=== PATIENT | female | born 2000 | race Caucasian/White ===

== ENCOUNTER 2023-12-06 15:46 | Outpatient (OUT) | payer BC, OTHER, SELFPAY ==
[2023-12-06 16:17] LABS: Basophils Percent Auto 0.4 % (0.2-2.0); Eosinophils Absolute Auto 0.2 10^3/uL (0.0-0.7); Eosinophils Percent Auto 1.4 % (0.9-7.0); Hematocrit 45.3 % (36.0-48.0); Hemoglobin 15.3 g/dL (12.0-16.0); Immature Granulocytes Abs Auto 0.04 10^3/uL (0.00-0.03); Immature Granulocytes Pct Auto 0.4 % (0.0-0.5); Lymphocytes Absolute Auto 3.1 10^3/uL (1.2-3.8); Lymphocytes Percent Auto 28.2 % (20.5-60.0); Mean Corpuscular HGB Conc 33.8 g/dL (29.9-35.2); Mean Corpuscular Hemoglobin 28.8 pg (26.7-34.0); Mean Corpuscular Volume 85.2 fL (81.0-99.0); Mean Platelet Volume 8.4 fL (9.5-13.5); Monocytes Absolute Auto 0.5 10^3/uL (0.3-0.8); Monocytes Percent Auto 4.6 % (1.7-12.0); Neutrophils Absolute Auto 7.1 10^3/uL (1.4-6.5); Platelet Count 360 10^3/uL (150-450); Red Blood Count 5.32 10^6/uL (4.20-5.40); Red Cell Distribution Width 13.2 % (11.0-15.0)
[2023-12-06 16:41] LABS: Alanine Aminotransferase 27 U/L (14-59); Albumin Level 4.3 g/dL (3.4-5.0); Alkaline Phosphatase 95 U/L (46-116); Aspartate Amino Transferase 16 U/L (15-37); Bilirubin Direct 0.1 mg/dL (0.0-0.2); Bilirubin Total 0.5 mg/dL (0.2-1.0); Globulin 4.1 g/dL; Total Protein 8.4 g/dL (6.4-8.2)
== END 2023-12-06 15:47 | disposition home or self-care (01) ==
LOC: LAB 15:52
PROVIDERS: PCP Family Medicine
DX: Z79.899 Other long term (current) drug therapy (principal)
CPT/HCPCS: 36415; 80076; 85025

== ENCOUNTER 2023-12-30 11:47 | Outpatient (OUT) | payer BC, OTHER, SELFPAY ==
[2023-12-30 12:28] LABS: Valproic Acid 23.4 ug/mL (50.0-100.0)
== END 2023-12-30 11:48 | disposition home or self-care (01) ==
LOC: LAB 11:50
PROVIDERS: PCP Family Medicine
DX: Z79.899 Other long term (current) drug therapy (principal)
CPT/HCPCS: 36415; 80164

== ENCOUNTER 2024-01-13 11:11 | Outpatient (OUT) | payer BC, OTHER, SELFPAY ==
--- OUTSIDE RECORDS SUMMARY | 2024-01-13 11:22 | XMS_ITS | CCD ---
Author Name Unknown Address [address] [facility] [id number] [place] [address] Organization [facility] Care Team Providers Care Spinner Open End Name Role Phone Glenna Carlin Primary Care Provider [phone] ANDREA PINTO Consulting Unavailable GLENNA CARLIN Primary Care Unavailable RADHA, JUNGSIK Admitting Unavailable DANIELLE VILLARREAL Attending Unavailable HODA GOODSON Consulting Unavailable RADHA, JUNGSIK Consulting Unavailable Franco Rajput Unavailable BERENICE RAMIREZ Admitting Unavailable HOY ., DR MANZANARES Primary Care Unavailable BERENICE RAMIREZ Attending Unavailable SHYLA, DR JENNIFER Guajardo Consulting Unavailabl e DAVIDY ., DR MANZANARES Primary Care Unavailable SHYLA, DR JENNIFER Guajardo Admitting Unavailabl e REINECK, DR JENNIFER Guajardo Attending Unavailabl e HOY ., DR MANZANARES Primary Care Unavailable HOY ., DR MANZANARES Admitting Unavailable HOY ., DR MANZANARES Attending Unavailable HOY ., DR MANZANARES Consulting Unavailable HOY ., DR MANZANARES Primary Care Unavailable HOY ., DR MANZANARES Admitting Unavailable HOY ., DR MANZANARES Attending Unavailable HOY ., DR MANZANARES Consulting Unavailable HOY ., DR MANZANARES Consulting Unavailable HOY ., DR MANZANARES Primary Care Unavailable BERENICE RAMIREZ Attending Unavailable BERENICE RAMIREZ Admitting Unavailable CHARLINE, DR PURVI Ordaz Consulting Unavailable HOY ., DR MANZANARES Admitting Unavailable HOY ., DR MANZANARES Attending Unavailable HOY ., DR MANZANARES Consulting Unavailable HOY ., DR MANZANARES Primary Care Unavailable HOY ., DR MANZANARES Primary Care Unavailable HOY ., DR MANZANARES Admitting Unavailable HOY ., DR MANZANARES Attending Unavailable HOY ., DR MANZANARES Consulting Unavailable ZIEBER, DR PURVI Ordaz Consulting Unavailable Ruthie, Salvatore Attending Unavailab Salvatore Nagel Admitting Unavailab Glenna Michael Primary Care Unavailable Allergies Allergy Classification Reported Allergen(s) Allergy Type Date of Onset Reaction(s) Facility (1 source) Corticosteroids Drug allergy (disorder) [facility] Repository (1 source) Corticosteroids Drug allergy (disorder) 1 [facility] Repository Medications Current Medications Medication Drug Class(es) Dates Sig (Normalized) Sig (Original) acetaminophen 325 mg / HYDROcodone bitartrate 5 mg oral tablet (4 sources) Opioid Agonist Start: 03-25-2020 End: 03-28-2020 take 1 tablet by mouth every six hours as needed for pain HYDROcodone-aceta minophen (NORCO) 5-325 MG per tablet Indications: Dental abscess Take 1 tablet by mouth every 6 hours as needed for Pain for up to 10 doses. 10 tablet 0 03/25/2020 03/28/2020 Active Start: 03-25-2020 HYDROcodone-ac etaminophen (NORCO) 5-325 MG per tablet 1 tablet Start: 03-23-2020 End: 03-25-2020 HYDROcodone-acetaminophen 7. 5-325 MG per 15ML solution 5 mL ALPRAZolam 0.25 mg oral tablet (1 source) Benzodiazepine Start: 03-25-2020 ALPRAZolam (XANAX) tablet 0.25 mg atomoxetine 25 mg oral capsule (1 source) Norepinephrine Reuptake Inhibitor take 1 capsule by mouth every twenty-four hours Strattera 25 MG 1 capsule Orally Once a day Active chlorhexidine gluconate 1.2 mg/ml mouthwash (2 sources) Start: 03-24-2020 End: 04-01-2020 take 15 mL by mouth twice daily chlorhexidine (PERIDEX) 0.12 % solution Take 15 mLs by mouth 2 times daily for 7 days 210 mL 0 03/25/2020 04/01/2020 Active clindamycin 300 mg oral capsule (3 sources) Lincosamide Antibacterial Start: 03-25-2020 End: 04-01-2020 take 2 capsules by mouth every eight hours clindamycin (CLEOCIN) 300 MG capsule Take 2 capsules by mouth every 8 hours for 7 days 42 capsule 0 03/25/2020 04/01/2020 Active Start: 03-25-2020 clindamycin (C LEOCIN) capsule 600 mg Start: 03-24-2020 End: 03-24-2020 900 mg, Intravenous, EVERY 8 HOURS, First dose on Tue03/24/20 at 0130, Until Discontinued DULoxetine 60 mg delayed release oral capsule (2 sources) Serotonin and Norepinephrine Reuptake Inhibitor Start: 03-23-2019 take 2 capsules by mouth once daily DULoxetine (CYMBALTA) 60 MG extended release capsule Take 120 mg by mouth daily Every night 0 03/23/2019 Active take 1 capsule by [facility] every twenty-four hours Cymbalta 60 MG 1 capsule Orally Once a day Active morphine (PF) injection 2 mg (1 source) Start: 03-24-2020 morphine (PF) injection 2 mg omeprazole 40 mg delayed release oral capsule (1 source) Proton Pump Inhibitor take 1 capsule by mouth once daily Omeprazole 40 MG 1 capsule 30 minutes before morning meal Orally Once a day for 30 day(s) Active 2 ml ondansetron 2 mg/ml injection (1 source) Serotonin-3 Receptor Antagonist Start: 03-25-2020 ondansetron (ZOFRAN) injection 4 mg Completed/Discontinued Medications Medication Drug Class(es) Dates Sig (Normalized) Sig (Original) 2 ml fentaNYL 0.05 mg/ml injection (2 sources) Opioid Agonist Start: 03-24-2020 End: 03-24-2020 fentaNYL (SUBLIMAZE) injection 50 mcg 1 ml HYDROmorphone hydrochloride 1 mg/ml cartridge (2 sources) Opioid Agonist Start: 03-24-2020 End: 03-24-2020 HYDROmorphone (DILAUDID) injection 1 mg Start: 03-24-2020 End: 03-24-2020 HYDROmorphone (DILAUDID) 1 M G/ML injection 1 ml ketorolac tromethamine 30 mg/ml cartridge (1 source) Nonsteroidal Anti-inflammatory Drug, Cyclooxygenase Inhibitor Start: 03-23-2020 End: 03-23-2020 ketorolac (TORADOL) injection 30 mg 1 ml LORazepam 2 mg/ml injection (1 source) Benzodiazepine Start: 03-25-2020 End: 03-25-2020 LORazepam (ATIVAN) injection 1 mg Start: 03-25-2020 End: 03-25-2020 LORazepam (ATIVAN) injection 1 mg 1 ml morphine sulfate 4 mg/ml cartridge (1 source) Opioid Agonist Start: 03-23-2020 End: 03-23-2020 morphine injection 2 mg 1000 ml sodium chloride 9 mg/ml injection (1 source) Start: 03-24-2020 End: 03-24-2020 Intravenous, at 75 mL/hr, CONTINUOUS, Starting 03/24/20 at 0115 Problems Active Problems Problem Classification Problem Date Documented Date Episodic/Chronic Diseases of mouth; excluding dental (4 sources) Abscess of oral tissue; Translations: [Abscess of submandibular region] Onset: 03-23-2020 03-23-2020 Episodic Disorders of teeth and jaw (1 source) Dental abscess; Translations: [Dental abscess] Episodic Esophageal disorders (1 source) Gastroesophageal reflux disease; Translations: [Gastro-esophageal reflux disease without esophagitis] Chronic Essential hypertension (1 source) Essential (primary) hypertension; Translations: [ESSENTIAL PRIMARY HYPERTENSION] Onset: 11-22-2022 Chronic Malaise and fatigue (1 source) Weakness; Translations: [WEAKNESS] Onset: 12-20-2022 Episodic Other circulatory disease (2 sources) Elevated blood-pressure reading without diagnosis of hypertension; Translations: [Elevated blood pressure reading without diagnosis of hypertension] Onset: 03-24-2020 03-24-2020 Episodic Other nervous system disorders (4 sources) Compression of brain; Translations: [COMPRESSION OF BRAIN] Onset: 12-16-2022 Chronic Residual codes; unclassified (4 sources) Obstructive sleep apnea (adult) (pediatric); Translations: [OBSTRUCTIVE SLEEP APNEA] Onset: 02-23-2023 Chronic Past or Other Problems Problem Classification Problem Date Documented Da te Episodic/Chronic Deficiency and other anemia (1 source) Anemia, unspecified; Translations: [ANEMIA UNSPECIFIED] Onset: 11-22-2022 Episodic Diabetes mellitus without complication (1 source) Other abnormal glucose; Translations: [OTHER ABNORMAL GLUCOSE] Onset: 11-22-2022 Episodic E Codes: Cut/pierceb (1 source) Contact with sharp glass, initial encounter; Translations: [CONTACT W/SHARP GLASS INITIAL ENC] Onset: 08-31-2022 Episodic Gastritis and duodenitis (2 sources) Gastritis; Translations: [Gastritis, unspecified, without bleeding] Onset: 07-29-2021 Resolved: 07-29-2021 Episodic Nausea and vomiting (1 source) Nausea; Translations: [Nausea] Episodic Open wounds of extremities (4 sources) Puncture wound without foreign body of left hand, initial encounter; Translations: [PUNCTURE WOUND W/O FB LT HAND INIT] Onset: 08-30-2022 Episodic Other disorders of stomach and duodenum (1 source) Indigestion; Translations: [Functional dyspepsia] Episodic Other gastrointestinal disorders (1 source) Loose stool; Translations: [Other fecal abnormalities] Episodic Other gastrointestinal disorders (1 source) Alteration in bowel elimination; Translations: [Change in bowel habit] Episodic Other nervous system disorders (1 source) Unspecified disturbances of skin sensation; Translations: [UNS DISTURBANCES OF SKIN SENSATION] Onset: 11-22-2022 Episodic Other non-traumatic joint disorders (4 sources) Pain in left knee; Translations: [PAIN IN LEFT KNEE] Onset: 11-16-2022 Episodic Other screening for suspected conditions (not mental disorders or infectious disease) (1 source) Encounter for screening for malignant neoplasm of rectum; Translations: [ENC SCREEN MALIG NEOPLASM RECTUM] Onset: 11-22-2022 Episodic Residual codes; unclassified (1 source) Family history of inflammatory bowel disease; Translations: [Family history of other diseases of the digestive system] Episodic Results Test Name Value Interpretation Reference Range Facility MRI BRAIN WO CONon 3 MRI BRAIN WO CON EXAMINATION: MRI BRAIN WO CON, 12/16/2022 9:20 AM EST HISTORY: Compression of brain , Chiari malformation, chronic weakness, right occipital region swelling/lump COMPARISON: MRI brain 07/27/2017 TECHNIQUE: MRI of the brain was performed without IV contrast. FINDINGS: CEREBRUM: No edema, hemorrhage, mass, acute infarction, or inappropriate atrophy. CEREBELLUM: The cerebellar tonsils extend to, but not below the foramen magnum. No edema, hemorrhage, mass, acute infarction, or inappropriate atrophy. BRAINSTEM: No edema, hemorrhage, mass, acute infarction, or inappropriate atrophy. CSF SPACES: Ventricles, cisterns, and sulci are appropriate for age. No hydrocephalus, subarachnoid hemorrhage, or mass. SKULL: No mass or other significant visible lesion. SINUSES: Limited views demonstrate no significant mucosal thickening or fluid. ORBITS: Limited views are unremarkable. OTHER: Negative. IMPRESSION: 1. The cerebellar tonsils no longer extend below the foramen magnum. 2. Normal MRI appearance of the brain. Electronically authenticated by: PURVI OLIVIER Date: 2022-12-16 10:55 Normal [facility] MATEO by IFAon 11-18-2022 Antinuclear Antibodies, IFA Negative Normal [facility] Comment on above: Result Comment: Nega tive <1:80 Borderline 1:80 Positive >1:80 ICAP nomenclature: AC-[id number] For more information about Hep-2 cell patterns use ANApatterns.org, the official website for the International Consensus on Antinuclear Antibody (MATEO) Patterns (ICAP). Performed By: #### A NAIFA #### [facility] [address] [place] [address] Dr. Alfred Issa MATEO DIRECTon 11-17-2022 MATEO Direct Negative Normal Negative [facility] Comment on above: Performed By: #### A NAD #### [facility] [address] [place] [address] Dr. Alfred Issa ANTISTREPTOLYSIN O AB (ASO)o n 11-17-2022 Antistreptolysin O Ab 29.0 IU/mL Normal 0.0-200.0 [facility] Comment on above: Performed By: #### A SOAB #### [facility] [address] [place] [address] Dr. Alfred Issa C3 and C4 COMPLEMENTon 11-17 Complement C3, Serum 181 mg/dL Critically high 82-167 [facility] Comment on above: Performed By: #### C SUITE #### [facility] [address] [place] [address] Dr. Alfred Issa Complement C4, Serum 28 mg/dL Normal 12-38 [facility] Comment on above: Performed By: #### C SUITE #### [facility] [address] [place] [address] Dr. Alfred Issa INSULINon 11-17-2022 Insulin 29.2 uIU/mL Critically high 2.6-24.9 [facility] Comment on above: Performed By: #### I NSULIN #### [facility] [address] [place] [address] Dr. Alfred Issa SLE PROFILE Aon 11-17-2022 Anti-DNA (DS) Ab Qn 1 IU/mL Normal 0-9 [facility] Comment on above: Result Comment: Nega tive <5 Equivocal 5 - 9 Positive >9 Performed By: #### S RENAN #### [facility] [address] [address] [address] Alfred Issa Antichromatin Antibodies <0.2 Normal 0.0-0.9 [facility] Comment on above: Performed By: #### S RENAN #### [facility] [address] [address] [address] Alfred Issa RA Latex Turbid. <10.0 Normal <14.0 [facility] Comment on above: Performed By: #### S RENAN #### [facility] [address] [address] [address] Alfred Issa INVESTIGATIONS CONSULTANT Antibodies <0.2 Normal 0.0-0.9 [facility] Comment on above: Performed By: #### S RENAN #### [facility] [address] [address] [address] Alfred Issa Sjogren's Anti-SS-A <0.2 Normal 0.0-0.9 [facility] Comment on above: Performed By: #### S RENAN #### [facility] [address] [address] [address] Alfred Issa Sjogrelio's Anti-SS-B <0.2 Normal 0.0-0.9 [facility] Comment on above: Performed By: #### S RENAN #### [facility] [address] [address] [address] Alfred Issa Mckinney Antibodies <0.2 Normal 0.0-0.9 [facility] Comment on above: Performed By: #### S RENAN #### [facility] [address] [address] [address] Alfred Issa CBC AUTO DIFFon 11-16-2022 BASO # 0.0 103/ul Normal 0.0-0.1 [facility] Comment on above: Performed By: #### C BC #### [facility] [address] [address] [address] Alfred Issa Basophils/100 WBC (Bld) 0.4 % Normal 0.2-2.0 [facility] Comment on above: Performed By: #### C BC #### [facility] [address] [place] [address] Dr. Alfred Issa EO # 0.1 103/ul Normal 0.0-0.7 [facility] Comment on above: Performed By: #### C BC #### [facility] [address] [place] [address] Dr. Alfred Issa Eosinophils/100 WBC (Bld) 1.0 % Normal 0.9-7.0 [facility] Comment on above: Performed By: #### C BC #### [facility] [address] [place] [address] Dr. lAfred Issa Erythrocyte distribution width (RBC) [Ratio] 13.1 % Normal 11.0-15.0 [facility] Comment on above: Performed By: #### C BC #### [facility] [address] [place] [address] Dr. Alfred Issa Hematocrit (Bld) [Volume fraction] 43.9 % Normal 36.0-48.0 [facility] Comment on above: Performed By: #### C BC #### [facility] [address] [place] [address] Dr. Alfred Issa Hemoglobin (Bld) [Mass/Vol] 14.8 g/dL Normal 12.0-16.0 [facility] Comment on above: Performed By: #### C BC #### [facility] [address] [place] [address] Dr. Alfred Issa IG # 0.05 10e3/ul Critically high 0.00-0.03 [facility] Comment on above: Performed By: #### C BC #### [facility] [address] [place] [address] Dr. Alfred Issa IG % 0.5 % Normal 0.0-0.5 [facility] Comment on above: Performed By: #### C BC #### [facility] [address] [place] [address] Dr. Alfred Isas LYMPH # 2.7 103/ul Normal 1.2-3.8 [facility] Comment on above: Performed By: #### C BC #### [facility] [address] [place] [address] Dr. Alfred Issa Lymphocytes/100 WBC (Bld) 26.5 % Normal 20.5-60.0 [facility] Comment on above: Performed By: #### C BC #### [facility] [address] [place] [address] Dr. Alfred Issa MANUAL DIFF REQ NO Normal [facility] Comment on above: Performed By: #### C BC #### [facility] [address] [place] [address] Dr. Alfred Issa MCH (RBC) [Entitic mass] 27.5 pg Normal 26.7-34.0 [facility] Comment on above: Performed By: #### C BC #### [facility] [address] [place] [address] Dr. Alfred Issa MCHC (RBC) [Mass/Vol] 33.7 g/dL Normal 29.9-35.2 [facility] Comment on above: Performed By: #### C BC #### [facility] [address] [place] [address] Dr. Alfred Issa MCV (RBC) [Entitic vol] 81.4 fL Normal 81.0-99.0 [facility] Comment on above: Performed By: #### C BC #### [facility] [address] [place] [address] Dr. Alfred Issa MONO # 0.5 103/ul Normal 0.3-0.8 [facility] Comment on above: Performed By: #### C BC #### [facility] [address] [place] [address] Dr. Alfred Issa Monocytes/100 WBC (Bld) 4.9 % Normal 1.7-12.0 [facility] Comment on above: Performed By: #### C BC #### [facility] [address] [place] [address] Dr. Alfred Issa NEUT # 6.7 103/ul Critically high 1.4-6.5 [facility] Comment on above: Performed By: #### C BC #### [facility] [address] [address] [address] Alfrde Issa Neutrophils/100 WBC (Bld) 66.7 % Normal 43.0-75.0 [facility] Comment on above: Performed By: #### C BC #### [facility] [address] [address] [address] Alfred Issa Platelet mean volume (Bld) [Entitic vol] 8.4 fL Critically low 9.5-13.5 [facility] Comment on above: Performed By: #### C BC #### [facility] [address] [address] [address] Alfred Issa PLT 312 103/ul Normal 150-450 [facility] Comment on above: Performed By: #### C BC #### [facility] [address] [address] [address] Alfred Issa RBC 5.39 106/ul Normal 4.20-5.40 [facility] Comment on above: Performed By: #### C BC #### [facility] [address] [address] [address] Alfred Issa WBC 10.1 103/ul Normal 4.0-11.0 [facility] Comment on above: Performed By: #### C BC #### [facility] [address] [address] [address] Alfred Issa CRPon 11-16-2022 CRP 0.7 mg/dL Normal <=1.0 [facility] Comment on above: Performed By: #### L IPID, TSH, T7, URIC, CRP, CMP ####[facility] [address] [id number]. Alfred Issa FREE THYROXINE INDEX T7on FTI 3.50 Normal 1.30-4.50 [facility] Comment on above: Performed By: #### L IPID, TSH, T7, URIC, CRP, CMP ####[facility] [address] [id number]. Alfred Issa T3U 34.0 % Normal 30.0-39.0 [facility] Comment on above: Performed By: #### L IPID, TSH, T7, URIC, CRP, CMP ####[facility] [address] [address]Dr. Alfred Issa T4 [Mass/Vol] 10.30 ug/dL Normal 4.80-13.90 [facility] Comment on above: Performed By: #### L IPID, TSH, T7, URIC, CRP, CMP ####[facility] [address] [address]DrJoe Issa GLYCOHEMOGLOBIN A1Con 2022 ADA RECOMMENDATION SEE BELOW Normal [facility] Comment on above: Result Comment: ADA RECOMMENDED LIMIT 4.0 - 6.0 ADA THERAPEUTIC TARGET < 7.0 ACTION SUGGESTED > 7.0 Performed By: #### A 1C #### [facility] [address] [address] [address] Alfred Issa Glucose [Mass/Vol] 108 mg/dL Normal [facility] Comment on above: Performed By: #### A 1C #### [facility] [address] [address] [address] Alfred Issa HbA1c (Bld) [Mass fraction] 5.4 % Normal 4.5-6.2 [facility] Comment on above: Performed By: #### A 1C #### [facility] [address] [address] [address] Alfred Issa IRONon 11-16-2022 Iron [Mass/Vol] 127.0 ug/dL Normal 50.0-170.0 [facility] Comment on above: Performed By: #### I LEIGH ANN #### [facility] [address] [address] [address] Alfred Issa LIPID PROFILEon 11-16-2022 CHOL-HDL RATIO NORM SEE BELOW Normal [facility] Comment on above: Result Comment: 3.3 - 4.4 LOW RISK 4.4 - 7.1 AVERAGE RISK 7.1 - 11.0 MODERATE RISK >11.0 HIGH RISK Performed By: #### L IPID, TSH, T7, URIC, CRP, CMP ####[facility] [address] [id number]. Alfred Issa Cholesterol [Mass/Vol] 197 mg/dL Normal <=200 [facility] Comment on above: Performed By: #### L IPID, TSH, T7, URIC, CRP, CMP ####[facility] [address] [id number]. Alfred Issa Cholesterol in HDL [Mass/Vol] 39 mg/dL Critically low 40-60 [facility] Comment on above: Performed By: #### L IPID, TSH, T7, URIC, CRP, CMP ####[facility] [address] [id number]. Alfred Issa Cholesterol in LDL [Mass/Vol] 116.8 mg/dL Normal [facility] Comment on above: Performed By: #### L IPID, TSH, T7, URIC, CRP, CMP ####[facility] [address] [address]Dr. Alfred Issa Cholesterol.total/Chol esterol in HDL [Mass ratio] 5.1 {ratio} Normal [facility] Comment on above: Performed By: #### L IPID, TSH, T7, URIC, CRP, CMP ####[facility] [address] [id number]. Alfred Issa HDL NORMAL > or = 60 mg/dl - LOW CARDIOVASCULAR RISK <40 mg/dl - HIGH CARDIOVASCULAR RISK Normal [facility] Comment on above: Performed By: #### L IPID, TSH, T7, URIC, CRP, CMP ####[facility] [address] [id number]. Alfred Issa LDL CALC NORMAL SEE BELOW Normal [facility] Comment on above: Result Comment: <100 mg/dl OPTIMAL 100 - 129 mg/dl NEAR OR ABOVE OPTIMAL 130 - 159 mg/dl BORDERLINE HIGH 160 - 189 mg/dl HIGH >190 mg/dl VERY HIGH Performed By: #### L IPID, TSH, T7, URIC, CRP, CMP ####[facility] [address] [id number]. Alfred Issa Triglyceride [Mass/Vol] 206 mg/dL Critically high <=150 [facility] Comment on above: Performed By: #### L IPID, TSH, T7, URIC, CRP, CMP ####[facility] [address] [address]Dr. Alfred Issa VLDL CALC 41.2 mg/dL Normal [facility] Comment on above: Performed By: #### L IPID, TSH, T7, URIC, CRP, CMP ####[facility] [address] [address]Dr. Alfred Issa OCC BLD IMMUNO SCREENon 10-31 OCCULT BLOOD Negative Normal NEGATIVE [facility] Comment on above: Performed By: #### O BSCRN ####[facility] [address] [address]Dr. Alfred Issa PROF 14(COMP METB)on 023 Albumin [Mass/Vol] 4.0 g/dL Normal 3.4-5.0 [facility] Comment on above: Performed By: #### L IPID, TSH, T7, URIC, CRP, CMP ####[facility] [address] [address]Dr. Alfred Issa Albumin/Globulin [Mass ratio] 1.1 {ratio} Normal [facility] Comment on above: Performed By: #### L IPID, TSH, T7, URIC, CRP, CMP ####[facility] [address] [address]Dr. Alfred Issa ALP [Catalytic activity/Vol] 104 U/L Normal 46-116 [facility] Comment on above: Performed By: #### L IPID, TSH, T7, URIC, CRP, CMP ####[facility] [address] [address]Dr. Alfred Issa ALT [Catalytic activity/Vol] 26 U/L Normal 14-59 [facility] Comment on above: Performed By: #### L IPID, TSH, T7, URIC, CRP, CMP ####[facility] [address] [address]Dr. Alfred Issa Anion gap [Moles/Vol] 13.2 mmol/L Normal Th [facility] Comment on above: Performed By: #### L IPID, TSH, T7, URIC, CRP, CMP ####[facility] [address] [place] [address]Dr. Alfred Issa AST [Catalytic activity/Vol] 20 U/L Normal 15-37 [facility] Comment on above: Performed By: #### L IPID, TSH, T7, URIC, CRP, CMP ####[facility] [address] [place], [place] [address]Dr. Alfred Issa Bilirubin [Mass/Vol] 0.6 mg/dL Normal 0.2-1.0 [facility] Comment on above: Performed By: #### L IPID, TSH, T7, URIC, CRP, CMP ####[facility] [address] [place], [place] [address]Dr. Alfred Issa Calcium [Mass/Vol] 9.3 mg/dL Normal 8.5-10.1 [facility] Comment on above: Performed By: #### L IPID, TSH, T7, URIC, CRP, CMP ####[facility] W[address] [place], [place] [address]Dr. Alfred Issa Chloride [Moles/Vol] 100 mmol/L Normal 98-107 [facility] Comment on above: Performed By: #### L IPID, TSH, T7, URIC, CRP, CMP ####[facility] [address] [place], [place] [address]Dr. Alfred Issa CO2 [Moles/Vol] 26.6 mmol/L Normal 21.0-32.0 [facility] Comment on above: Performed By: #### L IPID, TSH, T7, URIC, CRP, CMP ####[facility] [address] [place], [place] [address]Dr. Alfred Issa Creatinine [Mass/Vol] 0.56 mg/dL Normal 0.55-1.02 [facility] Comment on above: Performed By: #### L IPID, TSH, T7, URIC, CRP, CMP ####[facility] [address] [place], [place] [address]Dr. Alfred Issa EGFR-AF QATARI >60 Normal >=60 [facility] Comment on above: Performed By: #### L IPID, TSH, T7, URIC, CRP, CMP ####[facility] [address] [place] [address]Dr. Alfred Issa EGFR-NON AF QATARI >60 Normal >=60 [facility] Comment on above: Performed By: #### L IPID, TSH, T7, URIC, CRP, CMP ####[facility] [address] [place] [address]Dr. Alfred Issa Globulin (S) [Mass/Vol] 3.5 g/dL Normal [facility] Comment on above: Performed By: #### L IPID, TSH, T7, URIC, CRP, CMP ####[facility] [address] [place] [address]Dr. Alfred Issa Glucose [Mass/Vol] 112 mg/dL Critically high 74-106 [facility] Comment on above: Performed By: #### L IPID, TSH, T7, URIC, CRP, CMP ####[facility] [address] [place], [place] [address]Dr. Alfred Issa Potassium [Moles/Vol] 3.8 mmol/L Normal 3.5-5.1 [facility] Comment on above: Performed By: #### L IPID, TSH, T7, URIC, CRP, CMP ####[facility] [address] [place] [address]Dr. Alfred Issa Protein [Mass/Vol] 7.5 g/dL Normal 6.4-8.2 [facility] Comment on above: Performed By: #### L IPID, TSH, T7, URIC, CRP, CMP ####[facility] [address] [place] [address]Dr. Alfred Issa Sodium [Moles/Vol] 136 mmol/L Normal 136-145 [facility] Comment on above: Performed By: #### L IPID, TSH, T7, URIC, CRP, CMP ####[facility] [address] [place] [address]Dr. Alfred Issa Urea nitrogen [Mass/Vol] 8.0 mg/dL Normal 7.0-18.0 [facility] Comment on above: Performed By: #### L IPID, TSH, T7, URIC, CRP, CMP ####[facility] [address] [place] [id number]. Alfred Issa Urea nitrogen/Creatinine [Mass ratio] 14.3 mg/mg Normal [facility] Comment on above: Performed By: #### L IPID, TSH, T7, URIC, CRP, CMP ####[facility] [address] [place] [id number]. Alfred Issa TSHon 11-16-2022 TSH 1.787 uIU/mL Normal 0.358-3.740 [facility] Comment on above: Performed By: #### L IPID, TSH, T7, URIC, CRP, CMP ####[facility] [address] [place] [id number]. Alfred Issa URIC ACID SERUMon 11-16-2022 Urate [Mass/Vol] 5.3 mg/dL Normal 2.6-6.0 [facility] Comment on above: Performed By: #### L IPID, TSH, T7, URIC, CRP, CMP ####[facility] [address] [place] [id number]. Alfred Issa Cult,Aerobe/Anaerobeon 03-29 Cult,Aerobe/Anaerobe Specimen Descriptio n .FACE RIGHT .ABSCESS SWAB Special Requests NOT REPORTED Direct Exam FEW NEUTROPHILS RARE GRAM POSITIVE COCCI IN PAIRS Culture HAEMOPHILUS PARAINFLUENZAE SCANT GROWTH BETA LACTAMASE NEGATIVE NORMAL MAGALYS MIXED ANAEROBIC MAGALYS Report Status FINAL 03/29/2020 [facility] Comment on above: Performed By: #### A ANC #### [facility] [place], [place] [id number] Autobody Technician: Wilfredo Keyes MD Basic Metab w/rfx MGon 03-24 (cont.) [facility] Comment on above: Result Comment: Aver age GFR for 20-29 years old: 116 mL/min/1.73sq m Chronic Kidney Disease: <60 mL/min/1.73sq m Kidney failure: <15 mL/min/1.73sq m eGFR calculated using average adult body mass. Additional eGFR calculator available at: http://www.[employer]/multiple_crcl_2012.htm Performed By: #### C HOSEA BMPX, PT #### [facility] [address] [place] [address] Autobody Technician: Wilfredo Keyes MD Anion gap [Moles/Vol] 15 mmol/L Normal 9-17 [facility] Comment on above: Performed By: #### C HOSEA BMPX, PT #### [facility] [address] [place] [address] Autobody Technician: Wilfredo Keyes MD Calcium [Mass/Vol] 9.0 mg/dL Normal 8.6-10.4 [facility] Comment on above: Performed By: #### Koffi JC BMPX, PT #### [facility] [address] [place] [address] Autobody Technician: Wilfredo Keyes MD Chloride [Moles/Vol] 99 mmol/L Normal 98-107 [facility] Comment on above: Performed By: #### C HOSEA BMPX, PT #### [facility] [address] [place] [address] Autobody Technician: Wilfredo Keyes MD CO2 [Moles/Vol] 25 mmol/L Normal 20-31 [facility] Comment on above: Performed By: #### C HOSEA BMPX, PT #### [facility] [address] [place] [address] Autobody Technician: Wilfredo Keyes MD Creatinine [Mass/Vol] 0.45 mg/dL Low 0.50-0.90 [facility] Comment on above: Performed By: #### C HOSEA BMPX, PT #### [facility] [address] [place] [address] Autobody Technician: Wilfredo Keyes MD GFR, Amer >60 Normal >60 [facility] Comment on above: Performed By: #### C BC, BMPX, PT #### [facility] [address] [place] [address] Autobody Technician: Wilfredo Keyes MD GFR,non Amer >60 Normal >60 [facility] Comment on above: Performed By: #### C BC BMPX, PT #### [facility] [address] [place] [address] Autobody Technician: Wilfrdeo Keyes MD Glucose [Mass/Vol] 90 mg/dL Normal 70-99 [facility] Comment on above: Performed By: #### C HOSEA BMPX, PT #### [facility] [address] [place] [address] Autobody Technician: Wilfredo Keyes MD Potassium [Moles/Vol] 3.7 mmol/L Normal 3.7-5.3 [facility] Comment on above: Performed By: #### C HOSEA BMPX, PT #### [facility] [address] [place] [address] Autobody Technician: Wilfredo Keyes MD Sodium [Moles/Vol] 139 mmol/L Normal 135-144 [facility] Comment on above: Performed By: #### C HOSEA BMPX, PT #### [facility] [address] [place] [address] Autobody Technician: Wilfredo Keyes MD Urea nitrogen [Mass/Vol] 8 mg/dL Normal 6-20 [facility] Comment on above: Performed By: #### C BC, BMPX, PT #### [facility] [address] [place] [address] Autobody Technician: Wilfredo Keyes MD BUN/CRE Ratio NOT REPORTED Normal 9-20 [facility] Comment on above: Performed By: #### C BC, BMPX, PT #### [facility] [address] [place] [address] Autobody Technician: Wilfredo Keyes MD Staging: NOT REPORTED Normal [facility] Comment on above: Performed By: #### C BC, BMPX, PT #### [facility] [address] [place], [place] [phone] Autobody Technician: Wilfredo Keyes MD Basic Metabolic Panel w/ Ref rodríguez to MGon 03-24-2020 Anion gap [Moles/Vol] 15 mmol/L 9 - 17 mmol/L [place], [place] Bun/Cre Ratio NOT REPORTED [place], [place] Calcium [Mass/Vol] 9.0 mg/dL 8.6 - 10. 4 mg/dL [place] Chloride [Moles/Vol] 99 mmol/L 98 - 10 7 mmol/L [place] CO2 [Moles/Vol] 25 mmol/L 20 - 31 mmol/L [place] Creatinine [Mass/Vol] 0.45 mg/dL Low 0.5 - 0.9 mg/dL [place] GFR >60 >60 mL/min [place] GFR Non- >60 >60 mL/min [place] GFR/1.73 sq M predicted among non-blacks MDRD (S/P/Bld) [Vol rate/Area] NOT REPORTED [place] GFR/1.73 sq M predicted among non-blacks MDRD (S/P/Bld) [Vol rate/Area] [place] Comment on above: Average GFR for 20-2 9 years old: 116 mL/min/1.73sq m Chronic Kidney Disease: <60 mL/min/1.73sq m Kidney failure: <15 mL/min/1.73sq m eGFR calculated using average adult body mass. Additional eGFR calculator available at: http://www.[employer]/multiple_crcl_2012.htm Glucose [Mass/Vol] 90 mg/dL 70 - 99 mg/dL [place] Interpretation and review of laboratory results Abnormal [place] Potassium [Moles/Vol] 3.7 mmol/L 3.7 - 5.3 mmol/L [place] Sodium [Moles/Vol] 139 mmol/L 135 - 144 mmol/L [place] Urea nitrogen [Mass/Vol] 8 mg/dL 6 - 20 mg/dL [place] CBCon 03-24-2020 Erythrocyte distribution width (RBC) [Ratio] 12.6 % Normal 11.8-14.4 [facility] Comment on above: Performed By: #### C BC, BMPX, PT #### [facility] [address] [place] [address] Autobody Technician: Wilfredo Keyes MD Hematocrit (Bld) [Volume fraction] 41.9 % Normal 36.3-47.1 [facility] Comment on above: Performed By: #### C HOSEA BMPX, PT #### [facility] [address] [place] [address] Autobody Technician: Wilfredo Keyes MD Hemoglobin (Bld) [Mass/Vol] 14.2 g/dL Normal 11.9-15.1 [facility] Comment on above: Performed By: #### C BC, BMPX, PT #### [facility] [address] [place] [address] Autobody Technician: Wilfredo Keyes MD MCH (RBC) [Entitic mass] 28.9 pg Normal 25.2-33.5 [facility] Comment on above: Performed By: #### C BC, BMPX, PT #### [facility] [address] [place] [address] Autobody Technician: Wilfredo Keyes MD MCHC (RBC) [Mass/Vol] 33.9 g/dL Normal 28.4-34.8 [facility] Comment on above: Performed By: #### C BC, BMPX, PT #### [facility] [address] [place] [address] Autobody Technician: Wilfredo Keyes MD MCV (RBC) [Entitic vol] 85.3 fL Normal 82.6-102.9 [facility] Comment on above: Performed By: #### C BC, BMPX, PT #### [facility] [address] [place] [address] Autobody Technician: Wilfredo Keyes MD NRBC Automated 0.0 per 100 WBC Normal 0.0 [facility] Comment on above: Performed By: #### C BC, BMPX, PT #### [facility] [address] [place] [address] Autobody Technician: Wilfredo Keyes MD Platelet mean volume (Bld) [Entitic vol] 8.5 fL Normal 8.1-13.5 [facility] Comment on above: Performed By: #### C HOSEA, BMPX, PT #### [facility] [address] [place] [address] 413[address] Autobody Technician: Wilfredo Keyes MD Platelets (Bld) [#/Vol] 256 10*3/uL Normal 138-453 [facility] Comment on above: Performed By: #### C HOSEA, BMPX, PT #### [facility] [address] [place] [address] Autobody Technician: Wilfredo Keyes MD RBC (Bld) [#/Vol] 4.91 10*6/uL Normal 3.95-5.11 [facility] Comment on above: Performed By: #### C BC, BMPX, PT #### [facility] [address] [place] [address] Autobody Technician: Wilfredo Keyes MD WBC (Bld) [#/Vol] 10.0 10*3/uL Normal 4.5-13.5 [facility] Comment on above: Performed By: #### C HOSEA, BMPX, PT #### [facility] [address] [place] [address] Autobody Technician: Wilfredo Keyes MD Erythrocyte distribution width (RBC) [Ratio] 12.6 % 11.8 - 14.4 % [place] Hematocrit (Bld) [Volume fraction] 41.9 % 36.3 - 47.1 % [place] Hemoglobin (Bld) [Mass/Vol] 14.2 g/dL 11.9 - 15.1 g/dL [place] MCH (RBC) [Entitic mass] 28.9 pg 25.2 - 33.5 pg [place] MCHC (RBC) [Mass/Vol] 33.9 g/dL 28.4 - 34.8 g/dL [place] MCV (RBC) [Entitic vol] 85.3 fL 82.6 - 102.9 fL [place] Platelet mean volume (Bld) [Entitic vol] 8.5 fL 8.1 - 13.5 fL [place] Platelets (Bld) [#/Vol] 256 10*3/uL [place] RBC (Bld) [#/Vol] 4.91 10*6/uL 3.95 - 5.1 1 m/uL [place] WBC (Bld) [#/Vol] 0.0 10*3/uL 0.0 per 10 0 WBC [place] WBC (Bld) [#/Vol] 10.0 10*3/uL [place] COVID-19on 03-24-2020 SARS-CoV-2 Not Detected Not Detected [place] Comment on above: The specimen is NEGATIVE for SARS-CoV-2, the novel coronavirus associated with COVID-19. A negative result does not rule out COVID-19. This test has been authorized by the FDA under an Emergency Use Authorization (EUA) for use by authorized laboratories. Fact sheet for Healthcare Providers: https://www.fda.gov/media/298882/download Fact sheet for Patients: https://www.fda.gov/media/229359/download METHODOLOGY: RT-PCR SARS-CoV-2, PCR [place] SARS-CoV-2, Rapid [facility] [place], [place] Source .NASOPHARYNGEAL SWAB [place], [place] Gram Stainon 03-24-2020 Microscopic observation Gram stain Nom (Unsp spec) Specimen Description .FACE RIGHT .ABSCESS SWAB Special Requests NOT REPORTED Direct Exam DUPLICATE ORDER GRAM STN INCLUDED WITH CULTURE Report Status FINAL 03/24/2020 Normal [facility] Comment on above: Performed By: #### G S #### [address] [phone] Autobody Technician: Wilfredo Keyes MD Direct Exam DUPLICATE ORDER GRAM STN INCLUDED WITH CULTURE [place] Special Requests NOT REPORTED [place] Specimen Description .FACE RIGHT [place] HCG, ,Urineon 03-24 Beta HCG ( test) Ql (U) Negative Normal NEG [facility] Comment on above: Result Comment: Spec imens with hCG levels near the threshold of the test (25 mIU/mL) may give a negative or indeterminate result. In such cases, another test should be performed with a new specimen in 48-72 hours. If early is suspected clinically in this setting, correlation with quantitative serum b-hCG level is suggested. Performed By: #### U HCG #### [facility] [address] [place] [address] [phone] Autobody Technician: Wilfredo Keyes MD PTon 03-24-2020 INR Coag (PPP) [Relative time] 1.0 {INR} Normal [facility] Comment on above: Result Comment: Therapeutic Range: Moderate Anticoagulant Intensity: INR = 2.0-3.0 High Anticoagulant Intensity: INR = 2.5-3.5 Performed By: #### C BC, BMPX, PT #### [facility] [address] [place] [address] [phone] Autobody Technician: Wilfredo Keyes MD PT Coag (PPP) [Time] 10.7 s Normal 9.0-12.0 [facility] Comment on above: Performed By: #### C BC, BMPX, PT #### [facility] [address] [place] [address] [phone] Autobody Technician: Wilfredo Keyes MD , urine pre-opon Beta HCG ( test) Ql (U) Negative NEGATIVE [place] Comment on above: Specimens with hCG l evels near the threshold of the test (25 mIU/mL) may give a negative or indeterminate result. In such cases, another test should be performed with a new specimen in 48-72 hours. If early is suspected clinically in this setting, correlation with quantitative serum b-hCG level is suggested. Protime-INRon 03-24-2020 INR Coag (PPP) [Relative time] 1.0 {INR} [place] Comment on above: Therapeutic Range: Moderate Anticoagulant Intensity: INR = 2.0-3.0 High Anticoagulant Intensity: INR = 2.5-3.5 PT Coag (PPP) [Time] 10.7 s [place] [id number] 03-24-2020 SARS-CoV-2,Rapid Normal [facility] Comment on above: Performed By: #### C OVID #### [facility] [address] [place] [address] [phone] Autobody Technician: Wilfredo Keyes MD SARS-CoV-2 [facility] Comment on above: Performed By: #### C OVID #### [facility] [address] [place] [address] [phone] Autobody Technician: Wilfredo Keyes MD SARS-CoV-2 Not Detected Normal NOTDET [facility] Comment on above: Result Comment: The specimen is NEGATIVE for SARS-CoV-2, the novel coronavirus associated with COVID-19. A negative result does not rule out COVID-19. This test has been authorized by the FDA under an Emergency Use Authorization (EUA) for use by authorized laboratories. Fact sheet for Healthcare Providers: https://www.fda.gov/media/525747/download Fact sheet for Patients: https://www.fda.gov/media/664318/download METHODOLOGY: RT-PCR Performed By: #### C OVID #### [facility] [address] [place] [address]44 Autobody Technician: Wilfredo Keyes MD [id number] 03-23-2020 SARS-CoV-2 Source .NASOPHARYNGEAL SWAB Normal [facility] Comment on above: Performed By: #### C OVID #### [facility] [address] [place] [address] Autobody Technician: Wilfredo Keyes MD Vital Signs Date Time Vital Sign Value Performing Clinician Facility 07-29-2021 14:00-0400 Body height 162.56 cm Franco Rajput Other [facility] Other 07-29-2021 14:00-0400 Body mass index (BMI) [Ratio] 27.29 kg/m2 Franco Rajput Other [facility] Other 07-29-2021 14:00-0400 Body weight 72.12 kg Franco Rajput Other [facility] Other 07-29-2021 14:00-0400 Diastolic blood pressure 87 mm[Hg] Franco Rajput Other [facility] Other 07-29-2021 14:00-0400 Systolic blood pressure 121 mm[Hg] Franco Rajput Other [facility] Other 03-25-2020 08:00-0400 Body Temperature 97.7 [degF] [facility], [place] 03-25-2020 08:00-0400 BP Diastolic 83 mm[Hg] [facility] , [place] 03-25-2020 08:00-0400 BP Systolic 139 mm[Hg] [facility] , [place] 03-25-2020 08:00-0400 Pulse (Heart Rate) 89 /min [facility], [place] 03-25-2020 08:00-0400 Respiratory Rate 18 /min [place], [place] 03-24-2020 20:45-0400 Pulse Oximetry 99 % [place], [place] 03-23-2020 20:13-0400 BMI (Body Mass Index) 22.31 kg/m2 [place], [place] 03-23-2020 20:130400 Body weight 58.97 kg [place] 03-23-2020 20:130400 Height 162.6 cm [place] Encounters Encounter Date Encounter Type Care Provider Facility Start: 10-28-2023 ambulatory Salvatore Duque acility:[facility] Start: 02-23-2023 End: 02-24-[address] GLENNA CARLIN . Facility:[facility] Start: 01-24-2023 End: 01-25-[address] GLENNA CARLIN . Facility:[facility] Start: 12-16-2022 End: 12-17-[address] GLENNA CARLIN . Facility:[facility] Start: 11-16-2022 End: 11-17-[address] GLENNA CARLIN . Facility:[facility] Start: 08-30-2022 End: 08-30-[address] JENNIFER MANSFIELD Facility:[facility] Start: 07-19-2022 End: 08-26-2022 ambulatory BERENICE RAMIREZ Facility:[facility] Start: 07-15-2022 End: 07-16-[address] GLENNA CARLIN . Facility:[facility] Start: 07-29-2021 Patient encounter procedure Franco [facility] Start: 03-23-2020 End: 03-25-2020 Evaluation and management of inpatient ANDREA BOYKINJUNIE [facility] Start: 03-23-2020 End: 03-25-2020 Evaluation and management of inpatient Fang Dhillon Work Phone: [facility] Renal//Med Surg Comment on above: Dental abscess (Prim quan Dx) Procedures Date Procedure Procedure Detail Performing Clinician Start: 03-25-2020 DISCHARGE PATIENT ANDREA BLAIR Start: 03-24-2020 DIET GENERAL ANDREA MENDOZALIVAN SPAULDING Start: 03-24-2020 TRANSFER PATIENT ANDREA PINTO Start: 03-24-2020 Cul prsmptv pthgnc o rganism scrn w/colony estimj ANDREA PINTO Start: 03-24-2020 Smr prim src gram/gi emsa stain bct fungi/cell ANDREA PINTO Start: 03-24-2020 Urine test visual color cmprsn meths ANDREA PINTO Start: 03-24-2020 Smr prim src gram/gi emsa stain bct fungi/cell Andrea Cherry Blair Work Phone: Start: 03-24-2020 End: 03-24-2020 MOUTH LESION BIOPSY EXCISION Andrea Cherry Blair Work Phone: Start: 03-24-2020 Urine test visual color cmprsn meths Andrea Cherry Blair Work Phone: Start: 03-24-2020 Blood count complete automated ANDREA PINTO Start: 03-24-2020 Comprehensive metabo lic panel ANDREA PINTO Start: 03-24-2020 Prothrombin time ANDREA PINTO Start: 03-24-2020 BASIC METABOLIC PANE L W/ REFLEX TO MG FOR LOW K Berta Barroso [employer] Work Phone: Start: 03-24-2020 Blood count complete automated Berta Barroso [employer] Work Phone: Start: 03-24-2020 Prothrombin time Maritza Barroso [employer] Work Phone: Start: 03-24-2020 PATIENT STATUS (FROM ED OR OR/PROCEDURAL) ANDREA PINTO Start: 03-23-2020 COVID-19 ANDREA SPAULDING Start: 03-23-2020 PATIENT STATUS (FROM ED OR OR/PROCEDURAL) ANDREA PINTO Start: 03-23-2020 IP CONSULT TO HOSPITALIST ANDREA PINTO Start: 03-23-2020 IP CONSULT TO ORAL SURGERY ANDREA PINTO Start: 03-23-2020 COVID-19 Carlos camargo Work Phone: Plan of Treatment Date Care Activity Detail Author Start: 07-01-2020 Influenza vaccination Flu vacc ine (Season Ended) [facility] [place], [place] Culture, Anaerobic a nd Aerobic Culture, Anaerobic and Aerobic Microbiology Routine 03/24/2020 1:13 PM EDT [place], [place] Payers Date Payer Category Payer Self-pay 2014 Unknown BCBS BCBS OUT OF STATE xxxxxxxxxxxx 2014-Present [address] [place] [address] xxxxxxxxxxxx [id number] 1998 Unknown [id number] 1998 Unknown [id number] 1998 Unknown [id number] 1998 Unknown [id number] 1998 Unknown [id number] 1998 Unknown [id number] 1998 Unknown [id number] 1998 Unknown [id number] 1959 Private Health Insurance [id number] 1959 Unknown [id number] 1959 Unknown [id number] 1959 Unknown [id number] Unknown [id number] Social History Date Type Detail Facility Start: 03-25-2020 Tobacco smoking stat [facility] Current every day smoker [place] Start: 03-25-2020 Alcohol intake Current drinke r of alcohol (finding) [place] Start: 03-23-2020 History SDOH Alcohol Frequency 3 SWETHA Silver Start: 03-23-2020 History SDOH Alcohol Std Drinks 1 SWETHA Silver Start: 03-23-2020 History SDOH Alcohol Binge 4 SWETHA Silver Start: 03-23-2020 Alcohol Comment none this week SWETHA Silver Sex Assigned At Not on file SWETHA Silver Exposure to SARS-CoV -2 (event) Unable to assess SWETHA Silver Sex Assigned At Sex Assigned At Bir th [facility] [employer] Other Clinical Note 07-15-2022 Note Date & Type Note Facility 07-15-2022 Note PROCEDURE: XR KNEE L T 4V or > HISTORY: Pain of left knee joint ; acute left knee instability COMPARISON: None. FINDINGS: BONES:No fracture, acute abnormality, or significant arthropathy. SOFT TISSUES:No visible soft tissue swelling. EFFUSION:None visible. OTHER: Negative. IMPRESSION: 1. Normal examination. Electronically authenticated by: PURVI OLIVIER Date: 2022-07-15 11:44 [facility] Evaluation note 07-29-2021 Note Date & Type Note Facility 07-29-2021 Evaluation note Encounter Date Diagnosis Assessment Notes Jul, Gastritis (ICD-10 - K29.70) Gastritis material was printed Continue Omeprazole 40mg once daily Follow up in 6 months [facility] [employer] Other History general Narrative - Reported Note Date & Type Note Facility History general Narrative - Reported Type Surgical History oral abscess [facility] [employer] Other History of Present Illness * Jojo Jaramillo RN - 03/25/2020 8:17 PM EDT Pt discharge to mother. Discharge instructions provided. No new questions or concerns at this time night medications were given before discharge. 2019 * Andrea Pinto DDS - 03/25/2020 7:01 PM EDT Department of General Surgery - Adult Surgical Service OMFS Attending Progress Note SUBJECTIVE: Pt with improved pain, swelling and rom. Tolerating PO. OBJECTIVE No new labs, micro results pending current cocci in pairs. + drainage from site. AVSS Physical VITALS: BP 139/83 Pulse 89 Temp 97.7 F (36.5 C) (Oral) Resp 18 Ht 5' 4 (1.626 m) Wt 130 lb (59 kg) SpO2 99% BMI 22.31 kg/m DRAIN/TUBE OUTPUT: TEMPERATURE: Current - Temp: 97.7 F (36.5 C); Max - Temp Av.7 F (36.5 C) Min: 97.6 F (36.4 C) Max: 97.7 F (36.5 C) RESPIRATIONS RANGE: Resp Av Min: 14 Max: 18 PULSE RANGE: Pulse Av.5 Min: 70 Max: 89 BLOOD PRESSURE RANGE: Systolic (24hrs), Av , Min:139 , Max:145 ; Diastolic (24hrs), Av, Min:83, Max:86 PULSE OXIMETRY RANGE: SpO2 Av % Min: 99 % Max: 99 % HEENT: Reduced facial edema, her post op condition is consistent with surgery, drain with scant hemopurulent d/c, trachea midline, SAIGE thaddeus 25mm, sockets well approximated, fom mildly edematous, tongue rom full Data CBC with Differential: Lab Results Component Value Date WBC 10.0 03/24/2020 RBC 4.91 03/24/2020 HGB 14.2 03/24/2020 HCT 41.9 03/24/2020 PLT 256 03/24/2020 MCV 85.3 03/24/2020 MCH 28.9 03/24/2020 MCHC 33.9 03/24/2020 RDW 12.6 03/24/2020 Wound Culture: Specimen Description 03/24/2020 1:13 PM [facility] .FACE RIGHT Special Requests 03/24/2020 1:13 PM [facility] [facility] NOT REPORTED Direct Exam Abnormal 03/24/2020 1:13 PM [facility] [employer] [facility] FEW NEUTROPHILS Direct Exam Abnormal 03/24/2020 1:13 PM [facility] RARE GRAM POSITIVE COCCI IN PAIRS Culture 03/24/2020 1:13 PM [employer] [facility] PENDING Current Inpatient Medications Current Facility-Administered Medications: ALPRAZolam (XANAX) tablet 0.25 mg, 0.25 mg, Oral, TID PRN clindamycin (CLEOCIN) capsule 600 mg, 600 mg, Oral, 3 times per day HYDROcodone-acetaminophen (NORCO) 5-325 MG per tablet 1 tablet, 1 tablet, Oral, Q6H PRN ondansetron (ZOFRAN) injection 4 mg, 4 mg, Intravenous, Q6H PRN chlorhexidine (PERIDEX) 0.12 % solution 15 mL, 15 mL, Mouth/Throat, BID morphine (PF) injection 2 mg, 2 mg, Intravenous, Q2H PRN OR morphine injection 4 mg, 4 mg, Intravenous, Q2H PRN ASSESSMENT AND PLAN 19 y/o s/p I and D with improved PE 1. Pt. Is improving, I would prefer additional night stay, but po is equivalent to iv clnidamycin and pt with extreme anxiety. I feel she is responsible and will return if her course worsens 2. Reviewed home care with pt. Gauze dressings, warm compresses, continue abx, encourage OH with peridex. 3. Drain removed at bedside. Pt tolerated well 4. Instructed to call or return if swelling does not improve 5. F/u OMFS thaddeus 1 week [phone] * Danielle Villarreal MD - 03/25/2020 7:17 AM EDT [facility] IN-PATIENT SERVICE [facility] Progress Note 03/25/2020 7:18 AM Name: Jordan Tello Acct: [id number] Room: 0331/0331-01 IP Day: 2 Admit Date: 03/23/2020 8:07 PM PCP: Glenna Carlin MD Code Status: Prior Subjective: C/C: Chief Complaint Patient presents with Abscess 1 month ago Oral Swelling Dental Pain 4 days Interval History Status: . Patient had incision and drainage of facial abscess and dental extraction x2 on right side yesterday by oral surgeon. Pain level is 3 4/10 at present Had dose of clindamycin preoperatively but did not get antibiotic after the procedure Brief History: Patient originally presented to [facility] via EMS for the complaint of right sided facial pain with dental pain which has been ongoing approximately 4 days. At the beginning of December she was noted to have a dental abscess and was treated and then recommended for a root canal however given the COVID pandemic the procedure was canceled and rescheduled and then she was not able to pay the reschedule Fee and she has not gotten the root canal done. Was seen by her primary care approximately 3 to 4 days ago and was started on amoxicillin and then today the pain was so severe that she decided to call EMS to take her to the emergency room. Her work-up at [facility] show to have a dental abscess 2 x 1 x 1 on the right mandibular side with extension into the masseter muscle at that time it was recommended that patient be transferred to [facility] for OMF evaluation. Of significant laboratory findings was her CBC with a leukocytosis of 16 WBCs. Review of Systems: Constitutional: negative for chills, fevers, sweats HEENT;+ dressing on right side of neck Respiratory: negative for cough, dyspnea on exertion, shortness of breath, wheezing Cardiovascular: negative for chest pain, chest pressure/discomfort, lower extremity edema, palpitations Gastrointestinal: negative for abdominal pain, constipation, diarrhea, nausea, vomiting Neurological: negative for dizziness, headache Medications: Allergies: No Known Allergies Current Meds: Scheduled Meds: chlorhexidine 15 mL Mouth/Throat BID Continuous Infusions: PRN Meds: morphine OR morphine, HYDROcodone-acetaminophen Data: Past Medical History: has a past medical history of Brain vascular malformation, Fibromyalgia, and Migraines. Social History: reports that she has been smoking. She has never used smokeless tobacco. She reports current alcohol use. She reports current drug use. Drug: Marijuana. Family History: Family History Problem Relation Age of Onset Hypertension Mother Stroke Maternal Grandfather Vitals: BP (!) 145/86 Pulse 70 Temp 97.6 F (36.4 C) (Oral) Resp 14 Ht 5' 4 (1.626 m) Wt 130 lb (59 kg) SpO2 99% BMI 22.31 kg/m Temp (24hrs), Av.7 F (36.5 C), Min:97 F (36.1 C), Max:98.2 F (36.8 C) No results for input(s): POCGLU in the last 72 hours. I/O (24Hr): Intake/Output Summary (Last 24 hours) at 03/25/2020 0718 Last data filed at 03/24/2020 1500 Gross per 24 hour Intake 600 ml Output 0 ml Net 600 ml Labs: Hematology: Recent Labs 03/24/20 0641 WBC 10.0 RBC 4.91 HGB 14.2 HCT 41.9 MCV 85.3 MCH 28.9 MCHC 33.9 RDW 12.6 PLT 256 MPV 8.5 INR 1.0 Chemistry: Recent Labs 03/24/20 0641 NA 139 K 3.7 CL 99 CO2 25 GLUCOSE 90 BUN 8 CREATININE 0.45* ANIONGAP 15 LABGLOM >60 GFRAA >60 CALCIUM 9.0 No results for input(s): PROT, LABALBU, LABA1C, U3TJGOW, S1QHGJY, FT4, TSH, AST, ALT, LDH, GGT, ALKPHOS, LABGGT, BILITOT, BILIDIR, AMMONIA, AMYLASE, LIPASE, LACTATE, CHOL, HDL, LDLCHOLESTEROL, CHOLHDLRATIO, TRIG, VLDL, [id number], PHENYTOIN, PHENYF, URICACID, POCGLU in the last 72 hours. ABG:No results found for: POCPH, PHART, PH, POCPCO2, SMY5IGK, PCO2, POCPO2, PO2ART, PO2, POCHCO3, IUD4NFD, HCO3, NBEA, PBEA, BEART, BE, THGBART, THB, COR8FAE, PEXB7OEC, U3GAXDHG, O2SAT, FIO2 Lab Results Component Value Date/Time SPECIAL NOT REPORTED 03/24/2020 01:13 PM SPECIAL NOT REPORTED 03/24/2020 01:13 PM Lab Results Component Value Date/Time CULTURE PENDING 03/24/2020 01:13 PM Radiology: No results found. Physical Examination: General appearance: alert, cooperative and no distress Mental Status: oriented to person, place and time and normal affect HEENT: + Dressing right side of the neck Lungs: clear to auscultation bilaterally, normal effort Heart: regular rate and rhythm, no murmur Abdomen: soft, nontender, nondistended, normal bowel sounds, no masses, hepatomegaly, splenomegaly Extremities: no edema, redness, tenderness in the calves Skin: no gross lesions, rashes, induration Assessment: Hospital Problems Last Modified POA Oral abscess 03/23/2020 Yes Submandibular abscess 03/24/2020 Yes Elevated blood pressure reading without diagnosis of hypertension 03/24/2020 Yes Plan: 1. Start oral clindamycin, got okay from oral surgeon 2. Oral surgeon will evaluate the patient today evening and will remove the drain 3. Possible discharge home in evening on oral clindamycin and small prescription of narcotic pain medicine 4. She needs to follow-up with PCP within 1 week 5. Follow-up with dental surgeon as scheduled Danielle Villarreal MD 03/25/2020 7:18 AM * Francisco Sparrow DO - 03/24/2020 11:29 AM EDT [facility] IN-PATIENT SERVICE [facility] Progress Note 03/24/2020 11:29 AM Name: Jordan Tello Acct: [id number] Room: 0331/0331-01 Day: 1 Admit Date: 03/23/2020 8:07 PM PCP: Glenna Carlin MD Code Status: Full Code Subjective: C/C: Chief Complaint Patient presents with Abscess 1 month ago Oral Swelling Dental Pain 4 days Patient Active Problem List Diagnosis Oral abscess Submandibular abscess Elevated blood pressure reading without diagnosis of hypertension Interval History Status: not changed. She was seen and examined at bedside. No acute overnight event. Patient continues to have pain onset mandibular region. No fever overnight. Hemodynamically stable. Denies chest pain or palpitations. No shortness of breath. Pending OMFS evaluation. Brief History: Per Record: Patient originally presented to [facility] via EMS for the complaint of right sided facial pain with dental pain which has been ongoing approximately 4 days. At the beginning of December she was noted to have a dental abscess and was treated and then recommended for a root canal however given the COVID pandemic the procedure was canceled and rescheduled and then she was not able to pay the reschedule Fee and she has not gotten the root canal done. Was seen by her primary care approximately 3 to 4 days ago and was started on amoxicillin and then today the pain was so severe that she decided to call EMS to take her to the emergency room. Her work-up at [facility] show to have a dental abscess 2 x 1 x 1 on the right mandibular side with extension into the masseter muscle at that time it was recommended that patient be transferred to [facility] for OMF evaluation. Of significant laboratory findings was her CBC with a leukocytosis of 16 WBCs. Review of Systems: Constitutional: negative for chills, fevers, sweats Respiratory: negative for cough, dyspnea on exertion, shortness of breath, wheezing Cardiovascular: negative for chest pain, chest pressure/discomfort, lower extremity edema, palpitations Gastrointestinal: negative for abdominal pain, constipation, diarrhea, nausea, vomiting Neurological: negative for dizziness, headache Medications: Allergies: No Known Allergies Current Meds: Scheduled Meds: DULoxetine 120 mg Oral Daily sodium chloride flush 10 mL Intravenous 2 times per day [Held by provider] enoxaparin 40 mg Subcutaneous Daily clindamycin (CLEOCIN) IV 900 mg Intravenous Q8H pantoprazole 40 mg Intravenous Daily And sodium chloride (PF) 10 mL Intravenous Daily Continuous Infusions: sodium chloride 75 mL/hr at 03/24/20 0138 PRN Meds: sodium chloride flush, potassium chloride OR potassium alternative oral replacement OR potassium chloride, magnesium sulfate, acetaminophen OR acetaminophen, polyethylene glycol, promethazine OR ondansetron, nicotine, HYDROcodone-acetaminophen Data: Past Medical History: has a past medical history of Brain vascular malformation, Fibromyalgia, and Migraines. Social History: reports that she has been smoking. She has never used smokeless tobacco. She reports current alcohol use. She reports current drug use. Drug: Marijuana. Family History: Family History Problem Relation Age of Onset Hypertension Mother Stroke Maternal Grandfather Vitals: BP 107/67 Pulse 100 Temp 97.8 F (36.6 C) Resp 16 Ht 5' 4 (1.626 m) Wt 130 lb (59 kg) SpO2 98% BMI 22.31 kg/m Temp (24hrs), Av.7 F (37.1 C), Min:97.8 F (36.6 C), Max:99.7 F (37.6 C) No results for input(s): POCGLU in the last 72 hours. I/O (24Hr): No intake or output data in the 24 hours ending 03/24/20 1129 Labs: Hematology: Recent Labs 03/24/20 0641 WBC 10.0 RBC 4.91 HGB 14.2 HCT 41.9 MCV 85.3 MCH 28.9 MCHC 33.9 RDW 12.6 PLT 256 MPV 8.5 INR 1.0 Chemistry: Recent Labs 03/24/20 0641 NA 139 K 3.7 CL 99 CO2 25 GLUCOSE 90 BUN 8 CREATININE 0.45* ANIONGAP 15 LABGLOM >60 GFRAA >60 CALCIUM 9.0 No results for input(s): PROT, LABALBU, LABA1C, [id number], H8DRXFX, FT4, TSH, AST, ALT, LDH, GGT, ALKPHOS, LABGGT, BILITOT, BILIDIR, AMMONIA, AMYLASE, LIPASE, LACTATE, CHOL, HDL, LDLCHOLESTEROL, CHOLHDLRATIO, TRIG, VLDL, [id number], PHENYTOIN, PHENYF, URICACID, POCGLU in the last 72 hours. ABG:No results found for: POCPH, PHART, PH, POCPCO2, WXF8DLR, PCO2, POCPO2, PO2ART, PO2, POCHCO3, RWB1GIT, HCO3, NBEA, PBEA, BEART, BE, THGBART, THB, DXL5DIJ, QERU0BVX, U8MURSNG, O2SAT, FIO2 No results found for: SPECIAL No results found for: CULTURE Radiology: No results found. Physical Examination: General appearance: alert, cooperative and no distress Mental Status: oriented to person, place and time and normal affect Lungs: clear to auscultation bilaterally, normal effort Heart: regular rate and rhythm, no murmur Abdomen: soft, nontender, nondistended, normal bowel sounds, no masses, hepatomegaly, splenomegaly Extremities: no edema, redness, tenderness in the calves Skin: no gross lesions, rashes, induration Assessment: Hospital Problems Last Modified POA Oral abscess 03/23/2020 Yes Submandibular abscess 03/24/2020 Yes Elevated blood pressure reading without diagnosis of hypertension 03/24/2020 Yes Plan: 1. Oral abscess/submandibular abscess -and clindamycin. Awaiting surgery evaluation and recommendation. Per report, surgical intervention is being planned. 2. Uncontrolled hypertension-blood pressure much better controlled now. Continue to monitor closely. 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 Advance Directives and Living Will Power of Vessel Builder Latest Code Status on File Code Status Date Activated Date Inactivated Comments Full Code 03/24/2020 12:57 AM 03/24/2020 3:17 PM Summary Purpose Family History No Family History Records FoundNo Family History Records FoundNo Family History Records Found Additional Source Comments Reason for Visit (unrecogniz ed section and content) Reason Comments Abscess 1 month ago Oral Swelling Dental Pain 4 days Status Reason Specialty Diagnoses / Procedures Referre d By Contact Referred To Contact Diagnoses Oral abscess Oral abscess Francisco Sparrow DO [address] [place] [address] [facility] INFORMATION SOURCE (unrecogn ized section and content) DATE CREATED AUTHOR 04/06/2020 [facility] DATE CREATED AUTHOR AUTHOR'S ORGANIZ ATION 03/16/2023 [facility] DATE CREATED AUTHOR AUTHOR'S ORGANIZ ATION 01/06/2024 [facility] FOR RECORDS PERTAINING TO PATIENTS WHO ARE OR HAVE BEEN ENROLLED IN A CHEMICAL DEPENDENCY/SUBSTANCEABUSE PROGRAM, SOME INFORMATION MAY BE OMITTED. This clinical summary was aggregated from multiple sources. Caution should be exercised in using it in the provision of clinical care. This summary normalizes information from multiple sources, and as a consequence, information in this document may materially change the coding, format and clinical context of patient data. In addition, data may be omitted in some cases. CLINICAL DECISIONS SHOULD BE BASED ON THE PRIMARY CLINICAL RECORDS. [employer] [facility]. provides no warranty or guarantee of the accuracy or completeness of information in this document.
[2024-01-13 12:00] LABS: Valproic Acid 33.7 ug/mL (50.0-100.0)
== END 2024-01-13 11:12 | disposition home or self-care (01) ==
LOC: LAB 11:13
PROVIDERS: PCP Family Medicine
DX: Z79.899 Other long term (current) drug therapy (principal); F31.32 Bipolar disorder, current episode depressed, moderate
CPT/HCPCS: 36415; 80164

== ENCOUNTER 2024-02-16 07:08 | Outpatient (OUT) | payer BC, OTHER, SELFPAY ==
--- OUTSIDE RECORDS SUMMARY | 2024-02-16 07:11 | XMS_ITS | CCD ---
Author Organization [facility] Care Team Providers Care Television Operator Name Role Phone Glenna Carlin Primary Care Provider ANDREA PINTO Consulting Unavailable GLENNA CARLIN Primary Care Unavailable FRANCISCO GARCIA Admitting Unavailable DANIELLE VILLARREAL Attending Unavailable HODA GOODSON Consulting Unavailable RADHA JUNGSIK Consulting Unavailable Franco Rajput Unavailable BERENICE RAMIREZ Admitting Unavailable JANE ., DR MANZANARES Primary Care Unavailable BERENICE RAMIREZ Attending Unavailable SHYLA, DR JENNIFER Guajardo Consulting Unavailabl e HOY ., DR MANZANARES Primary Care Unavailable REINECK, DR JENNIFER Guajardo Admitting Unavailabl e REINECK, [...] Unavailable ZIEBER, DR PURVI Ordaz Consulting Unavailable Salvatore Hendricks Attending Unavailab Salvatore Nagel Admitting Unavailab Glenna Michael Primary Care Unavailable Allergies Allergy Classification Reported Allergen(s) Allergy Type Date of Onset Reaction(s) Facility (1 source) Corticosteroids Drug allergy (disorder) [facility] Repository (1 source) Corticosteroids Drug allergy (disorder) 1 [facility] Medications Current Medications Medication Drug [...] Intravenous, EVERY 8 HOURS, First dose on 03/24/20 at 0130, Until Discontinued DULoxetine 60 mg delayed release oral capsule (2 sources) Serotonin and Norepinephrine Reuptake Inhibitor Start: 03-23-2019 take 2 capsules by mouth once daily DULoxetine (CYMBALTA) 60 MG extended release capsule Take 120 mg by mouth daily Every night 0 03/23/2019 Active take 1 capsule by [facility] every twenty-four hours Cymbalta 60 MG 1 [...] by: PURVI OLIVIER Date: 2022-12-16 10:55 Normal [facility] MAETO by IFAon 11-18-2022 Antinuclear Antibodies, IFA Negative Normal [facility] Comment on above: Result Comment: Nega tive <1:80 Borderline 1:80 Positive >1:80 ICAP nomenclature: AC-0 For more information about Hep-2 cell patterns use ANApatterns.org, the official website for the International Consensus on Antinuclear Antibody (MATEO) Patterns (ICAP). Performed By: #### A NAIFA #### [facility] Laboratory [address] [place] [address] Dr. Alfred Issa MATEO DIRECTon 11-17-2022 MATEO Direct Negative Normal Negative [facility] Comment on above: Performed By: #### A NAD #### [facility] Laboratory [address] [place] [address] Dr. Alfred Issa ANTISTREPTOLYSIN O AB (ASO) on 11-17-2022 Antistreptolysin O Ab 29.0 IU/mL Normal 0.0-200.0 [facility] Comment on above: Performed By: #### A SOAB #### [facility] Laboratory [address] [place] [address] Dr. Alfred Issa C3 and C4 COMPLEMENTon 11-17 Complement C3, Serum 181 mg/dL Critically high 82-167 [facility] Comment on above: Performed By: #### C SUITE #### [facility] [address] [place] [address] Dr. Alfred Issa Complement C4, Serum 28 mg/dL Normal 12-38 [facility] Comment on above: Performed By: #### C SUITE #### [facility] [address] [place] [address] Dr. Alfred Issa INSULINon 11-17-2022 Insulin 29.2 uIU/mL Critically high 2.6-24.9 [facility] Comment on above: Performed By: #### I NSULIN #### [facility] [address] [place] [address] Dr. Alfred Issa SLE PROFILE Aon 11-17-2022 Anti-DNA (DS) Ab Qn 1 IU/mL Normal 0-9 [facility] Comment on above: Result Comment: Nega tive <5 Equivocal 5 - 9 Positive >9 Performed By: #### S RENAN #### [facility] Laboratory [address] [address] [address] Alfred Issa Antichromatin Antibodies <0.2 Normal 0.0-0.9 [facility] Comment on above: Performed By: #### S RENAN #### [facility] [address] [address] [address] Alfred Issa RA Latex Turbid. <10.0 Normal <14.0 [facility] Comment on above: Performed By: #### S RENAN #### [facility] [address] [address] [address] Alfred Issa MANAGER CLINICAL Antibodies <0.2 Normal 0.0-0.9 [facility] Comment on above: Performed By: #### S RENAN #### [facility] [address] [place] [address] Dr. Alfred Issa Sjogren'jd Anti-SS-A <0.2 Normal 0.0-0.9 [facility] Comment on above: Performed By: #### S RENAN #### [facility] [address] [address] [address] Alfred Issa Sjogren'jd Anti-SS-B <0.2 Normal 0.0-0.9 [facility] Comment on above: Performed By: #### S RENAN #### [facility] [address] [place] [address] Dr. Alfred Issa Mckinney Antibodies <0.2 Normal 0.0-0.9 [facility] Comment on above: Performed By: #### S RENAN #### [facility] Laboratory [address] [address] [address] Alfred Issa CBC AUTO DIFFon 11-16-2022 BASO # 0.0 103/ul Normal 0.0-0.1 [facility] Comment on above: Performed By: #### C BC #### [facility] [address] [address] [address] Alfred Issa Basophils/100 WBC (Bld) 0.4 % Normal 0.2-2.0 [facility] Comment on above: Performed By: #### C BC #### [facility] [address] [place] [address] Dr. Alfred Issa EO # 0.1 103/ul Normal 0.0-0.7 [facility] Comment on above: Performed By: #### C BC #### [facility] [address] [place] [address] Dr. Alfred Issa Eosinophils/100 WBC (Bld) 1.0 % Normal 0.9-7.0 [facility] Comment on above: Performed By: #### C BC #### [facility] [address] [place] [address] Dr. Alfred Issa Erythrocyte distribution width (RBC) [Ratio] 13.1 % Normal 11.0-15.0 [facility] Comment on above: Performed By: #### C BC #### [facility] [address] [place] [address] Dr. Alfred Issa Hematocrit (Bld) [Volume fraction] 43.9 % Normal 36.0-48.0 [facility] Comment on above: Performed By: #### C BC #### [facility] [address] [place] [address] Dr. Alfred Issa Hemoglobin (Bld) [Mass/Vol] 14.8 g/dL Normal 12.0-16.0 [facility] Comment on above: Performed By: #### C BC #### [facility] [address] [place] [address] Dr. Alfred Issa IG # 0.05 10e3/ul Critically high 0.00-0.03 [facility] Comment on above: Performed By: #### C BC #### [facility] [address] [place] [address] Dr. Alfred Issa IG % 0.5 % Normal 0.0-0.5 [facility] Comment on above: Performed By: #### C BC #### [facility] [address] [place] [address] Dr. Alfred Issa LYMPH # 2.7 103/ul Normal 1.2-3.8 [facility] Comment on above: Performed By: #### C BC #### [facility] [address] [place] [address] Dr. Alfred Issa Lymphocytes/100 WBC (Bld) 26.5 % Normal 20.5-60.0 [facility] Comment on above: Performed By: #### C BC #### [facility] [address] [place] [address] Dr. Alfred Issa MANUAL DIFF REQ NO Normal [facility] Comment on above: Performed By: #### C BC #### [facility] [address] [address] [address] Alfred Issa MCH (RBC) [Entitic mass] 27.5 pg Normal 26.7-34.0 [facility] Comment on above: Performed By: #### C BC #### [facility] [address] [place] [address] Dr. Alfred Issa MCHC (RBC) [Mass/Vol] 33.7 g/dL Normal 29.9-35.2 [facility] Comment on above: Performed By: #### C BC #### [facility] [address] [place] [address] Dr. Alfred Issa MCV (RBC) [Entitic vol] 81.4 fL Normal 81.0-99.0 [facility] Comment on above: Performed By: #### C BC #### [facility] [address] [place] [address] Dr. Alfred Issa MONO # 0.5 103/ul Normal 0.3-0.8 [facility] Comment on above: Performed By: #### C BC #### [facility] [address] [place] [address] Dr. Alfred Issa Monocytes/100 WBC (Bld) 4.9 % Normal 1.7-12.0 [facility] Comment on above: Performed By: #### C BC #### [facility] [address] [place] [address] Dr. Alfred Issa NEUT # 6.7 103/ul Critically high 1.4-6.5 [facility] Comment on above: Performed By: #### C BC #### [facility] [address] [place] [address] Dr. Alfred Issa Neutrophils/100 WBC (Bld) 66.7 % Normal 43.0-75.0 [facility] Comment on above: Performed By: #### C BC #### [facility] [address] [address] [address] Alfred Issa Platelet mean volume (Bld) [Entitic vol] 8.4 fL Critically low 9.5-13.5 [facility] Comment on above: Performed By: #### C BC #### [facility] [address] [address] [address] Alfred Issa PLT 312 103/ul Normal 150-450 [facility] Comment on above: Performed By: #### C BC #### [facility] [address] [address] [address] Alfred Issa RBC 5.39 106/ul Normal 4.20-5.40 [facility] Comment on above: Performed By: #### C BC #### [facility] [address] [address] [address] Alfred Issa WBC 10.1 103/ul Normal 4.0-11.0 [facility] Comment on above: Performed By: #### C BC #### [facility] [address] [address] [address] Alfred Issa CRPon 11-16-2022 CRP 0.7 mg/dL Normal <=1.0 [facility] Comment on above: Performed By: #### L IPID, TSH, T7, URIC, CRP, CMP ####[facility] [address] [address]Dr. Alfred Issa FREE THYROXINE INDEX T7on FTI 3.50 Normal 1.30-4.50 [facility] Comment on above: Performed By: #### L IPID, TSH, T7, URIC, CRP, CMP ####[facility] [address] [address]Dr. Alfred Issa T3U 34.0 % Normal 30.0-39.0 [facility] Comment on above: Performed By: #### L IPID, TSH, T7, URIC, CRP, CMP ####[facility] [address] [id number][address] Alfred Issa T4 [Mass/Vol] 10.30 ug/dL Normal 4.80-13.90 [facility] Comment on above: Performed By: #### L IPID, TSH, T7, URIC, CRP, CMP ####[facility] [address] [id number][address] Alfred Issa GLYCOHEMOGLOBIN A1Con 2022 ADA RECOMMENDATION SEE BELOW Normal [facility] Comment on above: Result Comment: ADA RECOMMENDED LIMIT 4.0 - 6.0 ADA THERAPEUTIC TARGET < 7.0 ACTION SUGGESTED > 7.0 Performed By: #### A 1C #### [facility] [address] [place] [address] Dr. Alfred Issa Glucose [Mass/Vol] 108 mg/dL Normal [facility] Comment on above: Performed By: #### A 1C #### [facility] [address] [address] [address] Alfred Issa HbA1c (Bld) [Mass fraction] 5.4 % Normal 4.5-6.2 [facility] Comment on above: Performed By: #### A 1C #### [facility] [address] [place] [address] Dr. Alfred Issa IRONon 11-16-2022 Iron [Mass/Vol] 127.0 ug/dL Normal 50.0-170.0 [facility] Comment on above: Performed By: #### I LEIGH ANN #### [facility] [address] [place] [address] Dr. Alfred Issa LIPID PROFILEon 11-16-2022 CHOL-HDL RATIO NORM SEE BELOW Normal [facility] Comment on above: Result Comment: 3.3 - 4.4 LOW RISK 4.4 - 7.1 AVERAGE RISK 7.1 - 11.0 MODERATE RISK >11.0 HIGH RISK Performed By: #### L IPID, TSH, T7, URIC, CRP, CMP ####[facility] [address] [address]Dr. Alfred Issa Cholesterol [Mass/Vol] 197 mg/dL Normal <=200 Th e [facility] Comment on above: Performed By: #### L IPID, TSH, T7, URIC, CRP, CMP ####[facility] [address] [address]Dr[address] Alfred Issa Cholesterol in HDL [Mass/Vol] 39 mg/dL Critically low 40-60 [facility] Comment on above: Performed By: #### L IPID, TSH, T7, URIC, CRP, CMP ####[facility] [address] [address]Dr. Alfred Issa Cholesterol in LDL [Mass/Vol] 116.8 mg/dL Normal [facility] Comment on above: Performed By: #### L IPID, TSH, T7, URIC, CRP, CMP ####[facility] [address] [address]Dr. Nicolettegolden Issa Cholesterol.total/Chol esterol in HDL [Mass ratio] 5.1 {ratio} Normal [facility] Comment on above: Performed By: #### L IPID, TSH, T7, URIC, CRP, CMP ####[facility] [address] [address]Dr. Alfred Issa HDL NORMAL > or = 60 mg/dl - LOW CARDIOVASCULAR RISK <40 mg/dl - HIGH CARDIOVASCULAR RISK Normal [facility] Comment on above: Performed By: #### L IPID, TSH, T7, URIC, CRP, CMP ####[facility] [address] [address]Dr. Nicolettegolden Issa LDL CALC NORMAL SEE BELOW Normal [facility] Comment on above: Result Comment: <100 mg/dl OPTIMAL 100 - 129 mg/dl NEAR OR ABOVE OPTIMAL 130 - 159 mg/dl BORDERLINE HIGH 160 - 189 mg/dl HIGH >190 mg/dl VERY HIGH Performed By: #### L IPID, TSH, T7, URIC, CRP, CMP ####[facility] [address] [address]Dr. Nicolettegolden Issa Triglyceride [Mass/Vol] 206 mg/dL Critically high <=150 [facility] Comment on above: Performed By: #### L IPID, TSH, T7, URIC, CRP, CMP ####[facility] [address] [address]Dr. Alfred Issa VLDL CALC 41.2 mg/dL Normal [facility] Comment on above: Performed By: #### L IPID, TSH, T7, URIC, CRP, CMP ####[facility] [address] [address]Dr. Alfred Issa OCC BLD IMMUNO SCREENon 10-31 OCCULT BLOOD Negative Normal NEGATIVE [facility] Comment on above: Performed By: #### O BSCRN ####[facility] [address] [address]Dr. Alfred Issa PROF 14(COMP METB)on 023 Albumin [Mass/Vol] 4.0 g/dL Normal 3.4-5.0 [facility] Comment on above: Performed By: #### L IPID, TSH, T7, URIC, CRP, CMP ####[facility] [address] [address]Dr. Alfred Issa Albumin/Globulin [Mass ratio] 1.1 {ratio} Normal [facility] Comment on above: Performed By: #### L IPID, TSH, T7, URIC, CRP, CMP ####[facility] [address] [address]Dr. Alfred Issa ALP [Catalytic activity/Vol] 104 U/L Normal 46-116 [facility] Comment on above: Performed By: #### L IPID, TSH, T7, URIC, CRP, CMP ####[facility] [address] [address]Dr. Alfred Issa ALT [Catalytic activity/Vol] 26 U/L Normal 14-59 [facility] Comment on above: Performed By: #### L IPID, TSH, T7, URIC, CRP, CMP ####[facility] [address] [address]Dr. Alfred Issa Anion gap [Moles/Vol] 13.2 mmol/L Normal [facility] Comment on above: Performed By: #### L IPID, TSH, T7, URIC, CRP, CMP ####[facility] [address] [address]Dr. Alfred Issa AST [Catalytic activity/Vol] 20 U/L Normal 15-37 [facility] Comment on above: Performed By: #### L IPID, TSH, T7, URIC, CRP, CMP ####[facility] [address] [place], [place] [address]Dr. Alfred Issa Bilirubin [Mass/Vol] 0.6 mg/dL Normal 0.2-1.0 [facility] Comment on above: Performed By: #### L IPID, TSH, T7, URIC, CRP, CMP ####[facility] [address] [place], [place] [address]Dr. Alfred Issa Calcium [Mass/Vol] 9.3 mg/dL Normal 8.5-10.1 [facility] Comment on above: Performed By: #### L IPID, TSH, T7, URIC, CRP, CMP ####[facility] [address] [place], [place] [address]Dr. Alfred Issa Chloride [Moles/Vol] 100 mmol/L Normal 98-107 [facility] Comment on above: Performed By: #### L IPID, TSH, T7, URIC, CRP, CMP ####[facility] [address] [place], [place] [address]Dr. Alfred Issa CO2 [Moles/Vol] 26.6 mmol/L Normal 21.0-32.0 [facility] Comment on above: Performed By: #### L IPID, TSH, T7, URIC, CRP, CMP ####[facility] [address] [place], [place] [address]Dr. Alfred Issa Creatinine [Mass/Vol] 0.56 mg/dL Normal 0.55-1.02 [facility] Comment on above: Performed By: #### L IPID, TSH, T7, URIC, CRP, CMP ####[facility] [address] [place], [place] [address]Dr. Alfred Issa EGFR-AF MARSHALLESE >60 Normal >=60 [facility] Comment on above: Performed By: #### L IPID, TSH, T7, URIC, CRP, CMP ####[facility] [address] [address]Dr. Alfred Issa EGFR-NON AF MARSHALLESE >60 Normal >=60 [facility] Comment on above: Performed By: #### L IPID, TSH, T7, URIC, CRP, CMP ####[facility] [address] [address]Dr. Alfred Issa Globulin (S) [Mass/Vol] 3.5 g/dL Normal [facility] Comment on above: Performed By: #### L IPID, TSH, T7, URIC, CRP, CMP ####[facility] [address] [place], [place] [address]Dr. Alfred Issa Glucose [Mass/Vol] 112 mg/dL Critically high 74-106 T [facility] Comment on above: Performed By: #### L IPID, TSH, T7, URIC, CRP, CMP ####[facility] [address] [place], [place] [address]Dr. Alfred Issa Potassium [Moles/Vol] 3.8 mmol/L Normal 3.5-5.1 [facility] Comment on above: Performed By: #### L IPID, TSH, T7, URIC, CRP, CMP ####[facility] [address] [place], [place] [address]Dr. Alfred Issa Protein [Mass/Vol] 7.5 g/dL Normal 6.4-8.2 [facility] Comment on above: Performed By: #### L IPID, TSH, T7, URIC, CRP, CMP ####[facility] [address] [place], [place] [address]Dr. Alfred Issa Sodium [Moles/Vol] 136 mmol/L Normal 136-145 [facility] Comment on above: Performed By: #### L IPID, TSH, T7, URIC, CRP, CMP ####[facility] [address] [place], [place] [address]Dr. Alfred Issa Urea nitrogen [Mass/Vol] 8.0 mg/dL Normal 7.0-18.0 [facility] Comment on above: Performed By: #### L IPID, TSH, T7, URIC, CRP, CMP ####[facility] [address] [id number]. Alfred Issa Urea nitrogen/Creatinine [Mass ratio] 14.3 mg/mg Normal [facility] Comment on above: Performed By: #### L IPID, TSH, T7, URIC, CRP, CMP ####[facility] [address] [id number]. Alfred Issa TSHon 11-16-2022 TSH 1.787 uIU/mL Normal 0.358-3.740 [facility] Comment on above: Performed By: #### L IPID, TSH, T7, URIC, CRP, CMP ####[facility] [address] [address]Dr. Alfred Issa URIC ACID SERUMon 11-16-2022 Urate [Mass/Vol] 5.3 mg/dL Normal 2.6-6.0 [facility] Comment on above: Performed By: #### L IPID, TSH, T7, URIC, CRP, CMP ####[facility] [address] [id number]. Alfred Issa Cult,Aerobe/Anaerobeon 03-29 Cult,Aerobe/Anaerobe Specimen Descriptio n .FACE RIGHT .ABSCESS SWAB Special Requests NOT REPORTED Direct Exam FEW NEUTROPHILS RARE GRAM POSITIVE COCCI IN PAIRS Culture HAEMOPHILUS PARAINFLUENZAE SCANT GROWTH BETA LACTAMASE NEGATIVE NORMAL MAGALYS MIXED ANAEROBIC MAGALYS Report Status FINAL 03/29/2020 [facility] Comment on above: Performed By: #### A ANC #### [facility] Access Mobile [facility] [place] [address] Magneto Repairer: Wilfredo Keyes MD Basic Metab w/rfx MGon 03-24 (cont.) [facility] Comment on above: Result Comment: Aver age GFR for 20-29 years old: 116 mL/min/1.73sq m Chronic Kidney Disease: <60 mL/min/1.73sq m Kidney failure: <15 mL/min/1.73sq m eGFR calculated using average adult body mass. Additional eGFR calculator available at: http://www.Quotefish.com/multiple_crcl_2012.htm Performed By: #### C JANIE JCX, PT #### [facility] [address] [place] [phone] Magneto Repairer: Wilfredo Keyes MD Anion gap [Moles/Vol] 15 mmol/L Normal 9-17 [facility] Comment on above: Performed By: #### C HOSEA BMPX, PT #### [facility] [address] [place] [phone] Magneto Repairer: Wilfredo Keyes MD Calcium [Mass/Vol] 9.0 mg/dL Normal 8.6-10.4 [facility] Comment on above: Performed By: #### JANIE CLEVELANDX, PT #### [facility] [address] [place] [phone] Magneto Repairer: Wilfredo Keyes MD Chloride [Moles/Vol] 99 mmol/L Normal 98-107 [facility] Comment on above: Performed By: #### C JANIE JCX, PT #### [facility] [address] [place] [phone] Magneto Repairer: Wilfredo Keyes MD CO2 [Moles/Vol] 25 mmol/L Normal 20-31 [facility] Comment on above: Performed By: #### Koffi JC BMPX, PT #### [facility] [address] [place] [phone] Magneto Repairer: Wilfredo Keyes MD Creatinine [Mass/Vol] 0.45 mg/dL Low 0.50-0.90 [facility] Comment on above: Performed By: #### Koffi JC BMPX, PT #### [facility] [address] [place] [phone] Magneto Repairer: Wilfredo Keyes MD GFR, Amer >60 Normal >60 [facility] Comment on above: Performed By: #### C BC, BMPX, PT #### [facility] [address] [place] [address] [phone] Magneto Repairer: Wilfredo Keyes MD GFR,non Amer >60 Normal >60 [facility] Comment on above: Performed By: #### C BC, BMPX, PT #### [facility] [address] [place] [address] [phone] Magneto Repairer: Wilfredo Keyes MD Glucose [Mass/Vol] 90 mg/dL Normal 70-99 [facility] Comment on above: Performed By: #### C BC, BMPX, PT #### [facility] [address] [place] [address] [phone] Magneto Repairer: Wilfredo Keyes MD Potassium [Moles/Vol] 3.7 mmol/L Normal 3.7-5.3 [facility] Comment on above: Performed By: #### C BC, BMPX, PT #### [facility] [address] [place] [address] [phone] Magneto Repairer: Wilfredo Keyes MD Sodium [Moles/Vol] 139 mmol/L Normal 135-144 [facility] Comment on above: Performed By: #### C BC, BMPX, PT #### [facility] [address] [place] [address] [phone] Magneto Repairer: Wilfredo Keyes MD Urea nitrogen [Mass/Vol] 8 mg/dL Normal 6-20 [facility] Comment on above: Performed By: #### C BC, BMPX, PT #### [facility] [address] [place] [address] [phone] Magneto Repairer: Wilfredo Keyes MD BUN/CRE Ratio NOT REPORTED Normal 9-20 [facility] Comment on above: Performed By: #### C BC, BMPX, PT #### [facility] [address] [place] [address] [phone] Magneto Repairer: Wilfredo Keyes MD Staging: NOT REPORTED Normal [facility] Comment on above: Performed By: #### C BC, BMPX, PT #### [facility] [address] [place] [address] Magneto Repairer: Wilfredo Keyes MD Basic Metabolic Panel w/ Ref rodríguez to MGon 03-24-2020 Anion gap [Moles/Vol] 15 mmol/L 9 - 17 mmol/L [place], [place] Bun/Cre Ratio NOT REPORTED [place] Calcium [Mass/Vol] 9.0 mg/dL 8.6 - 10. 4 mg/dL [place] Chloride [Moles/Vol] 99 mmol/L 98 - 10 7 mmol/L [place] CO2 [Moles/Vol] 25 mmol/L 20 - 31 mmol/L [place] Creatinine [Mass/Vol] 0.45 mg/dL Low 0.5 - 0.9 mg/dL [place] GFR >60 >60 mL/min [place] GFR Non- >60 >60 mL/min [place] GFR/1.73 sq M predicted among non-blacks MDRD (S/P/Bld) [Vol rate/Area] NOT REPORTED [place] GFR/1.73 sq M predicted among non-blacks MDRD (S/P/Bld) [Vol rate/Area] [place] Comment on above: Average GFR for 20-2 9 years old: 116 mL/min/1.73sq m Chronic Kidney Disease: <60 mL/min/1.73sq m Kidney failure: <15 mL/min/1.73sq m eGFR calculated using average adult body mass. Additional eGFR calculator available at: http://www.Quotefish.[employer]/multiple_crcl_2011.htm Glucose [Mass/Vol] 90 mg/dL 70 - 99 mg/dL [place], [place] Interpretation and review of laboratory results Abnormal [place] Potassium [Moles/Vol] 3.7 mmol/L 3.7 - 5.3 mmol/L [place] Sodium [Moles/Vol] 139 mmol/L 135 - 144 mmol/L [place] Urea nitrogen [Mass/Vol] 8 mg/dL 6 - 20 mg/dL [place] CBCon 03-24-2020 Erythrocyte distribution width (RBC) [Ratio] 12.6 % Normal 11.8-14.4 [facility] Comment on above: Performed By: #### JANIE CLEVELANDX, PT #### [facility] [address] [place] [address] [phone] Magneto Repairer: Wilfredo Keyes MD Hematocrit (Bld) [Volume fraction] 41.9 % Normal 36.3-47.1 [facility] Comment on above: Performed By: #### JANIE CLEVELANDX, PT #### [facility] [address] [place] [address] [phone] Magneto Repairer: Wilfredo Keyes MD Hemoglobin (Bld) [Mass/Vol] 14.2 g/dL Normal 11.9-15.1 [facility] Comment on above: Performed By: #### JANIE CLEVELANDX, PT #### [facility] [address] [place] [address] [phone] Magneto Repairer: Wilfredo Keyes MD MCH (RBC) [Entitic mass] 28.9 pg Normal 25.2-33.5 [facility] Comment on above: Performed By: #### Koffi JC BMPX, PT #### [facility] [address] [place] [address] [phone] Magneto Repairer: Wilfredo Keyes MD MCHC (RBC) [Mass/Vol] 33.9 g/dL Normal 28.4-34.8 [facility] Comment on above: Performed By: #### Koffi JC BMPX, PT #### [facility] [address] [place] [address] [phone] Magneto Repairer: Wilfredo Keyes MD MCV (RBC) [Entitic vol] 85.3 fL Normal 82.6-102.9 [facility] Comment on above: Performed By: #### C BC, BMPX, PT #### [facility] [address] [place] [address] [phone] Magneto Repairer: Wilfredo Keyes MD NRBC Automated 0.0 per 100 WBC Normal 0.0 [facility] Comment on above: Performed By: #### C BC, BMPX, PT #### [facility] [address] [place] [address] [phone] Magneto Repairer: Wilfredo Keyes MD Platelet mean volume (Bld) [Entitic vol] 8.5 fL Normal 8.1-13.5 [facility] Comment on above: Performed By: #### C HOSEA, BMPX, PT #### [facility] [address] [place] [address] [phone] Magneto Repairer: Wilfredo Keyes MD Platelets (Bld) [#/Vol] 256 10*3/uL Normal 138-453 [facility] Comment on above: Performed By: #### C HOSEA, BMPX, PT #### [facility] [address] [place] [address] [phone] Magneto Repairer: Wilfredo Keyes MD RBC (Bld) [#/Vol] 4.91 10*6/uL Normal 3.95-5.11 [facility] Comment on above: Performed By: #### C BC, BMPX, PT #### [facility] [address] [place] [address] [phone] Magneto Repairer: Wilfredo Keyes MD WBC (Bld) [#/Vol] 10.0 10*3/uL Normal 4.5-13.5 [facility] Comment on above: Performed By: #### C BC, BMPX, PT #### [facility] [address] [place] [address] [phone] Magneto Repairer: Wilfredo Keyes MD Erythrocyte distribution width (RBC) [Ratio] 12.6 % 11.8 - 14.4 % [place] Hematocrit (Bld) [Volume fraction] 41.9 % 36.3 - 47.1 % [place] Hemoglobin (Bld) [Mass/Vol] 14.2 g/dL 11.9 - 15.1 g/dL [place] MCH (RBC) [Entitic mass] 28.9 pg 25.2 - 33.5 pg [place] MCHC (RBC) [Mass/Vol] 33.9 g/dL 28.4 - 34.8 g/dL [place] MCV (RBC) [Entitic vol] 85.3 fL 82.6 - 102.9 fL [place] Platelet mean volume (Bld) [Entitic vol] 8.5 fL 8.1 - 13.5 fL [place] Platelets (Bld) [#/Vol] 256 10*3/uL [place] RBC (Bld) [#/Vol] 4.91 10*6/uL 3.95 - 5.1 1 m/uL [place] WBC (Bld) [#/Vol] 0.0 10*3/uL 0.0 per 10 0 WBC [place] WBC (Bld) [#/Vol] 10.0 10*3/uL [place] COVID-19on 03-24-2020 SARS-CoV-2 Not Detected Not Detected [place] Comment on above: The specimen is NEGATIVE for SARS-CoV-2, the novel coronavirus associated with COVID-19. A negative result does not rule out COVID-19. This test has been authorized by the FDA under an Emergency Use Authorization (EUA) for use by authorized laboratories. Fact sheet for Healthcare Providers: https://www.fda.gov/media/471767/download Fact sheet for Patients: https://www.fda.gov/media/619436/download METHODOLOGY: RT-PCR SARS-CoV-2, [facility] [place] SARS-CoV-2, Rapid [facility] [place] Source .NASOPHARYNGEAL SWAB [place] Gram Stainon 03-24-2020 Microscopic observation Gram stain Nom (Unsp spec) Specimen Description .FACE RIGHT .ABSCESS SWAB Special Requests NOT REPORTED Direct Exam DUPLICATE ORDER GRAM STN INCLUDED WITH CULTURE Report Status FINAL 03/24/2020 Normal [facility] Comment on above: Performed By: #### G S #### [facility] [address] [place] [address] [phone] Magneto Repairer: Wilfredo Keyes MD Direct Exam DUPLICATE ORDER GRAM STN INCLUDED WITH CULTURE [place] Special Requests NOT REPORTED [place] Specimen Description .FACE RIGHT [place], [place] HCG, ,Urineon 03-24 Beta HCG ( test) Ql (U) Negative Normal NEG [facility] Comment on above: Result Comment: Spec imens with hCG levels near the threshold of the test (25 mIU/mL) may give a negative or indeterminate result. In such cases, another test should be performed with a new specimen in 48-72 hours. If early is suspected clinically in this setting, correlation with quantitative serum b-hCG level is suggested. Performed By: #### U HCG #### [facility] [address] [place] [address] [phone] Magneto Repairer: Wilfredo Keyes MD PTon 03-24-2020 INR Coag (PPP) [Relative time] 1.0 {INR} Normal [facility] Comment on above: Result Comment: Therapeutic Range: Moderate Anticoagulant Intensity: INR = 2.0-3.0 High Anticoagulant Intensity: INR = 2.5-3.5 Performed By: #### C BC, BMPX, PT #### [facility] [address] [place] [address] [phone] Magneto Repairer: Wilfredo Keyes MD PT Coag (PPP) [Time] 10.7 s Normal 9.0-12.0 [facility] Comment on above: Performed By: #### C BC, BMPX, PT #### [facility] [address] [place] [address] [phone] Magneto Repairer: Wilfredo Keyes MD , urine pre-opon Beta HCG ( test) Ql (U) Negative NEGATIVE [place] Comment on above: Specimens with hCG [...] INR Coag (PPP) [Relative time] 1.0 {INR} [place] Comment on above: Therapeutic Range: Moderate Anticoagulant Intensity: INR = 2.0-3.0 High Anticoagulant Intensity: INR = 2.5-3.5 PT Coag (PPP) [Time] 10.7 s [place] [id number] 03-24-2020 SARS-CoV-2,Rapid Normal [facility] Comment on above: Performed By: #### C OVID #### [facility] [address] [place] [address] [phone] Magneto Repairer: Wilfredo Keyes MD SARS-CoV-2 [facility] Comment on above: Performed By: #### C OVID #### [address] [phone] Magneto Repairer: Wilfredo Keyes MD SARS-CoV-2 Not Detected Normal NOTDET [facility] Comment on above: Result Comment: The specimen is NEGATIVE for SARS-CoV-2, the novel coronavirus associated with COVID-19. A negative result does not rule out COVID-19. This test has been authorized by the FDA under an Emergency Use Authorization (EUA) for use by authorized laboratories. Fact sheet for Healthcare Providers: https://www.fda.gov/media/706987/download Fact sheet for Patients: https://www.fda.gov/media/411876/download METHODOLOGY: RT-PCR Performed By: #### C OVID #### [address] [address] Magneto Repairer: Wilfredo Keyes MD [id number] 03-23-2020 SARS-CoV-2 Source .NASOPHARYNGEAL SWAB Normal [facility] Comment on above: Performed By: #### C OVID #### [facility] [address] [place] [address] Magneto Repairer: Wilfredo Keyes MD Vital Signs Date Time Vital Sign Value Performing Clinician Facility 07-29-2021 14:00-0400 Body height 162.56 cm Franco Rajput Other [facility] Other 07-29-2021 14:00-0400 Body mass index (BMI) [Ratio] 27.29 kg/m2 Franco Rajput Other [facility] Other 07-29-2021 14:00-0400 Body weight 72.12 kg Franco Rajput Other [facility] Other 07-29-2021 14:00-0400 Diastolic blood pressure 87 mm[Hg] Franco Rajput Other [facility] Other 07-29-2021 14:00-0400 Systolic blood pressure 121 mm[Hg] Franco Rajput Other [facility] Other 03-25-2020 08:00-0400 Body Temperature 97.7 [degF] [facility] [place] 03-25-2020 08:00-0400 BP Diastolic 83 mm[Hg] [facility] [place] 03-25-2020 08:00-0400 BP Systolic 139 mm[Hg] [facility] , [place] 03-25-2020 08:00-0400 Pulse (Heart Rate) 89 /min [facility] 03-25-2020 08:00-0400 Respiratory Rate 18 /min [facility] [place] 03-24-2020 20:45-0400 Pulse Oximetry 99 % [place], [place] 03-23-2020 20:130400 BMI (Body Mass Index) 22.31 kg/m2 [facility] [place], [place] 03-23-2020 20:130400 Body weight 58.97 kg Fang [place], [place] 03-23-2020 20:040 Height 162.6 cm [facility] [place] Encounters Encounter Date Encounter Type Care Provider Facility Start: 12-20-2023 ambulatory Salvatore Duque acility:[facility] Start: 02-23-2023 End: 02-24-[address] [...] 03-25-2020 Evaluation and management of inpatient ANDREA PINTO [facility] Start: 03-23-2020 End: 03-25-2020 Evaluation and management of inpatient Fang Dhillon Work Phone: [facility] Comment on above: Dental abscess (Prim quan Dx) Procedures Date Procedure Procedure Detail Performing Clinician Start: 03-25-2020 DISCHARGE PATIENT ANDREA PINTO Start: 03-24-2020 DIET GENERAL ANDREA SPAULDING Start: 03-24-2020 TRANSFER PATIENT ANDREA PINTO [...] REFLEX TO MG FOR LOW K Berta [employer] Work Phone: Start: 03-24-2020 Blood count complete automated [employer] Work Phone: Start: 03-24-2020 Prothrombin time Alissavinny trino [employer] Work Phone: Start: 03-24-2020 PATIENT STATUS (FROM [...] Influenza vaccination Flu vacc ine (Season Ended) [facility] [place] Culture, Anaerobic a nd Aerobic Culture, Anaerobic and Aerobic Microbiology Routine 03/24/2020 1:13 PM EDT [facility] [place] Payers Date Payer Category Payer Self-pay 2014 Unknown BCBS BCBS OUT OF STATE xxxxxxxxxxxx 2014-Present [address] [place] [address] xxxxxxxxxxxx [id number] 1998 Unknown [id number] 1998 Unknown [id number] 1998 Unknown [id number] 1998 Unknown [id number] 1998 Unknown [id number] 1998 Unknown [id number] .593 1998 Unknown [id number] .593 1998 Unknown [id number] .593 1959 Private Health Insurance [id number] 1959 Unknown [id number] 1959 Unknown [id number] 1959 Unknown [id number] Unknown [id number] Social History Date Type Detail Facility Start: 03-25-2020 Tobacco smoking stat [facility] Current every day smoker [place] Start: 03-25-2020 Alcohol intake Current drinke r of alcohol (finding) [place] Start: 03-23-2020 History SDOH Alcohol Frequency 3 [place] Start: 03-23-2020 History SDOH Alcohol Std Drinks 1 [facility] Start: 03-23-2020 History SDOH [facility] SWETHA JOE Start: 03-23-2020 Alcohol Comment none this week SWETHA Silver Sex Assigned At Not on file [facility] Exposure to SARS-CoV -2 (event) Unable to assess SWETHA Silver Sex Assigned At Sex Assigned At Bir th [facility] Other Clinical Note 07-15-2022 Note Date & Type Note Facility 07-15-2022 Note PROCEDURE: XR KNEE L T 4V or > HISTORY: Pain of left knee joint ; acute left knee instability COMPARISON: None. FINDINGS: BONES:No fracture, acute abnormality, or significant arthropathy. SOFT TISSUES:No visible soft tissue swelling. EFFUSION:None visible. OTHER: Negative. IMPRESSION: 1. Normal examination. Electronically authenticated by: PURVI OLIVIER Date: 2022-07-15 11:44 [facility] Evaluation note 07-29-2021 Note Date & Type Note Facility 07-29-2021 Evaluation note Encounter Date Diagnosis Assessment Notes Jul, Gastritis (ICD-10 - K29.70) Gastritis material was printed Continue Omeprazole 40mg once daily Follow up in 6 months [facility] Other History general Narrative - Reported Note Date & Type Note Facility History general Narrative - Reported Type Surgical History oral abscess [facility] Other History of Present Illness * Jojo [...] Wound Culture: Specimen Description 03/24/2020 1:13 PM [facility] Arleth Marcus .FACE RIGHT Special Requests 03/24/2020 1:13 PM [facility] Marcus NOT REPORTED Direct Exam Abnormal 03/24/2020 1:13 PM [facility] Ar[facility]th Marcus FEW NEUTROPHILS Direct Exam Abnormal 03/24/2020 1:13 PM [facility] Marcus RARE GRAM POSITIVE COCCI IN PAIRS Culture 03/24/2020 1:13 PM [facility] Marcus PENDING Current Inpatient Medications Current [...] improve 5. F/u OMFS thaddeus 1 week [phone] * Danielle Villarreal MD - 03/25/2020 7:17 AM EDT [facility] IN-PATIENT SERVICE [facility] Progress Note 03/25/2020 7:18 AM Name: Jordan Tello Acct: [id number] Room: 0331/0331-01 Day: 2 Admit Date: 03/23/2020 8:07 PM [...] procedure Brief History: Patient originally presented to [facility] via EMS for the complaint of right [...] to the emergency room. Her work-up [facility] show to have a dental abscess 2 x 1 x 1 on the right mandibular side with extension into the masseter muscle at that time it was recommended that patient be transferred to [facility] for OMF evaluation. Of significant laboratory findings [...] No results for input(s): PROT, LABALBU, LABA1C, R7UKRDA, P2MRBJZ, FT4, TSH, AST, ALT, LDH, GGT, ALKPHOS, LABGGT, BILITOT, BILIDIR, AMMONIA, AMYLASE, LIPASE, LACTATE, CHOL, HDL, LDLCHOLESTEROL, CHOLHDLRATIO, TRIG, VLDL, NYO00BL, PHENYTOIN, PHENYF, URICACID, POCGLU in the last 72 hours. ABG:No results found for: POCPH, PHART, PH, POCPCO2, BIZ0JLI, PCO2, POCPO2, PO2ART, PO2, POCHCO3, OMS4GRO, HCO3, NBEA, PBEA, BEART, BE, THGBART, THB, AJB0KFL, [id number], E7DVPITC, O2SAT, FIO2 Lab Results Component Value Date/Time [...] Villarreal MD 03/25/2020 7:18 AM * Francisco Garcia, DO - 03/24/2020 11:29 AM EDT [facility] IN-PATIENT SERVICE [facility] Progress Note 03/24/2020 11:29 AM Name: Jordan Tello Acct: [id number] Room: [facility] Day: 1 Admit Date: 03/23/2020 8:07 PM [...] History: Per Record: Patient originally presented to [facility] via EMS for the complaint of right [...] to the emergency room. Her work-up at [facility] show to have a dental abscess 2 x 1 x 1 on the right mandibular side with extension into the masseter muscle at that time it was recommended that patient be transferred to [facility] for OMF evaluation. Of significant laboratory findings [...] No results for input(s): PROT, LABALBU, LABA1C, X7YLWNE, S8BDWZQ, FT4, TSH, AST, ALT, LDH, GGT, ALKPHOS, LABGGT, BILITOT, BILIDIR, AMMONIA, AMYLASE, LIPASE, LACTATE, CHOL, HDL, LDLCHOLESTEROL, CHOLHDLRATIO, TRIG, VLDL, [id number], PHENYTOIN, PHENYF, URICACID, POCGLU in the last 72 hours. ABG:No results found for: POCPH, PHART, PH, POCPCO2, ZYE1IZV, PCO2, POCPO2, PO2ART, PO2, POCHCO3, DTW8SUU, HCO3, NBEA, PBEA, BEART, BE, THGBART, THB, ZSG3KTR, XCPJ3GXZ, L2FSEVES, O2SAT, FIO2 No results found for: SPECIAL [...] controlled now. Continue to monitor closely. 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 [email or web address] [facility]. provides no warranty or guarantee of the accuracy or completeness of information in this document.
== END 2024-02-16 07:09 | disposition home or self-care (01) ==
LOC: LAB 07:09
PROVIDERS: PCP Family Medicine
DX: Z79.899 Other long term (current) drug therapy (principal)
CPT/HCPCS: 36415; 80164

== ENCOUNTER 2024-05-17 17:42 | Emergency (ER) | payer BC, OTHER, SELFPAY ==
[2024-05-17 17:48] VITALS: BP 137/95; PULSE 104; TEMP 36.7; O2SAT 95; BMI 33.5
--- NOTE | 2024-05-17 17:51 | XR_ITS ---
The [address] [address] Patient Name: EUSEBIA GRANDE MRN: [id number] date: 2000 Sex: F Assigned Patient Location: ER Current Patient Location: ED.MAIN Accession/Order Number: [id number] Exam Date: 05/17/2024 18:08 Report Date: 05/17/2024 19:20 At the request of: RIGOBERTO JIMENEZ Procedure: XR knee LT 4V IMAGES REVIEWED: XR knee LT 4V COMPARISON: 07/15/2022. CLINICAL INDICATION: fall, left knee pain FINDINGS/IMPRESSION: 1. Moderate-prominent suprapatellar effusion appears to be present on the lateral view. This raises concern for internal derangement which would be better evaluated with nonemergent MRI. 2. No radiographic evidence of acute osseous abnormality of the left knee. 3. Mild degenerative change, particularly involving the medial compartment. Electronically authenticated by: LOLITA VIGIL Date: 05/17/2024 19:20
--- NOTE | 2024-05-17 18:03 | ED.LOWEXI1 ---
HPI HPI - Extremity Injury (Lower) General Chief Complaint: Extremity Injury, Lower Stated Complaint: knee pain, fall Time Seen by Provider: 05/17/24 17:45 Source: patient and family Mode of arrival: Wheelchair Limitations: physical limitation History of Present Illness HPI Narrative: Patient is a 23-year-old female who presents to the emergency department for the evaluation of knee pain. She states she has a history of the left knee giving out on her. She has been to physical therapy for this previously. She states today the left knee gave out on her twice and she fell onto her left knee. She complains of pain in the anteromedial aspect of the left knee. She is not concerned for . She took ibuprofen prior to arrival. Related Data Home Medications ?Medication ?Instructions ?Recorded ?Confirmed cariprazine 6 mg capsule (Vraylar) 6 mg PO Q24H 05/17/24 05/17/24 divalproex 500 mg tablet,extended 500 mg PO DAILY 05/17/24 05/17/24 release 24 hr duloxetine 60 mg capsule,delayed 120 mg PO DAILY 05/17/24 05/17/24 release trazodone 100 mg tablet 100 mg PO .QHS 05/17/24 05/17/24 Previous Rx's ?Medication ?Instructions ?Recorded ketorolac 10 mg tablet 10 mg PO TID PRN pain #10 tabs 05/17/24 methocarbamol 750 mg tablet 750 mg PO TID PRN pain #20 tabs 05/17/24 prednisone 20 mg tablet 60 mg (3 x 20 mg) PO DAILY 3 days 05/17/24 #9 tabs Allergies Allergy/AdvReac Type Severity Reaction Status Date / Time No Known Drug Allergies Allergy Verified 05/17/24 17:50 Opioid HPI Opioid Management Most Recent Pain and Opioid Data: No Data to Display Review of Systems ROS Constitutional Denies: fever or chills Ears, nose, mouth, and throat Denies: throat pain or nasal congestion Respiratory Denies: shortness of breath Gastrointestinal Denies: nausea or vomiting Musculoskeletal Reports: extremity pain; Denies: back pain or neck pain Integumentary/Breast Denies: rash Neurological Denies: headache, numbness in extremities or weakness in extremities Hematologic/Lymphatic Denies: easy bruising or easy bleeding Exam Narrative Exam Narrative: Gen.: Awake, alert, in no distress Head: Normocephalic, atraumatic ENT: Moist mucous membranes Respiratory: No respiratory distress Extremities: Moves extremities equally, painful flexion and extension of the left knee. No laxity of the left knee at the patella. Diffuse tenderness of the anteromedial left knee. No obvious deformity, ecchymosis or joint effusion noted Psych: Normal mood and affect Neuro: No focal neuro deficit Skin: Warm, dry, intact Constitutional Vital Signs, click to edit/add: Last Vital Signs Temp 98.1 F 05/17/24 17:48 Pulse 104 H 05/17/24 17:48 Resp 16 05/17/24 17:48 BP 137/95 H 05/17/24 17:48 Pulse Ox 95 05/17/24 17:48 O2 Del Method Room Air 05/17/24 17:48 Course Vital Signs Vital signs: Vital Signs Temperature 98.1 F 05/17/24 17:48 Pulse Rate 104 H 05/17/24 17:48 Respiratory Rate 16 05/17/24 17:48 Blood Pressure 137/95 H 05/17/24 17:48 Pulse Oximetry 95 05/17/24 17:48 Oxygen Delivery Method Room Air 05/17/24 17:48 Temperature 98.1 F 05/17/24 17:48 Pulse Rate 104 H 05/17/24 17:48 Respiratory Rate 16 05/17/24 17:48 Blood Pressure 137/95 H 05/17/24 17:48 Pulse Oximetry 95 05/17/24 17:48 Oxygen Delivery Method Room Air 05/17/24 17:48 MDM - Extremity Injury (Lower) MDM Narrative Medical decision making narrative: With no evidence of fracture or dislocation. Patient was medicated with steroid and pain medication in the ER, she requested Tums while in the emergency department and was given a dose. She is placed in an Sanya wrap and knee immobilizer and remains neurovascularly intact. She has a walker that she brought from home to help her ambulate. She is sent home with medication for pain. Patient is given an appointment time for Dr. Beck at 10:30 AM on 05/28/2024. She can call the office to reschedule if this is a problem. Rest, ice, elevate. Return to the ER if symptoms change or worsen SUPERVISED APC VISIT, PHYSICIAN ATTESTATION: Based on the medical record the care appears appropriate. ? Medical Records Attestation: I reviewed the patient's medical records. Imaging Data XR knee: Attestation: I have reviewed the pertinent imaging results. Discharge Plan Discharge Stand Alone Forms: Portal Instructions Chief Complaint: Extremity Injury, Lower Clinical Impression: Left knee sprain Patient Disposition: Home, Self-Care Time of Disposition Decision: 19:29 Condition: Good Prescriptions / Home Meds: New ketorolac 10 mg tablet 10 mg PO TID PRN (Reason: pain) Qty: 10 0RF methocarbamol 750 mg tablet 750 mg PO TID PRN (Reason: pain) Qty: 20 0RF prednisone 20 mg tablet 60 mg PO DAILY 3 Days Qty: 9 0RF No Action duloxetine 60 mg capsule,delayed release(DR/EC) 120 mg PO DAILY Vraylar 6 mg capsule 6 mg PO Q24H divalproex 500 mg tablet extended release 24 hr 500 mg PO DAILY trazodone 100 mg tablet 100 mg PO .QHS Print Language: [place] Instructions: Knee Sprain (ED) Referrals: Kranthi Carlin MD [Primary Care Provider] - 1 week Shahid Beck MD [Physician] - 05/28/24 10:30 am
--- OUTSIDE RECORDS SUMMARY | 2024-05-17 18:08 | XMS_ITS | CCD ---
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 Name Role Phone Glenna Carlin Primary Care Provider [phone] ANDREA PINTO Consulting Unavailable GLENNA CARLIN Primary Care Unavailable FRANCISCO GARCIA Admitting Unavailable DANIELLE VILLARREAL Attending Unavailable HODA GOODSON Consulting Unavailable RADHA JUNGSIK Consulting Unavailable Franco Rajput Unavailable BERENICE RAMIREZ Admitting Unavailable JANE ., DR MANZANARES Primary Care Unavailable BERENICE RAMIREZ Attending Unavailable SHYLA, DR JENNIFER Guajardo Consulting Unavailabl e JANE ., DR MANZANARES Primary Care Unavailable SHYLA, [...] HOY ., DR MANZANARES Primary Care Unavailable BEREINCE RAMIREZ Attending Unavailable BERENICE RAMIREZ Admitting Unavailable [...] PURVI Ordaz Consulting Unavailable Salvatore Hendricks Attending Salvatore Muñoz Admitting UnavailGlenna Nicole Primary Care Unavailable Allergies Allergy Classification Reported Allergen(s) Allergy Type Date of Onset Reaction(s) Facility (1 source) Corticosteroids Drug allergy (disorder) [facility] Repository (1 source) Corticosteroids Drug allergy (disorder) 1 [facility] Repository Medications Current Medications Medication Drug [...] 0 03/23/2019 Active take 1 capsule by [facility] every twenty-four hours Cymbalta 60 MG 1 [...] MRI BRAIN WO CON EXAMINATION: MRI BRAIN CON, 12/16/2022 9:20 AM EST HISTORY: Compression [...] PURVI OLIVIER Date: 2022-12-16 10:55 Normal [facility] MATEO by IFAon 01-19-2023 Antinuclear Antibodies, IFA Negative Normal [facility] Comment on above: Result Comment: Nega tive <1:80 Borderline 1:80 Positive >1:80 ICAP nomenclature: AC-0 For more information about Hep-2 cell patterns use ANApatterns.org, the official website for the International Consensus on Antinuclear Antibody (MATEO) Patterns (ICAP). Performed By: #### A NAIFA #### [facility] [address] [place] [address] Dr. Alfred Issa MATEO DIRECTon 11-17-2022 MATEO Direct Negative Normal Negative [facility] Comment on above: Performed By: #### A NAD #### [facility] [address] [place] [address] Dr. Alfred Issa ANTISTREPTOLYSIN O AB (ASO)o n 11-17-2022 Antistreptolysin O Ab 29.0 IU/mL Normal 0.0-200.0 [facility] Comment on above: Performed By: #### A SOAB #### [facility] [address] [place] [address] Dr. Alfred Issa C3 and C4 COMPLEMENTon 11-17 Complement C3, Serum 181 mg/dL Critically high 82-167 [facility] Comment on above: Performed By: #### C SUITE #### [facility] [address] [place] [address] Dr. Alfred Issa Complement C4, Serum 28 mg/dL Normal 12-38 [facility] Comment on above: Performed By: #### C SUITE #### [facility] [address] [place] [address] Dr. Alfred Issa INSULINon 11-17-2022 Insulin 29.2 uIU/mL Critically high 2.6-24.9 [facility] Comment on above: Performed By: #### I NSULIN #### [facility] [address] [place] [address] Dr. Alfred Issa SLE PROFILE Aon 11-17-2022 Anti-DNA (DS) Ab Qn 1 IU/mL Normal 0-9 [facility] Comment on above: Result Comment: Nega tive <5 Equivocal 5 - 9 Positive >9 Performed By: #### S RENAN #### [facility] [address] [address] [address] Alfred Issa Antichromatin Antibodies <0.2 Normal 0.0-0.9 [facility] Comment on above: Performed By: #### S RENAN #### [facility] [address] [address] [address] Alfred Issa RA Latex Turbid. <10.0 Normal <14.0 [facility] Comment on above: Performed By: #### S RENAN #### [facility] [address] [address] [address] Alfred Issa COW TENDER Antibodies <0.2 Normal 0.0-0.9 [facility] Comment on above: Performed By: #### S RENAN #### [facility] [address] [place] [address] Dr. Alfred Issa Sjogren's Anti-SS-A <0.2 Normal 0.0-0.9 [facility] Comment on above: Performed By: #### S RENAN #### [facility] [address] [place] [address] Dr. Alfred Issa Sjogren'jd Anti-SS-B <0.2 Normal 0.0-0.9 [facility] Comment on above: Performed By: #### S RENAN #### [facility] [address] [place] [address] Dr. Alfred Issa Mckinney Antibodies <0.2 Normal 0.0-0.9 [facility] Comment on above: Performed By: #### S RENAN #### [facility] [address] [address] [address] Alfred Issa CBC AUTO DIFFon 11-16-2022 BASO # 0.0 103/ul Normal 0.0-0.1 [facility] Comment on above: Performed By: #### C BC #### [facility] [address] [place] [address] Dr. Alfred Issa Basophils/100 WBC (Bld) 0.4 % Normal 0.2-2.0 [facility] Comment on above: Performed By: #### C BC #### [facility] [address] [place] [address] Dr. Alfred Issa EO # 0.1 103/ul Normal 0.0-0.7 [facility] Comment on above: Performed By: #### C BC #### [facility] [address] [place] [address] Dr. Alfred Issa Eosinophils/100 WBC (Bld) 1.0 % Normal 0.9-7.0 [facility] Comment on above: Performed By: #### C BC #### [facility] [address] [place] [address] Dr. Alfred Issa Erythrocyte distribution width (RBC) [Ratio] 13.1 % Normal 11.0-15.0 [facility] Comment on above: Performed By: #### C BC #### [facility] [address] [place] [address] Dr. Alfred Issa Hematocrit (Bld) [Volume fraction] 43.9 % Normal 36.0-48.0 [facility] Comment on above: Performed By: #### C BC #### [facility] [address] [place] [address] Dr. Alfred Issa Hemoglobin (Bld) [Mass/Vol] 14.8 g/dL Normal 12.0-16.0 [facility] Comment on above: Performed By: #### C BC #### [facility] [address] [place] [address] Dr. Alfred Issa IG # 0.05 10e3/ul Critically high 0.00-0.03 [facility] Comment on above: Performed By: #### C BC #### [facility] [address] [place] [address] Dr. Alfred Issa IG % 0.5 % Normal 0.0-0.5 [facility] Comment on above: Performed By: #### C BC #### [facility] [address] [place] [address] Dr. Alfred Issa LYMPH # 2.7 103/ul Normal 1.2-3.8 [facility] Comment on above: Performed By: #### C BC #### [facility] [address] [address] [address] Alfred Issa Lymphocytes/100 WBC (Bld) 26.5 % Normal 20.5-60.0 [facility] Comment on above: Performed By: #### C BC #### [facility] [address] [address] [address] Alfred Issa MANUAL DIFF REQ NO Normal [facility] Comment on above: Performed By: #### C BC #### [facility] [address] [place] [address] Dr. Alfred Issa MCH (RBC) [Entitic mass] 27.5 pg Normal 26.7-34.0 [facility] Comment on above: Performed By: #### C BC #### [facility] [address] [place] [address] Dr. Alfred Issa MCHC (RBC) [Mass/Vol] 33.7 g/dL Normal 29.9-35.2 [facility] Comment on above: Performed By: #### C BC #### [facility] [address] [place] [address] Dr. Alfred Issa MCV (RBC) [Entitic vol] 81.4 fL Normal 81.0-99.0 [facility] Comment on above: Performed By: #### C BC #### [facility] [address] [place] [address] Dr. Alfred Issa MONO # 0.5 103/ul Normal 0.3-0.8 [facility] Comment on above: Performed By: #### C BC #### [facility] [address] [place] [address] Dr. Alfred Issa Monocytes/100 WBC (Bld) 4.9 % Normal 1.7-12.0 [facility] Comment on above: Performed By: #### C BC #### [facility] [address] [place] [address] Dr. Alfred Issa NEUT # 6.7 103/ul Critically high 1.4-6.5 [facility] Comment on above: Performed By: #### C BC #### [facility] [address] [address] [address] Alfred Issa Neutrophils/100 WBC (Bld) 66.7 % Normal 43.0-75.0 [facility] Comment on above: Performed By: #### C BC #### [facility] [address] [address] [address] Alfred Issa Platelet mean volume (Bld) [Entitic vol] 8.4 fL Critically low 9.5-13.5 [facility] Comment on above: Performed By: #### C BC #### [facility] [address] [address] [address] Alfred Issa PLT 312 103/ul Normal 150-450 [facility] Comment on above: Performed By: #### C BC #### [facility] [address] [address] [address] Alfred Issa RBC 5.39 106/ul Normal 4.20-5.40 [facility] Comment on above: Performed By: #### C BC #### [facility] [address] [address] [address] Alfred Issa WBC 10.1 103/ul Normal 4.0-11.0 [facility] Comment on above: Performed By: #### C BC #### [facility] [address] [address] [address] Alfred Issa CRPon 11-16-2022 CRP 0.7 mg/dL Normal <=1.0 [facility] Comment on above: Performed By: #### L IPID, TSH, T7, URIC, CRP, CMP ####[facility] [address] [id number][address] Alfred Issa FREE THYROXINE INDEX T7on FTI 3.50 Normal 1.30-4.50 [facility] Comment on above: Performed By: #### L IPID, TSH, T7, URIC, CRP, CMP ####[facility] [address] [address]Dr. Alfred Issa T3U 34.0 % Normal 30.0-39.0 [facility] Comment on above: Performed By: #### L IPID, TSH, T7, URIC, CRP, CMP ####[facility] [address] [address]Dr. Alfred Issa T4 [Mass/Vol] 10.30 ug/dL Normal 4.80-13.90 [facility] Comment on above: Performed By: #### L IPID, TSH, T7, URIC, CRP, CMP ####[facility] [address] [address]Dr. Alfred Issa GLYCOHEMOGLOBIN A1Con 2022 ADA RECOMMENDATION SEE BELOW Normal [facility] Comment on above: Result Comment: ADA RECOMMENDED LIMIT 4.0 - 6.0 ADA THERAPEUTIC TARGET < 7.0 ACTION SUGGESTED > 7.0 Performed By: #### A 1C #### [facility] [address] [address] [address] Alfred Issa Glucose [Mass/Vol] 108 mg/dL Normal [facility] Comment on above: Performed By: #### A 1C #### [facility] [address] [address] [address] Alfred Issa HbA1c (Bld) [Mass fraction] 5.4 % Normal 4.5-6.2 [facility] Comment on above: Performed By: #### A 1C #### [facility] [address] [address] [address] Alfred Issa IRONon 11-16-2022 Iron [Mass/Vol] 127.0 ug/dL Normal 50.0-170.0 [facility] Comment on above: Performed By: #### I LEIGH ANN #### [facility] [address] [address] [address] Alfred Issa LIPID PROFILEon 11-16-2022 CHOL-HDL RATIO NORM SEE BELOW Normal [facility] Comment on above: Result Comment: 3.3 - 4.4 LOW RISK 4.4 - 7.1 AVERAGE RISK 7.1 - 11.0 MODERATE RISK >11.0 HIGH RISK Performed By: #### L IPID, TSH, T7, URIC, CRP, CMP ####[facility] [address] [address]Dr. Alfred Issa Cholesterol [Mass/Vol] 197 mg/dL Normal <=200 Th [facility] Comment on above: Performed By: #### L IPID, TSH, T7, URIC, CRP, CMP ####[facility] [address] [address]Dr. Alfred Issa Cholesterol in HDL [Mass/Vol] 39 mg/dL Critically low 40-60 [facility] Comment on above: Performed By: #### L IPID, TSH, T7, URIC, CRP, CMP ####[facility] [address] [address]Dr. Alfred Issa Cholesterol in LDL [Mass/Vol] 116.8 mg/dL Normal [facility] Comment on above: Performed By: #### L IPID, TSH, T7, URIC, CRP, CMP ####[facility] [address] [address]Dr. Alfred Issa Cholesterol.total/Chol esterol in HDL [Mass ratio] 5.1 {ratio} Normal [facility] Comment on above: Performed By: #### L IPID, TSH, T7, URIC, CRP, CMP ####[facility] [address] [address]Dr. Alfred Issa HDL NORMAL > or = 60 mg/dl - LOW CARDIOVASCULAR RISK <40 mg/dl - HIGH CARDIOVASCULAR RISK Normal [facility] Comment on above: Performed By: #### L IPID, TSH, T7, URIC, CRP, CMP ####[facility] [address] [address]Dr. Alfred Issa LDL CALC NORMAL SEE BELOW Normal [facility] Comment on above: Result Comment: <100 mg/dl OPTIMAL 100 - 129 mg/dl NEAR OR ABOVE OPTIMAL 130 - 159 mg/dl BORDERLINE HIGH 160 - 189 mg/dl HIGH >190 mg/dl VERY HIGH Performed By: #### L IPID, TSH, T7, URIC, CRP, CMP ####[facility] [address] [address]Dr. Alfred Issa Triglyceride [Mass/Vol] 206 mg/dL Critically high <=150 [facility] Comment on above: Performed By: #### L IPID, TSH, T7, URIC, CRP, CMP ####[facility] [address] [address]Dr. Alfred Issa VLDL CALC 41.2 mg/dL Normal [facility] Comment on above: Performed By: #### L IPID, TSH, T7, URIC, CRP, CMP ####[facility] [address] [address]Dr. Alfred Issa OCC BLD IMMUNO SCREENon 10-31 OCCULT BLOOD Negative Normal NEGATIVE [facility] Comment on above: Performed By: #### O BSCRN ####[facility] [address] [address]Dr. Alfred Issa PROF 14(COMP METB)on 023 Albumin [Mass/Vol] 4.0 g/dL Normal 3.4-5.0 [facility] Comment on above: Performed By: #### L IPID, TSH, T7, URIC, CRP, CMP ####[facility] [address] [address]Dr. Alfred Issa Albumin/Globulin [Mass ratio] 1.1 {ratio} Normal [facility] Comment on above: Performed By: #### L IPID, TSH, T7, URIC, CRP, CMP ####[facility] [address] [address]Dr. Alfred Issa ALP [Catalytic activity/Vol] 104 U/L Normal 46-116 [facility] Comment on above: Performed By: #### L IPID, TSH, T7, URIC, CRP, CMP ####[facility] [address] [address]Dr. Alfred Issa ALT [Catalytic activity/Vol] 26 U/L Normal 14-59 [facility] Comment on above: Performed By: #### L IPID, TSH, T7, URIC, CRP, CMP ####[facility] [address] [address]Dr. Alfred Issa Anion gap [Moles/Vol] 13.2 mmol/L Normal [facility] Comment on above: Performed By: #### L IPID, TSH, T7, URIC, CRP, CMP ####[facility] [address] [place], [place] [address]Dr. Alfred Issa AST [Catalytic activity/Vol] 20 U/L Normal 15-37 [facility] Comment on above: Performed By: #### L IPID, TSH, T7, URIC, CRP, CMP ####[facility] [address] [place], [place] [address]Dr. Alfred Issa Bilirubin [Mass/Vol] 0.6 mg/dL Normal 0.2-1.0 [facility] Comment on above: Performed By: #### L IPID, TSH, T7, URIC, CRP, CMP ####[facility] [address] [place], [place] [address]Dr. Alfred Issa Calcium [Mass/Vol] 9.3 mg/dL Normal 8.5-10.1 [facility] Comment on above: Performed By: #### L IPID, TSH, T7, URIC, CRP, CMP ####[facility] [address] [place], [place] [address]Dr. Alfred Issa Chloride [Moles/Vol] 100 mmol/L Normal 98-107 [facility] Comment on above: Performed By: #### L IPID, TSH, T7, URIC, CRP, CMP ####[facility] [address] [place], [place] [address]Dr. Alfred Issa CO2 [Moles/Vol] 26.6 mmol/L Normal 21.0-32.0 [facility] Comment on above: Performed By: #### L IPID, TSH, T7, URIC, CRP, CMP ####[facility] [address] [place], [place] [address]Dr. Alfred Issa Creatinine [Mass/Vol] 0.56 mg/dL Normal 0.55-1.02 [facility] Comment on above: Performed By: #### L IPID, TSH, T7, URIC, CRP, CMP ####[facility] [address] [place], [place] [address]Dr. Alfred Issa EGFR-AF SOUTH AFRICAN >60 Normal >=60 [facility] Comment on above: Performed By: #### L IPID, TSH, T7, URIC, CRP, CMP ####[facility] [address] [address]Dr. Alfred Issa EGFR-NON AF SOUTH AFRICAN >60 Normal >=60 [facility] Comment on above: Performed By: #### L IPID, TSH, T7, URIC, CRP, CMP ####[facility] [address] [address]Dr. Alfred Issa Globulin (S) [Mass/Vol] 3.5 g/dL Normal [facility] Comment on above: Performed By: #### L IPID, TSH, T7, URIC, CRP, CMP ####[facility] [address] [place], [place] [address]Dr. Alfred Issa Glucose [Mass/Vol] 112 mg/dL Critically high 74-106 T [facility] Comment on above: Performed By: #### L IPID, TSH, T7, URIC, CRP, CMP ####[facility] [address] [place], [place] [address]Dr. Alfred Issa Potassium [Moles/Vol] 3.8 mmol/L Normal 3.5-5.1 [facility] Comment on above: Performed By: #### L IPID, TSH, T7, URIC, CRP, CMP ####[facility] [address] [place], [place] [address]Dr. Alfred Issa Protein [Mass/Vol] 7.5 g/dL Normal 6.4-8.2 [facility] Comment on above: Performed By: #### L IPID, TSH, T7, URIC, CRP, CMP ####[facility] [address] [place], [place] [address]Dr. Alfred Issa Sodium [Moles/Vol] 136 mmol/L Normal 136-145 [facility] Comment on above: Performed By: #### L IPID, TSH, T7, URIC, CRP, CMP ####[facility] [address] [place], [place] [address]Dr. Alfred Issa Urea nitrogen [Mass/Vol] 8.0 mg/dL Normal 7.0-18.0 [facility] Comment on above: Performed By: #### L IPID, TSH, T7, URIC, CRP, CMP ####[facility] [address] [address]Dr. Alfred Issa Urea nitrogen/Creatinine [Mass ratio] 14.3 mg/mg Normal [facility] Comment on above: Performed By: #### L IPID, TSH, T7, URIC, CRP, CMP ####[facility] [address] [address]Dr. Alfred Issa TSHon 11-16-2022 TSH 1.787 uIU/mL Normal 0.358-3.740 [facility] Comment on above: Performed By: #### L IPID, TSH, T7, URIC, CRP, CMP ####[facility] [address] [address]Dr. Alfred Issa URIC ACID SERUMon 11-16-2022 Urate [Mass/Vol] 5.3 mg/dL Normal 2.6-6.0 [facility] Comment on above: Performed By: #### L IPID, TSH, T7, URIC, CRP, CMP ####[facility] [address] [address]Dr. Alfred Issa Cult,Aerobe/Anaerobeon 03-29 Cult,Aerobe/Anaerobe Specimen Descriptio n .FACE RIGHT .ABSCESS SWAB Special Requests NOT REPORTED Direct Exam FEW NEUTROPHILS RARE GRAM POSITIVE COCCI IN PAIRS Culture HAEMOPHILUS PARAINFLUENZAE SCANT GROWTH BETA LACTAMASE NEGATIVE NORMAL MAGALYS MIXED ANAEROBIC MAGALYS Report Status FINAL 03/29/2020 [facility] Comment on above: Performed By: #### A ANC #### [facility] [place] [address] Customer Service Representative Teller: Wilfredo Keyes MD Basic Metab w/rfx MGon 03-24 (cont.) [facility] Comment on above: Result Comment: Aver age GFR for 20-29 years old: 116 mL/min/1.73sq m Chronic Kidney Disease: <60 mL/min/1.73sq m Kidney failure: <15 mL/min/1.73sq m eGFR calculated using average adult body mass. Additional eGFR calculator available at: http://www.[employer]multiple_crcl_2012.htm Performed By: #### C JANIE JCX, PT #### [facility] [address] [place] [address] Customer Service Representative Teller: Wilfredo Keyes MD Anion gap [Moles/Vol] 15 mmol/L Normal 9-17 [facility] Comment on above: Performed By: #### C HOSEA BMPX, PT #### [facility] [address] [place] [address] Customer Service Representative Teller: Wilfredo Keyes MD Calcium [Mass/Vol] 9.0 mg/dL Normal 8.6-10.4 [facility] Comment on above: Performed By: #### Koffi JC BMPX, PT #### [facility] [address] [place] [address] Customer Service Representative Teller: Wilfredo Keyes MD Chloride [Moles/Vol] 99 mmol/L Normal 98-107 [facility] Comment on above: Performed By: #### C HOSEA BMPX, PT #### [facility] [address] [place] [address] Customer Service Representative Teller: Wilfredo Keyes MD CO2 [Moles/Vol] 25 mmol/L Normal 20-31 [facility] Comment on above: Performed By: #### C HOSEA BMPX, PT #### [facility] [address] [place] [address] Customer Service Representative Teller: Wilfredo Keyes MD Creatinine [Mass/Vol] 0.45 mg/dL Low 0.50-0.90 [facility] Comment on above: Performed By: #### Koffi JC BMPX, PT #### [facility] [address] [place] [address] Customer Service Representative Teller: Wilfredo Keyes MD GFR, Amer >60 Normal >60 [facility] Comment on above: Performed By: #### C BC, BMPX, PT #### [facility] [address] [place] [address] Customer Service Representative Teller: Wilfredo Keyes MD GFR,non Amer >60 Normal >60 [facility] Comment on above: Performed By: #### C BC, BMPX, PT #### [facility] [address] [place] [address] Customer Service Representative Teller: Wilfredo Keyes MD Glucose [Mass/Vol] 90 mg/dL Normal 70-99 [facility] Comment on above: Performed By: #### C BC, BMPX, PT #### [facility] [address] [place] [address] Customer Service Representative Teller: Wilfredo Keyes MD Potassium [Moles/Vol] 3.7 mmol/L Normal 3.7-5.3 [facility] Comment on above: Performed By: #### C BC, BMPX, PT #### [facility] [address] [place] [address] Customer Service Representative Teller: Wilfredo Keyes MD Sodium [Moles/Vol] 139 mmol/L Normal 135-144 [facility] Comment on above: Performed By: #### C BC, BMPX, PT #### [facility] [address] [place] [address] Customer Service Representative Teller: Wilfredo Keyes MD Urea nitrogen [Mass/Vol] 8 mg/dL Normal 6-20 [facility] Comment on above: Performed By: #### C BC, BMPX, PT #### [facility] [address] [place] [address] Customer Service Representative Teller: Wilfredo Keyes MD BUN/CRE Ratio NOT REPORTED Normal 9-20 [facility] Comment on above: Performed By: #### C BC, BMPX, PT #### [facility] [address] [place] [address] Customer Service Representative Teller: Wilfredo Keyes MD Staging: NOT REPORTED Normal [facility] [facility] Comment on above: Performed By: #### C BC, BMPX, PT #### [facility] [employer] [address] [place], [place] [address] Customer Service Representative Teller: Wilfredo Keyes MD Basic Metabolic Panel w/ Ref rodríguez to MGon 03-24-2020 Anion gap [Moles/Vol] 15 mmol/L 9 - 17 mmol/L [place] Bun/Cre Ratio NOT REPORTED [place], [place] Calcium [Mass/Vol] 9.0 mg/dL 8.6 - 10. 4 mg/dL [place] Chloride [Moles/Vol] 99 mmol/L 98 - 10 7 mmol/L [place] CO2 [Moles/Vol] 25 mmol/L 20 - 31 mmol/L [place] Creatinine [Mass/Vol] 0.45 mg/dL Low 0.5 - 0.9 mg/dL [place] GFR >60 >60 mL/min [place] GFR Non- >60 >60 mL/min [place] GFR/1.73 sq M predicted among non-blacks MDRD (S/P/Bld) [Vol rate/Area] NOT REPORTED [place] GFR/1.73 sq M predicted among non-blacks MDRD (S/P/Bld) [Vol rate/Area] [place] Comment on above: Average GFR for 20-2 9 years old: 116 mL/min/1.73sq m Chronic Kidney Disease: <60 mL/min/1.73sq m Kidney failure: <15 mL/min/1.73sq m eGFR calculated using average adult body mass. Additional eGFR calculator available at: http://www.[employer]multiple_crcl_2012.htm Glucose [Mass/Vol] 90 mg/dL 70 - 99 mg/dL [place], [place] Interpretation and review of laboratory results Abnormal [place] Potassium [Moles/Vol] 3.7 mmol/L 3.7 - 5.3 mmol/L [place] Sodium [Moles/Vol] 139 mmol/L 135 - 144 mmol/L [place] Urea nitrogen [Mass/Vol] 8 mg/dL 6 - 20 mg/dL [place] CBCon 03-24-2020 Erythrocyte distribution width (RBC) [Ratio] 12.6 % Normal 11.8-14.4 [facility] Comment on above: Performed By: #### Koffi JC BMPX, PT #### [employer] [address] [place] [address] Customer Service Representative Teller: Wilfredo Keyes MD Hematocrit (Bld) [Volume fraction] 41.9 % Normal 36.3-47.1 [facility] Comment on above: Performed By: #### Koffi JC BMPX, PT #### [facility] [address] [place] [address] Customer Service Representative Teller: Wilfredo Keyes MD Hemoglobin (Bld) [Mass/Vol] 14.2 g/dL Normal 11.9-15.1 [facility] Comment on above: Performed By: #### Koffi JC BMPX, PT #### [facility] [address] [place] [address]145 Customer Service Representative Teller: Wilfredo Keyes MD MCH (RBC) [Entitic mass] 28.9 pg Normal 25.2-33.5 [facility] Comment on above: Performed By: #### Koffi JC BMPX, PT #### [employer] [address] [place] [address]36 Customer Service Representative Teller: Wilfredo Keyes MD MCHC (RBC) [Mass/Vol] 33.9 g/dL Normal 28.4-34.8 [facility] Comment on above: Performed By: #### Koffi JC BMPX, PT #### [employer] [address] [place] [address] Customer Service Representative Teller: Wilfredo Keyes MD MCV (RBC) [Entitic vol] 85.3 fL Normal 82.6-102.9 [facility] Comment on above: Performed By: #### Koffi JC BMPX, PT #### [facility] [employer] [address] [place] [address] Customer Service Representative Teller: Wilfredo Keeys MD NRBC Automated 0.0 per 100 WBC Normal 0.0 [facility] Comment on above: Performed By: #### C HOSEA BMPX, PT #### [facility] [address] [place] [address] Customer Service Representative Teller: Wilfredo Keyes MD Platelet mean volume (Bld) [Entitic vol] 8.5 fL Normal 8.1-13.5 [facility] Comment on above: Performed By: #### Koffi JC BMPX, PT #### [facility] [employer] [address] [place] [address]99 Customer Service Representative Teller: Wilfredo Keyes MD Platelets (Bld) [#/Vol] 256 10*3/uL Normal 138-453 [facility] Comment on above: Performed By: #### Koffi JC BMPX, PT #### [facility] [employer] [address] [place] [address] Customer Service Representative Teller: Wilfredo Keyes MD RBC (Bld) [#/Vol] 4.91 10*6/uL Normal 3.95-5.11 [facility] Comment on above: Performed By: #### Koffi JC BMPX, PT #### [facility] [address] [place] [address]28 Customer Service Representative Teller: Wilfredo Keyes MD WBC (Bld) [#/Vol] 10.0 10*3/uL Normal 4.5-13.5 [facility] Comment on above: Performed By: #### Koffi JC BMPX, PT #### [facility] [address] [place] [address] Customer Service Representative Teller: Wilfredo Keyes MD Erythrocyte distribution width (RBC) [Ratio] 12.6 % 11.8 - 14.4 % [place] Hematocrit (Bld) [Volume fraction] 41.9 % 36.3 - 47.1 % [place] Hemoglobin (Bld) [Mass/Vol] 14.2 g/dL 11.9 - 15.1 g/dL [place] MCH (RBC) [Entitic mass] 28.9 pg 25.2 - 33.5 pg [place] MCHC (RBC) [Mass/Vol] 33.9 g/dL 28.4 - 34.8 g/dL [place] MCV (RBC) [Entitic vol] 85.3 fL 82.6 - 102.9 fL [place] Platelet mean volume (Bld) [Entitic vol] 8.5 fL 8.1 - 13.5 fL [place], [place] Platelets (Bld) [#/Vol] 256 10*3/uL [place] RBC (Bld) [#/Vol] 4.91 10*6/uL 3.95 - 5.1 1 m/uL [place] WBC (Bld) [#/Vol] 0.0 10*3/uL 0.0 per 10 0 WBC [place] WBC (Bld) [#/Vol] 10.0 10*3/uL [place] COVID-19on 03-24-2020 SARS-CoV-2 Not Detected Not Detected [place], [place] Comment on above: The specimen is NEGATIVE for SARS-CoV-2, the novel coronavirus associated with COVID-19. A negative result does not rule out COVID-19. This test has been authorized by the FDA under an Emergency Use Authorization (EUA) for use by authorized laboratories. Fact sheet for Healthcare Providers: https://www.fda.gov/media/329980/download Fact sheet for Patients: https://www.fda.gov/media/840429/download METHODOLOGY: RT-PCR SARS-CoV-2, [facility] [place] [place] SARS-CoV-2, Rapid [facility] [place] Source .NASOPHARYNGEAL SWAB [place], [place] Gram Stainon 03-24-2020 Microscopic observation Gram stain Nom (Unsp spec) Specimen Description .FACE RIGHT .ABSCESS SWAB Special Requests NOT REPORTED Direct Exam DUPLICATE ORDER GRAM STN INCLUDED WITH CULTURE Report Status FINAL 03/24/2020 Normal [facility] Comment on above: Performed By: #### G S #### [address] [phone] Customer Service Representative Teller: Wilfredo Keyes MD Direct Exam DUPLICATE ORDER GRAM STN INCLUDED WITH CULTURE [place] Special Requests NOT REPORTED [place] Specimen Description .FACE RIGHT [place], [place] HCG, ,Urineon 03-24 Beta HCG ( test) Ql (U) Negative Normal NEG [facility] Comment on above: Result Comment: Spec imens with hCG levels near the threshold of the test (25 mIU/mL) may give a negative or indeterminate result. In such cases, another test should be performed with a new specimen in 48-72 hours. If early is suspected clinically in this setting, correlation with quantitative serum b-hCG level is suggested. Performed By: #### U HCG #### [facility] [employer] [address] [place] [address] [phone] Customer Service Representative Teller: Wilfredo Keyes MD PTon 03-24-2020 INR Coag (PPP) [Relative time] 1.0 {INR} Normal [facility] Comment on above: Result Comment: Therapeutic Range: Moderate Anticoagulant Intensity: INR = 2.0-3.0 High Anticoagulant Intensity: INR = 2.5-3.5 Performed By: #### C BC, BMPX, PT #### [facility] [employer] [address] [place] [address] [phone] Customer Service Representative Teller: Wilfredo Keyes MD PT Coag (PPP) [Time] 10.7 s Normal 9.0-12.0 [facility] Comment on above: Performed By: #### C BC, BMPX, PT #### [facility] [employer] [address] [place] [address] [phone] Customer Service Representative Teller: Wilfredo Keyes MD , urine pre-opon Beta HCG ( test) Ql (U) Negative NEGATIVE [place] Comment on above: Specimens with hCG [...] INR Coag (PPP) [Relative time] 1.0 {INR} [place] Comment on above: Therapeutic Range: Moderate Anticoagulant Intensity: INR = 2.0-3.0 High Anticoagulant Intensity: INR = 2.5-3.5 PT Coag (PPP) [Time] 10.7 s [place] [id number] 03-24-2020 SARS-CoV-2,Rapid Normal [facility] Comment on above: Performed By: #### C OVID #### [facility] [employer] [address] [place] [address] [phone] Customer Service Representative Teller: Wilfredo Keyes MD SARS-CoV-2 [facility] Comment on above: Performed By: #### C OVID #### [facility] [employer] [address] [place] [address] [phone] Customer Service Representative Teller: Wilfredo Keyes MD SARS-CoV-2 Not Detected Normal NOTDET [facility] Comment on above: Result Comment: The specimen is NEGATIVE for SARS-CoV-2, the novel coronavirus associated with COVID-19. A negative result does not rule out COVID-19. This test has been authorized by the FDA under an Emergency Use Authorization (EUA) for use by authorized laboratories. Fact sheet for Healthcare Providers: https://www.fda.gov/media/637650/download Fact sheet for Patients: https://www.fda.gov/media/491788/download METHODOLOGY: RT-PCR Performed By: #### C OVID #### [address] [phone] Customer Service Representative Teller: Wilfredo Keyes MD [id number] 03-23-2020 SARS-CoV-2 Source .NASOPHARYNGEAL SWAB Normal [facility] Comment on above: Performed By: #### C OVID #### [facility] [address] [place] [address] Customer Service Representative Teller: Wilfredo Keyes MD Vital Signs Date Time Vital Sign Value Performing Clinician Facility 07-29-2021 14:00-0400 Body height 162.56 cm Franco Rajput Other [facility] Other 07-29-2021 14:00-0400 Body mass index (BMI) [Ratio] 27.29 kg/m2 Franco Rajput Other [facility] Other 07-29-2021 14:00-0400 Body weight 72.12 kg Franco Rajput Other [facility] Other 07-29-2021 14:00-0400 Diastolic blood pressure 87 mm[Hg] Franco Rajput Other [facility] Other 07-29-2021 14:00-0400 Systolic blood pressure 121 mm[Hg] Franco Rajput Other [facility] Other 03-25-2020 08:00-0400 Body Temperature 97.7 [degF] [facility] [employer], [place] 03-25-2020 08:00-0400 BP Diastolic 83 mm[Hg] [facility] [place] 03-25-2020 08:00-0400 BP Systolic 139 mm[Hg] [facility] , [place] 03-25-2020 08:00-0400 Pulse (Heart Rate) 89 /min [facility], [place] 03-25-2020 08:00-0400 Respiratory Rate 18 /min [facility], [place] 03-24-2020 20:45-0400 Pulse Oximetry 99 % [place], [place] 03-23-2020 20:13-0400 BMI (Body Mass Index) 22.31 kg/m2 [place], [place] 03-23-2020 20:130400 Body weight 58.97 kg [place] 03-23-2020 20:130400 Height 162.6 cm [facility] , [place] Encounters Encounter Date Encounter Type Care Provider Facility Start: 04-25-2024 ambulatory Salvatore Duque acility:[facility] Start: 02-23-2023 End: 02-24-[address] [...] Evaluation and management of inpatient ANDREA PINTO [facility] Start: 03-23-2020 End: 03-25-2020 Evaluation and management [...] REFLEX TO MG FOR LOW K Berta Coupsta Work Phone: Start: 03-24-2020 Blood count complete automated [employer] Work Phone: Start: 03-24-2020 Prothrombin time [email or web address] Work Phone: Start: 03-24-2020 PATIENT STATUS (FROM [...] Influenza vaccination Flu vacc ine (Season Ended) [place] Culture, Anaerobic a nd Aerobic Culture, Anaerobic and Aerobic Microbiology Routine 03/24/2020 1:13 PM EDT [place] Payers Date Payer Category Payer Self-pay 2014 Unknown BCBS BCBS OUT OF STATE xxxxxxxxxxxx 2014-Present [address] [place] [address] xxxxxxxxxxxx [id number] 1998 Unknown [id number] 1998 Unknown [id number] 1998 Unknown [id number] 1998 Unknown [id number] 1998 Unknown [id number] 1998 Unknown [id number] .593 1998 Unknown [id number] .593 1998 Unknown [id number] 1959 Private Health Insurance [id number] 1959 Unknown [id number] 1959 Unknown [id number] 1959 Unknown [id number] Unknown [id number] Social History Date Type Detail Facility Start: 03-25-2020 Tobacco smoking stat [facility] Current every day smoker [place] Start: 03-25-2020 Alcohol intake Current drinke r of alcohol (finding) [place] Start: 03-23-2020 History SDOH Alcohol Frequency 3 [place] Start: 03-23-2020 History SDOH Alcohol [facility]d [facility]inks [facility] Start: 03-23-2020 History SDOH Alcohol Binge 4 [facility] SWETHA JOE Start: 03-23-2020 Alcohol Comment none this week [facility] Sex Assigned At Not on file [facility] Exposure to SARS-CoV -2 (event) Unable to assess SWETHA Silver Sex Assigned At Sex Assigned At Bir th [facility] [employer] Other Clinical Note 07-15-2022 Note Date & Type Note Facility 07-15-2022 Note PROCEDURE: XR KNEE L T 4V or > HISTORY: Pain of left knee joint ; acute left knee instability COMPARISON: None. FINDINGS: BONES:No fracture, acute abnormality, or significant arthropathy. SOFT TISSUES:No visible soft tissue swelling. EFFUSION:None visible. OTHER: Negative. IMPRESSION: 1. Normal examination. Electronically authenticated by: PURVI OLIVIER Date: 2022-07-15 11:44 [facility] Evaluation note 07-29-2021 Note Date & Type Note Facility 07-29-2021 Evaluation note Encounter Date Diagnosis Assessment Notes Jul, Gastritis (ICD-10 - K29.70) Gastritis material was printed Continue Omeprazole 40mg once daily Follow up in 6 months [facility] [employer] Other History general Narrative - Reported Note Date & Type Note Facility History general Narrative - Reported Type Surgical History oral abscess [facility] [employer] Other History of Present Illness * Jojo [...] Culture: Specimen Description 03/24/2020 1:13 PM Martha Marcus .FACE RIGHT Special Requests 03/24/2020 1:13 PM [facility] NOT REPORTED Direct Exam Abnormal 03/24/2020 1:13 PM [facility] FEW NEUTROPHILS Direct Exam Abnormal 03/24/2020 1:13 PM Martha Marcus RARE GRAM POSITIVE COCCI IN PAIRS Culture 03/24/2020 1:13 PM Martha Marcus PENDING Current Inpatient Medications Current Facility-Administered [...] improve 5. F/u OMFS thaddeus 1 week [phone] * Danielle Villarreal MD - 03/25/2020 7:17 AM EDT [facility] IN-PATIENT SERVICE [facility] Progress Note 03/25/2020 7:18 AM Name: Jordan Tello Acct: [id number] Room: 0331/0331-01 Day: 2 Admit Date: 03/23/2020 [...] procedure Brief History: Patient originally presented to [facility] via EMS for the complaint of [...] to the emergency room. Her [facility] show to have a dental abscess 2 x 1 x 1 on the right mandibular side with extension into the masseter muscle at that time it was recommended that patient be transferred to [facility] for OMF evaluation. Of significant laboratory [...] No results for input(s): PROT, LABALBU, LABA1C, L8IIEBG, U4DGHLL, FT4, TSH, AST, ALT, LDH, GGT, ALKPHOS, LABGGT, BILITOT, BILIDIR, AMMONIA, AMYLASE, LIPASE, LACTATE, CHOL, HDL, LDLCHOLESTEROL, CHOLHDLRATIO, TRIG, VLDL, [id number], PHENYTOIN, PHENYF, URICACID, POCGLU in the last 72 hours. ABG:No results found for: POCPH, PHART, PH, POCPCO2, NHM7LYW, PCO2, POCPO2, PO2ART, PO2, POCHCO3, ZJK1HVD, HCO3, NBEA, PBEA, BEART, BE, THGBART, THB, [id number], [id number], [id number], O2SAT, FIO2 Lab Results Component Value Date/Time [...] Garcia, DO - 03/24/2020 11:29 AM EDT [facility] IN-PATIENT SERVICE [facility] Progress Note 03/24/2020 11:29 AM Name: Jordan Tello Acct: [id number] Room: [address] [place] [address] Day: 1 Admit Date: 03/23/2020 8:07 [...] History: Per Record: Patient originally presented to [facility] via EMS for the complaint of [...] to the emergency room. Her work[facility] show to have a dental abscess 2 x 1 x 1 on the right mandibular side with extension into the masseter muscle at that time it was recommended that patient be transferred to [facility] for OMF evaluation. Of significant laboratory [...] No results for input(s): PROT, LABALBU, LABA1C, G7XMKDN, G3SBZEI, FT4, TSH, AST, ALT, LDH, GGT, ALKPHOS, LABGGT, BILITOT, BILIDIR, AMMONIA, AMYLASE, LIPASE, LACTATE, CHOL, HDL, LDLCHOLESTEROL, CHOLHDLRATIO, TRIG, VLDL, [id number], PHENYTOIN, PHENYF, URICACID, POCGLU in the last 72 hours. 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 [facility] [facility]. provides no warranty or guarantee of the accuracy or completeness of information in this document.
[2024-05-17] MEDS: PREDNISONE 20 MG TABLET 60 MG PO (18:24)
[2024-05-17] MEDS: HYDROCODONE/ACET 5-325 MG TABLET 1 TAB PO (18:24)
[2024-05-17] MEDS: CALCIUM CARBONATE 500 MG (200MG ELEMENTAL) TAB CHEW PO (18:46)
[2024-05-17 19:23] VITALS: BP 150/94; PULSE 98; O2SAT 98
== END 2024-05-17 19:40 | disposition home or self-care (01) ==
PROVIDERS: Emergency Provider Emergency Medicine Emergency Medical Services; PCP Family Medicine
DX: S83.92XA Sprain of unspecified site of left knee, initial encounter (principal); W19.XXXA Unspecified fall, initial encounter
CPT/HCPCS: 73564; 99284; J7512

== ENCOUNTER 2024-06-05 12:44 | Outpatient (OUT) | payer BC, OTHER, SELFPAY ==
--- NOTE | 2024-06-05 | MR_ITS ---
[address] [address] Patient Name: EUSEBIA GRANDE MRN: [id number] date: 2000 Sex: F Assigned Patient Location: MRI Current Patient Location: MRI Accession/Order Number: [id number] Exam Date: 06/05/2024 13:00 Report Date: 06/05/2024 16:27 At the request of: GLENNA LARA Procedure: MR knee LT wo con EXAM: MR knee LT wo con REASON FOR EXAM: Left knee pain, instability. TECHNIQUE: Multiplanar, multisequence imaging of the left knee was performed without contrast COMPARISON: Radiographs 05/17/2024. FINDINGS: Laterally, the iliotibial band, fibular collateral ligament, popliteus tendon and biceps tendon are intact. The ACL is intact. The lateral meniscus demonstrates normal morphology and signal without tear. There is probable moderate sized osteochondral peripheral margin of the lateral femoral condyle measuring approximately 0.8 x 1.9 cm. There is subchondral marrow edema at this level. Medially, the medial collateral ligament is intact. The PCL is intact. The medial meniscus demonstrates normal morphology with some globular intrasubstance signal, which does not meet MRI criteria for tear. Low-grade chondrosis of the medial compartment. The distal quadriceps and patella tendons are intact. There is lateral patella subluxation, which is nonspecific in the setting of a joint effusion indeterminate tibial tuberosity trochlear groove interval of 18 mm. 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 Bone contusion involving the medial patella facet. Findings consistent with a likely acute or subacute patellar dislocation relocation injury. The femoral attachment of the MPFL appears thin and attenuated. No osteochondral defect identified involving the patella or trochlear cartilage. A moderate size joint effusion is present. A definite intra-articular body is not identified. The remaining bone marrow signal is normal. Moderate size joint effusion. The regional musculature is without muscle strain or tendon tear. MR/MR knee LT wo con IMPRESSION: 1. Findings of patella dislocation relocation injury. Suspect large osteochondral defect involving the peripheral margin of the lateral femoral condyle. A discrete displaced chondral fragment is not confidently identified within the visualized joint spaces. Indeterminate tibial tuberosity trochlear groove interval of 18 mm. Underlying trochlea dysplasia. Probable chronic high-grade sprain of the femoral attachment of the MPFL. . 2. 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 3. Intact menisci, cruciate and collateral ligaments. 4. Joint effusion Electronically authenticated by: MALIK KHAN Date: 06/05/2024 16:27
--- OUTSIDE RECORDS SUMMARY | 2024-06-05 13:07 | XMS_ITS | CCD ---
Author Organization [facility] Care Team Providers Care Crime Scene Analyst Name Role Phone Glenna Carlin Primary Care [...] SHYLA, DR JENNIFER Guajardo Admitting Unavailabl e TERIECK, DR JENNIFER Guajardo Attending Unavailabl e HOY [...] DR PURVI Ordaz Consulting Unavailable Salvatore Hendricks Admitting Salvatore Muñoz Attending Glenna Turpin Primary Care Unavailable Allergies Allergy Classification Reported Allergen(s) Allergy Type Date of Onset Reaction(s) Facility (1 source) Corticosteroids Drug allergy (disorder) [facility] Repository (1 source) Corticosteroids Drug allergy (disorder) 1 [facility] Repository Medications Current Medications Medication Drug [...] 0 03/23/2019 Active take 1 capsule by [facility] every twenty-four hours Cymbalta 60 [...] PURVI OLIVIER Date: 2022-12-16 10:55 Normal [facility] MATEO by IFAon 01-19-2023 Antinuclear Antibodies, IFA Negative Normal [facility] Comment on above: Result Comment: Nega tive <1:80 Borderline 1:80 Positive >1:80 ICAP nomenclature: AC-0 For more information about Hep-2 cell patterns use ANApatterns.org, the official website for the International Consensus on Antinuclear Antibody (MATEO) Patterns (ICAP). Performed By: #### A NAIFA #### [facility] [address] [place] [address] Dr. Alfred Issa MATEO DIRECTon 11-17-2022 MATEO Direct Negative Normal Negative [facility] Comment on above: Performed By: #### A NAD #### [facility] [address] [place] [address] Dr. Alfred Issa ANTISTREPTOLYSIN O AB (ASO)o n 11-17-2022 Antistreptolysin O Ab 29.0 IU/mL Normal 0.0-200.0 [facility] Comment on above: Performed By: #### A SOAB #### [facility] [address] [place] [address] Dr. Alfred Issa C3 and C4 COMPLEMENTon 11-17 Complement C3, Serum 181 mg/dL Critically high 82-167 [facility] Comment on above: Performed By: #### C SUITE #### [facility] [address] [place] [address] Dr. Alfred Issa Complement C4, Serum 28 mg/dL Normal 12-38 [facility] Comment on above: Performed By: #### C SUITE #### [facility] [address] [place] [address] Dr. Alfred Issa INSULINon 11-17-2022 Insulin 29.2 uIU/mL Critically high 2.6-24.9 [facility] Comment on above: Performed By: #### I NSULIN #### [facility] [address] [place] [address] Dr. Alfred Issa SLE PROFILE Aon 11-17-2022 Anti-DNA (DS) Ab Qn 1 IU/mL Normal 0-9 [facility] Comment on above: Result Comment: Nega tive <5 Equivocal 5 - 9 Positive >9 Performed By: #### S RENAN #### [facility] [address] [address] [address] Alfred Issa Antichromatin Antibodies <0.2 Normal 0.0-0.9 [facility] Comment on above: Performed By: #### S RENAN #### [facility] [address] [address] [address] Alfred Issa RA Latex Turbid. <10.0 Normal <14.0 [facility] Comment on above: Performed By: #### S RENAN #### [facility] [address] [address] [address] Alfred Issa TELEVISION REPAIRER Antibodies <0.2 Normal 0.0-0.9 [facility] Comment on above: Performed By: #### S RENAN #### [facility] [address] [place] [address] Dr. Alfred Issa Sjogren's Anti-SS-A <0.2 Normal 0.0-0.9 [facility] Comment on above: Performed By: #### S RENAN #### [facility] [address] [place] [address] Dr. Alfred Issa Sjogren'jd Anti-SS-B <0.2 Normal 0.0-0.9 [facility] Comment on above: Performed By: #### S RENAN #### [facility] [address] [place] [address] Dr. Alfred Issa Mckinney Antibodies <0.2 Normal 0.0-0.9 [facility] Comment on above: Performed By: #### S RENAN #### [facility] [address] [address] [address] Alfred Issa CBC AUTO DIFFon 11-16-2022 BASO # 0.0 103/ul Normal 0.0-0.1 [facility] Comment on above: Performed By: #### C BC #### [facility] [address] [place] [address] Dr. Alfred Issa Basophils/100 WBC (Bld) 0.4 % Normal 0.2-2.0 [facility] Comment on above: Performed By: #### C BC #### [facility] [address] [place] [address] Dr. Alrfed Issa EO # 0.1 103/ul Normal 0.0-0.7 [facility] Comment on above: Performed By: #### C BC #### [facility] [address] [place] [address] Dr. Alfred Issa Eosinophils/100 WBC (Bld) 1.0 % Normal 0.9-7.0 [facility] Comment on above: Performed By: #### C BC #### [facility] [address] [place] [address] Dr. Alfred Issa Erythrocyte distribution width (RBC) [Ratio] 13.1 % Normal 11.0-15.0 [facility] Comment on above: Performed By: #### C BC #### [facility] [address] [place] [address] Dr. Alfred Issa Hematocrit (Bld) [Volume fraction] 43.9 % Normal 36.0-48.0 [facility] Comment on above: Performed By: #### C BC #### [facility] [address] [place] [address] Dr. Alfred Issa Hemoglobin (Bld) [Mass/Vol] 14.8 g/dL Normal 12.0-16.0 [facility] Comment on above: Performed By: #### C BC #### [facility] [address] [place] [address] Dr. Alfred Issa IG # 0.05 10e3/ul Critically high 0.00-0.03 [facility] Comment on above: Performed By: #### C BC #### [facility] [address] [place] [address] Dr. Alfred Issa IG % 0.5 % Normal 0.0-0.5 [facility] Comment on above: Performed By: #### C BC #### [facility] [address] [place] [address] Dr. Alfred Issa LYMPH # 2.7 103/ul Normal 1.2-3.8 [facility] Comment on above: Performed By: #### C BC #### [facility] [address] [address] [address] Alfred Issa Lymphocytes/100 WBC (Bld) 26.5 % Normal 20.5-60.0 [facility] Comment on above: Performed By: #### C BC #### [facility] [address] [address] [address] Alfred Issa MANUAL DIFF REQ NO Normal [facility] Comment on above: Performed By: #### C BC #### [facility] [address] [place] [address] Dr. Alfred Issa MCH (RBC) [Entitic mass] 27.5 pg Normal 26.7-34.0 [facility] Comment on above: Performed By: #### C BC #### [facility] [address] [place] [address] Dr. Alfred Issa MCHC (RBC) [Mass/Vol] 33.7 g/dL Normal 29.9-35.2 [facility] Comment on above: Performed By: #### C BC #### [facility] [address] [place] [address] Dr. Alfred Issa MCV (RBC) [Entitic vol] 81.4 fL Normal 81.0-99.0 [facility] Comment on above: Performed By: #### C BC #### [facility] [address] [place] [address] Dr. Alfred Issa MONO # 0.5 103/ul Normal 0.3-0.8 [facility] Comment on above: Performed By: #### C BC #### [facility] [address] [place] [address] Dr. Alfred Issa Monocytes/100 WBC (Bld) 4.9 % Normal 1.7-12.0 [facility] Comment on above: Performed By: #### C BC #### [facility] [address] [place] [address] Dr. Alfred Issa NEUT # 6.7 103/ul Critically high 1.4-6.5 [facility] Comment on above: Performed By: #### C BC #### [facility] [address] [address] [address] Alfred Issa Neutrophils/100 WBC (Bld) 66.7 % Normal 43.0-75.0 [facility] Comment on above: Performed By: #### C BC #### [facility] [address] [address] [address] Alfred Issa Platelet mean volume (Bld) [Entitic vol] 8.4 fL Critically low 9.5-13.5 [facility] Comment on above: Performed By: #### C BC #### [facility] [address] [address] [address] Alfred Issa PLT 312 103/ul Normal 150-450 [facility] Comment on above: Performed By: #### C BC #### [facility] [address] [address] [address] Alfred Issa RBC 5.39 106/ul Normal 4.20-5.40 [facility] Comment on above: Performed By: #### C BC #### [facility] [address] [address] [address] Alfred Issa WBC 10.1 103/ul Normal 4.0-11.0 [facility] Comment on above: Performed By: #### C BC #### [facility] [address] [address] [address] Alfred Issa CRPon 11-16-2022 CRP 0.7 mg/dL Normal <=1.0 [facility] Comment on above: Performed By: #### L IPID, TSH, T7, URIC, CRP, CMP ####[facility] [address] [phone]. Alfred Issa FREE THYROXINE INDEX T7on FTI 3.50 Normal 1.30-4.50 [facility] Comment on above: Performed By: #### L IPID, TSH, T7, URIC, CRP, CMP ####[facility] [address] [phone]. Alfred Issa T3U 34.0 % Normal 30.0-39.0 [facility] Comment on above: Performed By: #### L IPID, TSH, T7, URIC, CRP, CMP ####[facility] [address] [phone]. Alfred Issa T4 [Mass/Vol] 10.30 ug/dL Normal 4.80-13.90 [facility] Comment on above: Performed By: #### L IPID, TSH, T7, URIC, CRP, CMP ####[facility] [address] [address]Dr. Alfred Issa GLYCOHEMOGLOBIN A1Con 2022 ADA RECOMMENDATION SEE BELOW Normal [facility] Comment on above: Result Comment: ADA RECOMMENDED LIMIT 4.0 - 6.0 ADA THERAPEUTIC TARGET < 7.0 ACTION SUGGESTED > 7.0 Performed By: #### A 1C #### [facility] [address] [address] [address] Alfred Issa Glucose [Mass/Vol] 108 mg/dL Normal [facility] Comment on above: Performed By: #### A 1C #### [facility] [address] [address] [address] Alfred Issa HbA1c (Bld) [Mass fraction] 5.4 % Normal 4.5-6.2 [facility] Comment on above: Performed By: #### A 1C #### [facility] [address] [address] [address] Alfred Issa IRONon 11-16-2022 Iron [Mass/Vol] 127.0 ug/dL Normal 50.0-170.0 [facility] Comment on above: Performed By: #### I LEIGH ANN #### [facility] [address] [address] [address] Alfred Issa LIPID PROFILEon 11-16-2022 CHOL-HDL RATIO NORM SEE BELOW Normal [facility] Comment on above: Result Comment: 3.3 - 4.4 LOW RISK 4.4 - 7.1 AVERAGE RISK 7.1 - 11.0 MODERATE RISK >11.0 HIGH RISK Performed By: #### L IPID, TSH, T7, URIC, CRP, CMP ####[facility] [address] [address]Dr. Alfred Issa Cholesterol [Mass/Vol] 197 mg/dL Normal <=200 [facility] Comment on above: Performed By: #### L IPID, TSH, T7, URIC, CRP, CMP ####[facility] [address] [phone]. Alfred Issa Cholesterol in HDL [Mass/Vol] 39 mg/dL Critically low 40-60 [facility] Comment on above: Performed By: #### L IPID, TSH, T7, URIC, CRP, CMP ####[facility] [address] [address]Dr. Alfred Issa Cholesterol in LDL [Mass/Vol] 116.8 mg/dL Normal [facility] Comment on above: Performed By: #### L IPID, TSH, T7, URIC, CRP, CMP ####[facility] [address] [address]Dr. Alfred Issa Cholesterol.total/Chol esterol in HDL [Mass ratio] 5.1 {ratio} Normal [facility] Comment on above: Performed By: #### L IPID, TSH, T7, URIC, CRP, CMP ####[facility] [address] [address]Dr. Alfred Issa HDL NORMAL > or = 60 mg/dl - LOW CARDIOVASCULAR RISK <40 mg/dl - HIGH CARDIOVASCULAR RISK Normal [facility] Comment on above: Performed By: #### L IPID, TSH, T7, URIC, CRP, CMP ####[facility] [address] [address]Dr. Alfred Issa LDL CALC NORMAL SEE BELOW Normal [facility] Comment on above: Result Comment: <100 mg/dl OPTIMAL 100 - 129 mg/dl NEAR OR ABOVE OPTIMAL 130 - 159 mg/dl BORDERLINE HIGH 160 - 189 mg/dl HIGH >190 mg/dl VERY HIGH Performed By: #### L IPID, TSH, T7, URIC, CRP, CMP ####[facility] [address] [phone]. Alfred Issa Triglyceride [Mass/Vol] 206 mg/dL Critically high <=150 [facility] Comment on above: Performed By: #### L IPID, TSH, T7, URIC, CRP, CMP ####[facility] [address] [address]Dr. Alfred Issa VLDL CALC 41.2 mg/dL Normal [facility] Comment on above: Performed By: #### L IPID, TSH, T7, URIC, CRP, CMP ####[facility] [address] [address]Dr. Alfred Issa OCC BLD IMMUNO SCREENon 10-31 OCCULT BLOOD Negative Normal NEGATIVE [facility] Comment on above: Performed By: #### O BSCRN ####[facility] [address] [address]Dr. Alfred Issa PROF 14(COMP METB)on 023 Albumin [Mass/Vol] 4.0 g/dL Normal 3.4-5.0 [facility] Comment on above: Performed By: #### L IPID, TSH, T7, URIC, CRP, CMP ####[facility] [address] [address]Dr. Alfred Issa Albumin/Globulin [Mass ratio] 1.1 {ratio} Normal [facility] Comment on above: Performed By: #### L IPID, TSH, T7, URIC, CRP, CMP ####[facility] [address] [address]Dr. Alfred Issa ALP [Catalytic activity/Vol] 104 U/L Normal 46-116 [facility] Comment on above: Performed By: #### L IPID, TSH, T7, URIC, CRP, CMP ####[facility] [address] [address]Dr. Alfred Issa ALT [Catalytic activity/Vol] 26 U/L Normal 14-59 [facility] Comment on above: Performed By: #### L IPID, TSH, T7, URIC, CRP, CMP ####[facility] [address] [address]Dr. Alfred Issa Anion gap [Moles/Vol] 13.2 mmol/L Normal [facility] Comment on above: Performed By: #### L IPID, TSH, T7, URIC, CRP, CMP ####[facility] [address] [place], [place] [address]Dr. Alfred Issa AST [Catalytic activity/Vol] 20 U/L Normal 15-37 [facility] Comment on above: Performed By: #### L IPID, TSH, T7, URIC, CRP, CMP ####[facility] [address] [place], [place] [address]Dr. Alfred Issa Bilirubin [Mass/Vol] 0.6 mg/dL Normal 0.2-1.0 [facility] Comment on above: Performed By: #### L IPID, TSH, T7, URIC, CRP, CMP ####[facility] [address] [place], [place] [address]Dr. Alfred Issa Calcium [Mass/Vol] 9.3 mg/dL Normal 8.5-10.1 [facility] Comment on above: Performed By: #### L IPID, TSH, T7, URIC, CRP, CMP ####[facility] [address] [place], [place] [address]Dr. Alfred Issa Chloride [Moles/Vol] 100 mmol/L Normal 98-107 [facility] Comment on above: Performed By: #### L IPID, TSH, T7, URIC, CRP, CMP ####[facility] [address] [place], [place] [address]Dr. Alfred Issa CO2 [Moles/Vol] 26.6 mmol/L Normal 21.0-32.0 [facility] Comment on above: Performed By: #### L IPID, TSH, T7, URIC, CRP, CMP ####[facility] [address] [place], [place] [address]Dr. Alfred Issa Creatinine [Mass/Vol] 0.56 mg/dL Normal 0.55-1.02 [facility] Comment on above: Performed By: #### L IPID, TSH, T7, URIC, CRP, CMP ####[facility] [address] [place], [place] [address]Dr. Alfred Issa EGFR-AF IVORIAN >60 Normal >=60 [facility] Comment on above: Performed By: #### L IPID, TSH, T7, URIC, CRP, CMP ####[facility] [address] [address]Dr. Alfred Issa EGFR-NON AF IVORIAN >60 Normal >=60 [facility] Comment on above: Performed By: #### L IPID, TSH, T7, URIC, CRP, CMP ####[facility] [address] [address]Dr. Alfred Issa Globulin (S) [Mass/Vol] 3.5 g/dL Normal [facility] Comment on above: Performed By: #### L IPID, TSH, T7, URIC, CRP, CMP ####[facility] [address] [place], [place] [address]Dr. Alfred Issa Glucose [Mass/Vol] 112 mg/dL Critically high 74-106 [facility] Comment on above: Performed By: #### L IPID, TSH, T7, URIC, CRP, CMP ####[facility] [address] [place], [place] [address]Dr. Alfred Issa Potassium [Moles/Vol] 3.8 mmol/L Normal 3.5-5.1 [facility] Comment on above: Performed By: #### L IPID, TSH, T7, URIC, CRP, CMP ####[facility] [address] [place], [place] [address]Dr. Alfred Issa Protein [Mass/Vol] 7.5 g/dL Normal 6.4-8.2 [facility] Comment on above: Performed By: #### L IPID, TSH, T7, URIC, CRP, CMP ####[facility] [address] [place], [place] [address]Dr. Alfred Issa Sodium [Moles/Vol] 136 mmol/L Normal 136-145 [facility] Comment on above: Performed By: #### L IPID, TSH, T7, URIC, CRP, CMP ####[facility] [address] [place], [place] [address]Dr. Alfred Issa Urea nitrogen [Mass/Vol] 8.0 mg/dL Normal 7.0-18.0 [facility] Comment on above: Performed By: #### L IPID, TSH, T7, URIC, CRP, CMP ####[facility] [address] [phone]. Alfred Issa Urea nitrogen/Creatinine [Mass ratio] 14.3 mg/mg Normal [facility] Comment on above: Performed By: #### L IPID, TSH, T7, URIC, CRP, CMP ####[facility] [address] [phone]. Alfred Issa TSHon 11-16-2022 TSH 1.787 uIU/mL Normal 0.358-3.740 [facility] Comment on above: Performed By: #### L IPID, TSH, T7, URIC, CRP, CMP ####[facility] [address] [address]Dr. Alfred Issa URIC ACID SERUMon 11-16-2022 Urate [Mass/Vol] 5.3 mg/dL Normal 2.6-6.0 [facility] Comment on above: Performed By: #### L IPID, TSH, T7, URIC, CRP, CMP ####[facility] [address] [address]Dr. Alfred Issa Cult,Aerobe/Anaerobeon 03-29 Cult,Aerobe/Anaerobe Specimen Descriptio n .FACE RIGHT .ABSCESS SWAB Special Requests NOT REPORTED Direct Exam FEW NEUTROPHILS RARE GRAM POSITIVE COCCI IN PAIRS Culture HAEMOPHILUS PARAINFLUENZAE SCANT GROWTH BETA LACTAMASE NEGATIVE NORMAL MAGALYS MIXED ANAEROBIC MAGALYS Report Status FINAL 03/29/2020 [facility] Comment on above: Performed By: #### A ANC #### [facility] [place] [address] [employer] Cake Decorator: Wilfredo Keyes MD Basic Metab w/rfx MGon 03-24 (cont.) [facility] Comment on above: Result Comment: Aver age GFR for 20-29 years old: 116 mL/min/1.73sq m Chronic Kidney Disease: <60 mL/min/1.73sq m Kidney failure: <15 mL/min/1.73sq m eGFR calculated using average adult body mass. Additional eGFR calculator available at: http://www.FoodText.NetMinder/multiple_crcl_2012.htm Performed By: #### C JANIE JCX, PT #### [facility] [address] [place] [phone] [employer] Decorator: Wilfredo Keyes MD Anion gap [Moles/Vol] 15 mmol/L Normal 9-17 [facility] Comment on above: Performed By: #### C HOSEA BMPX, PT #### [facility] [address] [place] [phone] [employer] Decorator: Wilfredo Keyes MD Calcium [Mass/Vol] 9.0 mg/dL Normal 8.6-10.4 [facility] Comment on above: Performed By: #### Koffi JC BMPX, PT #### [facility] [address] [place] [address] [employer] Decorator: Wilfredo Keyes MD Chloride [Moles/Vol] 99 mmol/L Normal 98-107 [facility] Comment on above: Performed By: #### C HOSEA BMPX, PT #### [facility] [address] [place] [phone] [employer] Decorator: Wilfredo Keyes MD CO2 [Moles/Vol] 25 mmol/L Normal 20-31 [facility] Comment on above: Performed By: #### C HOSEA BMPX, PT #### [facility] [address] [place] [phone] [employer] Dec[employer]ator: Wilfredo Keyes MD Creatinine [Mass/Vol] 0.45 mg/dL Low 0.50-0.90 [facility] Comment on above: Performed By: #### Koffi JC BMPX, PT #### [facility] [address] [place] [address] [employer] Decorator: Wilfredo Keyes MD GFR, Amer >60 Normal >60 [facility] Comment on above: Performed By: #### C BC, BMPX, PT #### [facility] [address] [place] [address] [employer] Decorator: Wilfredo Keyes MD GFR,non Amer >60 Normal >60 [facility] Comment on above: Performed By: #### C BC, BMPX, PT #### [facility] [address] [place] [address] [employer] Decorator: Wilfredo Keyes MD Glucose [Mass/Vol] 90 mg/dL Normal 70-99 [facility] Comment on above: Performed By: #### C BC, BMPX, PT #### [facility] [address] [place] [address] [employer] Decorator: Wilfredo Keyes MD Potassium [Moles/Vol] 3.7 mmol/L Normal 3.7-5.3 [facility] Comment on above: Performed By: #### C BC, BMPX, PT #### [facility] [address] [place] [address] [employer] Decorator: Wilfredo Keyes MD Sodium [Moles/Vol] 139 mmol/L Normal 135-144 [facility] Comment on above: Performed By: #### C BC, BMPX, PT #### [facility] [address] [place] [address] [employer] Dec[employer]ator: Wilfredo Keyes MD Urea nitrogen [Mass/Vol] 8 mg/dL Normal 6-20 [facility] Comment on above: Performed By: #### C BC, BMPX, PT #### [facility] [address] [place] [address] [employer] Dec[employer]ator: Wilfredo Keyes MD BUN/CRE Ratio NOT REPORTED Normal 9-20 [facility] Comment on above: Performed By: #### C BC, BMPX, PT #### [facility] [address] [place] [address] [employer] Decorator: Wilfredo Keyes MD Staging: NOT REPORTED Normal [facility] Comment on above: Performed By: #### C BC, BMPX, PT #### [facility] [address] [place], [place] [phone] [employer] Dec[employer]ator: Wilfredo Keyes MD Basic Metabolic Panel w/ Ref rodríguez to MGon 03-24-2020 Anion gap [Moles/Vol] 15 mmol/L 9 - 17 mmol/L [place] Bun/Cre Ratio NOT REPORTED [place], [place] Calcium [Mass/Vol] 9.0 mg/dL 8.6 - 10. 4 mg/dL [place] Chloride [Moles/Vol] 99 mmol/L 98 - 10 7 mmol/L [place] CO2 [Moles/Vol] 25 mmol/L 20 - 31 mmol/L [place] Creatinine [Mass/Vol] 0.45 mg/dL Low 0.5 - 0.9 mg/dL [place] GFR >60 >60 mL/min [place], [place] GFR Non- >60 >60 mL/min [place] GFR/1.73 sq M predicted among non-blacks MDRD (S/P/Bld) [Vol rate/Area] NOT REPORTED [place] GFR/1.73 sq M predicted among non-blacks MDRD (S/P/Bld) [Vol rate/Area] [place] Comment on above: Average GFR for 20-2 9 years old: 116 mL/min/1.73sq m Chronic Kidney Disease: <60 mL/min/1.73sq m Kidney failure: <15 mL/min/1.73sq m eGFR calculated using average adult body mass. Additional eGFR calculator available at: http://www.FoodText.NetMinder/multiple_crcl_2012.htm Glucose [Mass/Vol] 90 mg/dL 70 - 99 mg/dL [place], [place] Interpretation and review of laboratory results Abnormal [place] Potassium [Moles/Vol] 3.7 mmol/L 3.7 - 5.3 mmol/L [place] Sodium [Moles/Vol] 139 mmol/L 135 - 144 mmol/L [place] Urea nitrogen [Mass/Vol] 8 mg/dL 6 - 20 mg/dL [place] CBCon 03-24-2020 Erythrocyte distribution width (RBC) [Ratio] 12.6 % Normal 11.8-14.4 [facility] Comment on above: Performed By: #### Koffi JC BMPX, PT #### [employer] [address] [place] [address] [phone] [employer] Cake Decorator: Wilfredo Keyes MD Hematocrit (Bld) [Volume fraction] 41.9 % Normal 36.3-47.1 [facility] Comment on above: Performed By: #### Koffi JC BMPX, PT #### [facility] [address] [place] [address] [phone] [employer] Decorator: Wilfredo Keyes MD Hemoglobin (Bld) [Mass/Vol] 14.2 g/dL Normal 11.9-15.1 [facility] Comment on above: Performed By: #### Koffi JC BMPX, PT #### [facility] [address] [place] [address] [phone] [employer] Decorator: Wilfredo Keyes MD MCH (RBC) [Entitic mass] 28.9 pg Normal 25.2-33.5 [facility] Comment on above: Performed By: #### Koffi JC BMPX, PT #### [employer] [address] [place] [address] [phone] [employer] Decorator: Wilfredo Keyes MD MCHC (RBC) [Mass/Vol] 33.9 g/dL Normal 28.4-34.8 [facility] Comment on above: Performed By: #### Koffi JC BMPX, PT #### [employer] [address] [place] [address] [phone] [employer] Decorator: Wilfredo Keyes MD MCV (RBC) [Entitic vol] 85.3 fL Normal 82.6-102.9 [facility] Comment on above: Performed By: #### Koffi JC BMPX, PT #### [facility] [employer] [address] [place] [address] [phone] [employer] Decorator: Wilfredo Keyes MD NRBC Automated 0.0 per 100 WBC Normal 0.0 [facility] Comment on above: Performed By: #### C HOSEA BMPX, PT #### [facility] [address] [place] [address] [phone] [employer] Decorator: Wilfredo Keyes MD Platelet mean volume (Bld) [Entitic vol] 8.5 fL Normal 8.1-13.5 [facility] Comment on above: Performed By: #### Koffi JC BMPX, PT #### [facility] [employer] [address] [place] [address] [phone] [employer] Decorator: Wilfredo Keyes MD Platelets (Bld) [#/Vol] 256 10*3/uL Normal 138-453 [facility] Comment on above: Performed By: #### Koffi JC BMPX, PT #### [facility] [employer] [address] [place] [address] [phone] [employer] Decorator: Wilfredo Keyes MD RBC (Bld) [#/Vol] 4.91 10*6/uL Normal 3.95-5.11 [facility] Comment on above: Performed By: #### Koffi JC BMPX, PT #### [facility] [address] [place] [address] [phone] [employer] Decorator: Wilfredo Keyes MD WBC (Bld) [#/Vol] 10.0 10*3/uL Normal 4.5-13.5 [facility] Comment on above: Performed By: #### Koffi JC BMPX, PT #### [facility] [address] [place] [address] [phone] [employer] Decorator: Wilfredo Keyes MD Erythrocyte distribution width (RBC) [Ratio] 12.6 % 11.8 - 14.4 % [place] Hematocrit (Bld) [Volume fraction] 41.9 % 36.3 - 47.1 % [place] Hemoglobin (Bld) [Mass/Vol] 14.2 g/dL 11.9 - 15.1 g/dL [place] MCH (RBC) [Entitic mass] 28.9 pg 25.2 - 33.5 pg [place] MCHC (RBC) [Mass/Vol] 33.9 g/dL 28.4 - 34.8 g/dL [place] MCV (RBC) [Entitic vol] 85.3 fL 82.6 - 102.9 fL [place] Platelet mean volume (Bld) [Entitic vol] 8.5 fL 8.1 - 13.5 fL [place] Platelets (Bld) [#/Vol] 256 10*3/uL [place] RBC (Bld) [#/Vol] 4.91 10*6/uL 3.95 - 5.1 1 m/uL [place] WBC (Bld) [#/Vol] 0.0 10*3/uL 0.0 per 10 0 WBC [place] WBC (Bld) [#/Vol] 10.0 10*3/uL [place] COVID-19on 03-24-2020 SARS-CoV-2 Not Detected Not Detected [place], [place] Comment on above: The specimen is NEGATIVE for SARS-CoV-2, the novel coronavirus associated with COVID-19. A negative result does not rule out COVID-19. This test has been authorized by the FDA under an Emergency Use Authorization (EUA) for use by authorized laboratories. Fact sheet for Healthcare Providers: https://www.fda.gov/media/457520/download Fact sheet for Patients: https://www.fda.gov/media/565059/download METHODOLOGY: RT-PCR SARS-CoV-2, [facility] [place] [place] SARS-CoV-2, Rapid [facility] [place] Source .NASOPHARYNGEAL SWAB [place], [place] Gram Stainon 03-24-2020 Microscopic observation Gram stain Nom (Unsp spec) Specimen Description .FACE RIGHT .ABSCESS SWAB Special Requests NOT REPORTED Direct Exam DUPLICATE ORDER GRAM STN INCLUDED WITH CULTURE Report Status FINAL 03/24/2020 Normal [facility] Comment on above: Performed By: #### G S #### [address] [phone] [employer] Decorator: Wilfredo Keyes MD Direct Exam DUPLICATE ORDER GRAM STN INCLUDED WITH CULTURE [place] Special Requests NOT REPORTED [place] Specimen Description .FACE RIGHT [place] HCG, ,Urineon 03-24 Beta HCG ( test) Ql (U) Negative Normal NEG [facility] Comment on above: Result Comment: Spec imens with hCG levels near the threshold of the test (25 mIU/mL) may give a negative or indeterminate result. In such cases, another test should be performed with a new specimen in 48-72 hours. If early is suspected clinically in this setting, correlation with quantitative serum b-hCG level is suggested. Performed By: #### U HCG #### [facility] [employer] [address] [place] [address] [phone] [employer] Decorator: Wilfredo Keyes MD PTon 03-24-2020 INR Coag (PPP) [Relative time] 1.0 {INR} Normal [facility] Comment on above: Result Comment: Therapeutic Range: Moderate Anticoagulant Intensity: INR = 2.0-3.0 High Anticoagulant Intensity: INR = 2.5-3.5 Performed By: #### C BC, BMPX, PT #### [facility] [employer] [address] [place] [address] [phone] [employer] Decorator: Wilfredo Keyes MD PT Coag (PPP) [Time] 10.7 s Normal 9.0-12.0 [facility] Comment on above: Performed By: #### C BC, BMPX, PT #### [facility] [employer] [address] [place] [address] [phone] [employer] Decorator: Wilfredo Keyes MD , urine pre-opon Beta HCG ( test) Ql (U) Negative NEGATIVE [place] Comment on above: Specimens with hCG [...] INR Coag (PPP) [Relative time] 1.0 {INR} [place] Comment on above: Therapeutic Range: Moderate Anticoagulant Intensity: INR = 2.0-3.0 High Anticoagulant Intensity: INR = 2.5-3.5 PT Coag (PPP) [Time] 10.7 s [place] [id number] 03-24-2020 SARS-CoV-2,Rapid Normal [facility] Comment on above: Performed By: #### C OVID #### [facility] [employer] [address] [place] [address] [phone] [employer] Decorator: Wilfredo Keyes MD SARS-CoV-2 [facility] Comment on above: Performed By: #### C OVID #### [facility] [employer] [address] [place] [address] [phone] [employer] Decorator: Wilfredo Keyes MD SARS-CoV-2 Not Detected Normal NOTDET [facility] Comment on above: Result Comment: The specimen is NEGATIVE for SARS-CoV-2, the novel coronavirus associated with COVID-19. A negative result does not rule out COVID-19. This test has been authorized by the FDA under an Emergency Use Authorization (EUA) for use by authorized laboratories. Fact sheet for Healthcare Providers: https://www.fda.gov/media/498777/download Fact sheet for Patients: https://www.fda.gov/media/009642/download METHODOLOGY: RT-PCR Performed By: #### C OVID #### [address] [phone] [employer] Dec[employer]ator: Wilfredo Keyes MD [id number] 03-23-2020 SARS-CoV-2 Source .NASOPHARYNGEAL SWAB Normal [facility] Comment on above: Performed By: #### C OVID #### [facility] [address] [place] [address] [employer] Decorator: Wilfredo Keyes MD Vital Signs Date Time Vital Sign Value Performing Clinician Facility 07-29-2021 14:00-0400 Body height 162.56 cm Franco Rajput Other [facility] Other 07-29-2021 14:00-0400 Body mass index (BMI) [Ratio] 27.29 kg/m2 Franco Rajput Other [facility] Other 07-29-2021 14:00-0400 Body weight 72.12 kg Franco Rajput Other [facility] Other 07-29-2021 14:00-0400 Diastolic blood pressure 87 mm[Hg] Franco Rajput Other [facility] Other 07-29-2021 14:00-0400 Systolic blood pressure 121 mm[Hg] Franco Rajput Other [facility] Other 03-25-2020 08:00-0400 Body Temperature 97.7 [degF] [facility] [place] 03-25-2020 08:00-0400 BP Diastolic 83 mm[Hg] [facility] [place] 03-25-2020 08:00-0400 BP Systolic 139 mm[Hg] [facility] , [place] 03-25-2020 08:00-0400 Pulse (Heart Rate) 89 /min [facility], [place] 03-25-2020 08:00-0400 Respiratory Rate 18 /min [facility] [place], [place] 03-24-2020 20:45-0400 Pulse Oximetry 99 % [place], [place] 03-23-2020 20:13-0400 BMI (Body Mass Index) 22.31 kg/m2 [place], [place] 03-23-2020 20:130400 Body weight 58.97 kg [place] 03-23-2020 20:130400 Height 162.6 cm [facility] , [place] Encounters Encounter Date Encounter Type Care Provider Facility Start: 06-01-2024 ambulatory Salvatore Duque acility:[facility] Start: 02-23-2023 End: 02-24-[address] [...] Evaluation and management of inpatient ANDREA PINTO [facility] Start: 03-23-2020 End: 03-25-2020 Evaluation and management [...] REFLEX TO MG FOR LOW K [employer] Work Phone: Start: 03-24-2020 Blood count complete automated [employer] Work Phone: Start: 03-24-2020 Prothrombin time Shirv[employer] Work Phone: Start: 03-24-2020 PATIENT STATUS (FROM [...] Influenza vaccination Flu vacc ine (Season Ended) [place] Culture, Anaerobic a nd Aerobic Culture, Anaerobic and Aerobic Microbiology Routine 03/24/2020 1:13 PM EDT [place] Payers Date Payer Category Payer Self-pay 2014 Unknown BCBS BCBS OUT OF STATE xxxxxxxxxxxx 2014-Present [address] [place] [address] xxxxxxxxxxxx [id number] 1998 Unknown [id number] 1998 Unknown [id number] 1998 Unknown [id number] 1998 Unknown [id number] 1998 Unknown [id number] 1998 Unknown [id number] .593 1998 Unknown [id number] .593 1998 Unknown [id number] .593 1959 Private Health Insurance [id number] 1959 Unknown [id number] 1959 Unknown [id number] 1959 Unknown [id number] Unknown [id number] Social History Date Type Detail Facility Start: 03-25-2020 Tobacco smoking stat [facility] Current every day [place] Start: 03-25-2020 Alcohol intake Current drinke r of alcohol (finding) [place] Start: 03-23-2020 History SDOH Alcohol Frequency 3 [place] Start: 03-23-2020 History SDOH [facility] Start: 03-23-2020 History SDOH Alcohol Binge 4 [facility] SWETHA JOE Start: 03-23-2020 Alcohol Comment none this week [facility] Sex Assigned At Not on file [facility] Exposure to SARS-CoV -2 (event) Unable to assess SWETHA Silver Sex Assigned At Sex Assigned At Bir th [facility] [employer] Other Clinical Note 07-15-2022 Note Date & Type Note Facility 07-15-2022 Note PROCEDURE: XR KNEE L T 4V or > HISTORY: Pain of left knee joint ; acute left knee instability COMPARISON: None. FINDINGS: BONES:No fracture, acute abnormality, or significant arthropathy. SOFT TISSUES:No visible soft tissue swelling. EFFUSION:None visible. OTHER: Negative. IMPRESSION: 1. Normal examination. Electronically authenticated by: PURVI OLIVIER Date: 2022-07-15 11:44 [facility] Evaluation note 07-29-2021 Note Date & Type Note Facility 07-29-2021 Evaluation note Encounter Date Diagnosis Assessment Notes Jul, Gastritis (ICD-10 - K29.70) Gastritis material was printed Continue Omeprazole 40mg once daily Follow up in 6 months [facility] [employer] Other History general Narrative - Reported Note Date & Type Note Facility History general Narrative - Reported Type Surgical History oral abscess [facility] [employer] Other History of Present Illness * Jojo [...] .FACE RIGHT Special Requests 03/24/2020 1:13 PM Matrha Marcus NOT REPORTED Direct Exam Abnormal 03/24/2020 [...] improve 5. F/u OMFS thaddeus 1 week [phone] * Danielle Villarreal MD - 03/25/2020 7:17 AM EDT [facility] IN-PATIENT SERVICE [facility] Progress Note 03/25/2020 7:18 AM Name: Jordan Tello Acct: [id number] Room: 0331/0331-01 Day: 2 Admit Date: 03/23/2020 [...] procedure Brief History: Patient originally presented to [facility] via EMS for the complaint of [...] to the emergency room. Her work-up at [facility] show to have a dental abscess 2 x 1 x 1 on the right mandibular side with extension into the masseter muscle at that time it was recommended that patient be transferred to [facility] for OMF evaluation. Of significant laboratory [...] No results for input(s): PROT, LABALBU, LABA1C, F0UMXCM, [id number], FT4, TSH, AST, ALT, LDH, GGT, ALKPHOS, LABGGT, BILITOT, BILIDIR, AMMONIA, AMYLASE, LIPASE, LACTATE, CHOL, HDL, LDLCHOLESTEROL, CHOLHDLRATIO, TRIG, VLDL, [id number], PHENYTOIN, PHENYF, URICACID, POCGLU in the last 72 hours. ABG:No results found for: POCPH, PHART, PH, POCPCO2, VMV2XYY, PCO2, POCPO2, PO2ART, PO2, POCHCO3, [id number], HCO3, NBEA, PBEA, BEART, BE, THGBART, THB, [id number], [id number], [id number], O2SAT, FIO2 Lab Results Component Value Date/Time [...] Garcia, DO - 03/24/2020 11:29 AM EDT [facility] IN-PATIENT SERVICE [facility] Progress Note 03/24/2020 11:29 AM Name: Jordan Tello Acct: [id number] Room: [address] [place] [address] Day: 1 Admit Date: 03/23/2020 8:07 [...] History: Per Record: Patient originally presented to [facility] via EMS for the complaint of [...] to the emergency room. Her work-up at [facility] show to have a dental abscess 2 x 1 x 1 on the right mandibular side with extension into the masseter muscle at that time it was recommended that patient be transferred to [facility] for OMF evaluation. Of significant laboratory [...] No results for input(s): PROT, LABALBU, LABA1C, E4MEIUF, X1LYRNG, FT4, TSH, AST, ALT, LDH, GGT, ALKPHOS, LABGGT, BILITOT, BILIDIR, AMMONIA, AMYLASE, LIPASE, LACTATE, CHOL, HDL, LDLCHOLESTEROL, CHOLHDLRATIO, TRIG, VLDL, [id number], PHENYTOIN, PHENYF, URICACID, POCGLU in the last 72 hours. 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 [facility] [employer] [facility]. provides no warranty or guarantee of the accuracy or completeness of information in this document.
== END 2024-06-05 12:45 | disposition home or self-care (01) ==
LOC: MRI 12:45
PROVIDERS: PCP Family Medicine; Visit Provider Family Medicine
DX: M23.90 Unspecified internal derangement of unspecified knee (principal); M25.462 Effusion, left knee; S76.102A Unspecified injury of left quadriceps muscle, fascia and tendon, initial encounter
CPT/HCPCS: 73721

== ENCOUNTER 2024-06-09 09:05 | Outpatient (OUT) | payer BC, OTHER, SELFPAY ==
--- OUTSIDE RECORDS SUMMARY | 2024-06-09 09:09 | XMS_ITS | CCD ---
Author Organization [facility] Care Team Providers Care Maintenance Shop Clerk Name Role Phone Glenna Carlin Primary Care [...] Corticosteroids Drug allergy (disorder) [facility] Repository (1 source) Corticosteroids Drug allergy (disorder) 1 [facility] Repository Medications Current Medications Medication Drug Class(es) [...] 0 03/23/2019 Active take 1 capsule by [facility] every twenty-four hours Cymbalta 60 MG 1 [...] Date: 2022-12-16 10:55 Normal [facility] MATEO by IFAon 01-19-2023 Antinuclear Antibodies, IFA Negative Normal [facility] Comment on above: Result Comment: Nega tive <1:80 Borderline 1:80 Positive >1:80 ICAP nomenclature: AC-0 For more information about Hep-2 cell patterns use ANApatterns.org, the official website for the International Consensus on Antinuclear Antibody (MATEO) Patterns (ICAP). Performed By: #### A NAIFA #### [facility] [address] [place] [address] Dr. Alfred Issa MATEO DIRECTon 11-17-2022 MATEO Direct Negative Normal Negative [facility] Comment on above: Performed By: #### A NAD #### [facility] [address] [place] [address] Dr. Alfred Issa ANTISTREPTOLYSIN O AB (ASO)o n 11-17-2022 Antistreptolysin O Ab 29.0 IU/mL Normal 0.0-200.0 [facility] Comment on above: Performed By: #### A SOAB #### [facility] [address] [place] [address] Dr. Alfred Issa C3 and C4 COMPLEMENTon 11-17 Complement C3, Serum 181 mg/dL Critically high 82-167 [facility] Comment on above: Performed By: #### C SUITE #### [facility] [address] [place] [address] Dr. Alfred Issa Complement C4, Serum 28 mg/dL Normal 12-38 [facility] Comment on above: Performed By: #### C SUITE #### [facility] [address] [place] [address] Dr. Alfred Issa INSULINon 11-17-2022 Insulin 29.2 uIU/mL Critically high 2.6-24.9 [facility] Comment on above: Performed By: #### I NSULIN #### [facility] [address] [place] [address] Dr. Alfred Issa SLE PROFILE Aon 11-17-2022 Anti-DNA (DS) Ab Qn 1 IU/mL Normal 0-9 [facility] Comment on above: Result Comment: Nega tive <5 Equivocal 5 - 9 Positive >9 Performed By: #### S RENAN #### [facility] [address] [address] [address] Alfred Issa Antichromatin Antibodies <0.2 Normal 0.0-0.9 [facility] Comment on above: Performed By: #### S RENAN #### [facility] [address] [address] [address] Alfred Issa RA Latex Turbid. <10.0 Normal <14.0 [facility] Comment on above: Performed By: #### S RENAN #### [facility] [address] [address] [address] Alfred Issa POWERHOUSE OPERATOR Antibodies <0.2 Normal 0.0-0.[address] [facility] Comment on above: Performed By: #### S RENAN #### [facility] [address] [place] [address] Dr. Alfred Issa Sjogren's Anti-SS-A <0.2 Normal 0.0-0.9 [facility] Comment on above: Performed By: #### S RENAN #### [facility] [address] [place] [address] Dr. Alfred Issa Sjogren'jd Anti-SS-B <0.2 Normal 0.0-0.9 [facility] Comment on above: Performed By: #### S RENAN #### [facility] [address] [place] [address] Dr. Alfred Issa Mckinney Antibodies <0.2 Normal 0.0-0.9 [facility] Comment on above: Performed By: #### S RENAN #### [facility] [address] [address] [address] Alfred Issa CBC AUTO DIFFon 11-16-2022 BASO # 0.0 103/ul Normal 0.0-0.1 [facility] Comment on above: Performed By: #### C BC #### [facility] [address] [place] [address] Dr. Alfred Issa Basophils/100 WBC (Bld) 0.4 % Normal 0.2-2.0 [facility] Comment on above: Performed By: #### C BC #### [facility] [address] [place] [address] Dr. Alfred Issa EO # 0.1 103/ul Normal 0.0-0.7 [facility] Comment on above: Performed By: #### C BC #### [facility] [address] [place] [address] Dr. Alfred Issa Eosinophils/100 WBC (Bld) 1.0 % Normal 0.9-7.0 [facility] Comment on above: Performed By: #### C BC #### [facility] [address] [place] [address] Dr. Alfred Issa Erythrocyte distribution width (RBC) [Ratio] 13.1 % Normal 11.0-15.0 [facility] Comment on above: Performed By: #### C BC #### [facility] [address] [place] [address] Dr. Alfred Issa Hematocrit (Bld) [Volume fraction] 43.9 % Normal 36.0-48.0 [facility] Comment on above: Performed By: #### C BC #### [facility] [address] [place] [address] Dr. Alfred Issa Hemoglobin (Bld) [Mass/Vol] 14.8 g/dL Normal 12.0-16.0 [facility] Comment on above: Performed By: #### C BC #### [facility] [address] [place] [address] Dr. Alfred Issa IG # 0.05 10e3/ul Critically high 0.00-0.03 [facility] Comment on above: Performed By: #### C BC #### [facility] [address] [place] [address] Dr. Alfred Issa IG % 0.5 % Normal 0.0-0.5 [facility] Comment on above: Performed By: #### C BC #### [facility] [address] [place] [address] Dr. Alfred Issa LYMPH # 2.7 103/ul Normal 1.2-3.8 [facility] Comment on above: Performed By: #### C BC #### [facility] [address] [address] [address] Alfred Issa Lymphocytes/100 WBC (Bld) 26.5 % Normal 20.5-60.0 [facility] Comment on above: Performed By: #### C BC #### [facility] [address] [address] [address] Alfred Issa MANUAL DIFF REQ NO Normal [facility] Comment on above: Performed By: #### C BC #### [facility] [address] [place] [address] Dr. Alfred Issa MCH (RBC) [Entitic mass] 27.5 pg Normal 26.7-34.0 [facility] Comment on above: Performed By: #### C BC #### [facility] [address] [place] [address] Dr. Alfred Issa MCHC (RBC) [Mass/Vol] 33.7 g/dL Normal 29.9-35.2 [facility] Comment on above: Performed By: #### C BC #### [facility] [address] [place] [address] Dr. Alfred Issa MCV (RBC) [Entitic vol] 81.4 fL Normal 81.0-99.0 [facility] Comment on above: Performed By: #### C BC #### [facility] [address] [place] [address] Dr. Alfred Issa MONO # 0.5 103/ul Normal 0.3-0.8 [facility] Comment on above: Performed By: #### C BC #### [facility] [address] [place] [address] Dr. Alfred Issa Monocytes/100 WBC (Bld) 4.9 % Normal 1.7-12.0 [facility] Comment on above: Performed By: #### C BC #### [facility] [address] [place] [address] Dr. Alfred Issa NEUT # 6.7 103/ul Critically high 1.4-6.5 [facility] Comment on above: Performed By: #### C BC #### [facility] [address] [address] [address] Alfred Issa Neutrophils/100 WBC (Bld) 66.7 % Normal 43.0-75.0 [facility] Comment on above: Performed By: #### C BC #### [facility] [address] [address] [address] Alfred Issa Platelet mean volume (Bld) [Entitic vol] 8.4 fL Critically low 9.5-13.5 [facility] Comment on above: Performed By: #### C BC #### [facility] [address] [address] [address] Alfred Issa PLT 312 103/ul Normal 150-450 [facility] Comment on above: Performed By: #### C BC #### [facility] [address] [address] [address] Alfred Issa RBC 5.39 106/ul Normal 4.20-5.40 [facility] Comment on above: Performed By: #### C BC #### [facility] [address] [address] [address] Alfred Issa WBC 10.1 103/ul Normal 4.0-11.0 [facility] Comment on above: Performed By: #### C BC #### [facility] [address] [address] [address] Alfred Issa CRPon 11-16-2022 CRP 0.7 mg/dL Normal <=1.0 [facility] Comment on above: Performed By: #### L IPID, TSH, T7, URIC, CRP, CMP ####[facility] [address] [id number]. Alfred Issa FREE THYROXINE INDEX T7on FTI 3.50 Normal 1.30-4.50 [facility] Comment on above: Performed By: #### L IPID, TSH, T7, URIC, CRP, CMP ####[facility] [address] [address]Dr. Alfred Issa T3U 34.0 % Normal 30.0-39.0 [facility] Comment on above: Performed By: #### L IPID, TSH, T7, URIC, CRP, CMP ####[facility] [address] [address]Dr. Alfred Issa T4 [Mass/Vol] 10.30 ug/dL Normal 4.80-13.[address] [facility] Comment on above: Performed By: #### L IPID, TSH, T7, URIC, CRP, CMP ####[facility] [address] [address]Dr. Alfred Issa GLYCOHEMOGLOBIN A1Con 2022 ADA RECOMMENDATION SEE BELOW Normal [facility] Comment on above: Result Comment: ADA RECOMMENDED LIMIT 4.0 - 6.0 ADA THERAPEUTIC TARGET < 7.0 ACTION SUGGESTED > 7.0 Performed By: #### A 1C #### [facility] [address] [address] [address] Alfred Issa Glucose [Mass/Vol] 108 mg/dL Normal [facility] Comment on above: Performed By: #### A 1C #### [facility] [address] [address] [address] Alfred Issa HbA1c (Bld) [Mass fraction] 5.4 % Normal 4.5-6.2 [facility] Comment on above: Performed By: #### A 1C #### [facility] [address] [address] [address] Alfred Issa IRONon 11-16-2022 Iron [Mass/Vol] 127.0 ug/dL Normal 50.0-170.0 [facility] Comment on above: Performed By: #### I LEIGH ANN #### [facility] [address] [address] [address] Alfred Issa LIPID PROFILEon 11-16-2022 CHOL-HDL RATIO NORM SEE BELOW Normal [facility] Comment on above: Result Comment: 3.3 - 4.4 LOW RISK 4.4 - 7.1 AVERAGE RISK 7.1 - 11.0 MODERATE RISK >11.0 HIGH RISK Performed By: #### L IPID, TSH, T7, URIC, CRP, CMP ####[facility] [address] [address]Dr. Alfred Issa Cholesterol [Mass/Vol] 197 mg/dL Normal <=200 [facility] Comment on above: Performed By: #### L IPID, TSH, T7, URIC, CRP, CMP ####[facility] [address] [id number]. Alfred Issa Cholesterol in HDL [Mass/Vol] 39 mg/dL Critically low 40-60 [facility] Comment on above: Performed By: #### L IPID, TSH, T7, URIC, CRP, CMP ####[facility] [address] [address]Dr. Alfred Issa Cholesterol in LDL [Mass/Vol] 116.8 mg/dL Normal [facility] Comment on above: Performed By: #### L IPID, TSH, T7, URIC, CRP, CMP ####[facility] [address] [address]Dr. Alfred Issa Cholesterol.total/Chol esterol in HDL [Mass ratio] 5.1 {ratio} Normal [facility] Comment on above: Performed By: #### L IPID, TSH, T7, URIC, CRP, CMP ####[facility] [address] [address]Dr. Alfred Issa HDL NORMAL > or = 60 mg/dl - LOW CARDIOVASCULAR RISK <40 mg/dl - HIGH CARDIOVASCULAR RISK Normal [facility] Comment on above: Performed By: #### L IPID, TSH, T7, URIC, CRP, CMP ####[facility] [address] [address]Dr. Alfred Issa LDL CALC NORMAL SEE BELOW Normal [facility] Comment on above: Result Comment: <100 mg/dl OPTIMAL 100 - 129 mg/dl NEAR OR ABOVE OPTIMAL 130 - 159 mg/dl BORDERLINE HIGH 160 - 189 mg/dl HIGH >190 mg/dl VERY HIGH Performed By: #### L IPID, TSH, T7, URIC, CRP, CMP ####[facility] [address] [id number]. Alfred Issa Triglyceride [Mass/Vol] 206 mg/dL Critically high <=150 [facility] Comment on above: Performed By: #### L IPID, TSH, T7, URIC, CRP, CMP ####[facility] [address] [address]Dr. Alfred Issa VLDL CALC 41.2 mg/dL Normal [facility] Comment on above: Performed By: #### L IPID, TSH, T7, URIC, CRP, CMP ####[facility] [address] [address]Dr. Alfred Issa OCC BLD IMMUNO SCREENon 10-31 OCCULT BLOOD Negative Normal NEGATIVE [facility] Comment on above: Performed By: #### O BSCRN ####[facility] [address] [address]Dr. Alfred Issa PROF 14(COMP METB)on 023 Albumin [Mass/Vol] 4.0 g/dL Normal 3.4-5.0 [facility] Comment on above: Performed By: #### L IPID, TSH, T7, URIC, CRP, CMP ####[facility] [address] [address]Dr. Alfred Issa Albumin/Globulin [Mass ratio] 1.1 {ratio} Normal [facility] Comment on above: Performed By: #### L IPID, TSH, T7, URIC, CRP, CMP ####[facility] [address] [address]Dr. Alfred Issa ALP [Catalytic activity/Vol] 104 U/L Normal 46-116 [facility] Comment on above: Performed By: #### L IPID, TSH, T7, URIC, CRP, CMP ####[facility] [address] [address]Dr. Alfred Issa ALT [Catalytic activity/Vol] 26 U/L Normal 14-59 [facility] Comment on above: Performed By: #### L IPID, TSH, T7, URIC, CRP, CMP ####[facility] [address] [address]Dr. Alfred Issa Anion gap [Moles/Vol] 13.2 mmol/L Normal [facility] Comment on above: Performed By: #### L IPID, TSH, T7, URIC, CRP, CMP ####[facility] [address] [place], [place] [address]Dr. Alfred Issa AST [Catalytic activity/Vol] 20 U/L Normal 15-37 [facility] Comment on above: Performed By: #### L IPID, TSH, T7, URIC, CRP, CMP ####[facility] [address] [place], [place] [address]Dr. Alfred Issa Bilirubin [Mass/Vol] 0.6 mg/dL Normal 0.2-1.0 [facility] Comment on above: Performed By: #### L IPID, TSH, T7, URIC, CRP, CMP ####[facility] [address] [place], [place] [address]Dr. Alfred Issa Calcium [Mass/Vol] 9.3 mg/dL Normal 8.5-10.1 [facility] Comment on above: Performed By: #### L IPID, TSH, T7, URIC, CRP, CMP ####[facility] [address] [place], [place] [address]Dr. Alfred Issa Chloride [Moles/Vol] 100 mmol/L Normal 98-107 [facility] Comment on above: Performed By: #### L IPID, TSH, T7, URIC, CRP, CMP ####[facility] [address] [place], [place] [address]Dr. Alfred Issa CO2 [Moles/Vol] 26.6 mmol/L Normal 21.0-32.0 [facility] Comment on above: Performed By: #### L IPID, TSH, T7, URIC, CRP, CMP ####[facility] [address] [place], [place] [address]Dr. Alfred Issa Creatinine [Mass/Vol] 0.56 mg/dL Normal 0.55-1.02 [facility] Comment on above: Performed By: #### L IPID, TSH, T7, URIC, CRP, CMP ####[facility] [address] [place], [place] [address]Dr. Alfred Issa EGFR-AF NAMIBIAN >60 Normal >=60 [facility] Comment on above: Performed By: #### L IPID, TSH, T7, URIC, CRP, CMP ####[facility] [address] [address]Dr. Alfred Issa EGFR-NON AF NAMIBIAN >60 Normal >=60 [facility] Comment on above: Performed By: #### L IPID, TSH, T7, URIC, CRP, CMP ####[facility] [address] [address]Dr. Alfred Issa Globulin (S) [Mass/Vol] 3.5 g/dL Normal [facility] Comment on above: Performed By: #### L IPID, TSH, T7, URIC, CRP, CMP ####[facility] [address] [place], [place] [address]Dr. Alfred Issa Glucose [Mass/Vol] 112 mg/dL Critically high 74-106 [facility] Comment on above: Performed By: #### L IPID, TSH, T7, URIC, CRP, CMP ####[facility] [address] [place], [place] [address]Dr. Alfred Issa Potassium [Moles/Vol] 3.8 mmol/L Normal 3.5-5.1 [facility] Comment on above: Performed By: #### L IPID, TSH, T7, URIC, CRP, CMP ####[facility] [address] [place], [place] [address]Dr. Alfred Issa Protein [Mass/Vol] 7.5 g/dL Normal 6.4-8.2 [facility] Comment on above: Performed By: #### L IPID, TSH, T7, URIC, CRP, CMP ####[facility] [address] [place], [place] [address]Dr. Alfred Issa Sodium [Moles/Vol] 136 mmol/L Normal 136-145 [facility] Comment on above: Performed By: #### L IPID, TSH, T7, URIC, CRP, CMP ####[facility] [address] [place], [place] [address]Dr. Alfred Issa Urea nitrogen [Mass/Vol] 8.0 mg/dL Normal 7.0-18.0 [facility] Comment on above: Performed By: #### L IPID, TSH, T7, URIC, CRP, CMP ####[facility] [address] [address]Dr. Alfred Issa Urea nitrogen/Creatinine [Mass ratio] 14.3 mg/mg Normal [facility] Comment on above: Performed By: #### L IPID, TSH, T7, URIC, CRP, CMP ####[facility] [address] [address]Dr. Alfred Issa TSHon 11-16-2022 TSH 1.787 uIU/mL Normal 0.358-3.740 [facility] Comment on above: Performed By: #### L IPID, TSH, T7, URIC, CRP, CMP ####[facility] [address] [address]Dr. Alfred Issa URIC ACID SERUMon 11-16-2022 Urate [Mass/Vol] 5.3 mg/dL Normal 2.6-6.0 [facility] Comment on above: Performed By: #### L IPID, TSH, T7, URIC, CRP, CMP ####[facility] [address] [address]Dr. Alfred Issa Cult,Aerobe/Anaerobeon 03-29 Cult,Aerobe/Anaerobe Specimen Descriptio n .FACE RIGHT .ABSCESS SWAB Special Requests NOT REPORTED Direct Exam FEW NEUTROPHILS RARE GRAM POSITIVE COCCI IN PAIRS Culture HAEMOPHILUS PARAINFLUENZAE SCANT GROWTH BETA LACTAMASE NEGATIVE NORMAL MAGALYS MIXED ANAEROBIC MAGALYS Report Status FINAL 03/29/2020 [facility] Comment on above: Performed By: #### A ANC #### [facility] [place] [address] Human Resources Leader: Wilfredo Keyes MD Basic Metab w/rfx MGon 03-24 (cont.) [facility] Comment on above: Result Comment: Aver age GFR for 20-29 years old: 116 mL/min/1.73sq m Chronic Kidney Disease: <60 mL/min/1.73sq m Kidney failure: <15 mL/min/1.73sq m eGFR calculated using average adult body mass. Additional eGFR calculator available at: http://www.[employer].THEVA/multiple_crcl_2012.htm Performed By: #### C JANIE JCX, PT #### [facility] [address] [place] [address] Human Resources Leader: Wilfredo Keyes MD Anion gap [Moles/Vol] 15 mmol/L Normal 9-17 [facility] Comment on above: Performed By: #### C HOSEA BMPX, PT #### [facility] [address] [place] [address] Human Resources Leader: Wilfredo Keyes MD Calcium [Mass/Vol] 9.0 mg/dL Normal 8.6-10.4 [facility] Comment on above: Performed By: #### Koffi JC BMPX, PT #### [facility] [address] [place] [address] Human Resources Leader: Wilfredo Keyes MD Chloride [Moles/Vol] 99 mmol/L Normal 98-107 [facility] Comment on above: Performed By: #### C HOSEA BMPX, PT #### [facility] [address] [place] [address] Human Resources Leader: Wilfredo Keyes MD CO2 [Moles/Vol] 25 mmol/L Normal 20-31 [facility] Comment on above: Performed By: #### C HOSEA BMPX, PT #### [facility] [address] [place] [address] Human Resources Leader: Wilfredo Keyes MD Creatinine [Mass/Vol] 0.45 mg/dL Low 0.50-0.90 [facility] Comment on above: Performed By: #### Koffi JC BMPX, PT #### [facility] [address] [place] [address] Human Resources Leader: Wilfredo Keyes MD GFR, Amer >60 Normal >60 [facility] Comment on above: Performed By: #### C BC, BMPX, PT #### [facility] [address] [place] [address] Human Resources Leader: Wilfredo Keyes MD GFR,non Amer >60 Normal >60 [facility] Comment on above: Performed By: #### C BC, BMPX, PT #### [facility] [address] [place] [address] Human Resources Leader: Wilfredo Keyes MD Glucose [Mass/Vol] 90 mg/dL Normal 70-99 [facility] Comment on above: Performed By: #### C BC, BMPX, PT #### [facility] [address] [place] [address] Human Resources Leader: Wilfredo Keyes MD Potassium [Moles/Vol] 3.7 mmol/L Normal 3.7-5.3 [facility] Comment on above: Performed By: #### C BC, BMPX, PT #### [facility] [address] [place] [address] Human Resources Leader: Wilfredo Keyes MD Sodium [Moles/Vol] 139 mmol/L Normal 135-144 [facility] Comment on above: Performed By: #### C BC, BMPX, PT #### [facility] [address] [place] [address] Human Resources Leader: Wilfredo Keyes MD Urea nitrogen [Mass/Vol] 8 mg/dL Normal 6-20 [facility] Comment on above: Performed By: #### C BC, BMPX, PT #### [facility] [address] [place] [address] Human Resources Leader: Wilfredo Keyes MD BUN/CRE Ratio NOT REPORTED Normal 9-20 [facility] Comment on above: Performed By: #### C BC, BMPX, PT #### [facility] [address] [place] [address] Human Resources Leader: Wilfredo Keyes MD Staging: NOT REPORTED Normal [facility] Comment on above: Performed By: #### C BC, BMPX, PT #### [facility] [place], [place] [id number] Human Resources Leader: Wilfredo Keyes MD Basic Metabolic Panel w/ Ref rodríguez to MGon 03-24-2020 Anion gap [Moles/Vol] 15 mmol/L 9 - 17 mmol/L [place], [place] Bun/Cre Ratio NOT REPORTED [place], [place] Calcium [Mass/Vol] 9.0 mg/dL 8.6 - 10. 4 mg/dL [place] Chloride [Moles/Vol] 99 mmol/L 98 - 10 7 mmol/L [place] CO2 [Moles/Vol] 25 mmol/L 20 - 31 mmol/L [place] Creatinine [Mass/Vol] 0.45 mg/dL Low 0.5 - 0.9 mg/dL [place] GFR >60 >60 mL/min [place] GFR Non- >60 >60 mL/min [place] GFR/1.73 sq M predicted among non-blacks MDRD (S/P/Bld) [Vol rate/Area] NOT REPORTED [place] GFR/1.73 sq M predicted among non-blacks MDRD (S/P/Bld) [Vol rate/Area] [place], [place] Comment on above: Average GFR for 20-2 9 years old: 116 mL/min/1.73sq m Chronic Kidney Disease: <60 mL/min/1.73sq m Kidney failure: <15 mL/min/1.73sq m eGFR calculated using average adult body mass. Additional eGFR calculator available at: http://www.[employer].THEVA/multiple_crcl_2012.htm Glucose [Mass/Vol] 90 mg/dL 70 - 99 mg/dL [place], [place] Interpretation and review of laboratory results Abnormal [place] Potassium [Moles/Vol] 3.7 mmol/L 3.7 - 5.3 mmol/L [place] Sodium [Moles/Vol] 139 mmol/L 135 - 144 mmol/L [place] Urea nitrogen [Mass/Vol] 8 mg/dL 6 - 20 mg/dL [place] CBCon 03-24-2020 Erythrocyte distribution width (RBC) [Ratio] 12.6 % Normal 11.8-14.4 [facility] Comment on above: Performed By: #### Koffi JC BMPX, PT #### [employer] [address] [place] [address] Human Resources Leader: Wilfredo Keyes MD Hematocrit (Bld) [Volume fraction] 41.9 % Normal 36.3-47.1 [facility] Comment on above: Performed By: #### Koffi JC BMPX, PT #### [facility] [address] [place] [address] [id number] Human Resources Leader: Wilfredo Keyes MD Hemoglobin (Bld) [Mass/Vol] 14.2 g/dL Normal 11.9-15.1 [facility] Comment on above: Performed By: #### Koffi JC BMPX, PT #### [facility] [address] [place] [address] [id number] Human Resources Leader: Wilfredo Keyes MD MCH (RBC) [Entitic mass] 28.9 pg Normal 25.2-33.5 [facility] Comment on above: Performed By: #### Koffi JC BMPX, PT #### [employer] [address] [place] [address] [phone] Human Resources Leader: Wilfredo Keyes MD MCHC (RBC) [Mass/Vol] 33.9 g/dL Normal 28.4-34.8 [facility] Comment on above: Performed By: #### Koffi JC BMPX, PT #### [employer] [address] [place] [address] [phone] Human Resources Leader: Wilfredo Keyes MD MCV (RBC) [Entitic vol] 85.3 fL Normal 82.6-102.9 [facility] Comment on above: Performed By: #### Koffi JC BMPX, PT #### [facility] [address] [place] [address] 88556 Human Resources Leader: Wilfredo Keyes MD NRBC Automated 0.0 per 100 WBC Normal 0.0 [facility] Comment on above: Performed By: #### C HOSEA BMPX, PT #### [facility] [address] [place] [address] 29776 Human Resources Leader: Wilfredo Keyes MD Platelet mean volume (Bld) [Entitic vol] 8.5 fL Normal 8.1-13.5 [facility] Comment on above: Performed By: #### Koffi JC BMPX, PT #### [facility] [address] [place] [address] 31164 Human Resources Leader: Wilfredo Keyes MD Platelets (Bld) [#/Vol] 256 10*3/uL Normal 138-453 [facility] Comment on above: Performed By: #### Koffi JC BMPX, PT #### [facility] [employer] [address] [place] [address] 17941 Human Resources Leader: Wilfredo Keyes MD RBC (Bld) [#/Vol] 4.91 10*6/uL Normal 3.95-5.11 [facility] Comment on above: Performed By: #### Koffi JC BMPX, PT #### [facility] [address] [place] [address] 31796 Human Resources Leader: Wilfredo Keyes MD WBC (Bld) [#/Vol] 10.0 10*3/uL Normal 4.5-13.5 [facility] Comment on above: Performed By: #### Koffi JC BMPX, PT #### [facility] [address] [place] [address] 30735 Human Resources Leader: Wilfredo Keyes MD Erythrocyte distribution width (RBC) [Ratio] 12.6 % 11.8 - 14.4 % [place] Hematocrit (Bld) [Volume fraction] 41.9 % 36.3 - 47.1 % [place] Hemoglobin (Bld) [Mass/Vol] 14.2 g/dL 11.9 - 15.1 g/dL [place] MCH (RBC) [Entitic mass] 28.9 pg 25.2 - 33.5 pg [place] MCHC (RBC) [Mass/Vol] 33.9 g/dL 28.4 - 34.8 g/dL [place] MCV (RBC) [Entitic vol] 85.3 fL 82.6 - 102.9 fL [place] Platelet mean volume (Bld) [Entitic vol] 8.5 fL 8.1 - 13.5 fL [place] Platelets (Bld) [#/Vol] 256 10*3/uL [place] RBC (Bld) [#/Vol] 4.91 10*6/uL 3.95 - 5.1 1 m/uL [place] WBC (Bld) [#/Vol] 0.0 10*3/uL 0.0 per 10 0 WBC [place] WBC (Bld) [#/Vol] 10.0 10*3/uL [place] COVID-19on 03-24-2020 SARS-CoV-2 Not Detected Not Detected [place], [place] Comment on above: The specimen is NEGATIVE for SARS-CoV-2, the novel coronavirus associated with COVID-19. A negative result does not rule out COVID-19. This test has been authorized by the FDA under an Emergency Use Authorization (EUA) for use by authorized laboratories. Fact sheet for Healthcare Providers: https://www.fda.gov/media/189275/download Fact sheet for Patients: https://www.fda.gov/media/016622/download METHODOLOGY: RT-PCR SARS-CoV-2, PCR [facility] [place] SARS-CoV-2, Rapid [facility] [place] Source .NASOPHARYNGEAL SWAB [place], [place] Gram Stainon 03-24-2020 Microscopic observation Gram stain Nom (Unsp spec) Specimen Description .FACE RIGHT .ABSCESS SWAB Special Requests NOT REPORTED Direct Exam DUPLICATE ORDER GRAM STN INCLUDED WITH CULTURE Report Status FINAL 03/24/2020 Normal [facility] Comment on above: Performed By: #### G S #### [address] [phone] Human Resources Leader: Wilfredo Keyes MD Direct Exam DUPLICATE ORDER GRAM STN INCLUDED WITH CULTURE [place] Special Requests NOT REPORTED [place] Specimen Description .FACE RIGHT [place], [place] HCG, ,Urineon 03-24 Beta HCG ( test) Ql (U) Negative Normal NEG [facility] Comment on above: Result Comment: Spec imens with hCG levels near the threshold of the test (25 mIU/mL) may give a negative or indeterminate result. In such cases, another test should be performed with a new specimen in 48-72 hours. If early is suspected clinically in this setting, correlation with quantitative serum b-hCG level is suggested. Performed By: #### U HCG #### [facility] [address] [place] [address] [phone] Human Resources Leader: Wilfredo Keyes MD PTon 03-24-2020 INR Coag (PPP) [Relative time] 1.0 {INR} Normal [facility] Comment on above: Result Comment: Therapeutic Range: Moderate Anticoagulant Intensity: INR = 2.0-3.0 High Anticoagulant Intensity: INR = 2.5-3.5 Performed By: #### C BC, BMPX, PT #### [facility] [address] [place] [address] [phone] Human Resources Leader: Wilfredo Keyes MD PT Coag (PPP) [Time] 10.7 s Normal 9.0-12.0 [facility] Comment on above: Performed By: #### C BC, BMPX, PT #### [facility] [address] [place] [address] [phone] Human Resources Leader: Wilfredo Kyees MD , urine pre-opon Beta HCG ( test) Ql (U) Negative NEGATIVE [place] Comment on above: Specimens with hCG [...] INR Coag (PPP) [Relative time] 1.0 {INR} [place] Comment on above: Therapeutic Range: Moderate Anticoagulant Intensity: INR = 2.0-3.0 High Anticoagulant Intensity: INR = 2.5-3.5 PT Coag (PPP) [Time] 10.7 s [place], [place] [id number] 03-24-2020 SARS-CoV-2,Rapid Normal [facility] Comment on above: Performed By: #### C OVID #### [facility] [address] [place] [address] [phone] Human Resources Leader: Wilfredo Keyes MD SARS-CoV-2 [facility] Comment on above: Performed By: #### C OVID #### [facility] [address] [place] [address] [phone] Human Resources Leader: Wilfredo Keyes MD SARS-CoV-2 Not Detected Normal NOTDET [facility] Comment on above: Result Comment: The specimen is NEGATIVE for SARS-CoV-2, the novel coronavirus associated with COVID-19. A negative result does not rule out COVID-19. This test has been authorized by the FDA under an Emergency Use Authorization (EUA) for use by authorized laboratories. Fact sheet for Healthcare Providers: https://www.fda.gov/media/074203/download Fact sheet for Patients: https://www.fda.gov/media/108382/download METHODOLOGY: RT-PCR Performed By: #### C OVID #### [address] [phone] Human Resources Leader: Wilfredo Keyes MD [id number] 03-23-2020 SARS-CoV-2 Source .NASOPHARYNGEAL SWAB Normal [facility] Comment on above: Performed By: #### C OVID #### [facility] [address] [place] [address] Human Resources Leader: Wilfredo Keyes MD Vital Signs Date Time Vital Sign Value Performing Clinician Facility 07-29-2021 14:00-0400 Body height 162.56 cm Franco Rajput Other [facility] Other 07-29-2021 14:00-0400 Body mass index (BMI) [Ratio] 27.29 kg/m2 Franco Rajput Other [facility] Other 07-29-2021 14:00-0400 Body weight 72.12 kg Franco Rajput Other [facility] Other 07-29-2021 14:00-0400 Diastolic blood pressure 87 mm[Hg] Franco Rajput Other [facility] Other 07-29-2021 14:00-0400 Systolic blood pressure 121 mm[Hg] Franco Rajput Other [facility] Other 03-25-2020 08:00-0400 Body Temperature 97.7 [degF] [facility], [place] 03-25-2020 08:00-0400 BP Diastolic 83 mm[Hg] [facility] [place] 03-25-2020 08:00-0400 BP Systolic 139 mm[Hg] [facility] , [place] 03-25-2020 08:00-0400 Pulse (Heart Rate) 89 /min [facility], [place] 03-25-2020 08:00-0400 Respiratory Rate 18 /min [facility] [place], [place] 03-24-2020 20:45-0400 Pulse Oximetry 99 % [place], [place] 03-23-2020 20:13-0400 BMI (Body Mass Index) 22.31 kg/m2 [place], [place] 03-23-2020 20:130400 Body weight 58.97 kg [place], [place] 03-23-2020 20:130400 Height 162.[address] [facility] , [place] Encounters Encounter Date Encounter Type Care Provider Facility Start: 06-01-2024 ambulatory Salvatore Duque acility:[facility] Start: 02-23-2023 End: 02-24-[address] GLENNA [...] Evaluation and management of inpatient ANDREA PINTO [facility] Start: 03-23-2020 End: 03-25-2020 Evaluation and [...] REFLEX TO MG FOR LOW K [employer] Work Phone: Start: 03-24-2020 Blood count complete automated [employer] Work Phone: Start: 03-24-2020 Prothrombin time Shirvinny [employer] Work Phone: Start: 03-24-2020 PATIENT STATUS (FROM ED OR OR/PROCEDURAL) NADREA PINTO Start: 03-23-2020 COVID-19 ANDREA SPAULDING Start: 03-23-2020 PATIENT STATUS (FROM ED OR OR/PROCEDURAL) ANDREA PINTO Start: 03-23-2020 IP CONSULT TO HOSPITALIST ANDREA PINTO Start: 03-23-2020 IP CONSULT TO ORAL SURGERY ANDREA PINTO Start: 03-23-2020 COVID-19 Carlos camargo Work Phone: Plan of Treatment Date Care Activity Detail Author Start: 07-01-2020 Influenza vaccination Flu vacc ine (Season Ended) [place], [place] Culture, Anaerobic a nd Aerobic Culture, Anaerobic and Aerobic Microbiology Routine 03/24/2020 1:13 PM EDT [place] Payers Date Payer Category Payer Self-pay 2014 Unknown BCBS BCBS OUT OF STATE xxxxxxxxxxxx 2014-Present [address] [place] [address] xxxxxxxxxxxx [id number] 1998 Unknown [id number] 1998 Unknown [id number] 1998 Unknown [id number] 1998 Unknown [id number] 1998 Unknown [id number] 1998 Unknown [id number] 1998 Unknown [id number] 1998 Unknown [id number] 1959 Private Health Insurance [id number] 1959 Unknown [id number] 1959 Unknown [id number] 1959 Unknown [id number] Unknown [id number] Social History Date Type Detail Facility Start: 03-25-2020 Tobacco smoking stat [facility] Current every day smoker [place], [place] Start: 03-25-2020 Alcohol intake Current drinke r of alcohol (finding) [place] Start: 03-23-2020 History SDOH Alcohol Frequency 3 [place] Start: 03-23-2020 History SDOH [facility]inks [facility] Start: 03-23-2020 History SDOH Alcohol Binge 4 [facility] SWETHA JOE Start: 03-23-2020 Alcohol Comment none this week [facility] Sex Assigned At Not on file [facility] Exposure to SARS-CoV -2 (event) Unable to assess SWETHA Silver Sex Assigned At Sex Assigned At Bir th [facility] [employer] [facility] Other Clinical Note 07-15-2022 Note Date & Type Note Facility 07-15-2022 Note PROCEDURE: XR KNEE L T 4V or > HISTORY: Pain of left knee joint ; acute left knee instability COMPARISON: None. FINDINGS: BONES:No fracture, acute abnormality, or significant arthropathy. SOFT TISSUES:No visible soft tissue swelling. EFFUSION:None visible. OTHER: Negative. IMPRESSION: 1. Normal examination. Electronically authenticated by: PURVI OLIVIER Date: 2022-07-15 11:44 [facility] Evaluation note 07-29-2021 Note Date & Type Note Facility 07-29-2021 Evaluation note Encounter Date Diagnosis Assessment Notes Jul, Gastritis (ICD-10 - K29.70) Gastritis material was printed Continue Omeprazole 40mg once daily Follow up in 6 months [facility] [employer] [facility] Other History general Narrative - Reported Note Date & Type Note Facility History general Narrative - Reported Type Surgical History oral abscess [facility] [employer] [facility] Other History of Present Illness * Jojo [...] Direct Exam Abnormal 03/24/2020 1:13 PM Martha Marucs FEW NEUTROPHILS Direct Exam Abnormal 03/24/2020 1:13 [...] improve 5. F/u OMFS thaddeus 1 week [phone] * Danielle Villarreal MD - 03/25/2020 7:17 AM EDT [facility] IN-PATIENT SERVICE [facility] Progress Note 03/25/2020 7:18 AM Name: Jordan Tello Acct: [id number] Room: 0331/0331-01 Day: 2 Admit Date: 03/23/2020 [...] History: Patient originally presented to [facility] via EMS for the complaint of [...] to the emergency room. Her work-up at [facility] show to have a dental abscess 2 x 1 x 1 on the right mandibular side with extension into the masseter muscle at that time it was recommended that patient be transferred to [facility] for OMF evaluation. Of significant laboratory [...] No results for input(s): PROT, LABALBU, LABA1C, Q1XOOLG, O9AQXPG, FT4, TSH, AST, ALT, LDH, GGT, ALKPHOS, LABGGT, BILITOT, BILIDIR, AMMONIA, AMYLASE, LIPASE, LACTATE, CHOL, HDL, LDLCHOLESTEROL, CHOLHDLRATIO, TRIG, VLDL, RID07GM, PHENYTOIN, PHENYF, URICACID, POCGLU in the last 72 hours. ABG:No results found for: POCPH, PHART, PH, POCPCO2, AEE7DDK, PCO2, POCPO2, PO2ART, PO2, POCHCO3, YBP7RWM, HCO3, NBEA, PBEA, BEART, BE, THGBART, THB, PDQ1YDL, PQJU8HNL, G1XJNLVU, O2SAT, FIO2 Lab Results Component Value Date/Time [...] Garcia, DO - 03/24/2020 11:29 AM EDT [facility] IN-PATIENT SERVICE [facility] Progress Note 03/24/2020 11:29 AM Name: Jordan Tello Acct: [id number] Room: [address] [place] [address] Day: 1 Admit Date: 03/23/2020 8:07 [...] Record: Patient originally presented to [facility] via EMS for the complaint of [...] to the emergency room. Her work-up at [facility] show to have a dental abscess 2 x 1 x 1 on the right mandibular side with extension into the masseter muscle at that time it was recommended that patient be transferred to [facility] for OMF evaluation. Of significant laboratory [...] No results for input(s): PROT, LABALBU, LABA1C, E6NBFJO, B0KFVOC, FT4, TSH, AST, ALT, LDH, GGT, ALKPHOS, LABGGT, BILITOT, BILIDIR, AMMONIA, AMYLASE, LIPASE, LACTATE, CHOL, HDL, LDLCHOLESTEROL, CHOLHDLRATIO, TRIG, VLDL, XUG11TB, PHENYTOIN, PHENYF, URICACID, POCGLU in the last 72 hours. 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 [facility]. provides no warranty or guarantee of the accuracy or completeness of information in this document.
[2024-06-09 09:51] LABS: Valproic Acid 7.2 ug/mL (50.0-100.0)
== END 2024-06-09 09:06 | disposition home or self-care (01) ==
LOC: LAB 09:07
PROVIDERS: PCP Family Medicine
DX: Z79.899 Other long term (current) drug therapy (principal)
CPT/HCPCS: 36415; 80164

== ENCOUNTER 2024-06-13 13:21 | Outpatient (OUT) | payer BC, OTHER, SELFPAY ==
--- NOTE | 2024-06-13 13:31 | XR_ITS ---
The [address] [address] Patient Name: EUSEBIA GRANDE MRN: [id number] date: 2000 Sex: F Assigned Patient Location: [facility] Current Patient Location: LAB Accession/Order Number: [id number] Exam Date: 06/13/2024 14:31 Report Date: 06/14/2024 09:16 At the request of: PURVI SALMERON Procedure: XR chest 2V PROCEDURE: XR chest 2V DATE: 06/13/2024 1:31 PM CDT COMPARISONS: None. CLINICAL INDICATION: 24 years Female Preop exam FINDINGS: The cardiomediastinal silhouette and pulmonary vasculature are within normal limits. There is diffusely scattered subcentimeter nodules throughout all lung welsh. The largest measures 8 mm right upper lung field. These probably represent calcified granulomas. The lungs are otherwise clear. There is no evidence of pleural effusion or pneumothorax. XR/XR chest 2V IMPRESSION: Diffusely scattered nodules throughout the lung welsh. Most likely this represents granulomatous changes. Given that there are no previous images for comparison to prove stability of this diffuse nodularity, I recommend unenhanced CT of the chest to further evaluate and characterize these nodules. Electronically authenticated by: MAEGAN VERA Date: 06/14/2024 09:16
--- NOTE | 2024-06-13 13:31 | ECG_ITS ---
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
--- NOTE | 2024-06-13 13:59 | P.GSHP_ITS ---
History of Present Illness History of Present Illness Chief complaint: left knee patellar dislocation, loose body Narrative: Patient presents for preadmission testing. Please see HPI from Dr. Beck dated June 11, 2024. Review of Systems ROS Narrative REVIEW OF SYSTEMS: Negative except as stated in HPI, ten or more systems reviewed. Constitutional: No fever, chills, weakness ENT: No sore throat or epistaxis Cardiovascular: No edema, chest pain, palpitations, or activity intolerance Respiratory: No shortness of breath or cough, admits to wheezing Gastrointestinal: No abdominal pain, constipation, diarrhea, or vomiting Genitourinary: No dysuria or hematuria Neurological: No numbness, tingling, weakness, or headache Psychiatric: No mood changes [facility] (Updated 06/13/24 @ 13:47 by Dyana Sood NP) Muscle twitch ?R25.3 - Fasciculation (ICD-10) Tremor ?R25.1 - Tremor, unspecified (ICD-10) Neck pain ?M54.2 - Cervicalgia (ICD-10) Self-inflicted laceration of wrist ?S61.519A - Laceration without foreign body of unspecified wrist, initial encounter (ICD-10) ?X78.9XXA - Intentional self-harm by unspecified sharp object, initial encounter (ICD-10) Back pain ?M54.9 - Dorsalgia, unspecified (ICD-10) Borderline personality disorder ?F60.3 - Borderline personality disorder (ICD-10) Depression ?F32.A - Depression, unspecified (ICD-10) Anxiety ?F41.9 - Anxiety disorder, unspecified (ICD-10) Wheezing ?R06.2 - Wheezing (ICD-10) Migraine ?G43.909 - Migraine, unspecified, not intractable, without status migrainosus (ICD-10) Gastritis ?K29.70 - Gastritis, unspecified, without bleeding (ICD-10) Panic attacks ?F41.0 - Panic disorder [episodic paroxysmal anxiety] (ICD-10) Loose body of left knee ?M23.42 - Loose body in knee, left knee (ICD-10) Chondral defect of left patella ?M23.8X2 - Other internal derangements of left knee (ICD-10) Left knee pain ?M25.562 - Pain in left knee (ICD-10) Dislocation of left patella ?S83.005A - Unspecified dislocation of left patella, initial encounter (ICD- 10) Surgical History (Updated 06/13/24 @ 13:47 by Dyana Sood NP) H/O oral surgery ?Z98.890 - Other specified postprocedural states (ICD-10) History of colonoscopy ?Z98.890 - Other specified postprocedural states (ICD-10) History of cholecystectomy ?Z90.49 - Acquired absence of other specified parts of digestive tract (ICD- 10) Family History (Updated 06/13/24 @ 13:47 by Dyana Sood NP) Other Cancer Family history of DVT Family history of diabetes mellitus Family history of hypertension Family history of myocardial infarction Social History (Updated 06/13/24 @ 13:41 by Dyana Sood NP) Within the past year, how often did you have a drink containing alcohol: 2-4 times a month Within the past year, how many standard drinks containing alcohol did you have on a typical day: 1 or 2 Total score: 0 Score interpretation: A score less than 3 is consistent with normal alcohol consumption. Do you use any of these nicotine containing products: vaping products Non-prescribed substance use: cannabis (any form) Highest level of school completed/degree received: high school graduate Meds Home Medications and Allergies Home Medications ?Medication ?Instructions ?Recorded ?Confirmed ?Type cariprazine 6 mg capsule (Vraylar) 6 mg PO Q24H 05/17/24 06/13/24 History duloxetine 60 mg capsule,delayed 120 mg PO DAILY 05/17/24 06/13/24 History release trazodone 100 mg tablet 100 mg PO .QHS 05/17/24 06/13/24 History divalproex 250 mg tablet,extended 250 mg PO DAILY 06/13/24 06/13/24 History release 24 hr ibuprofen 400 mg tablet 400 mg PO DAILY PRN pain 06/13/24 06/13/24 History Allergies Allergy/AdvReac Type Severity Reaction Status Date / Time No Known Drug Allergies Allergy Verified 06/13/24 13:38 Exam Narrative Exam Narrative: Constitutional: Awake, alert, comfortable, well-appearing, poorly groomed, nontoxic, interactive, vital signs as charted Head: Normocephalic, atraumatic ENT: Poor dentition, naris patent, posterior oropharynx clear, oral mucosa moist Neck: Supple, normal appearance, normal range of motion, no meningeal signs, no lymphadenopathy Respiratory: No respiratory distress, breath sounds clear Cardiovascular: Regular rate and rhythm, strong and regular heart tones Skin: No rashes or induration, multiple healed lacerations to left anterior forearm Neuro: No neurological deficits, normal sensation Psychiatric: Oriented ?3, flat affect Assessment and Plan Assessment and Plan (1) Dislocation of left patella: (2) Left knee pain: (3) Chondral defect of left patella: (4) Loose body of left knee: Plan Left knee arthroscopy, removal of loose body, and microfracture lateral femoral condyle scheduled with Dr. Beck June 25, 2024.
[2024-06-13 14:42] LABS: Anion Gap 14.5; BUN Creatinine Ratio 8.5; Calcium 8.9 mg/dL (8.5-10.1); Carbon Dioxide 25.4 mmol/L (21.0-32.0); Chloride 101 mmol/L (98-107); Estimated GFR (African America >60 (>=60); Estimated GFR (Non-African Ame >60 (>=60); Glucose 99 mg/dL (74-106); Potassium 3.9 mmol/L (3.5-5.1); Sodium 137 mmol/L (136-145)
[2024-06-13 14:58] LABS: Basophils Percent Auto 0.4 % (0.2-2.0); Eosinophils Absolute Auto 0.2 10^3/uL (0.0-0.7); Eosinophils Percent Auto 2.5 % (0.9-7.0); Hematocrit 38.4 % (36.0-48.0); Hemoglobin 13.4 g/dL (12.0-16.0); Immature Granulocytes Abs Auto 0.05 10^3/uL (0.00-0.03); Immature Granulocytes Pct Auto 0.5 % (0.0-0.5); Lymphocytes Percent Auto 32.6 % (20.5-60.0); Mean Corpuscular HGB Conc 34.9 g/dL (29.9-35.2); Mean Corpuscular Hemoglobin 29.6 pg (26.7-34.0); Mean Corpuscular Volume 84.8 fL (81.0-99.0); Mean Platelet Volume 8.7 fL (9.5-13.5); Monocytes Absolute Auto 0.6 10^3/uL (0.3-0.8); Monocytes Percent Auto 6.1 % (1.7-12.0); Neutrophils Absolute Auto 5.4 10^3/uL (1.4-6.5); Neutrophils Percent Auto 57.9 % (43.0-75.0); Platelet Count 330 10^3/uL (150-450); Red Blood Count 4.53 10^6/uL (4.20-5.40); Red Cell Distribution Width 12.4 % (11.0-15.0); White Blood Count 9.3 10^3/uL (4.0-11.0)
== END 2024-06-13 13:22 | disposition home or self-care (01) ==
LOC: PST 13:23
PROVIDERS: PCP Family Medicine; Visit Provider Orthopaedic Surgery
DX: Z01.810 Encounter for preprocedural cardiovascular examination (principal); Z01.812 Encounter for preprocedural laboratory examination; Z01.818 Encounter for other preprocedural examination; S83.095A Other dislocation of left patella, initial encounter
CPT/HCPCS: 71046; 80048; 85025; 93005; G0463

== ENCOUNTER 2024-06-18 09:04 | Outpatient (OUT) | payer BC, OTHER, SELFPAY ==
--- OUTSIDE RECORDS SUMMARY | 2024-06-18 09:31 | XMS_ITS | CCD ---
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 Name Role Phone Glenna Carlin Primary Care [...] (1 source) Corticosteroids Drug allergy (disorder) [facility] Repository (1 source) Corticosteroids Drug allergy (disorder) 1 [facility] Medications Current Medications Medication Drug Class(es) [...] 0 03/23/2019 Active take 1 capsule by [facility] every twenty-four hours Cymbalta 60 MG [...] PURVI OLIVIER Date: 2022-12-16 10:55 Normal [facility] MATEO by IFAon 01-19-2023 Antinuclear Antibodies, IFA Negative Normal [facility] Comment on above: Result Comment: Nega tive <1:80 Borderline 1:80 Positive >1:80 ICAP nomenclature: AC-0 For more information about Hep-2 cell patterns use ANApatterns.org, the official website for the International Consensus on Antinuclear Antibody (MATEO) Patterns (ICAP). Performed By: #### A NAIFA #### [facility] [address] [place] [address] Dr. Alfred Issa MATEO DIRECTon 11-17-2022 MATEO Direct Negative Normal Negative [facility] Comment on above: Performed By: #### A NAD #### [facility] [address] [place] [address] Dr. Alfred Issa ANTISTREPTOLYSIN O AB (ASO)o n 11-17-2022 Antistreptolysin O Ab 29.0 IU/mL Normal 0.0-200.0 [facility] Comment on above: Performed By: #### A SOAB #### [facility] [address] [place] [address] Dr. Alfred Issa C3 and C4 COMPLEMENTon 11-17 Complement C3, Serum 181 mg/dL Critically high 82-167 [facility] Comment on above: Performed By: #### C SUITE #### [facility] [address] [place] [address] Dr. Alfred Issa Complement C4, Serum 28 mg/dL Normal 12-38 [facility] Comment on above: Performed By: #### C SUITE #### [facility] [address] [place] [address] Dr. Alfred Issa INSULINon 11-17-2022 Insulin 29.2 uIU/mL Critically high 2.6-24.9 [facility] Comment on above: Performed By: #### I NSULIN #### [facility] [address] [place] [address] Dr. Alfred Issa SLE PROFILE Aon 11-17-2022 Anti-DNA (DS) Ab Qn 1 IU/mL Normal 0-9 [facility] Comment on above: Result Comment: Nega tive <5 Equivocal 5 - 9 Positive >9 Performed By: #### S RENAN #### [facility] [address] [address] [address] Alfred Issa Antichromatin Antibodies <0.2 Normal 0.0-0.9 [facility] Comment on above: Performed By: #### S RENAN #### [facility] [address] [address] [address] Alfred Issa RA Latex Turbid. <10.0 Normal <14.0 [facility] Comment on above: Performed By: #### S RENAN #### [facility] [address] [address] [address] Alfred Issa BAR CAPTAIN Antibodies <0.2 Normal 0.0-0.9 [facility] Comment on above: Performed By: #### S RENAN #### [facility] [address] [place] [address] Dr. Alfred Issa Sjogren's Anti-SS-A <0.2 Normal 0.0-0.9 [facility] Comment on above: Performed By: #### S RENAN #### [facility] [address] [place] [address] Dr. Alfred Issa Sjogren'jd Anti-SS-B <0.2 Normal 0.0-0.9 [facility] Comment on above: Performed By: #### S RENAN #### [facility] [address] [place] [address] Dr. Alfred Issa Mckinney Antibodies <0.2 Normal 0.0-0.9 [facility] Comment on above: Performed By: #### S RENAN #### [facility] [address] [address] [address] Alfred Issa CBC AUTO DIFFon 11-16-2022 BASO # 0.0 103/ul Normal 0.0-0.1 [facility] Comment on above: Performed By: #### C BC #### [facility] [address] [place] [address] Dr. Alfred Issa Basophils/100 WBC (Bld) 0.4 % Normal 0.2-2.0 [facility] Comment on above: Performed By: #### C BC #### [facility] [address] [place] [address] Dr. Alfred Issa EO # 0.1 103/ul Normal 0.0-0.7 [facility] Comment on above: Performed By: #### C BC #### [facility] [address] [place] [address] Dr. Alfred Issa Eosinophils/100 WBC (Bld) 1.0 % Normal 0.9-7.0 [facility] Comment on above: Performed By: #### C BC #### [facility] [address] [place] [address] Dr. Alfred Issa Erythrocyte distribution width (RBC) [Ratio] 13.1 % Normal 11.0-15.0 [facility] Comment on above: Performed By: #### C BC #### [facility] [address] [place] [address] Dr. Alfred Issa Hematocrit (Bld) [Volume fraction] 43.9 % Normal 36.0-48.0 [facility] Comment on above: Performed By: #### C BC #### [facility] [address] [place] [address] Dr. Alfred Issa Hemoglobin (Bld) [Mass/Vol] 14.8 g/dL Normal 12.0-16.0 [facility] Comment on above: Performed By: #### C BC #### [facility] [address] [place] [address] Dr. Alfred Issa IG # 0.05 10e3/ul Critically high 0.00-0.03 [facility] Comment on above: Performed By: #### C BC #### [facility] [address] [place] [address] Dr. Alfred Issa IG % 0.5 % Normal 0.0-0.5 [facility] Comment on above: Performed By: #### C BC #### [facility] [address] [place] [address] Dr. Alfred Issa LYMPH # 2.7 103/ul Normal 1.2-3.8 [facility] Comment on above: Performed By: #### C BC #### [facility] [address] [address] [address] Alfred Issa Lymphocytes/100 WBC (Bld) 26.5 % Normal 20.5-60.0 [facility] Comment on above: Performed By: #### C BC #### [facility] [address] [address] [address] Alfred Issa MANUAL DIFF REQ NO Normal [facility] Comment on above: Performed By: #### C BC #### [facility] [address] [place] [address] Dr. Alfred Issa MCH (RBC) [Entitic mass] 27.5 pg Normal 26.7-34.0 [facility] Comment on above: Performed By: #### C BC #### [facility] [address] [place] [address] Dr. Alfred Issa MCHC (RBC) [Mass/Vol] 33.7 g/dL Normal 29.9-35.2 [facility] Comment on above: Performed By: #### C BC #### [facility] [address] [place] [address] Dr. Alfred Issa MCV (RBC) [Entitic vol] 81.4 fL Normal 81.0-99.0 [facility] Comment on above: Performed By: #### C BC #### [facility] [address] [place] [address] Dr. Alfred Issa MONO # 0.5 103/ul Normal 0.3-0.8 [facility] Comment on above: Performed By: #### C BC #### [facility] [address] [place] [address] Dr. Alfred Issa Monocytes/100 WBC (Bld) 4.9 % Normal 1.7-12.0 [facility] Comment on above: Performed By: #### C BC #### [facility] [address] [place] [address] Dr. Alfred Issa NEUT # 6.7 103/ul Critically high 1.4-6.5 [facility] Comment on above: Performed By: #### C BC #### [facility] [address] [address] [address] Alfred Issa Neutrophils/100 WBC (Bld) 66.7 % Normal 43.0-75.0 [facility] Comment on above: Performed By: #### C BC #### [facility] [address] [address] [address] Alfred Issa Platelet mean volume (Bld) [Entitic vol] 8.4 fL Critically low 9.5-13.5 [facility] Comment on above: Performed By: #### C BC #### [facility] [address] [address] [address] Alfred Issa PLT 312 103/ul Normal 150-450 [facility] Comment on above: Performed By: #### C BC #### [facility] [address] [address] [address] Alfred Issa RBC 5.39 106/ul Normal 4.20-5.40 [facility] Comment on above: Performed By: #### C BC #### [facility] [address] [address] [address] Alfred Issa WBC 10.1 103/ul Normal 4.0-11.0 [facility] Comment on above: Performed By: #### C BC #### [facility] [address] [address] [address] Alfred Issa CRPon 11-16-2022 CRP 0.7 mg/dL Normal <=1.0 [facility] Comment on above: Performed By: #### L IPID, TSH, T7, URIC, CRP, CMP ####[facility] [address] [id number] Alfred Issa FREE THYROXINE INDEX T7on FTI 3.50 Normal 1.30-4.50 [facility] Comment on above: Performed By: #### L IPID, TSH, T7, URIC, CRP, CMP ####[facility] [address] [id number]. Alfred Issa T3U 34.0 % Normal 30.0-39.0 [facility] Comment on above: Performed By: #### L IPID, TSH, T7, URIC, CRP, CMP ####[facility] [address] [phone]. Alfred Issa T4 [Mass/Vol] 10.30 ug/dL Normal 4.80-13.90 [facility] Comment on above: Performed By: #### L IPID, TSH, T7, URIC, CRP, CMP ####[facility] [address] [address]Dr. Alfred Issa GLYCOHEMOGLOBIN A1Con 2022 ADA RECOMMENDATION SEE BELOW Normal [facility] Comment on above: Result Comment: ADA RECOMMENDED LIMIT 4.0 - 6.0 ADA THERAPEUTIC TARGET < 7.0 ACTION SUGGESTED > 7.0 Performed By: #### A 1C #### [facility] [address] [address] [address] Alfred Issa Glucose [Mass/Vol] 108 mg/dL Normal [facility] Comment on above: Performed By: #### A 1C #### [facility] [address] [address] [address] Alfred Issa HbA1c (Bld) [Mass fraction] 5.4 % Normal 4.5-6.2 [facility] Comment on above: Performed By: #### A 1C #### [facility] [address] [address] [address] Alfred Issa IRONon 11-16-2022 Iron [Mass/Vol] 127.0 ug/dL Normal 50.0-170.0 [facility] Comment on above: Performed By: #### I LEIGH ANN #### [facility] [address] [address] [address] Alfred Issa LIPID PROFILEon 11-16-2022 CHOL-HDL RATIO NORM SEE BELOW Normal [facility] Comment on above: Result Comment: 3.3 - 4.4 LOW RISK 4.4 - 7.1 AVERAGE RISK 7.1 - 11.0 MODERATE RISK >11.0 HIGH RISK Performed By: #### L IPID, TSH, T7, URIC, CRP, CMP ####[facility] [address] [address]Dr. Alfred Issa Cholesterol [Mass/Vol] 197 mg/dL Normal <=200 [facility] Comment on above: Performed By: #### L IPID, TSH, T7, URIC, CRP, CMP ####[facility] [address] [id number]. Alfred Issa Cholesterol in HDL [Mass/Vol] 39 mg/dL Critically low 40-60 [facility] Comment on above: Performed By: #### L IPID, TSH, T7, URIC, CRP, CMP ####[facility] [address] [address]Dr. Alfred Issa Cholesterol in LDL [Mass/Vol] 116.8 mg/dL Normal [facility] Comment on above: Performed By: #### L IPID, TSH, T7, URIC, CRP, CMP ####[facility] [address] [address]Dr. Alfred Issa Cholesterol.total/Chol esterol in HDL [Mass ratio] 5.1 {ratio} Normal [facility] Comment on above: Performed By: #### L IPID, TSH, T7, URIC, CRP, CMP ####[facility] [address] [address]Dr. Alfred Issa HDL NORMAL > or = 60 mg/dl - LOW CARDIOVASCULAR RISK <40 mg/dl - HIGH CARDIOVASCULAR RISK Normal [facility] Comment on above: Performed By: #### L IPID, TSH, T7, URIC, CRP, CMP ####[facility] [address] [address]Dr. Alfred Issa LDL CALC NORMAL SEE BELOW Normal [facility] Comment on above: Result Comment: <100 mg/dl OPTIMAL 100 - 129 mg/dl NEAR OR ABOVE OPTIMAL 130 - 159 mg/dl BORDERLINE HIGH 160 - 189 mg/dl HIGH >190 mg/dl VERY HIGH Performed By: #### L IPID, TSH, T7, URIC, CRP, CMP ####[facility] [address] [id number]. lAfred Issa Triglyceride [Mass/Vol] 206 mg/dL Critically high <=150 [facility] Comment on above: Performed By: #### L IPID, TSH, T7, URIC, CRP, CMP ####[facility] [address] [address]Dr. Alfred Issa VLDL CALC 41.2 mg/dL Normal [facility] Comment on above: Performed By: #### L IPID, TSH, T7, URIC, CRP, CMP ####[facility] [address] [address]Dr. Alfred Issa OCC BLD IMMUNO SCREENon 10-31 OCCULT BLOOD Negative Normal NEGATIVE [facility] Comment on above: Performed By: #### O BSCRN ####[facility] [address] [address]Dr. Alfred Issa PROF 14(COMP METB)on 023 Albumin [Mass/Vol] 4.0 g/dL Normal 3.4-5.0 [facility] Comment on above: Performed By: #### L IPID, TSH, T7, URIC, CRP, CMP ####[facility] [address] [address]Dr. Alfred Issa Albumin/Globulin [Mass ratio] 1.1 {ratio} Normal [facility] Comment on above: Performed By: #### L IPID, TSH, T7, URIC, CRP, CMP ####[facility] [address] [address]Dr. Alfred Issa ALP [Catalytic activity/Vol] 104 U/L Normal 46-116 [facility] Comment on above: Performed By: #### L IPID, TSH, T7, URIC, CRP, CMP ####[facility] [address] [address]Dr. Alfred Issa ALT [Catalytic activity/Vol] 26 U/L Normal 14-59 [facility] Comment on above: Performed By: #### L IPID, TSH, T7, URIC, CRP, CMP ####[facility] [address] [address]Dr. Alfred Issa Anion gap [Moles/Vol] 13.2 mmol/L Normal [facility] Comment on above: Performed By: #### L IPID, TSH, T7, URIC, CRP, CMP ####[facility] [address] [place], [place] [address]Dr. Alfred Issa AST [Catalytic activity/Vol] 20 U/L Normal 15-37 [facility] Comment on above: Performed By: #### L IPID, TSH, T7, URIC, CRP, CMP ####[facility] [address] [place], [place] [address]Dr. Alfred Issa Bilirubin [Mass/Vol] 0.6 mg/dL Normal 0.2-1.0 [facility] Comment on above: Performed By: #### L IPID, TSH, T7, URIC, CRP, CMP ####[facility] [address] [place], [place] [address]Dr. Alfred Issa Calcium [Mass/Vol] 9.3 mg/dL Normal 8.5-10.1 [facility] Comment on above: Performed By: #### L IPID, TSH, T7, URIC, CRP, CMP ####[facility] [address] [place], [place] [address]Dr. Alfred Issa Chloride [Moles/Vol] 100 mmol/L Normal 98-107 [facility] Comment on above: Performed By: #### L IPID, TSH, T7, URIC, CRP, CMP ####[facility] [address] [place], [place] [address]Dr. Alfred Issa CO2 [Moles/Vol] 26.6 mmol/L Normal 21.0-32.0 [facility] Comment on above: Performed By: #### L IPID, TSH, T7, URIC, CRP, CMP ####[facility] [address] [place], [place] [address]Dr. Alfred Issa Creatinine [Mass/Vol] 0.56 mg/dL Normal 0.55-1.02 [facility] Comment on above: Performed By: #### L IPID, TSH, T7, URIC, CRP, CMP ####[facility] [address] [place], [place] [address]Dr. Alfred Issa EGFR-AF NIGERIAN >60 Normal >=60 [facility] Comment on above: Performed By: #### L IPID, TSH, T7, URIC, CRP, CMP ####[facility] [address] [address]Dr. Alfred Issa EGFR-NON AF NIGERIAN >60 Normal >=60 [facility] Comment on above: Performed By: #### L IPID, TSH, T7, URIC, CRP, CMP ####[facility] [address] [address]Dr. Alfred Issa Globulin (S) [Mass/Vol] 3.5 g/dL Normal [facility] Comment on above: Performed By: #### L IPID, TSH, T7, URIC, CRP, CMP ####[facility] [address] [place], [place] [address]Dr. Alfred Issa Glucose [Mass/Vol] 112 mg/dL Critically high 74-106 [facility] Comment on above: Performed By: #### L IPID, TSH, T7, URIC, CRP, CMP ####[facility] [address] [place], [place] [address]Dr. Alfred Issa Potassium [Moles/Vol] 3.8 mmol/L Normal 3.5-5.1 [facility] Comment on above: Performed By: #### L IPID, TSH, T7, URIC, CRP, CMP ####[facility] [address] [place], [place] [address]Dr. Alfred Issa Protein [Mass/Vol] 7.5 g/dL Normal 6.4-8.2 [facility] Comment on above: Performed By: #### L IPID, TSH, T7, URIC, CRP, CMP ####[facility] [address] [place], [place] [address]Dr. Alfred Issa Sodium [Moles/Vol] 136 mmol/L Normal 136-145 [facility] Comment on above: Performed By: #### L IPID, TSH, T7, URIC, CRP, CMP ####[facility] [address] [place], [place] [address]Dr. Alfred Issa Urea nitrogen [Mass/Vol] 8.0 mg/dL Normal 7.0-18.0 [facility] Comment on above: Performed By: #### L IPID, TSH, T7, URIC, CRP, CMP ####[facility] [address] [id number]. Alfred Issa Urea nitrogen/Creatinine [Mass ratio] 14.3 mg/mg Normal [facility] Comment on above: Performed By: #### L IPID, TSH, T7, URIC, CRP, CMP ####[facility] [address] [id number]. Alfred Issa TSHon 11-16-2022 TSH 1.787 uIU/mL Normal 0.358-3.740 [facility] Comment on above: Performed By: #### L IPID, TSH, T7, URIC, CRP, CMP ####[facility] [address] [address]Dr. Alfred Issa URIC ACID SERUMon 11-16-2022 Urate [Mass/Vol] 5.3 mg/dL Normal 2.6-6.0 [facility] Comment on above: Performed By: #### L IPID, TSH, T7, URIC, CRP, CMP ####[facility] [address] [address]Dr. Alfred Issa Cult,Aerobe/Anaerobeon 03-29 Cult,Aerobe/Anaerobe Specimen Descriptio n .FACE RIGHT .ABSCESS SWAB Special Requests NOT REPORTED Direct Exam FEW NEUTROPHILS RARE GRAM POSITIVE COCCI IN PAIRS Culture HAEMOPHILUS PARAINFLUENZAE SCANT GROWTH BETA LACTAMASE NEGATIVE NORMAL MAGALYS MIXED ANAEROBIC MAGALYS Report Status FINAL 03/29/2020 [facility] Comment on above: Performed By: #### A ANC #### [facility] [place] [address] Marketing Content Manager: Wilfredo Keyes MD Basic Metab w/rfx MGon 03-24 (cont.) [facility] Comment on above: Result Comment: Aver age GFR for 20-29 years old: 116 mL/min/1.73sq m Chronic Kidney Disease: <60 mL/min/1.73sq m Kidney failure: <15 mL/min/1.73sq m eGFR calculated using average adult body mass. Additional eGFR calculator available at: http://www.[employer]/multiple_crcl_2012.htm Performed By: #### C JANIE JCX, PT #### [facility] [address] [place] [phone] Marketing Content Manager: Wilfredo Keyes MD Anion gap [Moles/Vol] 15 mmol/L Normal 9-17 [facility] Comment on above: Performed By: #### C HOSEA BMPX, PT #### [facility] [address] [place] [phone] Marketing Content Manager: Wilfredo Keyes MD Calcium [Mass/Vol] 9.0 mg/dL Normal 8.6-10.4 [facility] Comment on above: Performed By: #### Koffi JC BMPX, PT #### [facility] [employer] [address] [place] [phone] Marketing Content Manager: Wilfredo Keyes MD Chloride [Moles/Vol] 99 mmol/L Normal 98-107 [facility] Comment on above: Performed By: #### C HOSEA BMPX, PT #### [facility] [employer] [address] [place] [phone] Marketing Content Manager: Wilfredo Keyes MD CO2 [Moles/Vol] 25 mmol/L Normal 20-31 [facility] Comment on above: Performed By: #### C HOSEA BMPX, PT #### [facility] [address] [place] [phone] Marketing Content Manager: Wilfredo Keyes MD Creatinine [Mass/Vol] 0.45 mg/dL Low 0.50-0.90 [facility] Comment on above: Performed By: #### Koffi JC BMPX, PT #### [facility] [address] [place] [phone] Marketing Content Manager: Wilfredo Keyes MD GFR, Amer >60 Normal >60 [facility] Comment on above: Performed By: #### C BC, BMPX, PT #### [facility] [address] [place] [phone] Marketing Content Manager: Wilfredo Keyes MD GFR,non Amer >60 Normal >60 [facility] Comment on above: Performed By: #### C BC, BMPX, PT #### [facility] [address] [place] [phone] Marketing Content Manager: Wilfredo Keyes MD Glucose [Mass/Vol] 90 mg/dL Normal 70-99 [facility] Comment on above: Performed By: #### C BC, BMPX, PT #### [facility] [address] [place] [phone] Marketing Content Manager: Wilfredo Keyes MD Potassium [Moles/Vol] 3.7 mmol/L Normal 3.7-5.3 [facility] Comment on above: Performed By: #### C BC, BMPX, PT #### [facility] [address] [place] [phone] Marketing Content Manager: Wilfredo Keyes MD Sodium [Moles/Vol] 139 mmol/L Normal 135-144 [facility] Comment on above: Performed By: #### C BC, BMPX, PT #### [facility] [address] [place] [phone] Marketing Content Manager: Wilfredo Keyes MD Urea nitrogen [Mass/Vol] 8 mg/dL Normal 6-20 [facility] Comment on above: Performed By: #### C BC, BMPX, PT #### [facility] [address] [place] [phone] Marketing Content Manager: Wilfredo Keyes MD BUN/CRE Ratio NOT REPORTED Normal 9-20 [facility] Comment on above: Performed By: #### C BC, BMPX, PT #### [facility] [address] [place] [phone] Marketing Content Manager: Wilfredo Keyes MD Staging: NOT REPORTED Normal [facility] Comment on above: Performed By: #### C BC, BMPX, PT #### [facility] [address] [place], [place] [phone] Marketing Content Manager: Wilfredo Keyes MD Basic Metabolic Panel w/ Ref rodríguez to MGon 03-24-2020 Anion gap [Moles/Vol] 15 mmol/L 9 - 17 mmol/L [place], [place] Bun/Cre Ratio NOT REPORTED [place], [place] Calcium [Mass/Vol] 9.0 mg/dL 8.6 - 10. 4 mg/dL [place] Chloride [Moles/Vol] 99 mmol/L 98 - 10 7 mmol/L [place] CO2 [Moles/Vol] 25 mmol/L 20 - 31 mmol/L [place] Creatinine [Mass/Vol] 0.45 mg/dL Low 0.5 - 0.9 mg/dL [place] GFR >60 >60 mL/min [place] GFR Non- >60 >60 mL/min [place] GFR/1.73 sq M predicted among non-blacks MDRD (S/P/Bld) [Vol rate/Area] NOT REPORTED [place] GFR/1.73 sq M predicted among non-blacks MDRD (S/P/Bld) [Vol rate/Area] [place], [place] Comment on above: Average GFR for 20-2 9 years old: 116 mL/min/1.73sq m Chronic Kidney Disease: <60 mL/min/1.73sq m Kidney failure: <15 mL/min/1.73sq m eGFR calculated using average adult body mass. Additional eGFR calculator available at: http://www.[employer]/multiple_crcl_2012.htm Glucose [Mass/Vol] 90 mg/dL 70 - 99 mg/dL [place], [place] Interpretation and review of laboratory results Abnormal [place] Potassium [Moles/Vol] 3.7 mmol/L 3.7 - 5.3 mmol/L [place] Sodium [Moles/Vol] 139 mmol/L 135 - 144 mmol/L [place] Urea nitrogen [Mass/Vol] 8 mg/dL 6 - 20 mg/dL [place] CBCon 03-24-2020 Erythrocyte distribution width (RBC) [Ratio] 12.6 % Normal 11.8-14.4 [facility] Comment on above: Performed By: #### Koffi JC BMPX, PT #### [employer] [address] [place] [phone] Marketing Content Manager: Wilfredo Keyes MD Hematocrit (Bld) [Volume fraction] 41.9 % Normal 36.3-47.1 [facility] Comment on above: Performed By: #### Koffi JC BMPX, PT #### [facility] [address] [place] [phone] Marketing Content Manager: Wilfredo Keyes MD Hemoglobin (Bld) [Mass/Vol] 14.2 g/dL Normal 11.9-15.1 [facility] Comment on above: Performed By: #### Koffi JC BMPX, PT #### [facility] [address] [place] [address] [phone] Marketing Content Manager: Wilfredo Keyes MD MCH (RBC) [Entitic mass] 28.9 pg Normal 25.2-33.5 [facility] Comment on above: Performed By: #### Koffi JC BMPX, PT #### [employer] [address] [place] [address] [phone] Marketing Content Manager: Wilfredo Keyes MD MCHC (RBC) [Mass/Vol] 33.9 g/dL Normal 28.4-34.8 [facility] Comment on above: Performed By: #### Koffi JC BMPX, PT #### [employer] [address] [place] [address] [phone] Marketing Content Manager: Wilfredo Keeys MD MCV (RBC) [Entitic vol] 85.3 fL Normal 82.6-102.9 [facility] Comment on above: Performed By: #### Koffi JC BMPX, PT #### [facility] [employer] [address] [place] [address] [phone] Marketing Content Manager: Wilfredo Keyes MD NRBC Automated 0.0 per 100 WBC Normal 0.0 [facility] Comment on above: Performed By: #### C HOSEA BMPX, PT #### [facility] [address] [place] [address] [phone] Marketing Content Manager: Wilfredo Keyes MD Platelet mean volume (Bld) [Entitic vol] 8.5 fL Normal 8.1-13.5 [facility] Comment on above: Performed By: #### Koffi JC BMPX, PT #### [facility] [employer] [address] [place] [address] [phone] Marketing Content Manager: Wilfredo Keyes MD Platelets (Bld) [#/Vol] 256 10*3/uL Normal 138-453 [facility] Comment on above: Performed By: #### Koffi JC BMPX, PT #### [facility] [employer] [address] [place] [address] [phone] Marketing Content Manager: Wilfredo Keyes MD RBC (Bld) [#/Vol] 4.91 10*6/uL Normal 3.95-5.11 [facility] Comment on above: Performed By: #### Koffi JC BMPX, PT #### [facility] [address] [place] [address] [phone] Marketing Content Manager: Wilfredo Keyes MD WBC (Bld) [#/Vol] 10.0 10*3/uL Normal 4.5-13.5 [facility] Comment on above: Performed By: #### Koffi JC BMPX, PT #### [facility] [address] [place] [address] [phone] Marketing Content Manager: Wilfredo Keyes MD Erythrocyte distribution width (RBC) [Ratio] 12.6 % 11.8 - 14.4 % [place], [place] Hematocrit (Bld) [Volume fraction] 41.9 % 36.3 - 47.1 % [place] Hemoglobin (Bld) [Mass/Vol] 14.2 g/dL 11.9 - 15.1 g/dL [place] MCH (RBC) [Entitic mass] 28.9 pg 25.2 - 33.5 pg [place] MCHC (RBC) [Mass/Vol] 33.9 g/dL 28.4 - 34.8 g/dL [place] MCV (RBC) [Entitic vol] 85.3 fL 82.6 - 102.9 fL [place] Platelet mean volume (Bld) [Entitic vol] 8.5 fL 8.1 - 13.5 fL [place], [place] Platelets (Bld) [#/Vol] 256 10*3/uL [place] RBC (Bld) [#/Vol] 4.91 10*6/uL 3.95 - 5.1 1 m/uL [place] WBC (Bld) [#/Vol] 0.0 10*3/uL 0.0 per 10 0 WBC [place] WBC (Bld) [#/Vol] 10.0 10*3/uL [place] COVID-19on 03-24-2020 SARS-CoV-2 Not Detected Not Detected [place], [place] Comment on above: The specimen is NEGATIVE for SARS-CoV-2, the novel coronavirus associated with COVID-19. A negative result does not rule out COVID-19. This test has been authorized by the FDA under an Emergency Use Authorization (EUA) for use by authorized laboratories. Fact sheet for Healthcare Providers: https://www.fda.gov/media/511486/download Fact sheet for Patients: https://www.fda.gov/media/382171/download METHODOLOGY: RT-PCR SARS-CoV-2, [facility] [place] [place] SARS-CoV-2, Rapid [facility] [place] Source .NASOPHARYNGEAL SWAB [place], [place] Gram Stainon 03-24-2020 Microscopic observation Gram stain Nom (Unsp spec) Specimen Description .FACE RIGHT .ABSCESS SWAB Special Requests NOT REPORTED Direct Exam DUPLICATE ORDER GRAM STN INCLUDED WITH CULTURE Report Status FINAL 03/24/2020 Normal [facility] Comment on above: Performed By: #### G S #### [address] [phone] Marketing Content Manager: Wilfredo Keyes MD Direct Exam DUPLICATE ORDER GRAM STN INCLUDED WITH CULTURE [place], [place] Special Requests NOT REPORTED [place] Specimen Description .FACE RIGHT [place], [place] HCG, ,Urineon 03-24 Beta HCG ( test) Ql (U) Negative Normal NEG [facility] Comment on above: Result Comment: Spec imens with hCG levels near the threshold of the test (25 mIU/mL) may give a negative or indeterminate result. In such cases, another test should be performed with a new specimen in 48-72 hours. If early is suspected clinically in this setting, correlation with quantitative serum b-hCG level is suggested. Performed By: #### U HCG #### [facility] [employer] [address] [place] [address] [phone] Marketing Content Manager: Wilfredo Keyes MD PTon 03-24-2020 INR Coag (PPP) [Relative time] 1.0 {INR} Normal [facility] Comment on above: Result Comment: Therapeutic Range: Moderate Anticoagulant Intensity: INR = 2.0-3.0 High Anticoagulant Intensity: INR = 2.5-3.5 Performed By: #### C BC, BMPX, PT #### [facility] [employer] [address] [place] [address] [phone] Marketing Content Manager: Wilfredo Keyes MD PT Coag (PPP) [Time] 10.7 s Normal 9.0-12.0 [facility] Comment on above: Performed By: #### C BC, BMPX, PT #### [facility] [employer] [address] [place] [address] [phone] Marketing Content Manager: Wilfredo Keyes MD , urine pre-opon Beta HCG ( test) Ql (U) Negative NEGATIVE [place] Comment on above: Specimens with hCG [...] INR Coag (PPP) [Relative time] 1.0 {INR} [place] Comment on above: Therapeutic Range: Moderate Anticoagulant Intensity: INR = 2.0-3.0 High Anticoagulant Intensity: INR = 2.5-3.5 PT Coag (PPP) [Time] 10.7 s [place] [id number] 03-24-2020 SARS-CoV-2,Rapid Normal [facility] Comment on above: Performed By: #### C OVID #### [facility] [employer] [address] [place] [address] [phone] Marketing Content Manager: Wilfredo Keyes MD SARS-CoV-2 [facility] Comment on above: Performed By: #### C OVID #### [facility] [employer] [address] [place] [address] [phone] Marketing Content Manager: Wilfredo Keyes MD SARS-CoV-2 Not Detected Normal NOTDET [facility] Comment on above: Result Comment: The specimen is NEGATIVE for SARS-CoV-2, the novel coronavirus associated with COVID-19. A negative result does not rule out COVID-19. This test has been authorized by the FDA under an Emergency Use Authorization (EUA) for use by authorized laboratories. Fact sheet for Healthcare Providers: https://www.fda.gov/media/926122/download Fact sheet for Patients: https://www.fda.gov/media/470997/download METHODOLOGY: RT-PCR Performed By: #### C OVID #### [address] [phone] Marketing Content Manager: Wilfredo Keyes MD [id number] 03-23-2020 SARS-CoV-2 Source .NASOPHARYNGEAL SWAB Normal [facility] Comment on above: Performed By: #### C OVID #### [facility] [address] [place] [phone] Marketing Content Manager: Wilfredo Keyes MD Vital Signs Date Time Vital Sign Value Performing Clinician Facility 07-29-2021 14:00-0400 Body height 162.56 cm Franco Rajput Other Group [facility] [employer] Other 07-29-2021 14:00-0400 Body mass index (BMI) [Ratio] 27.29 kg/m2 Franco Rajput Other Group [facility] [employer] Other 07-29-2021 14:00-0400 Body weight 72.12 kg Franco Rajput Other Group [facility] [employer] Other 07-29-2021 14:00-0400 Diastolic blood pressure 87 mm[Hg] Franco Rajput Other Group [facility] [employer] Other 07-29-2021 14:00-0400 Systolic blood pressure 121 mm[Hg] Franco Rajput Other Group [facility] [employer] Other 03-25-2020 08:00-0400 Body Temperature 97.7 [degF] [facility], [place] 03-25-2020 08:00-0400 BP Diastolic 83 mm[Hg] [facility] [place] 03-25-2020 08:00-0400 BP Systolic 139 mm[Hg] [facility] , [place] 03-25-2020 08:00-0400 Pulse (Heart Rate) 89 /min [facility], [place] 03-25-2020 08:00-0400 Respiratory Rate 18 /min [facility], [place] 03-24-2020 20:45-0400 Pulse Oximetry 99 % [place], [place] 03-23-2020 20:13-0400 BMI (Body Mass Index) 22.31 kg/m2 [place], [place] 03-23-2020 20:130400 Body weight 58.97 kg [place], [place] 03-23-2020 20:130400 Height 162.6 cm [facility] , [place] Encounters Encounter Date Encounter Type Care Provider Facility Start: 06-08-2024 ambulatory Salvatore Duque acility:[facility] Start: 02-23-2023 End: 02-24-[address] GLENNA [...] Evaluation and management of inpatient ANDREA PINTO [facility] Start: 03-23-2020 End: 03-25-2020 Evaluation and [...] REFLEX TO MG FOR LOW K Berta [employer] Work Phone: Start: 03-24-2020 Blood count complete automated [employer] Work Phone: Start: 03-24-2020 Prothrombin time Shirvinny [employer] Work Phone: Start: 03-24-2020 PATIENT STATUS (FROM [...] Influenza vaccination Flu vacc ine (Season Ended) [place], [place] Culture, Anaerobic a nd Aerobic Culture, Anaerobic and Aerobic Microbiology Routine 03/24/2020 1:13 PM EDT [place], [place] Payers Date Payer Category Payer Self-pay 2014 Unknown BCBS BCBS OUT OF STATE xxxxxxxxxxxx 2014-Present [address] [place] [address] xxxxxxxxxxxx [id number] 1998 Unknown [id number] 1998 Unknown [id number] 1998 Unknown [id number] 1998 Unknown [id number] 1998 Unknown [id number] 1998 Unknown [id number] 1998 Unknown [id number] 1998 Unknown [id number] 1959 Private Health Insurance [id number] 1959 Unknown [id number] 1959 Unknown [id number] 1959 Unknown [id number] Unknown [id number] Social History Date Type Detail Facility Start: 03-25-2020 Tobacco smoking stat [facility] Current every day smoker [place] Start: 03-25-2020 Alcohol intake Current drinke r of alcohol (finding) [place], [place] Start: 03-23-2020 History SDOH Alcohol Frequency 3 [place] Start: 03-23-2020 History SDOH Alcohol Std Drinks 1 [facility] Start: 03-23-2020 History SDOH Alcohol Binge 4 [facility] SWETHA JOE Start: 03-23-2020 Alcohol Comment none this week [facility] Sex Assigned At Not on file [facility] Exposure to SARS-CoV -2 (event) Unable to assess SWETHA Silver Sex Assigned At Sex Assigned At Bir th [facility] [employer] Other Clinical Note 07-15-2022 Note Date & Type Note Facility 07-15-2022 Note PROCEDURE: XR KNEE L T 4V or > HISTORY: Pain of left knee joint ; acute left knee instability COMPARISON: None. FINDINGS: BONES:No fracture, acute abnormality, or significant arthropathy. SOFT TISSUES:No visible soft tissue swelling. EFFUSION:None visible. OTHER: Negative. IMPRESSION: 1. Normal examination. Electronically authenticated by: PURVI OLIVIER Date: 2022-07-15 11:44 [facility] Evaluation note 07-29-2021 Note Date & Type Note Facility 07-29-2021 Evaluation note Encounter Date Diagnosis Assessment Notes Jul, Gastritis (ICD-10 - K29.70) Gastritis material was printed Continue Omeprazole 40mg once daily Follow up in 6 months [facility] [employer] Other History general Narrative - Reported Note Date & Type Note Facility History general Narrative - Reported Type Surgical History oral abscess [facility] [employer] Other History of Present Illness * Jojo [...] improve 5. F/u OMFS thaddeus 1 week [phone] * Danielle Villarreal MD - 03/25/2020 7:[address] [facility] IN-PATIENT SERVICE [facility] Progress Note 03/25/2020 7:18 AM Name: Jordan Tello Acct: [id number] Room: 0331/0331-01 Day: 2 Admit Date: 03/23/2020 [...] procedure Brief History: Patient originally presented to [facility] via EMS for the complaint of [...] to the emergency room. Her work-up at [facility] show to have a dental abscess 2 x 1 x 1 on the right mandibular side with extension into the masseter muscle at that time it was recommended that patient be transferred to [facility] for OMF evaluation. Of significant [...] No results for input(s): PROT, LABALBU, LABA1C, Y7WVDEY, A9WSSSO, FT4, TSH, AST, ALT, LDH, GGT, ALKPHOS, LABGGT, BILITOT, BILIDIR, AMMONIA, AMYLASE, LIPASE, LACTATE, CHOL, HDL, LDLCHOLESTEROL, CHOLHDLRATIO, TRIG, VLDL, ZFP02YD, PHENYTOIN, PHENYF, URICACID, POCGLU in the last 72 hours. ABG:No results found for: POCPH, PHART, PH, POCPCO2, VDH3NAF, PCO2, POCPO2, PO2ART, PO2, POCHCO3, BSZ5EGI, HCO3, NBEA, PBEA, BEART, BE, THGBART, THB, ODE9BQO, MDKH0WNM, Q3WHAJQV, O2SAT, FIO2 Lab Results Component Value Date/Time [...] Garcia, DO - 03/24/2020 11:[address] [facility] IN-PATIENT SERVICE [facility] Progress Note 03/24/2020 11:29 AM Name: Jordan Tello Acct: [id number] Room: [address] [place] [address] Day: 1 Admit Date: 03/23/2020 8:07 PM [...] History: Per Record: Patient originally presented to [facility] via EMS for the complaint of [...] to the emergency room. Her work-up at [facility] show to have a dental abscess 2 x 1 x 1 on the right mandibular side with extension into the masseter muscle at that time it was recommended that patient be transferred to [facility] for OMF evaluation. Of significant [...] No results for input(s): PROT, LABALBU, LABA1C, H9FNIDG, X6NQTXD, FT4, TSH, AST, ALT, LDH, GGT, ALKPHOS, LABGGT, BILITOT, BILIDIR, AMMONIA, AMYLASE, LIPASE, LACTATE, CHOL, HDL, LDLCHOLESTEROL, CHOLHDLRATIO, TRIG, VLDL, YDO95YO, PHENYTOIN, PHENYF, URICACID, POCGLU in the last 72 hours. 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 [facility] [employer] [facility]. provides no warranty or guarantee of the accuracy or completeness of information in this document.
[2024-06-20 06:09] LABS: QuantiFERON-TB Gold Plus Negative (Negative)
== END 2024-06-18 09:05 | disposition home or self-care (01) ==
LOC: LAB 09:07
PROVIDERS: PCP Family Medicine; Visit Provider Family Medicine
DX: L90.5 Scar conditions and fibrosis of skin (principal); J98.4 Other disorders of lung
CPT/HCPCS: 36415; 86480

== ENCOUNTER 2024-06-20 09:05 | Outpatient (OUT) | payer BC, OTHER, SELFPAY ==
--- NOTE | 2024-06-20 12:13 | CT_ITS ---
The [address] [address] Patient Name: EUSEBIA GRANDE MRN: [id number] date: 2000 Sex: F Assigned Patient Location: CT Current Patient Location: Accession/Order Number: [id number] Exam Date: 06/20/2024 12:15 Report Date: 06/21/2024 05:43 At the request of: GLENNA LARA Procedure: CT chest wo con EXAMINATION: CT chest wo con HISTORY: L90.5, Scarring COMPARISON: XR chest 06/13/2024 TECHNIQUE: Axial, Coronal, and Sagittal images were created without the administration of IV contrast material. Dose reduction techniques were achieved by using automated exposure control and/or adjustment of mA and/or kV according to patient size and/or use of iterative reconstruction technique. FINDINGS: LUNGS: A few scattered calcified and noncalcified nodules; largest is within anterior right middle lobe, 9 mm. PLEURA: No mass, effusion, or pneumothorax. VASCULATURE: No abnormality. ALEX: No mass or pathologic adenopathy. MEDIASTINUM: No mass or pathologic adenopathy. CARDIAC: No enlargement, pericardial thickening, or pericardial effusion. Coronary Artery calcifications: AORTA: No aneurysm or dissection. CHEST WALL: No mass or axillary adenopathy BONES: No bone lesion or fracture. LIMITED ABDOMEN: No suspicious findings. Limited images of the upper abdomen. OTHER: Negative. CT/CT chest wo con IMPRESSION: 1. Several small nodules scattered within the lungs; nonspecific but favoring chronic granulomatous disease. Given the patient's age neoplasm is much less likely. 2. If patient is at increased risk for lung cancer (chronic smoker) consider follow-up CT chest in one year to document stability. Electronically authenticated by: PURVI OLIVIER Date: 06/21/2024 05:43
== END 2024-06-20 09:06 | disposition home or self-care (01) ==
LOC: CT 09:05
PROVIDERS: PCP Family Medicine; Visit Provider Family Medicine
DX: L90.5 Scar conditions and fibrosis of skin (principal); R91.8 Other nonspecific abnormal finding of lung field
CPT/HCPCS: 71250

== ENCOUNTER 2024-06-25 11:38 | Day surgery (SDC) | payer BC, OTHER, SELFPAY ==
[2024-06-13 13:57] VITALS: BP 143/86; PULSE 80; TEMP 36.4; O2SAT 98; BMI 34.2
[2024-06-25] VITALS (17 sets, daily range): BP systolic 117–155; BP diastolic 83–115; PULSE 76–96; TEMP 36.6–36.7; O2SAT 88–99; BMI 34.2
[2024-06-25 12:22] LABS: HCG Qualitative NEGATIVE (NEGATIVE); Internal Control Within Normal Limits
--- NOTE | 2024-06-25 12:42 | PC.NURSE ---
1 attempt by other nurse
[2024-06-25] MEDS: LACTATED RINGER'S SOLUTION 1,000 ML 50 ML IV (12:43)
[2024-06-25] MEDS: CEFAZOLIN SODIUM 2 GM/50 ML D5W PREMIX IV (13:03)
[2024-06-25] MEDS: BUPIVACAINE HCL 0.5% PF 50 MG/10 ML VIAL 30 ML INJ (13:59)
--- NOTE | 2024-06-25 14:37 | PM.ORPRC ---
Procedure Note Date of procedure: 06/25/24 Pre-op diagnosis: 1. Left knee loose chondral body 2. Chondral defect lateral femoral condy Post-op diagnosis: same as pre-op Procedure: Operation: 1. Left knee arthroscopic removal of loose chondral body (2.5 cm x 6 mm) 2. Arthroscopic microfracture lateral femoral condyle Detailed description of procedure: After informed consent was obtained the patient was brought to the operating room where general anesthetic was administered. Exam under anesthesia the left knee revealed full range of motion and no instability. The left leg was prepped and draped in usual sterile fashion. Diagnostic arthroscopy was performed the standard anterior medial and anterolateral arthroscopy portals. Findings in the patellofemoral compartment included intact articular cartilage of the trochlear groove. There were several shallow chondral fissures of the patella. In the medial compartment the medial meniscus was intact as was the articular cartilage. No loose bodies in the medial gutter. In the notch the ACL and PCL were intact. The lateral compartment the lateral meniscus was intact. There was a 2.5 x 6 mm chondral defect of the lateral femoral condyle at the most lateral aspect that articulated with the tibia only with full knee extension and the very lateral aspect of the weightbearing portion. Surrounding articular cartilage was stable. Microfracture was performed with the chondral pick and a nice bleeding bed of bone was achieved. No loose bodies in the lateral compartment. The arthroscope was then placed adjacent to the PCL so that it could look into the posterior aspect of the joint and with this the loose body was identified posterior to the medial femoral condyle. Arthroscopic grasper was used used to remove the large chondral body which measured 2.5 cm x 6 mm. The knee joint was drained of arthroscopy fluid. Portals were closed with a 4-0 Monocryl suture. Joint was infiltrated with 30 mL of 0.5% Marcaine plain. Steri-Strips and sterile dressing were placed. Patient was awakened and brought to the recovery room in stable condition. There were no intraoperative or immediate postoperative complications. Anesthesia: General-LMA Surgeon: Shahid Beck Estimated blood loss (mL): 5 Pathology: none sent Condition: stable Disposition: PACU
[2024-06-25] MEDS: OXYCODONE HCL/ACETAMINOPHEN 5MG/325MG 1 TAB PO (15:43)
== END 2024-06-25 16:00 | disposition home or self-care (01) ==
PROVIDERS: PCP Family Medicine; Visit Provider Orthopaedic Surgery
PROC: (CPT 1400; principal; 2024-06-25 13:00)
DX: S83.005A Unspecified dislocation of left patella, initial encounter (principal); M23.42 Loose body in knee, left knee; M23.8X2 Other internal derangements of left knee; F17.290 Nicotine dependence, other tobacco product, uncomplicated; Z90.49 Acquired absence of other specified parts of digestive tract; J44.9 Chronic obstructive pulmonary disease, unspecified; K21.9 Gastro-esophageal reflux disease without esophagitis
CPT/HCPCS: 29879; 36415; 84703; J0665; J0690; J1100; J1170; J1885; J2250; J2405; J2704; J3010

== ENCOUNTER 2024-08-06 11:34 | Outpatient (OUT) | payer BC, OTHER, SELFPAY ==
--- NOTE | 2024-08-06 | XR_ITS ---
The [address] [address] Patient Name: EUSEBIA GRANDE MRN: [id number] date: 2000 Sex: F Assigned Patient Location: Current Patient Location: Accession/Order Number: [id number] Exam Date: 08/06/2024 11:35 Report Date: 08/06/2024 16:04 At the request of: PURVI SALMERON Procedure: XR knee LT 2V PROCEDURE: XR knee LT 2V COMPARISON: None. HISTORY: LEFT KNEE PAIN FINDINGS: BONES:No fracture, acute abnormality, or significant arthropathy. SOFT TISSUES:Negative. No visible soft tissue swelling. EFFUSION:None visible. OTHER: Negative. XR/XR knee LT 2V IMPRESSION: No acute radiographic abnormality Electronically authenticated by: MARIA ELENA ELLIS Date: 08/06/2024 16:04
--- OUTSIDE RECORDS SUMMARY | 2024-08-06 11:40 | XMS_ITS | CCD ---
Author Organization [facility] Care Team Providers Care Playground Official Name Role Phone Glenna Carlin Primary Care [...] Unavailable ZIEBER, DR PURVI Ordaz Consulting Unavailable JANE DUCKWORTH Attending Unavailable Salvatore Hendricks Attending Unavailab Salvatore Nagel Admitting Unavailab Glenna Michael Primary Care Unavailable Allergies Allergy Classification Reported Allergen(s) Allergy Type Date of Onset Reaction(s) Facility (1 source) Corticosteroids Drug allergy (disorder) [facility] Repository (1 source) Corticosteroids Drug allergy (disorder) 1 [facility] Repository Medications Current Medications Medication Drug [...] 0 03/23/2019 Active take 1 capsule by [facility] every twenty-four hours Cymbalta 60 MG [...] Reference Range Facility MRI BRAIN WO CONon MRI BRAIN WO CON EXAMINATION: MRI BRAIN [...] PURVI OLIVIER Date: 2022-12-16 10:55 Normal [facility] MATEO by IFAon 11-18-2022 Antinuclear Antibodies, IFA Negative Normal [facility] Comment on above: Result Comment: Nega tive <1:80 Borderline 1:80 Positive >1:80 ICAP nomenclature: AC-0 For more information about Hep-2 cell patterns use ANApatterns.org, the official website for the International Consensus on Antinuclear Antibody (MATEO) Patterns (ICAP). Performed By: #### A NAIFA #### [facility] [address] [place] [address] Dr. Alfred Issa MATEO DIRECTon 11-17-2022 MATEO Direct Negative Normal Negative [facility] Comment on above: Performed By: #### A NAD #### [facility] [address] [place] [address] Dr. Alfred Issa ANTISTREPTOLYSIN O AB (ASO)o n 11-17-2022 Antistreptolysin O Ab 29.0 IU/mL Normal 0.0-200.0 [facility] Comment on above: Performed By: #### A SOAB #### [facility] [address] [place] [address] Dr. Alfred Issa C3 and C4 COMPLEMENTon 11-17 Complement C3, Serum 181 mg/dL Critically high 82-167 [facility] Comment on above: Performed By: #### C SUITE #### [facility] [address] [place] [address] Dr. Alfred Issa Complement C4, Serum 28 mg/dL Normal 12-38 [facility] Comment on above: Performed By: #### C SUITE #### [facility] [address] [place] [address] Dr. Alfred Issa INSULINon 11-17-2022 Insulin 29.2 uIU/mL Critically high 2.6-24.9 [facility] Comment on above: Performed By: #### I NSULIN #### [facility] [address] [place] [address] Dr. Alfred Issa SLE PROFILE Aon 11-17-2022 Anti-DNA (DS) Ab Qn 1 IU/mL Normal 0-9 [facility] Comment on above: Result Comment: Nega tive <5 Equivocal 5 - 9 Positive >9 Performed By: #### S RENAN #### [facility] [address] [address] [address] Alfred Issa Antichromatin Antibodies <0.2 Normal 0.0-0.9 [facility] Comment on above: Performed By: #### S RENAN #### [facility] [address] [address] [address] Alfred Issa RA Latex Turbid. <10.0 Normal <14.0 [facility] Comment on above: Performed By: #### S RENAN #### [facility] [address] [address] [address] Alfred Issa COSTUMED CHARACTER ENTERTAINER Antibodies <0.2 Normal 0.0-0.9 [facility] Comment on above: Performed By: #### S RENAN #### [facility] [address] [address] [address] Alfred Issa Sjogren's Anti-SS-A <0.2 Normal 0.0-0.9 [facility] Comment on above: Performed By: #### S RENAN #### [facility] [address] [address] [address] Alfred Issa Sjogrelio's Anti-SS-B <0.2 Normal 0.0-0.9 [facility] Comment on above: Performed By: #### S RENAN #### [facility] [address] [address] [address] Alfred Issa Mckinney Antibodies <0.2 Normal 0.0-0.9 [facility] Comment on above: Performed By: #### S RENAN #### [facility] [address] [address] [address] Alfred Issa CBC AUTO DIFFon 11-16-2022 BASO # 0.0 103/ul Normal 0.0-0.1 [facility] Comment on above: Performed By: #### C BC #### [facility] [address] [address] [address] Alfred Issa Basophils/100 WBC (Bld) 0.4 % Normal 0.2-2.0 [facility] Comment on above: Performed By: #### C BC #### [facility] [address] [address] [address] Alfred Issa EO # 0.1 103/ul Normal 0.0-0.7 [facility] Comment on above: Performed By: #### C BC #### [facility] [address] [place] [address] Dr. Alfred Issa Eosinophils/100 WBC (Bld) 1.0 % Normal 0.9-7.0 [facility] Comment on above: Performed By: #### C BC #### [facility] [address] [place] [address] Dr. Alfred Isas Erythrocyte distribution width (RBC) [Ratio] 13.1 % Normal 11.0-15.0 [facility] Comment on above: Performed By: #### C BC #### [facility] [address] [place] [address] Dr. Alfred Issa Hematocrit (Bld) [Volume fraction] 43.9 % Normal 36.0-48.0 [facility] Comment on above: Performed By: #### C BC #### [facility] [address] [place] [address] Dr. Alfred Issa Hemoglobin (Bld) [Mass/Vol] 14.8 g/dL Normal 12.0-16.0 [facility] Comment on above: Performed By: #### C BC #### [facility] [address] [place] [address] Dr. Alfred Issa IG # 0.05 10e3/ul Critically high 0.00-0.03 [facility] Comment on above: Performed By: #### C BC #### [facility] [address] [place] [address] Dr. Alfred Issa IG % 0.5 % Normal 0.0-0.5 [facility] Comment on above: Performed By: #### C BC #### [facility] [address] [place] [address] Dr. Alfred Issa LYMPH # 2.7 103/ul Normal 1.2-3.8 [facility] Comment on above: Performed By: #### C BC #### [facility] [address] [place] [address] Dr. Alfred Issa Lymphocytes/100 WBC (Bld) 26.5 % Normal 20.5-60.0 [facility] Comment on above: Performed By: #### C BC #### [facility] [address] [place] [address] Dr. Alfred Issa MANUAL DIFF REQ NO Normal [facility] Comment on above: Performed By: #### C BC #### [facility] [address] [place] [address] Dr. Alfred Issa MCH (RBC) [Entitic mass] 27.5 pg Normal 26.7-34.0 [facility] Comment on above: Performed By: #### C BC #### [facility] [address] [place] [address] Dr. Alfred Issa MCHC (RBC) [Mass/Vol] 33.7 g/dL Normal 29.9-35.2 [facility] Comment on above: Performed By: #### C BC #### [facility] [address] [place] [address] Dr. Alfred Issa MCV (RBC) [Entitic vol] 81.4 fL Normal 81.0-99.0 [facility] Comment on above: Performed By: #### C BC #### [facility] [address] [place] [address] Dr. Alfred Issa MONO # 0.5 103/ul Normal 0.3-0.8 [facility] Comment on above: Performed By: #### C BC #### [facility] [address] [place] [address] Dr. Alfred Issa Monocytes/100 WBC (Bld) 4.9 % Normal 1.7-12.0 [facility] Comment on above: Performed By: #### C BC #### [facility] [address] [place] [address] Dr. Alfred Issa NEUT # 6.7 103/ul Critically high 1.4-6.5 [facility] Comment on above: Performed By: #### C BC #### [facility] [address] [address] [address] Alfred Issa Neutrophils/100 WBC (Bld) 66.7 % Normal 43.0-75.0 [facility] Comment on above: Performed By: #### C BC #### [facility] [address] [address] [address] Alfred Issa Platelet mean volume (Bld) [Entitic vol] 8.4 fL Critically low 9.5-13.5 [facility] Comment on above: Performed By: #### C BC #### [facility] [address] [address] [address] Alfred Issa PLT 312 103/ul Normal 150-450 [facility] Comment on above: Performed By: #### C BC #### [facility] [address] [address] [address] Alfred Issa RBC 5.39 106/ul Normal 4.20-5.40 [facility] Comment on above: Performed By: #### C BC #### [facility] [address] [address] [address] Alfred Issa WBC 10.1 103/ul Normal 4.0-11.0 [facility] Comment on above: Performed By: #### C BC #### [facility] [address] [place] [address] Dr. Alfred Issa CRPon 11-16-2022 CRP 0.7 mg/dL Normal <=1.0 [facility] Comment on above: Performed By: #### L IPID, TSH, T7, URIC, CRP, CMP ####[facility] [address] [id number]. Alfred Issa FREE THYROXINE INDEX T7on FTI 3.50 Normal 1.30-4.50 [facility] Comment on above: Performed By: #### L IPID, TSH, T7, URIC, CRP, CMP ####[facility] [address] [id number]. Alfred Issa T3U 34.0 % Normal 30.0-39.0 [facility] Comment on above: Performed By: #### L IPID, TSH, T7, URIC, CRP, CMP ####[facility] [address] [address]Dr. Alfred Issa T4 [Mass/Vol] 10.30 ug/dL Normal 4.80-13.90 [facility] Comment on above: Performed By: #### L IPID, TSH, T7, URIC, CRP, CMP ####[facility] [address] [address]Dr. Alfred Issa GLYCOHEMOGLOBIN A1Con 2022 ADA RECOMMENDATION SEE BELOW Normal [facility] Comment on above: Result Comment: ADA RECOMMENDED LIMIT 4.0 - 6.0 ADA THERAPEUTIC TARGET < 7.0 ACTION SUGGESTED > 7.0 Performed By: #### A 1C #### [facility] [address] [address] [address] Alfred Issa Glucose [Mass/Vol] 108 mg/dL Normal [facility] Comment on above: Performed By: #### A 1C #### [facility] [address] [address] [address] Alfred Issa HbA1c (Bld) [Mass fraction] 5.4 % Normal 4.5-6.2 [facility] Comment on above: Performed By: #### A 1C #### [facility] [address] [address] [address] Alfred Issa IRONon 11-16-2022 Iron [Mass/Vol] 127.0 ug/dL Normal 50.0-170.0 [facility] Comment on above: Performed By: #### I LEIGH ANN #### [facility] [address] [address] [address] Alfred Issa LIPID PROFILEon 11-16-2022 CHOL-HDL RATIO NORM SEE BELOW Normal [facility] Comment on above: Result Comment: 3.3 - 4.4 LOW RISK 4.4 - 7.1 AVERAGE RISK 7.1 - 11.0 MODERATE RISK >11.0 HIGH RISK Performed By: #### L IPID, TSH, T7, URIC, CRP, CMP ####[facility] [address] [id number]. Alfred Issa Cholesterol [Mass/Vol] 197 mg/dL Normal <=200 [facility] Comment on above: Performed By: #### L IPID, TSH, T7, URIC, CRP, CMP ####[facility] [address] [id number]. Alfred Issa Cholesterol in HDL [Mass/Vol] 39 mg/dL Critically low 40-60 [facility] Comment on above: Performed By: #### L IPID, TSH, T7, URIC, CRP, CMP ####[facility] [address] [id number]. Alfred Issa Cholesterol in LDL [Mass/Vol] 116.8 mg/dL Normal [facility] Comment on above: Performed By: #### L IPID, TSH, T7, URIC, CRP, CMP ####[facility] [address] [address]Dr. Alfred Issa Cholesterol.total/Chol esterol in HDL [Mass ratio] 5.1 {ratio} Normal [facility] Comment on above: Performed By: #### L IPID, TSH, T7, URIC, CRP, CMP ####[facility] [address] [address]Dr. Alfred Issa HDL NORMAL > or = 60 mg/dl - LOW CARDIOVASCULAR RISK <40 mg/dl - HIGH CARDIOVASCULAR RISK Normal [facility] Comment on above: Performed By: #### L IPID, TSH, T7, URIC, CRP, CMP ####[facility] [address] [address]Dr. Alfred Issa LDL CALC NORMAL SEE BELOW Normal [facility] Comment on above: Result Comment: <100 mg/dl OPTIMAL 100 - 129 mg/dl NEAR OR ABOVE OPTIMAL 130 - 159 mg/dl BORDERLINE HIGH 160 - 189 mg/dl HIGH >190 mg/dl VERY HIGH Performed By: #### L IPID, TSH, T7, URIC, CRP, CMP ####[facility] [address] [address]Dr. Alfred Issa Triglyceride [Mass/Vol] 206 mg/dL Critically high <=150 [facility] Comment on above: Performed By: #### L IPID, TSH, T7, URIC, CRP, CMP ####[facility] [address] [address]Dr. Alfred Issa VLDL CALC 41.2 mg/dL Normal [facility] Comment on above: Performed By: #### L IPID, TSH, T7, URIC, CRP, CMP ####[facility] [address] [address]Dr. Alfred Issa OCC BLD IMMUNO SCREENon 10-31 OCCULT BLOOD Negative Normal NEGATIVE [facility] Comment on above: Performed By: #### O BSCRN ####[facility] [address] [place], [place] [address]Dr. Alfred Issa PROF 14(COMP METB)on 023 Albumin [Mass/Vol] 4.0 g/dL Normal 3.4-5.0 [facility] Comment on above: Performed By: #### L IPID, TSH, T7, URIC, CRP, CMP ####[facility] [address] [place], [place] [address]Dr. Alfred Issa Albumin/Globulin [Mass ratio] 1.1 {ratio} Normal [facility] Comment on above: Performed By: #### L IPID, TSH, T7, URIC, CRP, CMP ####[facility] [address] [address]Dr. Alfred Issa ALP [Catalytic activity/Vol] 104 U/L Normal 46-116 [facility] Comment on above: Performed By: #### L IPID, TSH, T7, URIC, CRP, CMP ####[facility] [address] [address]Dr. Alfred Issa ALT [Catalytic activity/Vol] 26 U/L Normal 14-59 [facility] Comment on above: Performed By: #### L IPID, TSH, T7, URIC, CRP, CMP ####[facility] [address] [address]Dr. Alfred Issa Anion gap [Moles/Vol] 13.2 mmol/L Normal [facility] Comment on above: Performed By: #### L IPID, TSH, T7, URIC, CRP, CMP ####[facility] [address] [address]Dr. Alfred Issa AST [Catalytic activity/Vol] 20 U/L Normal 15-37 [facility] Comment on above: Performed By: #### L IPID, TSH, T7, URIC, CRP, CMP ####[facility] [address] [place], [place] [address]Dr. Alfred Issa Bilirubin [Mass/Vol] 0.6 mg/dL Normal 0.2-1.0 [facility] Comment on above: Performed By: #### L IPID, TSH, T7, URIC, CRP, CMP ####[facility] [address] [place], [place] [address]Dr. Alfred Issa Calcium [Mass/Vol] 9.3 mg/dL Normal 8.5-10.1 [facility] Comment on above: Performed By: #### L IPID, TSH, T7, URIC, CRP, CMP ####[facility] [address] [place], [place] [address]Dr. Alfred Issa Chloride [Moles/Vol] 100 mmol/L Normal 98-107 [facility] Comment on above: Performed By: #### L IPID, TSH, T7, URIC, CRP, CMP ####[facility] [address] [place], [place] [address]Dr. Alfred Issa CO2 [Moles/Vol] 26.6 mmol/L Normal 21.0-32.0 [facility] Comment on above: Performed By: #### L IPID, TSH, T7, URIC, CRP, CMP ####[facility] [address] [place], [place] [address]Dr. Alfred Issa Creatinine [Mass/Vol] 0.56 mg/dL Normal 0.55-1.02 [facility] Comment on above: Performed By: #### L IPID, TSH, T7, URIC, CRP, CMP ####[facility] [address] [place], [place] [address]Dr. Alfred Issa EGFR-AF LEBANESE >60 Normal >=60 [facility] Comment on above: Performed By: #### L IPID, TSH, T7, URIC, CRP, CMP ####[facility] [address] [address]Dr. Alfred Issa EGFR-NON AF LEBANESE >60 Normal >=60 [facility] Comment on above: Performed By: #### L IPID, TSH, T7, URIC, CRP, CMP ####[facility] [address] [address]Dr. Alfred Issa Globulin (S) [Mass/Vol] 3.5 g/dL Normal [facility] Comment on above: Performed By: #### L IPID, TSH, T7, URIC, CRP, CMP ####[facility] [address] [place], [place] [address]Dr. Alfred Issa Glucose [Mass/Vol] 112 mg/dL Critically high 74-106 [facility] Comment on above: Performed By: #### L IPID, TSH, T7, URIC, CRP, CMP ####[facility] [address] [place], [place] [address]Dr. Alfred Issa Potassium [Moles/Vol] 3.8 mmol/L Normal 3.5-5.1 [facility] Comment on above: Performed By: #### L IPID, TSH, T7, URIC, CRP, CMP ####[facility] [address] [place], [place] [address]Dr. Alfred Issa Protein [Mass/Vol] 7.5 g/dL Normal 6.4-8.2 [facility] Comment on above: Performed By: #### L IPID, TSH, T7, URIC, CRP, CMP ####[facility] [address] [address]Dr. Alfred Issa Sodium [Moles/Vol] 136 mmol/L Normal 136-145 [facility] Comment on above: Performed By: #### L IPID, TSH, T7, URIC, CRP, CMP ####[facility] [address] [address]Dr. Alfred Issa Urea nitrogen [Mass/Vol] 8.0 mg/dL Normal 7.0-18.0 [facility] Comment on above: Performed By: #### L IPID, TSH, T7, URIC, CRP, CMP ####[facility] [address] [id number]. Alfred Issa Urea nitrogen/Creatinine [Mass ratio] 14.3 mg/mg Normal [facility] Comment on above: Performed By: #### L IPID, TSH, T7, URIC, CRP, CMP ####[facility] [address] [id number]. Alfred Issa TSHon 11-16-2022 TSH 1.787 uIU/mL Normal 0.358-3.740 [facility] Comment on above: Performed By: #### L IPID, TSH, T7, URIC, CRP, CMP ####[facility] [address] [id number]. Alfred Issa URIC ACID SERUMon 11-16-2022 Urate [Mass/Vol] 5.3 mg/dL Normal 2.6-6.0 [facility] Comment on above: Performed By: #### L IPID, TSH, T7, URIC, CRP, CMP ####[facility] [address] [address]Dr. Alfred Issa Cult,Aerobe/Anaerobeon 03-29 Cult,Aerobe/Anaerobe Specimen Descriptio n .FACE RIGHT .ABSCESS SWAB Special Requests NOT REPORTED Direct Exam FEW NEUTROPHILS RARE GRAM POSITIVE COCCI IN PAIRS Culture HAEMOPHILUS PARAINFLUENZAE SCANT GROWTH BETA LACTAMASE NEGATIVE NORMAL MAGALYS MIXED ANAEROBIC MAGALYS Report Status FINAL 03/29/2020 [facility] Comment on above: Performed By: #### A ANC #### [facility] [place] [address] E Mail System Administrator: Wilfredo Keyes MD Basic Metab w/rfx MGon 03-24 (cont.) [facility] Comment on above: Result Comment: Aver age GFR for 20-29 years old: 116 mL/min/1.73sq m Chronic Kidney Disease: <60 mL/min/1.73sq m Kidney failure: <15 mL/min/1.73sq m eGFR calculated using average adult body mass. Additional eGFR calculator available at: http://www.[employer].Educabilia/multiple_crcl_2011.htm Performed By: #### C HOSEA BMPX, PT #### [facility] [address] [place] [id number] E Mail System Administrator: Wilfredo Keyes MD Anion gap [Moles/Vol] 15 mmol/L Normal 9-17 [facility] Comment on above: Performed By: #### C HOSEA BMPX, PT #### [facility] [address] [place] [address] E Mail System Administrator: Wilfredo Keyes MD Calcium [Mass/Vol] 9.0 mg/dL Normal 8.6-10.4 [facility] Comment on above: Performed By: #### Koffi JC BMPX, PT #### [facility] [address] [place] [address] E Mail System Administrator: Wilfredo Keyes MD Chloride [Moles/Vol] 99 mmol/L Normal 98-107 [facility] Comment on above: Performed By: #### Koffi JC BMPX, PT #### [facility] [address] [place] [id number] E Mail System Administrator: Wilfredo Keyes MD CO2 [Moles/Vol] 25 mmol/L Normal 20-31 [facility] Comment on above: Performed By: #### C HOSEA BMPX, PT #### [facility] [address] [place] [address] E Mail System Administrator: Wilfredo Keyes MD Creatinine [Mass/Vol] 0.45 mg/dL Low 0.50-0.90 [facility] Comment on above: Performed By: #### Koffi JC BMPX, PT #### [facility] [address] [place] [address] E Mail System Administrator: Wilfredo Keyes MD GFR, Amer >60 Normal >60 [facility] Comment on above: Performed By: #### C BC, BMPX, PT #### [facility] [address] [place] [address] E Mail System Administrator: Wilfredo Keyes MD GFR,non Amer >60 Normal >60 [facility] Comment on above: Performed By: #### C BC, BMPX, PT #### [facility] [address] [place] [address] E Mail System Administrator: Wilfredo Keyes MD Glucose [Mass/Vol] 90 mg/dL Normal 70-99 [facility] Comment on above: Performed By: #### C BC, BMPX, PT #### [facility] [address] [place] [address] E Mail System Administrator: Wilfredo Keyes MD Potassium [Moles/Vol] 3.7 mmol/L Normal 3.7-5.3 [facility] Comment on above: Performed By: #### C BC, BMPX, PT #### [facility] [address] [place] [address] E Mail System Administrator: Wilfredo Keyes MD Sodium [Moles/Vol] 139 mmol/L Normal 135-144 [facility] Comment on above: Performed By: #### C BC, BMPX, PT #### [facility] [address] [place] [address] E Mail System Administrator: Wilfredo Keyes MD Urea nitrogen [Mass/Vol] 8 mg/dL Normal 6-20 [facility] Comment on above: Performed By: #### C BC, BMPX, PT #### [facility] [address] [place] [id number] E Mail System Administrator: Wilfredo Keyes MD BUN/CRE Ratio NOT REPORTED Normal 9-20 [facility] Comment on above: Performed By: #### C BC, BMPX, PT #### [facility] [address] [place], [place] [id number] E Mail System Administrator: Wilfredo Keyes MD Staging: NOT REPORTED Normal [facility] Comment on above: Performed By: #### C BC, BMPX, PT #### [facility] [address] [place], [place] [phone] E Mail System Administrator: Wilfredo Keyes MD Basic Metabolic Panel w/ Ref rodríguez to on 03-24-2020 Anion gap [Moles/Vol] 15 mmol/L 9 - 17 mmol/L [place], [place] Bun/Cre Ratio NOT REPORTED [place], [place] Calcium [Mass/Vol] 9.0 mg/dL 8.6 - 10. 4 mg/dL [place] Chloride [Moles/Vol] 99 mmol/L 98 - 10 7 mmol/L [place] CO2 [Moles/Vol] 25 mmol/L 20 - 31 mmol/L [place] Creatinine [Mass/Vol] 0.45 mg/dL Low 0.5 - 0.9 mg/dL [place] GFR >60 >60 mL/min [place] GFR Non- >60 >60 mL/min [place] GFR/1.73 sq M predicted among non-blacks MDRD (S/P/Bld) [Vol rate/Area] NOT REPORTED [place] GFR/1.73 sq M predicted among non-blacks MDRD (S/P/Bld) [Vol rate/Area] [place], [place] Comment on above: Average GFR for 20-2 9 years old: 116 mL/min/1.73sq m Chronic Kidney Disease: <60 mL/min/1.73sq m Kidney failure: <15 mL/min/1.73sq m eGFR calculated using average adult body mass. Additional eGFR calculator available at: http://www.Geswind.Educabilia/multiple_crcl_2012.htm Glucose [Mass/Vol] 90 mg/dL 70 - 99 mg/dL [place], [place] Interpretation and review of laboratory results Abnormal [place], [place] Potassium [Moles/Vol] 3.7 mmol/L 3.7 - 5.3 mmol/L [place] Sodium [Moles/Vol] 139 mmol/L 135 - 144 mmol/L [place] Urea nitrogen [Mass/Vol] 8 mg/dL 6 - 20 mg/dL [place] CBCon 03-24-2020 Erythrocyte distribution width (RBC) [Ratio] 12.6 % Normal 11.8-14.4 [facility] Comment on above: Performed By: #### C BC BMPX, PT #### [facility] [address] [place] [id number] E Mail System Administrator: Wilfredo Keyes MD Hematocrit (Bld) [Volume fraction] 41.9 % Normal 36.3-47.1 [facility] Comment on above: Performed By: #### Koffi JC BMPX, PT #### [facility] [address] [place] [id number] E Mail System Administrator: Wilfredo Keyes MD Hemoglobin (Bld) [Mass/Vol] 14.2 g/dL Normal 11.9-15.1 [facility] Comment on above: Performed By: #### C HOSEA BMPX, PT #### [facility] [address] [place] [address] [phone] E Mail System Administrator: Wilfredo Keyes MD MCH (RBC) [Entitic mass] 28.9 pg Normal 25.2-33.5 [facility] Comment on above: Performed By: #### C BC BMPX, PT #### [employer] [facility] [address] [place] [id number] E Mail System Administrator: Wilfredo Keyes MD MCHC (RBC) [Mass/Vol] 33.9 g/dL Normal 28.4-34.8 [facility] Comment on above: Performed By: #### C HOSEA BMPX, PT #### [facility] [address] [place] [id number] E Mail System Administrator: Wilfredo Keyes MD MCV (RBC) [Entitic vol] 85.3 fL Normal 82.6-102.9 [facility] Comment on above: Performed By: #### Koffi JC BMPX, PT #### [facility] [address] [place] [phone] E Mail System Administrator: Wilfredo Keyes MD NRBC Automated 0.0 per 100 WBC Normal 0.0 [facility] Comment on above: Performed By: #### C HOSEA BMPX, PT #### [facility] [address] [place] [id number] E Mail System Administrator: Wilfredo Keyes MD Platelet mean volume (Bld) [Entitic vol] 8.5 fL Normal 8.1-13.5 [facility] Comment on above: Performed By: #### Koffi JC BMPX, PT #### [facility] [address] [place] [id number] E Mail System Administrator: Wilfredo Keyes MD Platelets (Bld) [#/Vol] 256 10*3/uL Normal 138-453 [facility] Comment on above: Performed By: #### Koffi JC BMPX, PT #### [facility] [address] [place] [address] [phone] E Mail System Administrator: Wilfredo Keyes MD RBC (Bld) [#/Vol] 4.91 10*6/uL Normal 3.95-5.11 [facility] Comment on above: Performed By: #### C HOSEA BMPX, PT #### [facility] [address] [place] [address] [phone] E Mail System Administrator: Wilfredo Keyes MD WBC (Bld) [#/Vol] 10.0 10*3/uL Normal 4.5-13.5 [facility] Comment on above: Performed By: #### Koffi JC BMPX, PT #### [facility] [address] [place] [id number] E Mail System Administrator: Wilfredo Keyes MD Erythrocyte distribution width (RBC) [Ratio] 12.6 % 11.8 - 14.4 % [place] Hematocrit (Bld) [Volume fraction] 41.9 % 36.3 - 47.1 % [place] Hemoglobin (Bld) [Mass/Vol] 14.2 g/dL 11.9 - 15.1 g/dL [place] MCH (RBC) [Entitic mass] 28.9 pg 25.2 - 33.5 pg [place] MCHC (RBC) [Mass/Vol] 33.9 g/dL 28.4 - 34.8 g/dL [place] MCV (RBC) [Entitic vol] 85.3 fL 82.6 - 102.9 fL [place] Platelet mean volume (Bld) [Entitic vol] 8.5 fL 8.1 - 13.5 fL [place], [place] Platelets (Bld) [#/Vol] 256 10*3/uL [place] RBC (Bld) [#/Vol] 4.91 10*6/uL 3.95 - 5.1 1 m/uL [place] WBC (Bld) [#/Vol] 0.0 10*3/uL 0.0 per 10 0 WBC [place] WBC (Bld) [#/Vol] 10.0 10*3/uL [place] COVID-19on 03-24-2020 SARS-CoV-2 Not Detected Not Detected [place], [place] Comment on above: The specimen is NEGATIVE for SARS-CoV-2, the novel coronavirus associated with COVID-19. A negative result does not rule out COVID-19. This test has been authorized by the FDA under an Emergency Use Authorization (EUA) for use by authorized laboratories. Fact sheet for Healthcare Providers: https://www.fda.gov/media/100540/download Fact sheet for Patients: https://www.fda.gov/media/781257/download METHODOLOGY: RT-PCR SARS-CoV-2, [facility] [place] [place] SARS-CoV-2, Rapid [facility] [place] Source .NASOPHARYNGEAL SWAB [place] Gram Stainon 03-24-2020 Microscopic observation Gram stain Nom (Unsp spec) Specimen Description .FACE RIGHT .ABSCESS SWAB Special Requests NOT REPORTED Direct Exam DUPLICATE ORDER GRAM STN INCLUDED WITH CULTURE Report Status FINAL 03/24/2020 Normal [facility] Comment on above: Performed By: #### G S #### [address] [id number] E Mail System Administrator: Wilfredo Keyes MD Direct Exam DUPLICATE ORDER GRAM STN INCLUDED WITH CULTURE [place], [place] Special Requests NOT REPORTED [place] Specimen Description .FACE RIGHT [place], [place] HCG, ,Urineon 03-24 Beta HCG ( test) Ql (U) Negative Normal NEG [facility] Comment on above: Result Comment: Spec imens with hCG levels near the threshold of the test (25 mIU/mL) may give a negative or indeterminate result. In such cases, another test should be performed with a new specimen in 48-72 hours. If early is suspected clinically in this setting, correlation with quantitative serum b-hCG level is suggested. Performed By: #### U HCG #### [facility] [address] [place] [address] [phone] E Mail System Administrator: Wilfredo Keyes MD PTon 03-24-2020 INR Coag (PPP) [Relative time] 1.0 {INR} Normal [facility] Comment on above: Result Comment: Therapeutic Range: Moderate Anticoagulant Intensity: INR = 2.0-3.0 High Anticoagulant Intensity: INR = 2.5-3.5 Performed By: #### C BC, BMPX, PT #### [facility] [address] [place] [address] [id number] E Mail System Administrator: Wilfredo Keyes MD PT Coag (PPP) [Time] 10.7 s Normal 9.0-12.0 [facility] Comment on above: Performed By: #### C BC, BMPX, PT #### [facility] [address] [place] [address] [id number] E Mail System Administrator: Wilfredo Keyes MD , urine pre-opon Beta HCG ( test) Ql (U) Negative NEGATIVE [place] Comment on above: Specimens with hCG [...] INR Coag (PPP) [Relative time] 1.0 {INR} [place] Comment on above: Therapeutic Range: Moderate Anticoagulant Intensity: INR = 2.0-3.0 High Anticoagulant Intensity: INR = 2.5-3.5 PT Coag (PPP) [Time] 10.7 s [place] [id number] 03-24-2020 SARS-CoV-2,Rapid Normal [facility] Comment on above: Performed By: #### C OVID #### [facility] [address] [place] [address] [id number] E Mail System Administrator: Wilfredo Keyes MD SARS-CoV-2 Normal [facility] Comment on above: Performed By: #### C OVID #### [facility] [address] [place] [address] [id number] E Mail System Administrator: Wilfredo Keyes MD SARS-CoV-2 Not Detected Normal NOTDET [facility] Comment on above: Result Comment: The specimen is NEGATIVE for SARS-CoV-2, the novel coronavirus associated with COVID-19. A negative result does not rule out COVID-19. This test has been authorized by the FDA under an Emergency Use Authorization (EUA) for use by authorized laboratories. Fact sheet for Healthcare Providers: https://www.fda.gov/media/575640/download Fact sheet for Patients: https://www.fda.gov/media/419022/download METHODOLOGY: RT-PCR Performed By: #### C OVID #### [facility] [address] [place] [address] [id number] E Mail System Administrator: Wilfredo Keyes MD [id number] 03-23-2020 SARS-CoV-2 Source .NASOPHARYNGEAL SWAB Normal [facility] Comment on above: Performed By: #### C OVID #### [facility] [address] [place] [address] E Mail System Administrator: Wilfredo Keyes MD Vital Signs Date Time Vital Sign Value Performing Clinician Facility 07-29-2021 14:00-0400 Body height 162.56 cm Franco Rajput Other [facility] Other 07-29-2021 14:00-0400 Body mass index (BMI) [Ratio] 27.29 kg/m2 Franco Rajput Other [facility] Other 07-29-2021 14:00-0400 Body weight 72.12 kg Franco Rajput Other [facility] Other 07-29-2021 14:00-0400 Diastolic blood pressure 87 mm[Hg] Franco Rajput Other [facility] Other 07-29-2021 14:00-0400 Systolic blood pressure 121 mm[Hg] Franco Rajput Other [facility] Other 03-25-2020 08:00-0400 Body Temperature 97.7 [degF] [facility] [employer], [place] 03-25-2020 08:00-0400 BP Diastolic 83 mm[Hg] [facility] [place] 03-25-2020 08:00-0400 BP Systolic 139 mm[Hg] [facility] , [place] 03-25-2020 08:00-0400 Pulse (Heart Rate) 89 /min [facility], [place] 03-25-2020 08:00-0400 Respiratory Rate 18 /min [place] 03-24-2020 20:45-0400 Pulse Oximetry 99 % [place], [place] 03-23-2020 20:13-0400 BMI (Body Mass Index) 22.31 kg/m2 [place] 03-23-2020 20:13-0400 Body weight 58.97 kg [place], [place] 03-23-2020 20:130400 Height 162.6 cm [place] Encounters Encounter Date Encounter Type Care Provider Facility Start: 08-02-2024 ambulatory Salvatore Duque acility:[facility] Start: 08-01-2024 End: 08-01-2024 ambulatory JANE DUCKWORTH Not Available Start: 02-23-2023 End: 02-24-[address] GLENNA CARLIN . Facility: Start: 01-24-2023 End: 01-25-[address] GLENNA [...] ANDREA PINTO [facility] Start: 03-23-2020 End: 03-25-2020 Evaluation and management of inpatient Fang Dhillon Work Phone: [facility] Surg Comment on above: Dental abscess (Prim quan Dx) Procedures Date Procedure Procedure Detail Performing Clinician Start: 03-25-2020 DISCHARGE PATIENT ANDREA REJIGONZÁLEZ Start: 03-24-2020 DIET GENERAL ANDREA SPAULDING Start: 03-24-2020 TRANSFER PATIENT ANDREA BLAIR Start: 03-24-2020 Cul prsmptv pthgnc o rganism scrn w/colony estimj ANDREA PINTO Start: 03-24-2020 Smr prim src gram/gi emsa stain bct fungi/cell ANDREA PINTO Start: 03-24-2020 Urine test visual color cmprsn meths ANDREA PINTO Start: 03-24-2020 Smr prim src gram/gi emsa stain bct fungi/cell Andrea Cherry Blair Work Phone: Start: 03-24-2020 End: 03-24-2020 MOUTH LESION BIOPSY EXCISION Andrea Dilip Pinto Work Phone: Start: 03-24-2020 Urine test visual color cmprsn meths Andrea Cherry Blair Work Phone: Start: 03-24-2020 Blood count complete automated ANDREA PINTO Start: 03-24-2020 Comprehensive metabo lic panel ANDREA PINTO Start: 03-24-2020 Prothrombin time ANDREA PINTO Start: 03-24-2020 BASIC METABOLIC PANE L W/ REFLEX TO MG FOR LOW K Berta [employer] Work Phone: Start: 03-24-2020 Blood count complete automated Lore Work Phone: Start: 03-24-2020 Prothrombin time Maritza jameson [employer] Work Phone: Start: 03-24-2020 PATIENT STATUS (FROM ED OR OR/PROCEDURAL) ANDREA PINTO Start: 03-23-2020 COVID-19 ANDREAALINA SPAULDING Start: 03-23-2020 PATIENT STATUS (FROM ED OR OR/PROCEDURAL) ANDREA PINTO Start: 03-23-2020 IP CONSULT TO HOSPITALIST ANDREA PINTO Start: 03-23-2020 IP CONSULT TO ORAL SURGERY ANDREA PINTO Start: 03-23-2020 COVID-19 Carlos camargo Work Phone: Plan of Treatment Date Care Activity Detail Author Start: 07-01-2020 Influenza vaccination Flu vacc ine (Season Ended) [facility] [place], [place] Culture, Anaerobic a nd Aerobic Culture, Anaerobic and Aerobic Microbiology Routine 03/24/2020 1:13 PM EDT [place], [place] Payers Date Payer Category Payer Self-pay 2014 Unknown BCBS BCBS OUT OF STATE xxxxxxxxxxxx 2014-Present [address] [place] [address] xxxxxxxxxxxx [id number] 1998 Unknown [id number] 1998 Unknown [id number] 1998 Unknown [id number] 1998 Unknown [id number] .593 1998 Unknown [id number] .593 1998 Unknown [id number] .593 1998 Unknown [id number] .593 1998 Unknown [id number] [id number] .593 1998 Unknown [id number] .[id number] 1959 Private Health Insurance [id number] 1959 Unknown [id number] 1959 Unknown [id number] 1959 Unknown [id number] Unknown [id number] Social History Date Type Detail Facility Start: 03-25-2020 Tobacco smoking stat us [facility] Current every day smoker [facility] Start: 03-25-2020 Alcohol intake Current drinke r of alcohol (finding) [facility] Start: 03-23-2020 History SDOH Alcohol Frequency 3 [facility] Start: 03-23-2020 History SDOH Alcohol Std Drinks 1 [facility] Start: 03-23-2020 History SDOH Alcohol Binge 4 [facility] Start: 03-23-2020 Alcohol Comment none this week [facility] Sex Assigned At Not on file [facility] Exposure to SARS-CoV -2 (event) Unable to assess [facility] Sex Assigned At Sex Assigned At Bir th [facility] Other Clinical Note 07-15-2022 Note Date & Type Note Facility 07-15-2022 Note PROCEDURE: XR KNEE L T 4V or > HISTORY: Pain of left knee joint ; acute left knee instability COMPARISON: None. FINDINGS: BONES:No fracture, acute abnormality, or significant arthropathy. SOFT TISSUES:No visible soft tissue swelling. EFFUSION:None visible. OTHER: Negative. IMPRESSION: 1. Normal examination. Electronically authenticated by: PURVI OLIVIER Date: 2022-07-15 11:44 [facility] Evaluation note 07-29-2021 Note Date & Type Note Facility 07-29-2021 Evaluation note Encounter Date Diagnosis Assessment Notes Jul, Gastritis (ICD-10 - K29.70) Gastritis material was printed Continue Omeprazole 40mg once daily Follow up in 6 months [facility] Other History general Narrative - Reported Note Date & Type Note Facility History general Narrative - Reported Type Surgical History oral abscess [facility] Other History of Present Illness * Jojo [...] Wound Culture: Specimen Description 03/24/2020 1:13 PM [facility] .FACE RIGHT Special Requests 03/24/2020 1:13 PM [facility] NOT REPORTED Direct Exam Abnormal 03/24/2020 1:13 PM [facility] FEW NEUTROPHILS Direct Exam Abnormal 03/24/2020 1:13 PM [facility] RARE GRAM POSITIVE COCCI IN PAIRS Culture 03/24/2020 1:13 PM [facility] PENDING Current Inpatient Medications Current Facility-Administered Medications: [...] improve 5. F/u OMFS thaddeus 1 week [phone] * Danielle Villarreal MD - 03/25/2020 7:17 AM EDT [facility] IN-PATIENT SERVICE [facility] Progress Note 03/25/2020 7:18 AM Name: Jordan Tello Acct: [id number] Room: 0331/0331-01 IP Day: 2 Admit Date: [...] procedure Brief History: Patient originally presented to [facility] via EMS for the complaint of right [...] to the emergency room. Her work-up at [facility] show to have a dental abscess [...] No results for input(s): PROT, LABALBU, LABA1C, [id number], A5LWUQS, FT4, TSH, AST, ALT, LDH, GGT, ALKPHOS, LABGGT, BILITOT, BILIDIR, AMMONIA, AMYLASE, LIPASE, LACTATE, CHOL, HDL, LDLCHOLESTEROL, CHOLHDLRATIO, TRIG, VLDL, [id number], PHENYTOIN, PHENYF, URICACID, POCGLU in the last 72 hours. ABG:No results found for: POCPH, PHART, PH, POCPCO2, BED8GNL, PCO2, POCPO2, PO2ART, PO2, POCHCO3, NLL2JCF, HCO3, NBEA, PBEA, BEART, BE, THGBART, THB, [id number], [id number], [id number], O2SAT, FIO2 Lab Results Component Value Date/Time [...] Villarreal MD 03/25/2020 7:18 AM * Francisco Garcia DO - 03/24/2020 11:29 AM EDT [facility] IN-PATIENT SERVICE [facility] Progress Note 03/24/2020 11:29 AM Name: Jordan Tello Acct: [id number] Room: 0331/0331-01 Day: 1 Admit Date: 03/23/2020 [...] History: Per Record: Patient originally presented to [facility] via EMS for the complaint of right [...] to the emergency room. Her work-up at [facility] show to have a dental abscess [...] No results for input(s): PROT, LABALBU, LABA1C, P7WSPEB, S2AJFGS, FT4, TSH, AST, ALT, LDH, GGT, ALKPHOS, LABGGT, BILITOT, BILIDIR, AMMONIA, AMYLASE, LIPASE, LACTATE, CHOL, HDL, LDLCHOLESTEROL, CHOLHDLRATIO, TRIG, VLDL, [id number], PHENYTOIN, PHENYF, URICACID, POCGLU in the last 72 hours. ABG:No results found for: POCPH, PHART, PH, POCPCO2, CPO2DPN, PCO2, POCPO2, PO2ART, PO2, POCHCO3, KIL1DCY, HCO3, NBEA, PBEA, BEART, BE, THGBART, THB, [id number], [id number], [id number], O2SAT, FIO2 No results found for: SPECIAL [...] FoundDocuments on File Type Date Recorded Patient Watchguard Expl anation Advance Directives and Living Will Power of Power Operator Latest Code Status on File Code [...] abscess Oral abscess Francisco Garcia DO [address] [place] [address] [facility] INFORMATION SOURCE (unrecogn ized section and content) DATE CREATED AUTHOR 04/06/2020 [facility] DATE CREATED AUTHOR AUTHOR'S ORGANIZ ATION 03/16/2023 [facility] DATE CREATED AUTHOR AUTHOR'S ORGANIZ ATION 08/03/2024 [facility] DATE CREATED AUTHOR AUTHOR'S ORGANIZ ATION 08/04/2024 [facility] FOR RECORDS PERTAINING TO [...] BE BASED ON THE PRIMARY CLINICAL RECORDS. [facility]. provides no warranty or guarantee of the accuracy or completeness of information in this document.
== END 2024-08-06 11:35 | disposition home or self-care (01) ==
LOC: EC 11:34
PROVIDERS: PCP Family Medicine; Visit Provider Orthopaedic Surgery
DX: S83.005A Unspecified dislocation of left patella, initial encounter (principal)
CPT/HCPCS: 73560

== ENCOUNTER 2024-08-09 10:15 | Outpatient (OUT) | payer OTHER, SELFPAY ==
--- OUTSIDE RECORDS SUMMARY | 2024-08-09 10:33 | XMS_ITS | CCD ---
Author Organization [facility] Care Team Providers Care Medical Anthropologist Name Role Phone Glenna Carlin Primary Care [...] Unavailable ZIEBER, DR PURVI Ordaz Consulting Unavailable AJNE BARON Attending Unavailable Salvatore Hendricks Attending Unavailab Salvatore Nagel Admitting Unavailab Glenna Michael Primary Care Unavailable Srinivasan Rogers DO Primary Care Provider Allergies Allergy Classification Reported Allergen(s) Allergy Type Date of Onset Reaction(s) Facility (1 source) Corticosteroids Drug allergy (disorder) [facility] Repository (1 source) Corticosteroids Drug allergy (disorder) 1 [facility] Repository (2 sources) Corticosteroids and derivatives Drug Allergy 1 [facility] Healthcare Medications Current Medications Medication Drug Class(es) Dates [...] 03-25-2020 ALPRAZolam (XANAX) tablet 0.25 mg atomoxetine 40 mg oral capsule (4 sources) Norepinephrine Reuptake Inhibitor take 1 capsule by mouth once daily atomoxetine (Strattera) 40 MG capsule Take 40 mg by mouth Daily Swallow capsule whole; do not open. If opened accidentally, do not touch eyes; wash hands immediately (product is an eye irritant). Active take 1 capsule by [facility] every twenty-four hours Strattera 25 MG 1 capsule Orally Once a day Active cariprazine 6 mg oral capsule (2 sources) Atypical Antipsychotic Start: 07-28-2024 take 1 capsule by mouth once daily Vraylar 6 MG capsule Take 6 mg by mouth Daily 07/28/2024 Active chlorhexidine gluconate 1.2 mg/ml mouthwash (2 sources) Start: 03-24-2020 End: 04-01-2020 take 15 mL by mouth twice daily chlorhexidine (PERIDEX) 0.12 % solution Take 15 mLs by mouth 2 times daily for 7 days 210 mL 0 03/25/2020 04/01/2020 Active cholecalciferol 0.075 mg oral tablet (3 sources) Vitamin D take 1 tablet by mouth once daily cholecalciferol (Vitamin D-3) 75 MCG (3000 UT) tablet Take 3,000 Units by mouth Daily Active clindamycin 300 mg oral capsule (3 [...] DULoxetine 60 mg delayed release oral capsule (5 sources) Serotonin and Norepinephrine Reuptake Inhibitor Start: 03-23-2019 take 2 capsules by mouth once daily DULoxetine (CYMBALTA) 60 MG extended release capsule Take 120 mg by mouth daily Every night 0 03/23/2019 Active take 1 capsule by mouth once dillon ly DULoxetine (Cymbalta) [address] capsule Take 60 mg by mouth Daily Do not crush or chew. Active gabapentin 600 mg oral tablet (3 sources) Anti-epileptic Agent take 1 tablet by mouth in the morning gabapentin (Neurontin) 600 MG tablet Take 600 mg by mouth in the morning and 600 mg before bedtime. Active lurasidone hydrochloride 60 mg oral tablet (3 sources) Atypical Antipsychotic take 1 tablet by mouth at mealtime lurasidone (Latuda) 60 MG tablet Take 60 mg by mouth in the evening. Take with meals Active mirtazapine 15 mg oral tablet (3 sources) take 1 tablet by mouth at bedtime mirtazapine (Remeron) 15 MG tablet Take 15 mg by mouth at bedtime Active morphine (PF) injection 2 mg (1 source) Start: 03-24-20 morphine (PF) injection 2 mg OLANZapine 10 mg oral tablet (3 sources) Atypical Antipsychotic take 1 tablet by mouth at bedtime OLANZapine (ZyPREXA) 10 MG tablet Take 10 mg by mouth at bedtime Active omeprazole 40 mg delayed release oral capsule (3 sources) Proton Pump Inhibitor Start: 07-16-20 take 1 capsule by mouth before mealtime omeprazole (PriLOSEC) [address] capsule Take 40 mg by mouth in the morning. Take before meals. 07/16/2024 Active take 1 capsule by mouth once dillon ly Omeprazole 40 MG 1 capsule 30 minutes before morning meal Orally Once a day for 30 day(s) Active 2 ml ondansetron 2 mg/ml injection (1 source) Serotonin-3 Receptor Antagonist Start: 03-25-2020 ondansetron (ZOFRAN) injection 4 mg pantoprazole 40 mg delayed release oral tablet (3 sources) Proton Pump Inhibitor take 1 tablet by mouth before mealtime pantoprazole (ProtoNix) 40 MG EC tablet Take 40 mg by mouth in the morning. Take before meals. Do not crush, chew, or split.. Active topiramate 25 mg oral tablet (3 sources) take 1 tablet by mouth in the morning topiramate (Topamax) 25 MG tablet Take 25 mg by mouth in the morning and 25 mg before bedtime. Active traZODone hydrochloride 100 mg oral tablet (2 sources) Serotonin Reuptake Inhibitor Start: 07-28-2024 take 1 tablet by mouth at bedtime traZODone (Desyrel) 100 MG tablet Take 100 mg by mouth at bedtime 07/28/2024 Active 24 hr divalproex sodium 500 mg extended release oral tablet (2 sources) Mood Stabilizer, Anti-epileptic Agent Start: 07-28-2024 take 1 tablet by mouth once daily divalproex (Depakote ER) 500 MG 24 hr tablet Take 1,000 mg by mouth Daily 07/28/2024 Active Completed/Discontinued Medications Medication Drug Class(es) Dates Sig [...] Translations: [ESSENTIAL PRIMARY HYPERTENSION] Onset: 11-22-2022 Chronic Headache; including migraine (3 sources) Episodic tension-type headache; Translations: [Episodic tension-type headache, not intractable] Onset: 07-29-2024 07-29-2024 Chronic Malaise and fatigue (1 source) Weakness; Translations: [WEAKNESS] Onset: 12-20-2022 Episodic Mood disorders (2 sources) Depressive disorder; Translations: [Depression, unspecified depression type (CMS/HCC)] 08-01-2024 Chronic Other circulatory disease (2 sources) Elevated blood-pressure reading without diagnosis of hypertension; Translations: [Elevated blood pressure reading without diagnosis of hypertension] Onset: 03-24-2020 03-24-2020 Episodic Other lower respiratory disease (2 sources) Snoring; Translations: [Snoring] 08-01-2024 Episodic Other nervous system disorders (4 sources) Compression of brain; Translations: [COMPRESSION OF BRAIN] Onset: 12-16-2022 Chronic Other nervous system disorders (3 sources) Paresthesia; Translations: [Paresthesia of skin] Onset: 07-29-2024 07-29-2024 Episodic Other nutritional; endocrine; and metabolic disorders (2 sources) Obese class I; Translations: [Obesity (BMI 30.0-34.9)] 08-01-2024 Chronic Residual codes; unclassified (4 sources) Obstructive sleep apnea (adult) (pediatric); Translations: [OBSTRUCTIVE SLEEP APNEA] Onset: 02-23-2023 Chronic Residual codes; unclassified (5 sources) Obstructive sleep apnea syndrome; Translations: [Obstructive sleep apnea (adult) (pediatric)] Onset: 07-29-2024 07-29-2024 Chronic Residual codes; unclassified (2 sources) Daytime somnolence; Translations: [Other hypersomnia] 08-01-2024 Chronic Past or Other Problems Problem Classification [...] PURVI OLIVIER Date: 2022-12-16 10:55 Normal [facility] MATEO by IFAon 11-18-2022 Antinuclear Antibodies, IFA Negative Normal [facility] Comment on above: Result Comment: Nega tive <1:80 Borderline 1:80 Positive >1:80 ICAP nomenclature: AC-0 For more information about Hep-2 cell patterns use ANApatterns.org, the official website for the International Consensus on Antinuclear Antibody (MATEO) Patterns (ICAP). Performed By: #### A GABYIFCandelario #### [facility] [address] [place] [address] Dr. Alfred Issa MATEO DIRECTon 11-17-2022 MATEO Direct Negative Normal Negative [facility] Comment on above: Performed By: #### A NAD #### [facility] [address] [place] [address] Dr. Alfred Issa ANTISTREPTOLYSIN O AB (ASO)o n 11-17-2022 Antistreptolysin O Ab 29.0 IU/mL Normal 0.0-200.0 [facility] Comment on above: Performed By: #### A SOAB #### [facility] [address] [place] [address] Dr. Alfred Issa C3 and C4 COMPLEMENTon 11-17 Complement C3, Serum 181 mg/dL Critically high 82-167 [facility] Comment on above: Performed By: #### C SUITE #### [facility] [address] [place] [address] Dr. Alfred Issa Complement C4, Serum 28 mg/dL Normal 12-38 [facility] Comment on above: Performed By: #### C SUITE #### [facility] [address] [place] [address] Dr. Alfred Issa INSULINon 11-17-2022 Insulin 29.2 uIU/mL Critically high 2.6-24.9 [facility] Comment on above: Performed By: #### I NSULIN #### [facility] [address] [place] [address] Dr. Alfred Issa SLE PROFILE Aon 11-17-2022 Anti-DNA (DS) Ab Qn 1 IU/mL Normal 0-9 [facility] Comment on above: Result Comment: Nega tive <5 Equivocal 5 - 9 Positive >9 Performed By: #### S RENAN #### [facility] [address] [place] [address] Dr. Alfred Issa Antichromatin Antibodies <0.2 Normal 0.0-0.9 [facility] Comment on above: Performed By: #### S RENAN #### [facility] [address] [place] [address] Dr. Alfred Issa RA Latex Turbid. <10.0 Normal <14.0 [facility] Comment on above: Performed By: #### S RENAN #### [facility] [address] [place] [address] Dr. Alfred Issa DIPLOMA MEDICAL ASSISTANT Antibodies <0.2 Normal 0.0-0.9 [facility] Comment on above: Performed By: #### S RENAN #### [facility] [address] [place] [address] Dr. Alfred Issa Sjogrelio's Anti-SS-A <0.2 Normal 0.0-0.9 [facility] Comment on above: Performed By: #### S RENAN #### [facility] [address] [place] [address] Dr. Alfred Issa Sjogrelio'jd Anti-SS-B <0.2 Normal 0.0-0.9 [facility] Comment on above: Performed By: #### S RENAN #### [facility] [address] [place] [address] Dr. Alfred Issa Mckinney Antibodies <0.2 Normal 0.0-0.9 [facility] Comment on above: Performed By: #### S RENAN #### [facility] [address] [place] [address] Dr. Alfred Issa CBC AUTO DIFFon 11-16-2022 BASO # 0.0 103/ul Normal 0.0-0.1 [facility] Comment on above: Performed By: #### C BC #### [facility] [address] [place] [address] Dr. Alfred Issa Basophils/100 WBC (Bld) 0.4 % Normal 0.2-2.0 [facility] Comment on above: Performed By: #### C BC #### [facility] [address] [place] [address] Dr. Alfred Issa EO # 0.1 103/ul Normal 0.0-0.7 [facility] Comment on above: Performed By: #### C BC #### [facility] [address] [place] [address] Dr. Alfred Issa Eosinophils/100 WBC (Bld) 1.0 % Normal 0.9-7.0 [facility] Comment on above: Performed By: #### C BC #### [facility] [address] [place] [address] Dr. Alfred Issa Erythrocyte distribution width (RBC) [Ratio] 13.1 % Normal 11.0-15.0 [facility] Comment on above: Performed By: #### C BC #### [facility] [address] [place] [address] Dr. Alfred Issa Hematocrit (Bld) [Volume fraction] 43.9 % Normal 36.0-48.0 [facility] Comment on above: Performed By: #### C BC #### [facility] [address] [place] [address] Dr. Alfred Issa Hemoglobin (Bld) [Mass/Vol] 14.8 g/dL Normal 12.0-16.0 [facility] Comment on above: Performed By: #### C BC #### [facility] [address] [place] [address] Dr. Alfred Issa IG # 0.05 10e3/ul Critically high 0.00-0.03 [facility] Comment on above: Performed By: #### C BC #### [facility] [address] [place] [address] Dr. Alfred Issa IG % 0.5 % Normal 0.0-0.5 [facility] Comment on above: Performed By: #### C BC #### [facility] [address] [place] [address] Dr. Alfred Issa LYMPH # 2.7 103/ul Normal 1.2-3.8 [facility] Comment on above: Performed By: #### C BC #### [facility] [address] [place] [address] Dr. Alfred Issa Lymphocytes/100 WBC (Bld) 26.5 % Normal 20.5-60.0 [facility] Comment on above: Performed By: #### C BC #### [facility] [address] [place] [address] Dr. Alfred Issa MANUAL DIFF REQ NO Normal [facility] Comment on above: Performed By: #### C BC #### [facility] [address] [place] [address] Dr. Alfred Issa MCH (RBC) [Entitic mass] 27.5 pg Normal 26.7-34.0 [facility] Comment on above: Performed By: #### C BC #### [facility] [address] [place] [address] Dr. Alfred Issa MCHC (RBC) [Mass/Vol] 33.7 g/dL Normal 29.9-35.2 [facility] Comment on above: Performed By: #### C BC #### [facility] [address] [place] [address] Dr. Alfred Issa MCV (RBC) [Entitic vol] 81.4 fL Normal 81.0-99.0 [facility] Comment on above: Performed By: #### C BC #### [facility] [address] [place] [address] Dr. Alfred Issa MONO # 0.5 103/ul Normal 0.3-0.8 [facility] Comment on above: Performed By: #### C BC #### [facility] [address] [place] [address] Dr. Alfred Issa Monocytes/100 WBC (Bld) 4.9 % Normal 1.7-12.0 [facility] Comment on above: Performed By: #### C BC #### [facility] [address] [place] [address] Dr. Alfred Issa NEUT # 6.7 103/ul Critically high 1.4-6.5 [facility] Comment on above: Performed By: #### C BC #### [facility] [address] [place] [address] Dr. Alfred Issa Neutrophils/100 WBC (Bld) 66.7 % Normal 43.0-75.0 [facility] Comment on above: Performed By: #### C BC #### [facility] [address] [place] [address] Dr. Alfred Issa Platelet mean volume (Bld) [Entitic vol] 8.4 fL Critically low 9.5-13.5 [facility] Comment on above: Performed By: #### C BC #### [facility] [address] [address] [address] Alfred Issa PLT 312 103/ul Normal 150-450 [facility] Comment on above: Performed By: #### C BC #### [facility] [address] [address] [address] Alfred Issa RBC 5.39 106/ul Normal 4.20-5.40 [facility] Comment on above: Performed By: #### C BC #### [facility] [address] [address] [address] Alfred Issa WBC 10.1 103/ul Normal 4.0-11.0 [facility] Comment on above: Performed By: #### C BC #### [facility] [address] [address] [address] Alfred Issa CRPon 11-16-2022 CRP 0.7 mg/dL Normal <=1.0 [facility] Comment on above: Performed By: #### L IPID, TSH, T7, URIC, CRP, CMP ####[facility] [address] [address]DrJoe Issa FREE THYROXINE INDEX T7on FTI 3.50 Normal 1.30-4.50 [facility] Comment on above: Performed By: #### L IPID, TSH, T7, URIC, CRP, CMP ####[facility] [address] [address]DrJoe Issa T3U 34.0 % Normal 30.0-39.0 [facility] Comment on above: Performed By: #### L IPID, TSH, T7, URIC, CRP, CMP ####[facility] [address] [address]DrJoe Issa T4 [Mass/Vol] 10.30 ug/dL Normal 4.80-13.90 [facility] Comment on above: Performed By: #### L IPID, TSH, T7, URIC, CRP, CMP ####[facility] [address] [id number]. Alfred Issa GLYCOHEMOGLOBIN A1Con 2022 ADA RECOMMENDATION SEE BELOW Normal [facility] Comment on above: Result Comment: ADA RECOMMENDED LIMIT 4.0 - 6.0 ADA THERAPEUTIC TARGET < 7.0 ACTION SUGGESTED > 7.0 Performed By: #### A 1C #### [facility] [address] [address] [address] Alfred Issa Glucose [Mass/Vol] 108 mg/dL Normal [facility] Comment on above: Performed By: #### A 1C #### [facility] [address] [address] [address] Alfred Issa HbA1c (Bld) [Mass fraction] 5.4 % Normal 4.5-6.2 [facility] Comment on above: Performed By: #### A 1C #### [facility] [address] [address] [address] Alfred Issa IRONon 11-16-2022 Iron [Mass/Vol] 127.0 ug/dL Normal 50.0-170.0 [facility] Comment on above: Performed By: #### I LEIGH ANN #### [facility] [address] [address] [address] Alfred Issa LIPID PROFILEon 11-16-2022 CHOL-HDL RATIO NORM SEE BELOW Normal [facility] Comment on above: Result Comment: 3.3 - 4.4 LOW RISK 4.4 - 7.1 AVERAGE RISK 7.1 - 11.0 MODERATE RISK >11.0 HIGH RISK Performed By: #### L IPID, TSH, T7, URIC, CRP, CMP ####[facility] [address] [id number]. Alfred Issa Cholesterol [Mass/Vol] 197 mg/dL Normal <=200 [facility] Comment on above: Performed By: #### L IPID, TSH, T7, URIC, CRP, CMP ####[facility] [address] [id number]. Alfred Issa Cholesterol in HDL [Mass/Vol] 39 mg/dL Critically low 40-60 [facility] Comment on above: Performed By: #### L IPID, TSH, T7, URIC, CRP, CMP ####[facility] [address] [address]Dr. Alfred Issa Cholesterol in LDL [Mass/Vol] 116.8 mg/dL Normal [facility] Comment on above: Performed By: #### L IPID, TSH, T7, URIC, CRP, CMP ####[facility] [address] [address]Dr. Alfred Issa Cholesterol.total/Chol esterol in HDL [Mass ratio] 5.1 {ratio} Normal [facility] Comment on above: Performed By: #### L IPID, TSH, T7, URIC, CRP, CMP ####[facility] [address] [place], [place] [address]Dr. Alfred Issa HDL NORMAL > or = 60 mg/dl - LOW CARDIOVASCULAR RISK <40 mg/dl - HIGH CARDIOVASCULAR RISK Normal [facility] Comment on above: Performed By: #### L IPID, TSH, T7, URIC, CRP, CMP ####[facility] [address] [place], [place] [address]Dr. Alfred Issa LDL CALC NORMAL SEE BELOW Normal [facility] Comment on above: Result Comment: <100 mg/dl OPTIMAL 100 - 129 mg/dl NEAR OR ABOVE OPTIMAL 130 - 159 mg/dl BORDERLINE HIGH 160 - 189 mg/dl HIGH >190 mg/dl VERY HIGH Performed By: #### L IPID, TSH, T7, URIC, CRP, CMP ####[facility] [address] [address]Dr. Alfred Issa Triglyceride [Mass/Vol] 206 mg/dL Critically high <=150 [facility] Comment on above: Performed By: #### L IPID, TSH, T7, URIC, CRP, CMP ####[facility] [address] [address]Dr. Alfred Issa VLDL CALC 41.2 mg/dL Normal [facility] Comment on above: Performed By: #### L IPID, TSH, T7, URIC, CRP, CMP ####[facility] [address] [place], [place] [address]Dr. Alfred Issa OCC BLD IMMUNO SCREENon 10-31 OCCULT BLOOD Negative Normal NEGATIVE [facility] Comment on above: Performed By: #### O BSCRN ####[facility] [address] [address]Dr. Alfred Issa PROF 14(COMP METB)on 023 Albumin [Mass/Vol] 4.0 g/dL Normal 3.4-5.0 [facility] Comment on above: Performed By: #### L IPID, TSH, T7, URIC, CRP, CMP ####[facility] [address] [address]Dr. Alfred Issa Albumin/Globulin [Mass ratio] 1.1 {ratio} Normal [facility] Comment on above: Performed By: #### L IPID, TSH, T7, URIC, CRP, CMP ####[facility] [address] [address]Dr. Alfred Issa ALP [Catalytic activity/Vol] 104 U/L Normal 46-116 [facility] Comment on above: Performed By: #### L IPID, TSH, T7, URIC, CRP, CMP ####[facility] [address] [address]Dr. Alfred Issa ALT [Catalytic activity/Vol] 26 U/L Normal 14-59 [facility] Comment on above: Performed By: #### L IPID, TSH, T7, URIC, CRP, CMP ####[facility] [address] [address]Dr. Alfred Issa Anion gap [Moles/Vol] 13.2 mmol/L Normal [facility] Comment on above: Performed By: #### L IPID, TSH, T7, URIC, CRP, CMP ####[facility] [address] [address]Dr. Alfred Issa AST [Catalytic activity/Vol] 20 U/L Normal 15-37 [facility] Comment on above: Performed By: #### L IPID, TSH, T7, URIC, CRP, CMP ####[facility] [address] [address]Dr. Alfred Issa Bilirubin [Mass/Vol] 0.6 mg/dL Normal 0.2-1.0 [facility] Comment on above: Performed By: #### L IPID, TSH, T7, URIC, CRP, CMP ####[facility] [address] [place], [place] [address]Dr. Alfred Issa Calcium [Mass/Vol] 9.3 mg/dL Normal 8.5-10.1 [facility] Comment on above: Performed By: #### L IPID, TSH, T7, URIC, CRP, CMP ####[facility] [address] [place], [place] [address]Dr. Alfred Issa Chloride [Moles/Vol] 100 mmol/L Normal 98-107 [facility] Comment on above: Performed By: #### L IPID, TSH, T7, URIC, CRP, CMP ####[facility] [address] [place], [place] [address]Dr. Alfred Issa CO2 [Moles/Vol] 26.6 mmol/L Normal 21.0-32.0 [facility] Comment on above: Performed By: #### L IPID, TSH, T7, URIC, CRP, CMP ####[facility] [address] [place], [place] [address]Dr. Alfred Issa Creatinine [Mass/Vol] 0.56 mg/dL Normal 0.55-1.02 [facility] Comment on above: Performed By: #### L IPID, TSH, T7, URIC, CRP, CMP ####[facility] [address] [place], [place] [address]Dr. Alfred Issa EGFR-AF TURKS AND CAICOS ISLANDER >60 Normal >=60 [facility] Comment on above: Performed By: #### L IPID, TSH, T7, URIC, CRP, CMP ####[facility] [address] [place], [place] [address]Dr. Alfred Issa EGFR-NON AF TURKS AND CAICOS ISLANDER >60 Normal >=60 [facility] Comment on above: Performed By: #### L IPID, TSH, T7, URIC, CRP, CMP ####[facility] [address] [address]Dr. Alfred Issa Globulin (S) [Mass/Vol] 3.5 g/dL Normal [facility] Comment on above: Performed By: #### L IPID, TSH, T7, URIC, CRP, CMP ####[facility] [address] [place], [place] [address]Dr. Alfred Issa Glucose [Mass/Vol] 112 mg/dL Critically high 74-106 [facility] Comment on above: Performed By: #### L IPID, TSH, T7, URIC, CRP, CMP ####[facility] [address] [place], [place] [address]Dr. Alfred Issa Potassium [Moles/Vol] 3.8 mmol/L Normal 3.5-5.1 [facility] Comment on above: Performed By: #### L IPID, TSH, T7, URIC, CRP, CMP ####[facility] [address] [place], [place] [address]Dr. Alfred Issa Protein [Mass/Vol] 7.5 g/dL Normal 6.4-8.2 [facility] Comment on above: Performed By: #### L IPID, TSH, T7, URIC, CRP, CMP ####[facility] [address] [place], [place] [address]Dr. Alfred Issa Sodium [Moles/Vol] 136 mmol/L Normal 136-145 [facility] Comment on above: Performed By: #### L IPID, TSH, T7, URIC, CRP, CMP ####[facility] [address] [place], [place] [address]Dr. Alfred Issa Urea nitrogen [Mass/Vol] 8.0 mg/dL Normal 7.0-18.0 [facility] Comment on above: Performed By: #### L IPID, TSH, T7, URIC, CRP, CMP ####[facility] [address] [place], [place] [address]Dr. Alfred Issa Urea nitrogen/Creatinine [Mass ratio] 14.3 mg/mg Normal [facility] Comment on above: Performed By: #### L IPID, TSH, T7, URIC, CRP, CMP ####[facility] [facility] [id number] [place], [place] [address]La. Alfred Issa TSHon 11-16-2022 TSH 1.787 uIU/mL Normal 0.358-3.740 [facility] Comment on above: Performed By: #### L IPID, TSH, T7, URIC, CRP, CMP ####[facility] [address] [place], [place] [address]Bt. Alfred Issa URIC ACID SERUMon 11-16-2022 Urate [Mass/Vol] 5.3 mg/dL Normal 2.6-6.0 [facility] Comment on above: Performed By: #### L IPID, TSH, T7, URIC, CRP, CMP ####[facility] [address] [place], [place] [address]Sy. Alfred Issa Cult,Aerobe/Anaerobeon 03-29 Cult,Aerobe/Anaerobe Specimen Descriptio n .FACE RIGHT .ABSCESS SWAB Special Requests NOT REPORTED Direct Exam FEW NEUTROPHILS RARE GRAM POSITIVE COCCI IN PAIRS Culture HAEMOPHILUS PARAINFLUENZAE SCANT GROWTH BETA LACTAMASE NEGATIVE NORMAL MAGALYS MIXED ANAEROBIC MAGALYS Report Status FINAL 03/29/2020 [facility] Comment on above: Performed By: #### A ANC #### [facility] [employer] [address] [place] [phone] Tile Applicator: Wilfredo Keyes MD Basic Metab w/rfx MGon 03-24 (cont.) [facility] Comment on above: Result Comment: Aver age GFR for 20-29 years old: 116 mL/min/1.73sq m Chronic Kidney Disease: <60 mL/min/1.73sq m Kidney failure: <15 mL/min/1.73sq m eGFR calculated using average adult body mass. Additional eGFR calculator available at: http://www.[place] [employer].Bouncefootball/multiple_crcl_2012.htm Performed By: #### C BC, BMPX, PT #### [facility] [address] [place], [place] [id number] Tile Applicator: Wilfredo Keyes MD Anion gap [Moles/Vol] 15 mmol/L Normal 9-17 [facility] Comment on above: Performed By: #### C BC, BMPX, PT #### [facility] [employer] [employer] [address] [place] [phone] Tile Applicator: Wilfredo Keyes MD Calcium [Mass/Vol] 9.0 mg/dL Normal 8.6-10.4 [facility] Comment on above: Performed By: #### C BC, BMPX, PT #### [facility] [address] [place] [phone] Tile Applicator: Wilfredo Keyes MD Chloride [Moles/Vol] 99 mmol/L Normal 98-107 [facility] Comment on above: Performed By: #### C BC, BMPX, PT #### [facility] [employer] [employer] [address] [place] [phone] Tile Applicator: Wilfredo Keyes MD CO2 [Moles/Vol] 25 mmol/L Normal 20-31 [facility] Comment on above: Performed By: #### C BC, BMPX, PT #### [facility] [employer] [address] [place] [phone] Tile Applicator: Wilfredo Keyes MD Creatinine [Mass/Vol] 0.45 mg/dL Low 0.50-0.90 [facility] Comment on above: Performed By: #### C BC, BMPX, PT #### [facility] [address] [place] [address] Tile Applicator: Wilfredo Keyes MD GFR, Amer >60 Normal >60 [facility] [place] Comment on above: Performed By: #### C BC, BMPX, PT #### [facility] [address] [place] [phone] Tile Applicator: Wilfredo Keyes MD GFR,non Amer >60 Normal >60 [facility] Comment on above: Performed By: #### C BC, BMPX, PT #### [facility] [address] [place] [address] Tile Applicator: Wilfredo Keyes MD Glucose [Mass/Vol] 90 mg/dL Normal 70-99 [facility] Comment on above: Performed By: #### C BC, BMPX, PT #### [facility] [address] [place] [phone] Tile Applicator: Wilfredo Keyes MD Potassium [Moles/Vol] 3.7 mmol/L Normal 3.7-5.3 [facility] Comment on above: Performed By: #### C HOSEA, BMPX, PT #### [facility] [address] [place] [address] Tile Applicator: Wilfredo Keyes MD Sodium [Moles/Vol] 139 mmol/L Normal 135-144 [facility] Comment on above: Performed By: #### Koffi BC, BMPX, PT #### [facility] [address] [place] [phone] Tile Applicator: Wilfredo Keyes MD Urea nitrogen [Mass/Vol] 8 mg/dL Normal 6-20 [facility] Comment on above: Performed By: #### C BC, BMPX, PT #### [facility] [address] [place] [address] Tile Applicator: Wilfredo Keyes MD BUN/CRE Ratio NOT REPORTED Normal -20 [facility] Comment on above: Performed By: #### C BC, BMPX, PT #### [facility] [address] [place] [address] Tile Applicator: Wilfredo Keyes MD Staging: NOT REPORTED Normal [facility] Comment on above: Performed By: #### C BC, BMPX, PT #### [facility] [address] [place] [address] Tile Applicator: Wilfredo Keyes MD Basic Metabolic Panel w/ Ref rodríguez to MGon 03-24-2020 Anion gap [Moles/Vol] 15 mmol/L 9 - 17 mmol/L [place], [place] Bun/Cre Ratio NOT REPORTED [facility] [place] Calcium [Mass/Vol] 9.0 mg/dL 8.6 - 10. 4 mg/dL [place] Chloride [Moles/Vol] 99 mmol/L 98 - 10 7 mmol/L [place] CO2 [Moles/Vol] 25 mmol/L 20 - 31 mmol/L [place] Creatinine [Mass/Vol] 0.45 mg/dL Low 0.5 - 0.9 mg/dL [place] GFR >60 >60 mL/min [place], [place] GFR Non- >60 >60 mL/min [place] GFR/1.73 sq M predicted among non-blacks MDRD (S/P/Bld) [Vol rate/Area] NOT REPORTED [place], [place] GFR/1.73 sq M predicted among non-blacks MDRD (S/P/Bld) [Vol rate/Area] [place], [place] Comment on above: Average GFR for 20-2 9 years old: 116 mL/min/1.73sq m Chronic Kidney Disease: <60 mL/min/1.73sq m Kidney failure: <15 mL/min/1.73sq m eGFR calculated using average adult body mass. Additional eGFR calculator available at: http://www.[place] [employer].Bouncefootball/multiple_crcl_2012.htm Glucose [Mass/Vol] 90 mg/dL 70 - 99 mg/dL [place], [place] Interpretation and review of laboratory results Abnormal [place], [place] Potassium [Moles/Vol] 3.7 mmol/L 3.7 - 5.3 mmol/L [place] Sodium [Moles/Vol] 139 mmol/L 135 - 144 mmol/L [place] Urea nitrogen [Mass/Vol] 8 mg/dL 6 - 20 mg/dL [place] CBCon 03-24-2020 Erythrocyte distribution width (RBC) [Ratio] 12.6 % Normal 11.8-14.4 [facility] Comment on above: Performed By: #### C BC, BMPX, PT #### [facility] [employer] [address] [place] [phone] Tile Applicator: Wilfredo Keyes MD Hematocrit (Bld) [Volume fraction] 41.9 % Normal 36.3-47.1 [facility] Comment on above: Performed By: #### C BC, BMPX, PT #### [facility] [employer] [address] [place] [phone] Tile Applicator: Wilfredo Keyes MD Hemoglobin (Bld) [Mass/Vol] 14.2 g/dL Normal 11.9-15.1 [facility] Comment on above: Performed By: #### C BC, BMPX, PT #### [facility] [employer] [address] [place] [address] 7[address]30 Tile Applicator: Wilfredo Keyes MD MCH (RBC) [Entitic mass] 28.9 pg Normal 25.2-33.5 [facility] Comment on above: Performed By: #### C HOSEA BMPX, PT #### [facility] [employer] [address] [place] [address]31 Tile Applicator: Wilfredo Keyes MD MCHC (RBC) [Mass/Vol] 33.9 g/dL Normal 28.4-34.8 [facility] Comment on above: Performed By: #### C BC, BMPX, PT #### [facility] [employer] [address] [place] [address] 79289 Tile Applicator: Wilfredo Keyes MD MCV (RBC) [Entitic vol] 85.3 fL Normal 82.6-102.9 [facility] Comment on above: Performed By: #### C BC, BMPX, PT #### [facility] [employer] [address] [place] [address] 26595 Tile Applicator: Wilfredo Keyes MD NRBC Automated 0.0 per 100 WBC Normal 0.0 [facility] Comment on above: Performed By: #### C HOSEA BMPX, PT #### [facility] [address] [place] [address] 92777 Tile Applicator: Wilfredo Keyes MD Platelet mean volume (Bld) [Entitic vol] 8.5 fL Normal 8.1-13.5 [facility] Comment on above: Performed By: #### C HOSEA BMPX, PT #### [facility] [address] [place] [address] 88747 Tile Applicator: Wilfredo Keyes MD Platelets (Bld) [#/Vol] 256 10*3/uL Normal 138-453 [facility] Comment on above: Performed By: #### Koffi JC BMPX, PT #### [facility] [address] [place] [address] Tile Applicator: Wilfredo Keyes MD RBC (Bld) [#/Vol] 4.91 10*6/uL Normal 3.95-5.11 [facility] Comment on above: Performed By: #### Koffi JC BMPX, PT #### [facility] [address] [place] [address] Tile Applicator: Wilfredo Keyes MD WBC (Bld) [#/Vol] 10.0 10*3/uL Normal 4.5-13.5 [facility] Comment on above: Performed By: #### Koffi JC BMPX, PT #### [facility] [address] [place] [address]358 Tile Applicator: Wilfredo Keyes MD Erythrocyte distribution width (RBC) [Ratio] 12.6 % 11.8 - 14.4 % [place] Hematocrit (Bld) [Volume fraction] 41.9 % 36.3 - 47.1 % [place] Hemoglobin (Bld) [Mass/Vol] 14.2 g/dL 11.9 - 15.1 g/dL [place] MCH (RBC) [Entitic mass] 28.9 pg 25.2 - 33.5 pg [place] MCHC (RBC) [Mass/Vol] 33.9 g/dL 28.4 - 34.8 g/dL [place] MCV (RBC) [Entitic vol] 85.3 fL 82.6 - 102.9 fL [place] Platelet mean volume (Bld) [Entitic vol] 8.5 fL 8.1 - 13.5 fL [place], [place] Platelets (Bld) [#/Vol] 256 10*3/uL [place] RBC (Bld) [#/Vol] 4.91 10*6/uL 3.95 - 5.1 1 m/uL [place] WBC (Bld) [#/Vol] 0.0 10*3/uL 0.0 per 10 0 WBC [place] WBC (Bld) [#/Vol] 10.0 10*3/uL [place] COVID-19on 03-24-2020 SARS-CoV-2 Not Detected Not Detected [place], [place] Comment on above: The specimen is NEGATIVE for SARS-CoV-2, the novel coronavirus associated with COVID-19. A negative result does not rule out COVID-19. This test has been authorized by the FDA under an Emergency Use Authorization (EUA) for use by authorized laboratories. Fact sheet for Healthcare Providers: https://www.fda.gov/media/312078/download Fact sheet for Patients: https://www.fda.gov/media/005264/download METHODOLOGY: RT-PCR SARS-CoV-2, PCR [facility] [place] SARS-CoV-2, Rapid [facility] [place] Source .NASOPHARYNGEAL SWAB [place], [place] Gram Stainon 03-24-2020 Microscopic observation Gram stain Nom (Unsp spec) Specimen Description .FACE RIGHT .ABSCESS SWAB Special Requests NOT REPORTED Direct Exam DUPLICATE ORDER GRAM STN INCLUDED WITH CULTURE Report Status FINAL 03/24/2020 Normal [facility] Comment on above: Performed By: #### G S #### [facility] [place] [address] Tile Applicator: Wilfredo Keyes MD Direct Exam DUPLICATE ORDER GRAM STN INCLUDED WITH CULTURE [place] Special Requests NOT REPORTED [place] Specimen Description .FACE RIGHT [place], [place] HCG, ,Urineon 03-24 Beta HCG ( test) Ql (U) Negative Normal NEG [facility] Comment on above: Result Comment: Spec imens with hCG levels near the threshold of the test (25 mIU/mL) may give a negative or indeterminate result. In such cases, another test should be performed with a new specimen in 48-72 hours. If early is suspected clinically in this setting, correlation with quantitative serum b-hCG level is suggested. Performed By: #### U HCG #### [address] [phone] Tile Applicator: Wilfredo Keyes MD PTon 03-24-2020 INR Coag (PPP) [Relative time] 1.0 {INR} Normal [facility] Comment on above: Result Comment: Therapeutic Range: Moderate Anticoagulant Intensity: INR = 2.0-3.0 High Anticoagulant Intensity: INR = 2.5-3.5 Performed By: #### C BC, BMPX, PT #### [facility] [employer] [address] [place] [address] [phone] Tile Applicator: Wilfredo Keyes MD PT Coag (PPP) [Time] 10.7 s Normal 9.0-12.0 [facility] Comment on above: Performed By: #### C BC, BMPX, PT #### [facility] [employer] [address] [place] [address] [phone] Tile Applicator: Wilfredo Keyes MD , urine pre-opon Beta HCG ( test) Ql (U) Negative NEGATIVE [place] Comment on above: Specimens with hCG [...] INR Coag (PPP) [Relative time] 1.0 {INR} [place] Comment on above: Therapeutic Range: Moderate Anticoagulant Intensity: INR = 2.0-3.0 High Anticoagulant Intensity: INR = 2.5-3.5 PT Coag (PPP) [Time] 10.7 s [place] [id number] 03-24-2020 SARS-CoV-2,Rapid Normal [facility] [place] Comment on above: Performed By: #### C OVID #### [facility] [employer] [address] [place] [address] [phone] Tile Applicator: Wilfredo Keyes MD SARS-CoV-2 [facility] Comment on above: Performed By: #### C OVID #### [address] [phone] Tile Applicator: Wilfredo Keyes MD SARS-CoV-2 Not Detected [facility] Comment on above: Result Comment: The specimen is NEGATIVE for SARS-CoV-2, the novel coronavirus associated with COVID-19. A negative result does not rule out COVID-19. This test has been authorized by the FDA under an Emergency Use Authorization (EUA) for use by authorized laboratories. Fact sheet for Healthcare Providers: https://www.fda.gov/media/761170/download Fact sheet for Patients: https://www.fda.gov/media/092916/download METHODOLOGY: RT-PCR Performed By: #### C OVID #### [facility] [employer] [address] [place] [address] [phone] Tile Applicator: Wilfredo Keyes MD [id number] 03-23-2020 SARS-CoV-2 Source .NASOPHARYNGEAL SWAB [facility] Comment on above: Performed By: #### C OVID #### [facility] [employer] [address] [place] [address] [phone] Tile Applicator: Wilfredo Keyes MD Vital Signs Date Time Vital Sign Value Performing Clinician Facility 08-01-2024 13:57-0400 Body height 165.1 cm Jane Smithr SCIENTIFIC INVESTIGATOR Work Phone: [facility] 08-01-2024 13:57-0400 Body mass index (BMI) [Ratio] 33.78 kg/m2 Jane Pittmanmor SCIENTIFIC INVESTIGATOR Work Phone: [facility] 08-01-2024 13:57-0400 Body weight 92.08 kg Jane Smithr SCIENTIFIC INVESTIGATOR Work Phone: [facility] 08-01-2024 13:57-0400 Diastolic blood pressure 84 mm[Hg] Jane Pittmanmor SCIENTIFIC INVESTIGATOR Work Phone: [facility] 08-01-2024 13:57-0400 Heart rate 85 /min Jane Smithr SCIENTIFIC INVESTIGATOR Work Phone: [facility] 08-01-2024 13:57-0400 SaO2% (BldA) [Mass fraction] 98 % Jane Smithr SCIENTIFIC INVESTIGATOR Work Phone: [facility] 08-01-2024 13:57-0400 Systolic blood pressure 122 mm[Hg] Jane Pittmanmor SCIENTIFIC INVESTIGATOR Work Phone: [facility] 07-29-2021 14:00-0400 Body height 162.56 cm Franco Rajput Other [employer] Other 07-29-2021 14:00-0400 Body mass index (BMI) [Ratio] 27.29 kg/m2 Franco Rajput Other [employer] Other 07-29-2021 14:00-0400 Body weight 72.12 kg Franco Rajput Other [employer] Other 07-29-2021 14:00-0400 Diastolic blood pressure 87 mm[Hg] Franco Rajput Other [employer] Other 07-29-2021 14:00-0400 Systolic blood pressure 121 mm[Hg] Franco Rajput Other [employer] Other 03-25-2020 08:00-0400 Body Temperature 97.7 [degF] Fang Carlson [employer] , [place] 03-25-2020 08:00-0400 BP Diastolic 83 mm[Hg] [facility] [employer] [facility] , [place] 03-25-2020 08:00-0400 BP Systolic 139 mm[Hg] [facility] , [place] 03-25-2020 08:00-0400 Pulse (Heart Rate) 89 /min [place] 03-25-2020 08:00-0400 Respiratory Rate 18 /min [facility] [place] 03-24-2020 20:45-0400 Pulse Oximetry 99 % [place], [place] 03-23-2020 20:13-0400 BMI (Body Mass Index) 22.31 kg/m2 Fang [place] 03-23-2020 20:13-0400 Body weight 58.97 kg [place], [place] 03-23-2020 20:13-0400 Height 162.6 cm [place] Encounters Encounter Date Encounter Type Care Provider Facility Start: 08-02-2024 ambulatory Salvatore Duque acility:[facility] Start: 08-01-2024 End: 08-01-2024 Bamboo flowsheet Jane Baron SCIENTIFIC INVESTIGATOR Work Phone: [facility] Start: 08-01-2024 End: 08-01-2024 Bamboo flowsheet Jane Baron SCIENTIFIC INVESTIGATOR Work Phone: [facility] Start: 08-01-2024 End: 08-01-2024 Office outpatient visit 25 minutes Jane Baron SCIENTIFIC INVESTIGATOR [facility] Comment on above: SHENG (obstructive sle ep apnea) (Primary Dx); Snoring; Daytime hypersomnolence; Obesity (BMI 30.0-34.9); Depression, unspecified depression type (CMS/HCC) Start: 08-01-2024 End: 08-01-2024 ambulatory JANE BARON Not Available Start: 02-23-2023 End: 02-24-2023 ambulatory [...] Facility:H1 Start: 07-29-2021 Patient encounter procedure Franco Rajput [facility] Start: 03-23-2020 End: 03-25-2020 Evaluation and management of inpatient ANDREA PINTO [facility] Start: 03-23-2020 End: 03-25-2020 Evaluation and management of inpatient Fang Gonsalez Aldotere Work Phone: [facility] Comment on above: Dental abscess (Prim quan Dx) Procedures Date Procedure Procedure Detail Performing Clinician Start: 03-25-2020 DISCHARGE PATIENT ANDREA BRGONZÁLEZ Start: 03-24-2020 DIET GENERAL ANDREA NANY SPAULDING Start: 03-24-2020 TRANSFER PATIENT ANDREA MENDOZAGONZÁLEZ Start: 03-24-2020 Cul prsmptv pthgnc o rganism scrn w/colony estimj ANDREA PINTO Start: 03-24-2020 Smr prim src gram/gi emsa stain bct fungi/cell ANDREA PINTO Start: 03-24-2020 Urine test visual color cmprsn meths ANDREA PINTO Start: 03-24-2020 Smr prim src gram/gi emsa stain bct fungi/cell Andrea Pinto Work Phone: Start: 03-24-2020 End: 03-24-2020 MOUTH LESION BIOPSY EXCISION Andrea Cherry Blair Work Phone: Start: 03-24-2020 Urine test visual color cmprsn meths Andrea Cherry [employer] Work Phone: Start: 03-24-2020 Blood count complete automated ANDREAALINA BOYKINJUNIE Start: 03-24-2020 Comprehensive metabo lic panel ANDREA PINTO Start: 03-24-2020 Prothrombin time ANDREA PINTO Start: 03-24-2020 BASIC METABOLIC PANE L W/ REFLEX TO MG FOR LOW K Berta Peela Work Phone: Start: 03-24-2020 Blood count complete automated [employer] Work Phone: Start: 03-24-2020 Prothrombin time Shirvinny jameson Peela Work Phone: Start: 03-24-2020 PATIENT STATUS (FROM ED OR OR/PROCEDURAL) ANDREA PINTO Start: 03-23-2020 COVID-19 ANDREA SPAULDING Start: 03-23-2020 PATIENT STATUS (FROM ED OR OR/PROCEDURAL) ANDREA PINTO Start: 03-23-2020 IP CONSULT TO HOSPITALIST ANDREA PINTO Start: 03-23-2020 IP CONSULT TO ORAL SURGERY ANDREA PINTO Start: 03-23-2020 COVID-19 Carlos camargo Work Phone: Plan of Treatment Date Care Activity Detail Author Start: 08-01-2024 End: 08-01-2024 Patient encounter procedure 08/01/2024 2:00 PM EDT Office Visit [facility] [address] [place] [phone] Jane Baron NP [address] [place], [place] Arrived [facility] Comment on above: Arrived Start: 07-01-2024 Influenza vaccination Influenza Vacc ine (#1) [facility] Start: 07-01-2020 Influenza vaccination Flu vacc ine (Season Ended) [facility] [place], [place] Culture, Anaerobic a nd Aerobic Culture, Anaerobic and Aerobic Microbiology Routine 03/24/2020 1:13 PM EDT [facility] [place], [place] Immunizations Immunization Date Immunization Notes Care Provider Reshma robles 08-03-2023 influenza virus vacc ine, unspecified formulation Jane Baron NP Work Phone: [facility] Payers Date Payer Category Payer Medicaid [employer] [place] [id number] 2024-Present [address] [place] [address] [id number] 2023 Self-pay 2014 Unknown BCBS BCBS OUT OF STATE xxxxxxxxxxxx 2014-Present [address] [place] [address] xxxxxxxxxxxx [id number] 1998 Unknown [id number] 1998 Unknown [id number] 1998 Unknown [id number] 1998 Unknown [id number] 1998 Unknown [id number] 1998 Unknown [id number] 1998 Unknown [id number] 1998 Unknown [id number] [id number] .593 1998 Unknown [id number] [id number] .[id number] 1959 Private Health Insurance [id number] 1959 Unknown [id number] 1959 Unknown [id number] 1959 Unknown [id number] Unknown [id number] Social History Date Type Detail Facility Start: 03-25-2020 End: 08-01-2024 Tobacco smoking status NHIS Current every day sm[place] Start: 03-25-2020 End: 08-01-2024 Alcohol intake Current drinker of alcohol (finding) [place] Start: 03-23-2020 History SDOH Alcohol Frequency 3 [place] Start: 03-23-2020 History SDOH Alcohol Std Drinks 1 [place] Start: 03-23-2020 History SDOH Alcohol Binge 4 [place] Start: 03-23-2020 Alcohol Comment none this week [place], [place] Start: 1998 Sex Assigned At Not on file [place] Exposure to SARS-CoV -2 (event) Unable to assess [place] Start: 07-29-2024 End: 08-01-2024 Sex Assigned At [facility] [employer] Other Start: 07-29-2024 [facility] History of tobacco use Current smoker [facility] History of tobacco use Cigarette Smoker [facility] Start: 07-29-2024 End: 08-01-2024 History of Social function [facility] How often to you hav e a drink containing alcohol? 2-3 time sa week [facility] How many standard drinks containing alcohol do you have on a typical day? 1 or 2 [facility] How often do you hav e 6 or more drinks on 1 occasion? Never [facility] Start: 07-29-2024 Alcohol Comment Caffeine: 1-2 cups per day [facility] History of tobacco use Cigar Smoker [facility] Start: 08-01-2024 Tobacco use and exposure Smokeless tobacco non-user [facility] Clinical Note 07-15-2022 Note Date & Type Note Facility 07-15-2022 Note PROCEDURE: XR KNEE L T 4V or > HISTORY: Pain of left knee joint ; acute left knee instability COMPARISON: None. FINDINGS: BONES:No fracture, acute abnormality, or significant arthropathy. SOFT TISSUES:No visible soft tissue swelling. EFFUSION:None visible. OTHER: Negative. IMPRESSION: 1. Normal examination. Electronically authenticated by: PURVI OLIVIER Date: 2022-07-15 11:44 [facility] Evaluation note 07-29-2021 Note Date & Type Note Facility 07-29-2021 Evaluation note Encounter Date Diagnosis Assessment Notes Jul, Gastritis (ICD-10 - K29.70) Gastritis material was printed Continue Omeprazole 40mg once daily Follow up in 6 months [facility] Other Evaluation note Note Date & Type Note Facility Evaluation note Diagnosis SHENG (obstructive sleep apnea)- Primary Obstructive sleep apnea (adult) (pediatric) Snoring Other dyspnea and respiratory abnormality Daytime hypersomnolence Obesity (BMI 30.0-34.9) Depression, unspecified depression type (CMS/HCC) documented in this encounter [facility] Healthcare History general Narrative - Reported Note Date & Type Note Facility History general Narrative - Reported Type Surgical History oral abscess [email or web address] Other History of Present Illness * Jojo [...] Wound Culture: Specimen Description 03/24/2020 1:13 PM [facility] .FACE RIGHT Special Requests 03/24/2020 1:13 PM [facility] NOT REPORTED Direct Exam Abnormal 03/24/2020 1:13 PM [facility] [employer] [employer] Arleth Marcus FEW NEUTROPHILS Direct Exam Abnormal 03/24/2020 1:13 PM [facility] RARE GRAM POSITIVE COCCI IN PAIRS Culture 03/24/2020 1:13 PM [facility] PENDING Current Inpatient Medications Current [...] improve 5. F/u OMFS thaddeus 1 week [phone] * Danielle Villarreal MD - 03/25/2020 7:[address] [facility] IN-PATIENT SERVICE [facility] Progress Note 03/25/2020 7:18 AM Name: Jordan Tello Acct: [id number] Room: 0331/0331-01 Day: 2 Admit Date: 03/23/2020 [...] procedure Brief History: Patient originally presented to [facility] via EMS for the complaint of [...] was recommended that patient be transferred to [facility] for OMF evaluation. Of significant [...] No results for input(s): PROT, LABALBU, LABA1C, W0VHTVC, D2OAUGJ, FT4, TSH, AST, ALT, LDH, GGT, ALKPHOS, LABGGT, BILITOT, BILIDIR, AMMONIA, AMYLASE, LIPASE, LACTATE, CHOL, HDL, LDLCHOLESTEROL, CHOLHDLRATIO, TRIG, VLDL, KCW38ET, PHENYTOIN, PHENYF, URICACID, POCGLU in the last 72 hours. ABG:No results found for: POCPH, PHART, PH, POCPCO2, NJM7RXB, PCO2, POCPO2, PO2ART, PO2, POCHCO3, SOZ6UUD, HCO3, NBEA, PBEA, BEART, BE, THGBART, THB, CZB3DBH, YZOG1QHA, C4XGGKYO, O2SAT, FIO2 Lab Results Component Value Date/Time [...] Danielle Villarreal MD 03/25/2020 7:18 AM * Radha Charliemarbin, DO - 03/24/2020 11:[address] [facility] IN-PATIENT SERVICE [facility] Progress Note 03/24/2020 11:29 AM Name: Jordan Tello Acct: [id number] Room: 0331/0331-01 Day: 1 Admit Date: 03/23/2020 [...] History: Per Record: Patient originally presented to [facility] via EMS for the complaint of [...] was recommended that patient be transferred to [facility] for OMF evaluation. Of significant [...] No results for input(s): PROT, LABALBU, LABA1C, W8JBJQY, Y4ZBSVM, FT4, TSH, AST, ALT, LDH, GGT, ALKPHOS, LABGGT, BILITOT, BILIDIR, AMMONIA, AMYLASE, LIPASE, LACTATE, CHOL, HDL, LDLCHOLESTEROL, CHOLHDLRATIO, TRIG, VLDL, JPI64ED, PHENYTOIN, PHENYF, URICACID, POCGLU in the last 72 hours. ABG:No results found for: POCPH, PHART, PH, POCPCO2, ARS4RKJ, PCO2, POCPO2, PO2ART, PO2, POCHCO3, NWL4HUJ, HCO3, NBEA, PBEA, BEART, BE, THGBART, THB, YSF5XWC, OTCD7MKY, H5JKWGWH, O2SAT, FIO2 No results found for: SPECIAL [...] reading without diagnosis of hypertension Advance Directives Documents on File Type Date Recorded Patient Welfare Manager Expl anation Advance Directives and Living Will Power of Retail Center Receptionist Latest Code Status on File Code Status [...] abscess Oral abscess Francisco Garcia DO [address] [place] [address] [facility] Reason Comments Sleep Apnea INFORMATION SOURCE (unrecogn ized section and content) DATE CREATED AUTHOR 04/06/2020 [facility] DATE CREATED AUTHOR AUTHOR'S ORGANIZ ATION 03/16/2023 [facility] DATE CREATED AUTHOR AUTHOR'S ORGANIZ ATION 08/03/2024 [facility] EPIC DATE CREATED AUTHOR AUTHOR'S ORGANIZ ATION 08/04/2024 [facility] y[facility] Care Teams (unrecognized sec tion and content) Medical Anthropologist Relationship Specialty Start Date End Date Srinivasan Rogers DO [address] [place] [address] PCP - General Family Medicine 03/08/23 Medical Anthropologist Relationship Specialty Start Date End Date Srinivasan Rogers DO [address] [place] [address] PCP - General Family Medicine 03/08/23 FOR RECORDS PERTAINING TO PATIENTS WHO ARE [...] BE BASED ON THE PRIMARY CLINICAL RECORDS. [employer] [facility]. provides no warranty or guarantee of the accuracy or completeness of information in this document.
== END 2024-08-09 10:16 | disposition home or self-care (01) ==
LOC: LAB 10:15
PROVIDERS: PCP Family Medicine; Visit Provider Family Medicine
DX: J98.4 Other disorders of lung (principal)
CPT/HCPCS: 36415; 86713

== ENCOUNTER 2024-08-15 12:43 | Outpatient (RCR) | payer OTHER, SELFPAY | END 2024-10-12 14:04 | disposition home or self-care (01) | LOC: PT 12:43 | PROVIDERS: PCP Family Medicine; Visit Provider Orthopaedic Surgery | DX: S83.005D Unspecified dislocation of left patella, subsequent encounter (principal); M23.8X2 Other internal derangements of left knee; M23.42 Loose body in knee, left knee | CPT/HCPCS: 97110; 97140; 97161 ==

== ENCOUNTER 2024-08-21 09:58 | Outpatient (REF) | payer OTHER, SELFPAY ==
--- OUTSIDE RECORDS SUMMARY | 2024-08-18 12:05 | XMS_ITS | CCD ---
Author Organization [facility] Care Team Providers Care Rod Drawer Name Role Phone Glenna Carlin Primary Care [...] ZIEBER, DR PURVI Ordaz Consulting Unavailable JANE BARON Attending Unavailable Srinivasan Rogers DO Primary Care Provider Salvatore Hendricks Attending Unavailab Salvatore Nagel Admitting Unavailab Glenna Michael Primary Care Unavailable Allergies Allergy Classification Reported Allergen(s) Allergy Type Date of Onset Reaction(s) Facility (1 source) Corticosteroids Drug allergy (disorder) [facility] Repository (2 sources) Corticosteroids and derivatives Drug Allergy 1 [facility] (1 source) Corticosteroids Drug allergy (disorder) 1 [facility] Repository Medications Current Medications Medication Drug [...] irritant). Active take 1 capsule by [facility] every twenty-four hours Strattera 25 MG 1 [...] Date: 2022-12-16 10:55 Normal [facility] MATEO by IFAon 11-18-2022 Antinuclear Antibodies, IFA Negative Normal [facility] Comment on above: Result Comment: Nega tive <1:80 Borderline 1:80 Positive >1:80 ICAP nomenclature: AC-0 For more information about Hep-2 cell patterns use ANApatterns.org, the official website for the International Consensus on Antinuclear Antibody (MATEO) Patterns (ICAP). Performed By: #### A GABYIFCandelario #### [facility] [address] [place] [address] Dr. Alfred Issa MATEO DIRECTon 11-17-2022 MATEO Direct Negative Normal Negative [facility] Comment on above: Performed By: #### A NAD #### [facility] [address] [place] [address] Dr. Alfred Issa ANTISTREPTOLYSIN O AB (ASO)o n 11-17-2022 Antistreptolysin O Ab 29.0 IU/mL Normal 0.0-200.0 [facility] Comment on above: Performed By: #### A SOAB #### [facility] [address] [place] [address] Dr. Alfred Issa C3 and C4 COMPLEMENTon 11-17 Complement C3, Serum 181 mg/dL Critically high 82-167 [facility] Comment on above: Performed By: #### C SUITE #### [facility] [address] [place] [address] Dr. Alfred Issa Complement C4, Serum 28 mg/dL Normal 12-38 [facility] Comment on above: Performed By: #### C SUITE #### [facility] [address] [place] [address] Dr. Alfred Issa INSULINon 11-17-2022 Insulin 29.2 uIU/mL Critically high 2.6-24.9 [facility] Comment on above: Performed By: #### I NSULIN #### [facility] [address] [place] [address] Dr. Alfred Issa SLE PROFILE Aon 11-17-2022 Anti-DNA (DS) Ab Qn 1 IU/mL Normal 0-9 [facility] Comment on above: Result Comment: Nega tive <5 Equivocal 5 - 9 Positive >9 Performed By: #### S RENAN #### [facility] [address] [place] [address] Dr. Alfred Issa Antichromatin Antibodies <0.2 Normal 0.0-0.9 [facility] Comment on above: Performed By: #### S RENAN #### [facility] [address] [place] [address] Dr. Alfrde Issa RA Latex Turbid. <10.0 Normal <14.0 [facility] Comment on above: Performed By: #### S RENAN #### [facility] [address] [place] [address] Dr. Alfred Issa SENIOR ANALYST PROGRAMMER Antibodies <0.2 Normal 0.0-0.9 [facility] Comment on above: Performed By: #### S RENAN #### [facility] [address] [place] [address] Dr. Alfred Issa Sjogrelio's Anti-SS-A <0.2 Normal 0.0-0.9 [facility] Comment on above: Performed By: #### S RENAN #### [facility] [address] [place] [address] Dr. Alfred Issa Sjogrelio'jd Anti-SS-B <0.2 Normal 0.0-0.9 [facility] Comment on above: Performed By: #### S RENAN #### [facility] [address] [place] [address] Dr. Alfred Issa Mckinney Antibodies <0.2 Normal 0.0-0.9 [facility] Comment on above: Performed By: #### S RENAN #### [facility] [address] [place] [address] Dr. Alfred Issa CBC AUTO DIFFon 11-16-2022 BASO # 0.0 103/ul Normal 0.0-0.1 [facility] Comment on above: Performed By: #### C BC #### [facility] [address] [place] [address] Dr. Alfred Issa Basophils/100 WBC (Bld) 0.4 % Normal 0.2-2.0 [facility] Comment on above: Performed By: #### C BC #### [facility] [address] [place] [address] Dr. Alfred Issa EO # 0.1 103/ul Normal 0.0-0.7 [facility] Comment on above: Performed By: #### C BC #### [facility] [address] [place] [address] Dr. Alfred Issa Eosinophils/100 WBC (Bld) 1.0 % Normal 0.9-7.0 [facility] Comment on above: Performed By: #### C BC #### [facility] [address] [place] [address] Dr. Alfred Issa Erythrocyte distribution width (RBC) [Ratio] 13.1 % Normal 11.0-15.0 [facility] Comment on above: Performed By: #### C BC #### [facility] [address] [place] [address] Dr. Alfred Issa Hematocrit (Bld) [Volume fraction] 43.9 % Normal 36.0-48.0 [facility] Comment on above: Performed By: #### C BC #### [facility] [address] [place] [address] Dr. Alfred Issa Hemoglobin (Bld) [Mass/Vol] 14.8 g/dL Normal 12.0-16.0 [facility] Comment on above: Performed By: #### C BC #### [facility] [address] [place] [address] Dr. Alfred Issa IG # 0.05 10e3/ul Critically high 0.00-0.[address] [facility] Comment on above: Performed By: #### C BC #### [facility] [address] [place] [address] Dr. Alfred Issa IG % 0.5 % Normal 0.0-0.5 [facility] Comment on above: Performed By: #### C BC #### [facility] [address] [place] [address] Dr. Alfred Issa LYMPH # 2.7 103/ul Normal 1.2-3.8 [facility] Comment on above: Performed By: #### C BC #### [facility] [address] [place] [address] Dr. Alfred Issa Lymphocytes/100 WBC (Bld) 26.5 % Normal 20.5-60.0 [facility] Comment on above: Performed By: #### C BC #### [facility] [address] [place] [address] Dr. Alfred Issa MANUAL DIFF REQ NO Normal [facility] Comment on above: Performed By: #### C BC #### [facility] [address] [place] [address] Dr. Alfred Issa MCH (RBC) [Entitic mass] 27.5 pg Normal 26.7-34.0 [facility] Comment on above: Performed By: #### C BC #### [facility] [address] [place] [address] Dr. Alfred Issa MCHC (RBC) [Mass/Vol] 33.7 g/dL Normal 29.9-35.2 [facility] Comment on above: Performed By: #### C BC #### [facility] [address] [place] [address] Dr. Alfred Issa MCV (RBC) [Entitic vol] 81.4 fL Normal 81.0-99.0 [facility] Comment on above: Performed By: #### C BC #### [facility] [address] [place] [address] Dr. Alfred Issa MONO # 0.5 103/ul Normal 0.3-0.8 [facility] Comment on above: Performed By: #### C BC #### [facility] [address] [place] [address] Dr. Alfred Issa Monocytes/100 WBC (Bld) 4.9 % Normal 1.7-12.0 [facility] Comment on above: Performed By: #### C BC #### [facility] [address] [place] [address] Dr. Alfred Issa NEUT # 6.7 103/ul Critically high 1.4-6.5 [facility] Comment on above: Performed By: #### C BC #### [facility] [address] [place] [address] Dr. Alfred Issa Neutrophils/100 WBC (Bld) 66.7 % Normal 43.0-75.0 [facility] Comment on above: Performed By: #### C BC #### [facility] [address] [place] [address] Dr. Alfred Issa Platelet mean volume (Bld) [Entitic vol] 8.4 fL Critically low 9.5-13.5 [facility] Comment on above: Performed By: #### C BC #### [facility] [address] [address] [address] Alfred Issa PLT 312 103/ul Normal 150-450 [facility] Comment on above: Performed By: #### C BC #### [facility] [address] [address] [address] Alfred Issa RBC 5.39 106/ul Normal 4.20-5.40 [facility] Comment on above: Performed By: #### C BC #### [facility] [address] [address] [address] Alfred Issa WBC 10.1 103/ul Normal 4.0-11.0 [facility] Comment on above: Performed By: #### C BC #### [facility] [address] [address] [address] Alfred Issa CRPon 11-16-2022 CRP 0.7 mg/dL Normal <=1.0 [facility] Comment on above: Performed By: #### L IPID, TSH, T7, URIC, CRP, CMP ####[facility] [address] [address]DrJoe Issa FREE THYROXINE INDEX T7on FTI 3.50 Normal 1.30-4.50 [facility] Comment on above: Performed By: #### L IPID, TSH, T7, URIC, CRP, CMP ####[facility] [address] [address]DrJoe Issa T3U 34.0 % Normal 30.0-39.0 [facility] Comment on above: Performed By: #### L IPID, TSH, T7, URIC, CRP, CMP ####[facility] [address] [address]DrJoe Issa T4 [Mass/Vol] 10.30 ug/dL Normal 4.80-13.90 [facility] Comment on above: Performed By: #### L IPID, TSH, T7, URIC, CRP, CMP ####[facility] [address] [id number]. Alfred Issa GLYCOHEMOGLOBIN A1Con 2022 ADA RECOMMENDATION SEE BELOW Normal [facility] Comment on above: Result Comment: ADA RECOMMENDED LIMIT 4.0 - 6.0 ADA THERAPEUTIC TARGET < 7.0 ACTION SUGGESTED > 7.0 Performed By: #### A 1C #### [facility] [address] [address] [address] Alfred Issa Glucose [Mass/Vol] 108 mg/dL Normal [facility] Comment on above: Performed By: #### A 1C #### [facility] [address] [address] [address] lAfred Issa HbA1c (Bld) [Mass fraction] 5.4 % Normal 4.5-6.2 [facility] Comment on above: Performed By: #### A 1C #### [facility] [address] [address] [address] Alfred Issa IRONon 11-16-2022 Iron [Mass/Vol] 127.0 ug/dL Normal 50.0-170.0 [facility] Comment on above: Performed By: #### I LEIGH ANN #### [facility] [address] [address] [address] Alfred Issa LIPID PROFILEon 11-16-2022 CHOL-HDL RATIO NORM SEE BELOW Normal [facility] Comment on above: Result Comment: 3.3 - 4.4 LOW RISK 4.4 - 7.1 AVERAGE RISK 7.1 - 11.0 MODERATE RISK >11.0 HIGH RISK Performed By: #### L IPID, TSH, T7, URIC, CRP, CMP ####[facility] [address] [id number]. Alfred Issa Cholesterol [Mass/Vol] 197 mg/dL Normal <=200 Th [facility] Comment on above: Performed By: #### L IPID, TSH, T7, URIC, CRP, CMP ####[facility] [address] [id number]. Alfred Issa Cholesterol in HDL [Mass/Vol] 39 mg/dL Critically low 40-60 [facility] Comment on above: Performed By: #### L IPID, TSH, T7, URIC, CRP, CMP ####[facility] [address] [address]Dr. Alfred Issa Cholesterol in LDL [Mass/Vol] 116.8 mg/dL Normal [facility] Comment on above: Performed By: #### L IPID, TSH, T7, URIC, CRP, CMP ####[facility] [address] [address]Dr. Alfred Issa Cholesterol.total/Chol esterol in HDL [Mass ratio] 5.1 {ratio} Normal [facility] Comment on above: Performed By: #### L IPID, TSH, T7, URIC, CRP, CMP ####[facility] [address] [place], [place] [address]Dr. Alfred Issa HDL NORMAL > or = 60 mg/dl - LOW CARDIOVASCULAR RISK <40 mg/dl - HIGH CARDIOVASCULAR RISK Normal [facility] Comment on above: Performed By: #### L IPID, TSH, T7, URIC, CRP, CMP ####[facility] [address] [place], [place] [address]Dr. Alfred Issa LDL CALC NORMAL SEE BELOW Normal [facility] Comment on above: Result Comment: <100 mg/dl OPTIMAL 100 - 129 mg/dl NEAR OR ABOVE OPTIMAL 130 - 159 mg/dl BORDERLINE HIGH 160 - 189 mg/dl HIGH >190 mg/dl VERY HIGH Performed By: #### L IPID, TSH, T7, URIC, CRP, CMP ####[facility] [address] [address]Dr. Alfred Issa Triglyceride [Mass/Vol] 206 mg/dL Critically high <=150 [facility] Comment on above: Performed By: #### L IPID, TSH, T7, URIC, CRP, CMP ####[facility] [address] [address]Dr. Alfred Issa VLDL CALC 41.2 mg/dL Normal [facility] Comment on above: Performed By: #### L IPID, TSH, T7, URIC, CRP, CMP ####[facility] [address] [place], [place] [address]Dr. Alfred Issa OCC BLD IMMUNO SCREENon 10-31 OCCULT BLOOD Negative Normal NEGATIVE [facility] Comment on above: Performed By: #### O BSCRN ####[facility] [address] [address]Dr. Alfred Issa PROF 14(COMP METB)on 023 Albumin [Mass/Vol] 4.0 g/dL Normal 3.4-5.0 [facility] Comment on above: Performed By: #### L IPID, TSH, T7, URIC, CRP, CMP ####[facility] [address] [address]Dr. Alfred Issa Albumin/Globulin [Mass ratio] 1.1 {ratio} Normal [facility] Comment on above: Performed By: #### L IPID, TSH, T7, URIC, CRP, CMP ####[facility] [address] [address]Dr. Alfred Issa ALP [Catalytic activity/Vol] 104 U/L Normal 46-116 [facility] Comment on above: Performed By: #### L IPID, TSH, T7, URIC, CRP, CMP ####[facility] [address] [address]Dr. Alfred Issa ALT [Catalytic activity/Vol] 26 U/L Normal 14-59 [facility] Comment on above: Performed By: #### L IPID, TSH, T7, URIC, CRP, CMP ####[facility] [address] [address]Dr. Alfred Issa Anion gap [Moles/Vol] 13.2 mmol/L Normal [facility] Comment on above: Performed By: #### L IPID, TSH, T7, URIC, CRP, CMP ####[facility] [address] [address]Dr. Alfred Issa AST [Catalytic activity/Vol] 20 U/L Normal 15-37 [facility] Comment on above: Performed By: #### L IPID, TSH, T7, URIC, CRP, CMP ####[facility] [address] [address]Dr. Alfred Issa Bilirubin [Mass/Vol] 0.6 mg/dL Normal 0.2-1.0 [facility] Comment on above: Performed By: #### L IPID, TSH, T7, URIC, CRP, CMP ####[facility] [address] [place], [place] [address]Dr. Alfred Issa Calcium [Mass/Vol] 9.3 mg/dL Normal 8.5-10.1 [facility] Comment on above: Performed By: #### L IPID, TSH, T7, URIC, CRP, CMP ####[facility] [address] [place], [place] [address]Dr. Alfred Issa Chloride [Moles/Vol] 100 mmol/L Normal 98-107 [facility] Comment on above: Performed By: #### L IPID, TSH, T7, URIC, CRP, CMP ####[facility] [address] [place], [place] [address]Dr. Alfred Issa CO2 [Moles/Vol] 26.6 mmol/L Normal 21.0-32.0 [facility] [place] Comment on above: Performed By: #### L IPID, TSH, T7, URIC, CRP, CMP ####[facility] [address] [place], [place] [address]Dr. Alfred Issa Creatinine [Mass/Vol] 0.56 mg/dL Normal 0.55-1.02 [facility] Comment on above: Performed By: #### L IPID, TSH, T7, URIC, CRP, CMP ####[facility] [address] [place], [place] [address]Dr. Alfred Issa EGFR-AF GREEK >60 Normal >=60 [facility] [place] Comment on above: Performed By: #### L IPID, TSH, T7, URIC, CRP, CMP ####[facility] [address] [place], [place] [address]Dr. Alfred Issa EGFR-NON AF GREEK >60 Normal >=60 [facility] Comment on above: Performed By: #### L IPID, TSH, T7, URIC, CRP, CMP ####[facility] [address] [address]Dr. Alfred Issa Globulin (S) [Mass/Vol] 3.5 g/dL Normal [facility] Comment on above: Performed By: #### L IPID, TSH, T7, URIC, CRP, CMP ####[facility] [address] [place], [place] [address]Dr. Alfred Issa Glucose [Mass/Vol] 112 mg/dL Critically high 74-106 [facility] Comment on above: Performed By: #### L IPID, TSH, T7, URIC, CRP, CMP ####[facility] [address] [place], [place] [address]Dr. Alfred Issa Potassium [Moles/Vol] 3.8 mmol/L Normal 3.5-5.1 [facility] Comment on above: Performed By: #### L IPID, TSH, T7, URIC, CRP, CMP ####[facility] [address] [place], [place] [address]Dr. Alfred Issa Protein [Mass/Vol] 7.5 g/dL Normal 6.4-8.2 [facility] Comment on above: Performed By: #### L IPID, TSH, T7, URIC, CRP, CMP ####[facility] [address] [place], [place] [address]Dr. Alfred Issa Sodium [Moles/Vol] 136 mmol/L Normal 136-145 [facility] Comment on above: Performed By: #### L IPID, TSH, T7, URIC, CRP, CMP ####[facility] [address] [place], [place] [address]Dr. Alfred Issa Urea nitrogen [Mass/Vol] 8.0 mg/dL Normal 7.0-18.0 [facility] Comment on above: Performed By: #### L IPID, TSH, T7, URIC, CRP, CMP ####[facility] [address] [place], [place] [address]Dr. Alfred Issa Urea nitrogen/Creatinine [Mass ratio] 14.3 mg/mg Normal [facility] Comment on above: Performed By: #### L IPID, TSH, T7, URIC, CRP, CMP ####[facility] [address] [place], [place] [address]Uq. Alfred Issa TSHon 11-16-2022 TSH 1.787 uIU/mL Normal 0.358-3.740 [facility] Comment on above: Performed By: #### L IPID, TSH, T7, URIC, CRP, CMP ####[facility] [address] [place], [place] [address]Ky. Alfred Issa URIC ACID SERUMon 11-16-2022 Urate [Mass/Vol] 5.3 mg/dL Normal 2.6-6.0 [facility] Comment on above: Performed By: #### L IPID, TSH, T7, URIC, CRP, CMP ####[facility] [address] [place], [place] [address]Rt. Alfred Issa Cult,Aerobe/Anaerobeon 03-29 Cult,Aerobe/Anaerobe Specimen Descriptio n .FACE RIGHT .ABSCESS SWAB Special Requests NOT REPORTED Direct Exam FEW NEUTROPHILS RARE GRAM POSITIVE COCCI IN PAIRS Culture HAEMOPHILUS PARAINFLUENZAE SCANT GROWTH BETA LACTAMASE NEGATIVE NORMAL MAGALYS MIXED ANAEROBIC MAGALYS Report Status FINAL 03/29/2020 [facility] Comment on above: Performed By: #### A ANC #### [facility] [address] [place] [phone] Bin Packer: Wilfredo Keyes MD Basic Metab w/rfx MGon 03-24 (cont.) [facility] Comment on above: Result Comment: Aver age GFR for 20-29 years old: 116 mL/min/1.73sq m Chronic Kidney Disease: <60 mL/min/1.73sq m Kidney failure: <15 mL/min/1.73sq m eGFR calculated using average adult body mass. Additional eGFR calculator available at: http://www.[employer] interprises/multiple_crcl_2012.htm Performed By: #### C BC, BMPX, PT #### [facility] [address] [place], [place] [id number] Bin Packer: Wilfredo Keyes MD Anion gap [Moles/Vol] 15 mmol/L Normal 9-17 [facility] Comment on above: Performed By: #### C BC, BMPX, PT #### [facility] [address] [place] [id number] Bin Packer: Wilfredo Keyes MD Calcium [Mass/Vol] 9.0 mg/dL Normal 8.6-10.4 [facility] Comment on above: Performed By: #### C BC, BMPX, PT #### [facility] [address] [place] [phone] Bin Packer: Wilfredo Keyes MD Chloride [Moles/Vol] 99 mmol/L Normal 98-107 [facility] [place] [facility] Comment on above: Performed By: #### C BC, BMPX, PT #### [facility] [address] [place] [phone] Bin Packer: Wilfredo Keyes MD CO2 [Moles/Vol] 25 mmol/L Normal 20-31 [facility] Comment on above: Performed By: #### C BC, BMPX, PT #### [facility] [employer] [address] [place] [phone] Bin Packer: Wilfredo Keyes MD Creatinine [Mass/Vol] 0.45 mg/dL Low 0.50-0.90 [facility] Comment on above: Performed By: #### C BC, BMPX, PT #### [facility] [address] [place] [phone] Bin Packer: Wilfredo Keyes MD GFR, Amer >60 Normal >60 [facility] Comment on above: Performed By: #### C BC, BMPX, PT #### [facility] [address] [place] [phone] Bin Packer: Wilfredo Keyes MD GFR,non Amer >60 Normal >60 [facility] [place] [facility] Comment on above: Performed By: #### C BC, BMPX, PT #### [facility] [address] [place] [phone] Bin Packer: Wilfredo Keyes MD Glucose [Mass/Vol] 90 mg/dL Normal 70-99 [facility] Comment on above: Performed By: #### C BC, BMPX, PT #### [facility] [address] [place] [phone] Bin Packer: Wilfredo Keyes MD Potassium [Moles/Vol] 3.7 mmol/L Normal 3.7-5.3 [facility] Comment on above: Performed By: #### C HOSEA, BMPX, PT #### [facility] [address] [place] [phone] Bin Packer: Wilfredo Keyes MD Sodium [Moles/Vol] 139 mmol/L Normal 135-144 [facility] Comment on above: Performed By: #### Koffi BC, BMPX, PT #### [facility] [address] [place] [phone] Bin Packer: Wilfredo Keyes MD Urea nitrogen [Mass/Vol] 8 mg/dL Normal 6-20 [facility] Comment on above: Performed By: #### C BC, BMPX, PT #### [facility] [address] [place] [phone] Bin Packer: Wilfredo Keyes MD BUN/CRE Ratio NOT REPORTED Normal -20 [facility] Comment on above: Performed By: #### C BC, BMPX, PT #### [facility] [address] [place] [phone] Bin Packer: Wilfredo Keyes MD Staging: NOT REPORTED Normal [facility] Comment on above: Performed By: #### C BC, BMPX, PT #### [facility] [address] [place] [phone] Bin Packer: Wilfredo Keyes MD Basic Metabolic Panel w/ Ref rodríguez to MGon 03-24-2020 Anion gap [Moles/Vol] 15 mmol/L 9 - 17 mmol/L [place], [place] Bun/Cre Ratio NOT REPORTED [facility] [place] [place] Calcium [Mass/Vol] 9.0 mg/dL 8.6 - 10. 4 mg/dL [place], [place] Chloride [Moles/Vol] 99 mmol/L 98 - 10 7 mmol/L [place], [place] CO2 [Moles/Vol] 25 mmol/L 20 - 31 mmol/L [place] Creatinine [Mass/Vol] 0.45 mg/dL Low 0.5 - 0.9 mg/dL [place], [place] GFR >60 >60 mL/min [place], [place] GFR Non- >60 >60 mL/min [place] GFR/1.73 sq M predicted among non-blacks MDRD (S/P/Bld) [Vol rate/Area] NOT REPORTED [place] GFR/1.73 sq M predicted among non-blacks MDRD (S/P/Bld) [Vol rate/Area] [place], [place] Comment on above: Average GFR for 20-2 9 years old: 116 mL/min/1.73sq m Chronic Kidney Disease: <60 mL/min/1.73sq m Kidney failure: <15 mL/min/1.73sq m eGFR calculated using average adult body mass. Additional eGFR calculator available at: http://www.[employer] interprises/multiple_crcl_2012.htm Glucose [Mass/Vol] 90 mg/dL 70 - 99 mg/dL [place], [place] Interpretation and review of laboratory results Abnormal [place], [place] Potassium [Moles/Vol] 3.7 mmol/L 3.7 - 5.3 mmol/L [place] Sodium [Moles/Vol] 139 mmol/L 135 - 144 mmol/L [place] Urea nitrogen [Mass/Vol] 8 mg/dL 6 - 20 mg/dL [place], [place] CBCon 03-24-2020 Erythrocyte distribution width (RBC) [Ratio] 12.6 % Normal 11.8-14.4 [facility] Comment on above: Performed By: #### C BC, BMPX, PT #### [facility] [address] [place] [address] [phone] Bin Packer: Wilfredo Keyes MD Hematocrit (Bld) [Volume fraction] 41.9 % Normal 36.3-47.1 [facility] Comment on above: Performed By: #### C BC, BMPX, PT #### [facility] [address] [place] [address] [phone] Bin Packer: Wilfrdeo Keyes MD Hemoglobin (Bld) [Mass/Vol] 14.2 g/dL Normal 11.9-15.1 [facility] Comment on above: Performed By: #### C BC, BMPX, PT #### [facility] [address] [place] [address] [phone] Bin Packer: Wilfredo Keyes MD MCH (RBC) [Entitic mass] 28.9 pg Normal 25.2-33.5 [facility] Comment on above: Performed By: #### C HOSEA BMPX, PT #### [facility] [address] [place] [address] [phone] Bin Packer: Wilfredo Keyes MD MCHC (RBC) [Mass/Vol] 33.9 g/dL Normal 28.4-34.8 [facility] Comment on above: Performed By: #### C BC, BMPX, PT #### [facility] [address] [place] [address] [phone] Bin Packer: Wilfredo Keyes MD MCV (RBC) [Entitic vol] 85.3 fL Normal 82.6-102.9 [facility] Comment on above: Performed By: #### C BC, BMPX, PT #### [facility] [employer] [address] [place] [address] [phone] Bin Packer: Wilfredo Keyes MD NRBC Automated 0.0 per 100 WBC Normal 0.0 [facility] Comment on above: Performed By: #### C HOSEA BMPX, PT #### [facility] [address] [place] [address] [phone] Bin Packer: Wilfredo Keyes MD Platelet mean volume (Bld) [Entitic vol] 8.5 fL Normal 8.1-13.5 [facility] Comment on above: Performed By: #### C HOSEA BMPX, PT #### [facility] [address] [place] [address] [phone] Bin Packer: Wilfredo Keyes MD Platelets (Bld) [#/Vol] 256 10*3/uL Normal 138-453 [facility] Comment on above: Performed By: #### Koffi JC BMPX, PT #### [facility] [address] [place] [address] [phone] Bin Packer: Wilfredo Keyes MD RBC (Bld) [#/Vol] 4.91 10*6/uL Normal 3.95-5.11 [facility] Comment on above: Performed By: #### Koffi JC BMPX, PT #### [facility] [address] [place] [address] [phone] Bin Packer: Wilfredo Keyes MD WBC (Bld) [#/Vol] 10.0 10*3/uL Normal 4.5-13.5 [facility] Comment on above: Performed By: #### Koffi JC BMPX, PT #### [facility] [address] [place] [address] [phone] Bin Packer: Wilfredo Keyes MD Erythrocyte distribution width (RBC) [Ratio] 12.6 % 11.8 - 14.4 % [place] Hematocrit (Bld) [Volume fraction] 41.9 % 36.3 - 47.1 % [place] Hemoglobin (Bld) [Mass/Vol] 14.2 g/dL 11.9 - 15.1 g/dL [place] MCH (RBC) [Entitic mass] 28.9 pg 25.2 - 33.5 pg [place] MCHC (RBC) [Mass/Vol] 33.9 g/dL 28.4 - 34.8 g/dL [place] MCV (RBC) [Entitic vol] 85.3 fL 82.6 - 102.9 fL [place] Platelet mean volume (Bld) [Entitic vol] 8.5 fL 8.1 - 13.5 fL [place] Platelets (Bld) [#/Vol] 256 10*3/uL [place] RBC (Bld) [#/Vol] 4.91 10*6/uL 3.95 - 5.1 1 m/uL [place] WBC (Bld) [#/Vol] 0.0 10*3/uL 0.0 per 10 0 WBC [place] WBC (Bld) [#/Vol] 10.0 10*3/uL [place] COVID-19on 03-24-2020 SARS-CoV-2 Not Detected Not Detected [place], [place] Comment on above: The specimen is NEGATIVE for SARS-CoV-2, the novel coronavirus associated with COVID-19. A negative result does not rule out COVID-19. This test has been authorized by the FDA under an Emergency Use Authorization (EUA) for use by authorized laboratories. Fact sheet for Healthcare Providers: https://www.fda.gov/media/220066/download Fact sheet for Patients: https://www.fda.gov/media/966081/download METHODOLOGY: RT-PCR SARS-CoV-2, PCR [facility] [place] SARS-CoV-2, Rapid [facility] [place] Source .NASOPHARYNGEAL SWAB [place], [place] Gram Stainon 03-24-2020 Microscopic observation Gram stain Nom (Unsp spec) Specimen Description .FACE RIGHT .ABSCESS SWAB Special Requests NOT REPORTED Direct Exam DUPLICATE ORDER GRAM STN INCLUDED WITH CULTURE Report Status FINAL 03/24/2020 Normal [facility] Comment on above: Performed By: #### G S #### [facility] [place] [address] Bin Packer: Wilfredo Keyes MD Direct Exam DUPLICATE ORDER GRAM STN INCLUDED WITH CULTURE [place], [place] Special Requests NOT REPORTED [place] Specimen Description .FACE RIGHT [place], [place] HCG, ,Urineon 03-24 Beta HCG ( test) Ql (U) Negative Normal NEG [facility] Comment on above: Result Comment: Spec imens with hCG levels near the threshold of the test (25 mIU/mL) may give a negative or indeterminate result. In such cases, another test should be performed with a new specimen in 48-72 hours. If early is suspected clinically in this setting, correlation with quantitative serum b-hCG level is suggested. Performed By: #### U HCG #### [address] [phone] Bin Packer: Wilfredo Keyes MD PTon 03-24-2020 INR Coag (PPP) [Relative time] 1.0 {INR} Normal [facility] Comment on above: Result Comment: Therapeutic Range: Moderate Anticoagulant Intensity: INR = 2.0-3.0 High Anticoagulant Intensity: INR = 2.5-3.5 Performed By: #### C BC, BMPX, PT #### [facility] [address] [place] [address] [phone] Bin Packer: Wilfredo Keyes MD PT Coag (PPP) [Time] 10.7 s Normal 9.0-12.0 [facility] Comment on above: Performed By: #### C BC, BMPX, PT #### [facility] [address] [place] [address] [phone] Bin Packer: Wilfredo Keyes MD , urine pre-opon Beta HCG ( test) Ql (U) Negative NEGATIVE [place] Comment on above: Specimens with hCG [...] INR Coag (PPP) [Relative time] 1.0 {INR} [place] Comment on above: Therapeutic Range: Moderate Anticoagulant Intensity: INR = 2.0-3.0 High Anticoagulant Intensity: INR = 2.5-3.5 PT Coag (PPP) [Time] 10.7 s [place], [place] [id number] 03-24-2020 SARS-CoV-2,Rapid Normal [facility] Comment on above: Performed By: #### C OVID #### [facility] [address] [place] [address] [phone] Bin Packer: Wilfredo Keyes MD SARS-CoV-2 [facility] Comment on above: Performed By: #### C OVID #### [address] [phone] Bin Packer: Wilfredo Keyes MD SARS-CoV-2 Not Detected [facility] Comment on above: Result Comment: The specimen is NEGATIVE for SARS-CoV-2, the novel coronavirus associated with COVID-19. A negative result does not rule out COVID-19. This test has been authorized by the FDA under an Emergency Use Authorization (EUA) for use by authorized laboratories. Fact sheet for Healthcare Providers: https://www.fda.gov/media/207554/download Fact sheet for Patients: https://www.fda.gov/media/093577/download METHODOLOGY: RT-PCR Performed By: #### C OVID #### [facility] [address] [place] [address] [phone] Bin Packer: Wilfredo Keyes MD [id number] 03-23-2020 SARS-CoV-2 Source .NASOPHARYNGEAL SWAB [facility] Comment on above: Performed By: #### C OVID #### [facility] [address] [place] [address] [phone] Bin Packer: Wilfredo Keyes MD Vital Signs Date Time Vital Sign Value Performing Clinician Facility 08-01-2024 13:57-0400 Body height 165.1 cm Jane Smithr DIRECTOR ORACLE Work Phone: [facility] 08-01-2024 13:57-0400 Body mass index (BMI) [Ratio] 33.78 kg/m2 Jane Pittmanmor DIRECTOR ORACLE Work Phone: [facility] 08-01-2024 13:57-0400 Body weight 92.08 kg Jane Smithr DIRECTOR ORACLE Work Phone: [facility] 08-01-2024 13:57-0400 Diastolic blood pressure 84 mm[Hg] Jane Pittmanmor DIRECTOR ORACLE Work Phone: [facility] 08-01-2024 13:57-0400 Heart rate 85 /min Jane Smithr DIRECTOR [employer]ACLE Work Phone: [facility] 08-01-2024 13:57-0400 SaO2% (BldA) [Mass fraction] 98 % Jane Smithr DIRECTOR [employer]ACLE Work Phone: [facility] 08-01-2024 13:57-0400 Systolic blood pressure 122 mm[Hg] Jane Pittmanmor DIRECTOR ORACLE Work Phone: [facility] 07-29-2021 14:00-0400 Body height 162.56 cm Franco Rajput Other [employer] Other 07-29-2021 14:00-0400 Body mass index (BMI) [Ratio] 27.29 kg/m2 Franco Rajput Other [employer] Other 07-29-2021 14:00-0400 Body weight 72.12 kg Franco Rajput Other [employer] Other 07-29-2021 14:00-0400 Diastolic blood pressure 87 mm[Hg] Franco Rajput Other [employer] Other 07-29-2021 14:00-0400 Systolic blood pressure 121 mm[Hg] Franco Rajput Other [place] [employer] Other 03-25-2020 08:00-0400 Body Temperature 97.7 [degF] Fang Carlson [place] , [place] 03-25-2020 08:00-0400 BP Diastolic 83 mm[Hg] [facility] , [place] 03-25-2020 08:00-0400 BP Systolic 139 mm[Hg] [place], [place] 03-25-2020 08:00-0400 Pulse (Heart Rate) 89 /min [place], [place] 03-25-2020 08:00-0400 Respiratory Rate 18 /min Fang Counts Include [facility] [place] 03-24-2020 20:45-0400 Pulse Oximetry 99 % [place], [place] 03-23-2020 20:13-0400 BMI (Body Mass Index) 22.31 kg/m2 [place] 03-23-2020 20:13-0400 Body weight 58.97 kg [place] 03-23-2020 20:13-0400 Height 162.6 cm [place] Encounters Encounter Date Encounter Type Care Provider Facility Start: 08-14-2024 ambulatory Salvatore Duque acility:[facility] Start: 08-01-2024 End: 08-01-2024 Bamboo flowsheet Jane Baron DIRECTOR ORACLE Work Phone: [facility] Start: 08-01-2024 End: 08-01-2024 Bamboo flowsheet Jane Baron DIRECTOR ORACLE Work Phone: [facility] Start: 08-01-2024 End: 08-01-2024 Office outpatient visit 25 minutes Jane Baron DIRECTOR ORACLE Work Phone: [facility] Comment on above: SHENG (obstructive sle [...] Start: 07-29-2021 Patient encounter procedure Franco Rajput [facility] Start: 03-23-2020 End: 03-25-2020 Evaluation and management of inpatient ANDREA PINTO [facility] Start: 03-23-2020 End: 03-25-2020 Evaluation and [...] REFLEX TO MG FOR LOW K Berta [employer] Work Phone: Start: 03-24-2020 Blood count complete automated [employer] Work Phone: Start: 03-24-2020 Prothrombin time Shirvinny jameson [employer] Work Phone: Start: 03-24-2020 PATIENT STATUS (FROM ED OR OR/PROCEDURAL) ANDREA PINTO Start: 03-23-2020 COVID-19 ANDERA SPAULDING Start: 03-23-2020 PATIENT STATUS (FROM ED OR OR/PROCEDURAL) ANDREA PINTO Start: 03-23-2020 IP CONSULT TO HOSPITALIST ANDREA PINTO Start: 03-23-2020 IP CONSULT TO ORAL SURGERY ANDREA PINTO Start: 03-23-2020 COVID-19 Carlos camargo Work Phone: Plan of Treatment Date Care Activity Detail Author Start: 08-01-2024 End: 08-01-2024 Patient encounter procedure 08/01/2024 2:00 PM EDT Office Visit [facility] [address] [place] [phone] Jane Baron NP [address] [place], [place] Arrived [facility] Comment on above: Arrived Start: 07-01-2024 Influenza vaccination Influenza Vacc ine (#1) [facility] Start: 07-01-2020 Influenza vaccination Flu vacc ine (Season Ended) [facility] [place], [place] Culture, Anaerobic a nd Aerobic Culture, Anaerobic and Aerobic Microbiology Routine 03/24/2020 1:13 PM EDT [facility] [place], [place] Immunizations Immunization Date Immunization Notes Care Provider Reshma robles 08-03-2023 influenza virus vacc ine, unspecified formulation Jane Baron NP Work Phone: [facility] Payers Date Payer Category Payer Medicaid [employer] [place] [id number] 2024-Present [address] [place] [address] [id number] 2023 Self-pay 2014 Unknown BCBS BCBS OUT OF STATE xxxxxxxxxxxx 2014-Present [address] [place] [address] xxxxxxxxxxxx [id number] 1998 Unknown [id number] 1998 Unknown [id number] 1998 Unknown [id number] .593 1998 Unknown [id number] [id number] .593 1998 Unknown [id number] [id number] .593 1998 Unknown [id number] [id number] .593 1998 Unknown [id number] [id number] .593 1998 Unknown [id number] .593 1998 Unknown [id number] .[id number] 1959 Private Health Insurance [id number] 1959 Unknown [id number] 1959 Unknown [id number] 1959 Unknown [id number] Unknown [id number] Social History Date Type Detail Facility Start: 03-25-2020 End: 08-01-2024 Tobacco smoking status NHIS Current every day sm[place] Start: 03-25-2020 End: 08-01-2024 Alcohol intake Current drinker of alcohol (finding) [place] Start: 03-23-2020 History SDOH Alcohol Frequency 3 [place] Start: 03-23-2020 History SDOH Alcohol Std Drinks 1 [place] Start: 03-23-2020 History SDOH Alcohol Binge 4 [place] Start: 03-23-2020 Alcohol Comment none this week [place], [place] Start: 2000 Sex Assigned At Not on file M [place], [place] Exposure to SARS-CoV -2 (event) Unable to assess [place] Start: 07-29-2024 End: 08-01-2024 Sex Assigned At [facility] [employer] Other Start: 07-29-2024 Tobacco smoking stat NHIS Ex-smoker [facility] History of tobacco use [...] authenticated by: PURVI OLIVIER Date: 2022-07-15 11:44 [facility] Evaluation note 07-29-2021 Note Date & Type Note Facility 07-29-2021 Evaluation note Encounter Date Diagnosis Assessment Notes Jul, Gastritis (ICD-10 - K29.70) Gastritis material was printed Continue Omeprazole 40mg once daily Follow up in 6 months [employer] Other Evaluation note Note Date & Type Note Facility Evaluation note Diagnosis SHENG (obstructive sleep apnea)- Primary Obstructive sleep apnea (adult) (pediatric) Snoring Other dyspnea and respiratory abnormality Daytime hypersomnolence Obesity (BMI 30.0-34.9) Depression, unspecified depression type (CMS/HCC) documented in this encounter [facility] Healthcare History general Narrative - Reported Note Date & Type Note Facility History general Narrative - Reported Type Surgical History oral abscess [facility] Other History of Present Illness * Jojo [...] NEUTROPHILS Direct Exam Abnormal 03/24/2020 1:13 PM [employer] Arleth Marcus RARE GRAM POSITIVE COCCI IN PAIRS Culture 03/24/2020 1:13 PM [employer] Arleth Marcus PENDING Current Inpatient Medications Current [...] improve 5. F/u OMFS thaddeus 1 week [phone] * Danielle Villarreal MD - 03/25/2020 7:17 AM EDT [facility] IN-PATIENT SERVICE [facility] Progress Note 03/25/2020 7:18 AM Name: Jordan Tello Acct: [id number] Room: 0331/0331-01 IP Day: 2 Admit Date: [...] History: Patient originally presented to [facility] via EMS for the complaint of [...] to the emergency room. Her work-up at [facility] show to have a dental abscess 2 x 1 x 1 on the right mandibular side with extension into the masseter muscle at that time it was recommended that patient be transferred to [facility] for OMF evaluation. Of significant laboratory [...] No results for input(s): PROT, LABALBU, LABA1C, D2XWIAS, H4ATGSE, FT4, TSH, AST, ALT, LDH, GGT, ALKPHOS, LABGGT, BILITOT, BILIDIR, AMMONIA, AMYLASE, LIPASE, LACTATE, CHOL, HDL, LDLCHOLESTEROL, CHOLHDLRATIO, TRIG, VLDL, UTT44SD, PHENYTOIN, PHENYF, URICACID, POCGLU in the last 72 hours. ABG:No results found for: POCPH, PHART, PH, POCPCO2, QIJ8HDR, PCO2, POCPO2, PO2ART, PO2, POCHCO3, MZS2VJH, HCO3, NBEA, PBEA, BEART, BE, THGBART, THB, NIM6BRU, MCYT3PEK, A7MPTFWX, O2SAT, FIO2 Lab Results Component Value Date/Time [...] Charliemarbin, DO - 03/24/2020 11:29 AM EDT [facility] IN-PATIENT SERVICE [facility] Progress Note 03/24/2020 11:29 AM Name: Jordan Tello Acct: [id number] Room: 0331/0331-01 Day: 1 Admit Date: 03/23/2020 [...] Record: Patient originally presented to [facility] via EMS for the complaint of [...] to the emergency room. Her work-up at [facility] show to have a dental abscess 2 x 1 x 1 on the right mandibular side with extension into the masseter muscle at that time it was recommended that patient be transferred to [facility] for OMF evaluation. Of significant laboratory [...] No results for input(s): PROT, LABALBU, LABA1C, J1SMIJT, W7YXCGR, FT4, TSH, AST, ALT, LDH, GGT, ALKPHOS, LABGGT, BILITOT, BILIDIR, AMMONIA, AMYLASE, LIPASE, LACTATE, CHOL, HDL, LDLCHOLESTEROL, CHOLHDLRATIO, TRIG, VLDL, [id number], PHENYTOIN, PHENYF, URICACID, POCGLU in the last 72 hours. ABG:No results found for: POCPH, PHART, PH, POCPCO2, UEU7DPI, PCO2, POCPO2, PO2ART, PO2, POCHCO3, HRB7DUB, HCO3, NBEA, PBEA, BEART, BE, THGBART, THB, [id number], GOTP8PDL, [id number], O2SAT, FIO2 No results found for: SPECIAL [...] FoundDocuments on File Type Date Recorded Patient Information Resource Consultant Expl anation Advance Directives and Living Will Power of Fire Captain Latest Code Status on File Code Status [...] abscess Oral abscess Francisco Garcia DO [address] [place] [address] [facility] Reason Comments Sleep Apnea INFORMATION SOURCE (unrecogn ized section and content) DATE CREATED AUTHOR 04/06/2020 [facility] DATE CREATED AUTHOR AUTHOR'S ORGANIZ ATION 03/16/2023 [facility] pital DATE CREATED AUTHOR AUTHOR'S ORGANIZ ATION 08/03/2024 [facility] EPIC DATE CREATED AUTHOR AUTHOR'S ORGANIZ ATION 08/16/2024 [facility] y[facility] Care Teams (unrecognized sec tion and content) Rod Drawer Relationship Specialty Start Date End Date Srinivasan Rogers DO [address] [place] [address] PCP - General Family Medicine 03/08/23 Rod Drawer Relationship Specialty Start Date End Date Srinivasan Rogers DO [address] [place] [address] PCP - General Family Medicine 03/08/23 FOR [...] BE BASED ON THE PRIMARY CLINICAL RECORDS. [facility] [employer] [facility]. provides no warranty or guarantee of the accuracy or completeness of information in this document.
--- OUTSIDE RECORDS SUMMARY | 2024-08-21 10:12 | XMS_ITS | CCD ---
Author Organization [facility] Care Team Providers Care Dean Name Role Phone Glenna Carlin Primary Care [...] Unavailable Srinivasan Rogers DO Primary Care Provider [phone] Salvatore Hendricks Attending Unavailab Salvatore Nagel Admitting Unavailab Glenna Michael Primary Care Unavailable Allergies Allergy Classification Reported Allergen(s) Allergy Type Date of Onset Reaction(s) Facility (1 source) Corticosteroids Drug allergy (disorder) [facility] Repository (2 sources) Corticosteroids and derivatives Drug Allergy 1 [facility] (1 source) Corticosteroids Drug allergy (disorder) 1 [facility] Repository Medications Current Medications Medication Drug [...] eye irritant). Active take 1 capsule by [facility] every twenty-four hours Strattera 25 MG 1 [...] PURVI OLIVIER Date: 2022-12-16 10:55 Normal [facility] MATEO by IFAon 11-18-2022 Antinuclear Antibodies, IFA Negative Normal [facility] Comment on above: Result Comment: Nega tive <1:80 Borderline 1:80 Positive >1:80 ICAP nomenclature: AC-0 For more information about Hep-2 cell patterns use ANApatterns.org, the official website for the International Consensus on Antinuclear Antibody (MATEO) Patterns (ICAP). Performed By: #### A GABYIFCandelario #### [facility] [address] [place] [address] Dr. Alfred Issa MATEO DIRECTon 11-17-2022 MATEO Direct Negative Normal Negative [facility] Comment on above: Performed By: #### A NAD #### [facility] [address] [place] [address] Dr. Alfred Issa ANTISTREPTOLYSIN O AB (ASO)o n 11-17-2022 Antistreptolysin O Ab 29.0 IU/mL Normal 0.0-200.0 [facility] Comment on above: Performed By: #### A SOAB #### [facility] [address] [place] [address] Dr. Alfred Issa C3 and C4 COMPLEMENTon 11-17 Complement C3, Serum 181 mg/dL Critically high 82-167 [facility] Comment on above: Performed By: #### C SUITE #### [facility] [address] [place] [address] Dr. Alfred Issa Complement C4, Serum 28 mg/dL Normal 12-38 [facility] Comment on above: Performed By: #### C SUITE #### [facility] [address] [place] [address] Dr. Alfred Issa INSULINon 11-17-2022 Insulin 29.2 uIU/mL Critically high 2.6-24.9 [facility] Comment on above: Performed By: #### I NSULIN #### [facility] [address] [place] [address] Dr. Alfred Issa SLE PROFILE Aon 11-17-2022 Anti-DNA (DS) Ab Qn 1 IU/mL Normal 0-9 [facility] Comment on above: Result Comment: Nega tive <5 Equivocal 5 - 9 Positive >9 Performed By: #### S RENAN #### [facility] [address] [place] [address] Dr. Alfred Issa Antichromatin Antibodies <0.2 Normal 0.0-0.9 [facility] Comment on above: Performed By: #### S RENAN #### [facility] [address] [place] [address] Dr. Alfred Issa RA Latex Turbid. <10.0 Normal <14.0 [facility] Comment on above: Performed By: #### S RENAN #### [facility] [address] [place] [address] Dr. Alfred Issa [employer] Antibodies <0.2 Normal 0.0-0.9 [facility] Comment on above: Performed By: #### S RENAN #### [facility] [address] [place] [address] Dr. Alfred Issa Sjogrelio's Anti-SS-A <0.2 Normal 0.0-0.9 [facility] Comment on above: Performed By: #### S RENAN #### [facility] [address] [place] [address] Dr. Alfred Issa Sjogrelio'jd Anti-SS-B <0.2 Normal 0.0-0.9 [facility] Comment on above: Performed By: #### S RENAN #### [facility] [address] [place] [address] Dr. Alfred Issa Mckinney Antibodies <0.2 Normal 0.0-0.9 [facility] Comment on above: Performed By: #### S RENAN #### [facility] [address] [place] [address] Dr. Alfred Issa CBC AUTO DIFFon 11-16-2022 BASO # 0.0 103/ul Normal 0.0-0.1 [facility] Comment on above: Performed By: #### C BC #### [facility] [address] [place] [address] Dr. Alfred Issa Basophils/100 WBC (Bld) 0.4 % Normal 0.2-2.0 [facility] Comment on above: Performed By: #### C BC #### [facility] [address] [place] [address] Dr. Alfred Issa EO # 0.1 103/ul Normal 0.0-0.7 [facility] Comment on above: Performed By: #### C BC #### [facility] [address] [place] [address] Dr. Alfred Issa Eosinophils/100 WBC (Bld) 1.0 % Normal 0.9-7.0 [facility] Comment on above: Performed By: #### C BC #### [facility] [address] [place] [address] Dr. Alfred Issa Erythrocyte distribution width (RBC) [Ratio] 13.1 % Normal 11.0-15.0 [facility] Comment on above: Performed By: #### C BC #### [facility] [address] [place] [address] Dr. Alfred Issa Hematocrit (Bld) [Volume fraction] 43.9 % Normal 36.0-48.0 [facility] Comment on above: Performed By: #### C BC #### [facility] [address] [place] [address] Dr. Alfred Issa Hemoglobin (Bld) [Mass/Vol] 14.8 g/dL Normal 12.0-16.0 [facility] Comment on above: Performed By: #### C BC #### [facility] [address] [place] [address] Dr. Alfred Issa IG # 0.05 10e3/ul Critically high 0.00-0.03 [facility] Comment on above: Performed By: #### C BC #### [facility] [address] [place] [address] Dr. Alfred Issa IG % 0.5 % Normal 0.0-0.5 [facility] Comment on above: Performed By: #### C BC #### [facility] [address] [place] [address] Dr. Alfred Issa LYMPH # 2.7 103/ul Normal 1.2-3.8 [facility] Comment on above: Performed By: #### C BC #### [facility] [address] [place] [address] Dr. Alfred Issa Lymphocytes/100 WBC (Bld) 26.5 % Normal 20.5-60.0 [facility] Comment on above: Performed By: #### C BC #### [facility] [address] [place] [address] Dr. Alfred Issa MANUAL DIFF REQ NO Normal [facility] Comment on above: Performed By: #### C BC #### [facility] [address] [place] [address] Dr. Alfred Issa MCH (RBC) [Entitic mass] 27.5 pg Normal 26.7-34.0 [facility] Comment on above: Performed By: #### C BC #### [facility] [address] [place] [address] Dr. Alfred Issa MCHC (RBC) [Mass/Vol] 33.7 g/dL Normal 29.9-35.2 [facility] Comment on above: Performed By: #### C BC #### [facility] [address] [place] [address] Dr. Alfred Issa MCV (RBC) [Entitic vol] 81.4 fL Normal 81.0-99.0 [facility] Comment on above: Performed By: #### C BC #### [facility] [address] [place] [address] Dr. Alfred Issa MONO # 0.5 103/ul Normal 0.3-0.8 [facility] Comment on above: Performed By: #### C BC #### [facility] [address] [place] [address] Dr. Alfred Issa Monocytes/100 WBC (Bld) 4.9 % Normal 1.7-12.0 [facility] Comment on above: Performed By: #### C BC #### [facility] [address] [place] [address] Dr. Alfred Issa NEUT # 6.7 103/ul Critically high 1.4-6.5 [facility] Comment on above: Performed By: #### C BC #### [facility] [address] [place] [address] Dr. Alfred Issa Neutrophils/100 WBC (Bld) 66.7 % Normal 43.0-75.0 [facility] Comment on above: Performed By: #### C BC #### [facility] [address] [place] [address] Dr. Alfred Issa Platelet mean volume (Bld) [Entitic vol] 8.4 fL Critically low 9.5-13.5 [facility] Comment on above: Performed By: #### C BC #### [facility] [address] [address] [address] Alfred Issa PLT 312 103/ul Normal 150-450 [facility] Comment on above: Performed By: #### C BC #### [facility] [address] [address] [address] Alfred Issa RBC 5.39 106/ul Normal 4.20-5.40 [facility] Comment on above: Performed By: #### C BC #### [facility] [address] [address] [address] Alfred Issa WBC 10.1 103/ul Normal 4.0-11.0 [facility] Comment on above: Performed By: #### C BC #### [facility] [address] [address] [address] Alfred Issa CRPon 11-16-2022 CRP 0.7 mg/dL Normal <=1.0 [facility] Comment on above: Performed By: #### L IPID, TSH, T7, URIC, CRP, CMP ####[facility] [address] [address]DrJoe Issa FREE THYROXINE INDEX T7on FTI 3.50 Normal 1.30-4.50 [facility] Comment on above: Performed By: #### L IPID, TSH, T7, URIC, CRP, CMP ####[facility] [address] [address]DrJoe Issa T3U 34.0 % Normal 30.0-39.0 [facility] Comment on above: Performed By: #### L IPID, TSH, T7, URIC, CRP, CMP ####[facility] [address] [address]DrJoe Issa T4 [Mass/Vol] 10.30 ug/dL Normal 4.80-13.90 [facility] Comment on above: Performed By: #### L IPID, TSH, T7, URIC, CRP, CMP ####[facility] [address] [id number]. Alfred Issa GLYCOHEMOGLOBIN A1Con 2022 ADA RECOMMENDATION SEE BELOW Normal [facility] Comment on above: Result Comment: ADA RECOMMENDED LIMIT 4.0 - 6.0 ADA THERAPEUTIC TARGET < 7.0 ACTION SUGGESTED > 7.0 Performed By: #### A 1C #### [facility] [address] [address] [address] Alfred Issa Glucose [Mass/Vol] 108 mg/dL Normal The [facility] Comment on above: Performed By: #### A 1C #### [facility] [address] [address] [address] Alfred Issa HbA1c (Bld) [Mass fraction] 5.4 % Normal 4.5-6.2 [facility] Comment on above: Performed By: #### A 1C #### [facility] [address] [address] [address] Alfred Issa IRONon 11-16-2022 Iron [Mass/Vol] 127.0 ug/dL Normal 50.0-170.0 [facility] Comment on above: Performed By: #### I LEIGH ANN #### [facility] [address] [address] [address] Alfred Issa LIPID PROFILEon 11-16-2022 CHOL-HDL RATIO NORM SEE BELOW Normal [facility] Comment on above: Result Comment: 3.3 - 4.4 LOW RISK 4.4 - 7.1 AVERAGE RISK 7.1 - 11.0 MODERATE RISK >11.0 HIGH RISK Performed By: #### L IPID, TSH, T7, URIC, CRP, CMP ####[facility] [address] [id number]. Alfred Issa Cholesterol [Mass/Vol] 197 mg/dL Normal <=200 [facility] Comment on above: Performed By: #### L IPID, TSH, T7, URIC, CRP, CMP ####[facility] [address] [id number]. Alfred Issa Cholesterol in HDL [Mass/Vol] 39 mg/dL Critically low 40-60 [facility] Comment on above: Performed By: #### L IPID, TSH, T7, URIC, CRP, CMP ####[facility] [address] [address]Dr. Alfred Issa Cholesterol in LDL [Mass/Vol] 116.8 mg/dL Normal [facility] Comment on above: Performed By: #### L IPID, TSH, T7, URIC, CRP, CMP ####[facility] [address] [address]Dr. Alfred Issa Cholesterol.total/Chol esterol in HDL [Mass ratio] 5.1 {ratio} Normal [facility] Comment on above: Performed By: #### L IPID, TSH, T7, URIC, CRP, CMP ####[facility] [address] [place], [place] [address]Dr. Alfred Issa HDL NORMAL > or = 60 mg/dl - LOW CARDIOVASCULAR RISK <40 mg/dl - HIGH CARDIOVASCULAR RISK Normal [facility] Comment on above: Performed By: #### L IPID, TSH, T7, URIC, CRP, CMP ####[facility] [address] [place], [place] [address]Dr. Alfred Issa LDL CALC NORMAL SEE BELOW Normal [facility] Comment on above: Result Comment: <100 mg/dl OPTIMAL 100 - 129 mg/dl NEAR OR ABOVE OPTIMAL 130 - 159 mg/dl BORDERLINE HIGH 160 - 189 mg/dl HIGH >190 mg/dl VERY HIGH Performed By: #### L IPID, TSH, T7, URIC, CRP, CMP ####[facility] [address] [address]Dr. Alfred Issa Triglyceride [Mass/Vol] 206 mg/dL Critically high <=150 [facility] Comment on above: Performed By: #### L IPID, TSH, T7, URIC, CRP, CMP ####[facility] [address] [address]Dr. Alfred Issa VLDL CALC 41.2 mg/dL Normal [facility] Comment on above: Performed By: #### L IPID, TSH, T7, URIC, CRP, CMP ####[facility] [address] [place], [place] [address]Dr. Alfred Issa OCC BLD IMMUNO SCREENon 10-31 OCCULT BLOOD Negative Normal NEGATIVE [facility] Comment on above: Performed By: #### O BSCRN ####[facility] [address] [address]Dr. Alfred Issa PROF 14(COMP METB)on 023 Albumin [Mass/Vol] 4.0 g/dL Normal 3.4-5.0 [facility] Comment on above: Performed By: #### L IPID, TSH, T7, URIC, CRP, CMP ####[facility] [address] [address]Dr. Alfred Issa Albumin/Globulin [Mass ratio] 1.1 {ratio} Normal [facility] Comment on above: Performed By: #### L IPID, TSH, T7, URIC, CRP, CMP ####[facility] [address] [address]Dr. Alfred Issa ALP [Catalytic activity/Vol] 104 U/L Normal 46-116 [facility] Comment on above: Performed By: #### L IPID, TSH, T7, URIC, CRP, CMP ####[facility] [address] [address]Dr. Alfred Issa ALT [Catalytic activity/Vol] 26 U/L Normal 14-59 [facility] Comment on above: Performed By: #### L IPID, TSH, T7, URIC, CRP, CMP ####[facility] [address] [address]Dr. Alfred Issa Anion gap [Moles/Vol] 13.2 mmol/L Normal [facility] Comment on above: Performed By: #### L IPID, TSH, T7, URIC, CRP, CMP ####[facility] [address] [address]Dr. Alfred Issa AST [Catalytic activity/Vol] 20 U/L Normal 15-37 [facility] Comment on above: Performed By: #### L IPID, TSH, T7, URIC, CRP, CMP ####[facility] [address] [address]Dr. Alfred Issa Bilirubin [Mass/Vol] 0.6 mg/dL Normal 0.2-1.0 [facility] Comment on above: Performed By: #### L IPID, TSH, T7, URIC, CRP, CMP ####[facility] [address] [place], [place] [address]Dr. Alfred Issa Calcium [Mass/Vol] 9.3 mg/dL Normal 8.5-10.1 The [facility] Comment on above: Performed By: #### L IPID, TSH, T7, URIC, CRP, CMP ####[facility] [address] [place], [place] [address]Dr. Alfred Issa Chloride [Moles/Vol] 100 mmol/L Normal 98-107 [facility] Comment on above: Performed By: #### L IPID, TSH, T7, URIC, CRP, CMP ####[facility] [address] [place], [place] [address]Dr. Alfred Issa CO2 [Moles/Vol] 26.6 mmol/L Normal 21.0-32.0 [facility] Comment on above: Performed By: #### L IPID, TSH, T7, URIC, CRP, CMP ####[facility] [address] [place], [place] [address]Dr. Alfred Issa Creatinine [Mass/Vol] 0.56 mg/dL Normal 0.55-1.02 [facility] Comment on above: Performed By: #### L IPID, TSH, T7, URIC, CRP, CMP ####[facility] [address] [place], [place] [address]Dr. Alfred Issa EGFR-AF TAJIK >60 Normal >=60 [facility] Comment on above: Performed By: #### L IPID, TSH, T7, URIC, CRP, CMP ####[facility] [address] [place], [place] [address]Dr. Alfred Issa EGFR-NON AF TAJIK >60 Normal >=60 [facility] Comment on above: Performed By: #### L IPID, TSH, T7, URIC, CRP, CMP ####[facility] [address] [address]Dr. Alfred Issa Globulin (S) [Mass/Vol] 3.5 g/dL Normal [facility] Comment on above: Performed By: #### L IPID, TSH, T7, URIC, CRP, CMP ####[facility] [address] [place], [place] [address]Dr. Alfred Issa Glucose [Mass/Vol] 112 mg/dL Critically high 74-106 [facility] Comment on above: Performed By: #### L IPID, TSH, T7, URIC, CRP, CMP ####[facility] [address] [place], [place] [address]Dr. Alfred Issa Potassium [Moles/Vol] 3.8 mmol/L Normal 3.5-5.1 [facility] Comment on above: Performed By: #### L IPID, TSH, T7, URIC, CRP, CMP ####[facility] [address] [place], [place] [address]Dr. Alfred Issa Protein [Mass/Vol] 7.5 g/dL Normal 6.4-8.2 The [facility] Comment on above: Performed By: #### L IPID, TSH, T7, URIC, CRP, CMP ####[facility] [address] [place], [place] [address]Dr. Alfred Issa Sodium [Moles/Vol] 136 mmol/L Normal 136-145 The [facility] Comment on above: Performed By: #### L IPID, TSH, T7, URIC, CRP, CMP ####[facility] [address] [place], [place] [address]Dr. Alfred Issa Urea nitrogen [Mass/Vol] 8.0 mg/dL Normal 7.0-18.0 [facility] Comment on above: Performed By: #### L IPID, TSH, T7, URIC, CRP, CMP ####[facility] [address] [place], [place] [address]Dr. Alfred Issa Urea nitrogen/Creatinine [Mass ratio] 14.3 mg/mg Normal [facility] Comment on above: Performed By: #### L IPID, TSH, T7, URIC, CRP, CMP ####[facility] [address] [place], [place] [address]Xh. Alfred Issa TSHon 11-16-2022 TSH 1.787 uIU/mL Normal 0.358-3.[address] [facility] Comment on above: Performed By: #### L IPID, TSH, T7, URIC, CRP, CMP ####[facility] [address] [place], [place] [address]Pj. Alfred Issa URIC ACID SERUMon 11-16-2022 Urate [Mass/Vol] 5.3 mg/dL Normal 2.6-6.0 [facility] Comment on above: Performed By: #### L IPID, TSH, T7, URIC, CRP, CMP ####[facility] [address] [place], [place] [address]Xe. Alfred Issa Cult,Aerobe/Anaerobeon 03-29 Cult,Aerobe/Anaerobe Specimen Descriptio n .FACE RIGHT .ABSCESS SWAB Special Requests NOT REPORTED Direct Exam FEW NEUTROPHILS RARE GRAM POSITIVE COCCI IN PAIRS Culture HAEMOPHILUS PARAINFLUENZAE SCANT GROWTH BETA LACTAMASE NEGATIVE NORMAL MAGALYS MIXED ANAEROBIC MAGALYS Report Status FINAL 03/29/2020 [facility] Comment on above: Performed By: #### A ANC #### [facility] [address] [place] [phone] Supervisor Coin Machine: Wilfredo Keyes MD Basic Metab w/rfx MGon 03-24 (cont.) [facility] Comment on above: Result Comment: Aver age GFR for 20-29 years old: 116 mL/min/1.73sq m Chronic Kidney Disease: <60 mL/min/1.73sq m Kidney failure: <15 mL/min/1.73sq m eGFR calculated using average adult body mass. Additional eGFR calculator available at: http://www.WellnessFX.Greenphire/multiple_crcl_2012.htm Performed By: #### C BC, BMPX, PT #### [facility] [address] [place], [place] [id number] Supervisor Coin Machine: Wilfredo Keyes MD Anion gap [Moles/Vol] 15 mmol/L Normal 9-17 [facility] Comment on above: Performed By: #### C BC, BMPX, PT #### [facility] [address] [place] [phone] Supervisor Coin Machine: Wilfredo Keyes MD Calcium [Mass/Vol] 9.0 mg/dL Normal 8.6-10.4 [facility] Comment on above: Performed By: #### C BC, BMPX, PT #### [facility] [address] [place] [phone] Supervisor Coin Machine: Wilfredo Keyes MD Chloride [Moles/Vol] 99 mmol/L Normal 98-107 [facility] Comment on above: Performed By: #### C BC, BMPX, PT #### [facility] [address] [place] [phone] Supervisor Coin Machine: Wilfredo Keyes MD CO2 [Moles/Vol] 25 mmol/L Normal 20-31 [facility] Comment on above: Performed By: #### C BC, BMPX, PT #### [facility] [address] [place] [phone] Supervisor Coin Machine: Wilfredo Keyes MD Creatinine [Mass/Vol] 0.45 mg/dL Low 0.50-0.90 [facility] Comment on above: Performed By: #### C BC, BMPX, PT #### [facility] [address] [place] [phone] Supervisor Coin Machine: Wilfredo Keyes MD GFR, Amer >60 Normal >60 [facility] Comment on above: Performed By: #### C BC, BMPX, PT #### [facility] [address] [place] [phone] Supervisor Coin Machine: Wilfredo Keyes MD GFR,non Amer >60 Normal >60 [facility] Comment on above: Performed By: #### C BC, BMPX, PT #### [facility] [address] [place] [phone] Supervisor Coin Machine: Wilfredo Keyes MD Glucose [Mass/Vol] 90 mg/dL Normal 70-99 [facility] Comment on above: Performed By: #### C BC, BMPX, PT #### [facility] [address] [place] [phone] Supervisor Coin Machine: Wilfredo Keyes MD Potassium [Moles/Vol] 3.7 mmol/L Normal 3.7-5.3 [facility] Comment on above: Performed By: #### C HOSEA, BMPX, PT #### [facility] [address] [place] [phone] Supervisor Coin Machine: Wilfredo Keyes MD Sodium [Moles/Vol] 139 mmol/L Normal 135-144 [facility] Comment on above: Performed By: #### Koffi BC, BMPX, PT #### [facility] [address] [place] [phone] Supervisor Coin Machine: Wilfredo Keyes MD Urea nitrogen [Mass/Vol] 8 mg/dL Normal 6-20 [facility] Comment on above: Performed By: #### C BC, BMPX, PT #### [facility] [address] [place] [phone] Supervisor Coin Machine: Wilfredo Keyes MD BUN/CRE Ratio NOT REPORTED Normal -20 [facility] Comment on above: Performed By: #### C BC, BMPX, PT #### [facility] [address] [place] [phone] Supervisor Coin Machine: Wilfredo Keyes MD Staging: NOT REPORTED Normal [facility] Comment on above: Performed By: #### C BC, BMPX, PT #### [facility] [address] [place] [phone] Supervisor Coin Machine: Wilfredo Keyes MD Basic Metabolic Panel w/ Ref rodríguez to MGon 03-24-2020 Anion gap [Moles/Vol] 15 mmol/L 9 - 17 mmol/L [place], [place] Bun/Cre Ratio NOT REPORTED [facility] [place] Calcium [Mass/Vol] 9.0 mg/dL 8.6 - 10. 4 mg/dL [place] Chloride [Moles/Vol] 99 mmol/L 98 - 10 7 mmol/L [place] CO2 [Moles/Vol] 25 mmol/L 20 - 31 mmol/L [place] Creatinine [Mass/Vol] 0.45 mg/dL Low 0.5 - 0.9 mg/dL [place] GFR >60 >60 mL/min [place], [place] GFR Non- >60 >60 mL/min [place] GFR/1.73 sq M predicted among non-blacks MDRD (S/P/Bld) [Vol rate/Area] NOT REPORTED [place] GFR/1.73 sq M predicted among non-blacks MDRD (S/P/Bld) [Vol rate/Area] [place], [place] Comment on above: Average GFR for 20-2 9 years old: 116 mL/min/1.73sq m Chronic Kidney Disease: <60 mL/min/1.73sq m Kidney failure: <15 mL/min/1.73sq m eGFR calculated using average adult body mass. Additional eGFR calculator available at: http://www.WellnessFX.Greenphire/multiple_crcl_2012.htm Glucose [Mass/Vol] 90 mg/dL 70 - 99 mg/dL [place], [place] Interpretation and review of laboratory results Abnormal [place], [place] Potassium [Moles/Vol] 3.7 mmol/L 3.7 - 5.3 mmol/L [place] Sodium [Moles/Vol] 139 mmol/L 135 - 144 mmol/L [place] Urea nitrogen [Mass/Vol] 8 mg/dL 6 - 20 mg/dL [place] CBCon 03-24-2020 Erythrocyte distribution width (RBC) [Ratio] 12.6 % Normal 11.8-14.4 [facility] Comment on above: Performed By: #### C BC, BMPX, PT #### [facility] [address] [place] [address] [phone] Supervisor Coin Machine: Wilfredo Keyes MD Hematocrit (Bld) [Volume fraction] 41.9 % Normal 36.3-47.1 [facility] Comment on above: Performed By: #### C BC, BMPX, PT #### [facility] [address] [place] [address] [phone] Supervisor Coin Machine: Wilfredo Keyes MD Hemoglobin (Bld) [Mass/Vol] 14.2 g/dL Normal 11.9-15.1 [facility] Comment on above: Performed By: #### C BC, BMPX, PT #### [facility] [address] [place] [address] [phone] Supervisor Coin Machine: Wilfredo Keyes MD MCH (RBC) [Entitic mass] 28.9 pg Normal 25.2-33.5 [facility] Comment on above: Performed By: #### C HOSEA BMPX, PT #### [facility] [address] [place] [address] [phone] Supervisor Coin Machine: Wilfredo Keyes MD MCHC (RBC) [Mass/Vol] 33.9 g/dL Normal 28.4-34.8 [facility] Comment on above: Performed By: #### C BC, BMPX, PT #### [facility] [address] [place] [address] [phone] Supervisor Coin Machine: Wilfredo Keyes MD MCV (RBC) [Entitic vol] 85.3 fL Normal 82.6-102.9 [facility] Comment on above: Performed By: #### C BC, BMPX, PT #### [facility] [address] [place] [phone] Supervisor Coin Machine: Wilfredo Keyes MD NRBC Automated 0.0 per 100 WBC Normal 0.0 [facility] Comment on above: Performed By: #### C HOSEA BMPX, PT #### [facility] [address] [place] [phone] Supervisor Coin Machine: Wilfredo Keyes MD Platelet mean volume (Bld) [Entitic vol] 8.5 fL Normal 8.1-13.5 [facility] Comment on above: Performed By: #### C HOSEA BMPX, PT #### [facility] [address] [place] [address] [phone] Supervisor Coin Machine: Wilfredo Keyes MD Platelets (Bld) [#/Vol] 256 10*3/uL Normal 138-453 [facility] Comment on above: Performed By: #### Koffi JC BMPX, PT #### [facility] [address] [place] [address] [phone] Supervisor Coin Machine: Wilfredo Keyes MD RBC (Bld) [#/Vol] 4.91 10*6/uL Normal 3.95-5.11 [facility] Comment on above: Performed By: #### Koffi JC BMPX, PT #### [facility] [address] [place] [address] [phone] Supervisor Coin Machine: Wilfredo Keyes MD WBC (Bld) [#/Vol] 10.0 10*3/uL Normal 4.5-13.5 [facility] Comment on above: Performed By: #### Koffi JC BMPX, PT #### [facility] [address] [place] [address] [phone] Supervisor Coin Machine: Wilfredo Keyes MD Erythrocyte distribution width (RBC) [Ratio] 12.6 % 11.8 - 14.4 % [place] Hematocrit (Bld) [Volume fraction] 41.9 % 36.3 - 47.1 % [place] Hemoglobin (Bld) [Mass/Vol] 14.2 g/dL 11.9 - 15.1 g/dL [place] MCH (RBC) [Entitic mass] 28.9 pg 25.2 - 33.5 pg [place] MCHC (RBC) [Mass/Vol] 33.9 g/dL 28.4 - 34.8 g/dL [place] MCV (RBC) [Entitic vol] 85.3 fL 82.6 - 102.9 fL [place] Platelet mean volume (Bld) [Entitic vol] 8.5 fL 8.1 - 13.5 fL [place] Platelets (Bld) [#/Vol] 256 10*3/uL [place] RBC (Bld) [#/Vol] 4.91 10*6/uL 3.95 - 5.1 1 m/uL [place] WBC (Bld) [#/Vol] 0.0 10*3/uL 0.0 per 10 0 WBC [place] WBC (Bld) [#/Vol] 10.0 10*3/uL [place] COVID-19on 03-24-2020 SARS-CoV-2 Not Detected Not Detected [place], [place] Comment on above: The specimen is NEGATIVE for SARS-CoV-2, the novel coronavirus associated with COVID-19. A negative result does not rule out COVID-19. This test has been authorized by the FDA under an Emergency Use Authorization (EUA) for use by authorized laboratories. Fact sheet for Healthcare Providers: https://www.fda.gov/media/823136/download Fact sheet for Patients: https://www.fda.gov/media/977237/download METHODOLOGY: RT-PCR SARS-CoV-2, PCR [facility] [place], [place] SARS-CoV-2, Rapid [facility] [place] Source .NASOPHARYNGEAL SWAB [place], [place] Gram Stainon 03-24-2020 Microscopic observation Gram stain Nom (Unsp spec) Specimen Description .FACE RIGHT .ABSCESS SWAB Special Requests NOT REPORTED Direct Exam DUPLICATE ORDER GRAM STN INCLUDED WITH CULTURE Report Status FINAL 03/24/2020 Normal [facility] Comment on above: Performed By: #### G S #### [facility] [place] [address] Supervisor Coin Machine: Wilfredo Keyes MD Direct Exam DUPLICATE ORDER GRAM STN INCLUDED WITH CULTURE [place] Special Requests NOT REPORTED [place] Specimen Description .FACE RIGHT [place] HCG, ,Urineon 03-24 Beta HCG ( test) Ql (U) Negative Normal NEG [facility] Comment on above: Result Comment: Spec [...] Performed By: #### U HCG #### [address] [phone] Supervisor Coin Machine: Wilfredo Keyes MD PTon 03-24-2020 INR Coag (PPP) [Relative time] 1.0 {INR} Normal [facility] Comment on above: Result Comment: Therapeutic Range: Moderate Anticoagulant Intensity: INR = 2.0-3.0 High Anticoagulant Intensity: INR = 2.5-3.5 Performed By: #### C BC, BMPX, PT #### [facility] [address] [place] [address] [phone] Supervisor Coin Machine: Wilfredo Keyes MD PT Coag (PPP) [Time] 10.7 s Normal 9.0-12.0 [facility] Comment on above: Performed By: #### C BC, BMPX, PT #### [facility] [address] [place] [address] [phone] Supervisor Coin Machine: Wilfredo Keyes MD , urine pre-opon Beta HCG ( test) Ql (U) Negative NEGATIVE [place] Comment on above: Specimens with hCG [...] INR Coag (PPP) [Relative time] 1.0 {INR} [place] Comment on above: Therapeutic Range: Moderate Anticoagulant Intensity: INR = 2.0-3.0 High Anticoagulant Intensity: INR = 2.5-3.5 PT Coag (PPP) [Time] 10.7 s [place] [id number] 03-24-2020 SARS-CoV-2,Rapid Normal [facility] Comment on above: Performed By: #### C OVID #### [facility] [address] [place] [address] [phone] Supervisor Coin Machine: Wilfredo Keyes MD SARS-CoV-2 [facility] Comment on above: Performed By: #### C OVID #### [address] [phone] Supervisor Coin Machine: Wilfredo Keyes MD SARS-CoV-2 Not Detected [facility] Comment on above: Result Comment: The specimen is NEGATIVE for SARS-CoV-2, the novel coronavirus associated with COVID-19. A negative result does not rule out COVID-19. This test has been authorized by the FDA under an Emergency Use Authorization (EUA) for use by authorized laboratories. Fact sheet for Healthcare Providers: https://www.fda.gov/media/486803/download Fact sheet for Patients: https://www.fda.gov/media/113587/download METHODOLOGY: RT-PCR Performed By: #### C OVID #### [facility] [address] [place] [address] [phone] Supervisor Coin Machine: Wilfredo Keyes MD [id number] 03-23-2020 SARS-CoV-2 Source .NASOPHARYNGEAL SWAB [facility] Comment on above: Performed By: #### C OVID #### [facility] [address] [place] [address] [phone] Supervisor Coin Machine: Wilfredo Keyes MD Vital Signs Date Time Vital Sign Value Performing Clinician Facility 08-01-2024 13:57-0400 Body height 165.1 cm Jane Smithr BEHAVIORAL HEALTH ASSISTANT Work Phone: [facility] 08-01-2024 13:57-0400 Body mass index (BMI) [Ratio] 33.78 kg/m2 Jane Pittmanmor BEHAVIORAL HEALTH ASSISTANT Work Phone: [facility] 08-01-2024 13:57-0400 Body weight 92.08 kg Jane Smithr BEHAVIORAL HEALTH ASSISTANT Work Phone: [facility] 08-01-2024 13:57-0400 Diastolic blood pressure 84 mm[Hg] Jane Pittmanmor BEHAVIORAL HEALTH ASSISTANT Work Phone: [facility] 08-01-2024 13:57-0400 Heart rate 85 /min Jane Smithr BEHAVIORAL HEALTH ASSISTANT Work Phone: [facility] 08-01-2024 13:57-0400 SaO2% (BldA) [Mass fraction] 98 % Jane Smithr BEHAVIORAL HEALTH ASSISTANT Work Phone: [facility] 08-01-2024 13:57-0400 Systolic blood pressure 122 mm[Hg] Jane Pittmanmor BEHAVIORAL HEALTH ASSISTANT Work Phone: [facility] 07-29-2021 14:00-0400 Body height 162.56 cm Franco Rajput Other [employer] Other 07-29-2021 14:00-0400 Body mass index (BMI) [Ratio] 27.29 kg/m2 Franco Rajput Other [employer] Other 07-29-2021 14:00-0400 Body weight 72.12 kg Franco Rajput Other [employer] Other 07-29-2021 14:00-0400 Diastolic blood pressure 87 mm[Hg] Franco Rajput Other [employer] Other 07-29-2021 14:00-0400 Systolic blood pressure 121 mm[Hg] Franco Rajput Other [facility] Other 03-25-2020 08:00-0400 Body Temperature 97.7 [degF] Fang Carlson [place] , [place] 03-25-2020 08:00-0400 BP Diastolic 83 mm[Hg] [facility] [place] 03-25-2020 08:00-0400 BP Systolic 139 mm[Hg] [place], [place] 03-25-2020 08:00-0400 Pulse (Heart Rate) 89 /min [place] 03-25-2020 08:00-0400 Respiratory Rate 18 /min [facility] [place] 03-24-2020 20:45-0400 Pulse Oximetry 99 % [place] 03-23-2020 20:13-0400 BMI (Body Mass Index) 22.31 kg/m2 Fang [place] 03-23-2020 20:13-0400 Body weight 58.97 kg [place] 03-23-2020 20:13-0400 Height 162.6 cm [place] Encounters Encounter Date Encounter Type Care Provider Facility Start: 08-16-2024 ambulatory Salvatore Duque acility:[facility] Start: 08-01-2024 End: 08-01-2024 Bamboo flowsheet Jane Baron BEHAVIORAL HEALTH ASSISTANT Work Phone: [facility] Start: 08-01-2024 End: 08-01-2024 Bamboo flowsheet Jane Baron BEHAVIORAL HEALTH ASSISTANT Work Phone: [facility] [employer] [facility] Start: 08-01-2024 End: 08-01-2024 Office outpatient visit 25 minutes Jane Baron BEHAVIORAL HEALTH ASSISTANT [facility] Comment on above: SHENG (obstructive sle [...] Start: 07-29-2021 Patient encounter procedure Franco Rajput [facility] Start: 03-23-2020 End: 03-25-2020 Evaluation and management of inpatient ANDREA PINTO [facility] Start: 03-23-2020 End: 03-25-2020 Evaluation and [...] REFLEX TO MG FOR LOW K Berta [employer] Work Phone: Start: 03-24-2020 Blood count complete automated [employer] Work Phone: Start: 03-24-2020 Prothrombin time Shirvinny jameson [employer] Work Phone: Start: 03-24-2020 PATIENT STATUS (FROM [...] procedure 08/01/2024 2:00 PM EDT Office Visit [facility] [address] [place] [phone] Jane Baron NP [address] [place], [place] Arrived [facility] Comment on above: Arrived Start: 07-01-2024 Influenza vaccination Influenza Vacc ine (#1) [facility] Start: 07-01-2020 Influenza vaccination Flu vacc ine (Season Ended) [facility] [place], [place] Culture, Anaerobic a nd Aerobic Culture, Anaerobic and Aerobic Microbiology Routine 03/24/2020 1:13 PM EDT [facility] [place], [place] Immunizations Immunization Date Immunization Notes Care Provider Reshma robles 08-03-2023 influenza virus vacc ine, unspecified formulation Jane Baron NP Work Phone: [facility] Payers Date Payer Category Payer Medicaid [employer] [place] [id number] 2024-Present [address] [place] [address] [id number] 2023 Self-pay 2014 Unknown BCBS BCBS OUT OF STATE xxxxxxxxxxxx 2014-Present [address] [place] [address] xxxxxxxxxxxx [id number] 1998 Unknown [id number] 1998 Unknown [id number] .593 1998 Unknown [id number] [id number] .593 1998 Unknown [id number] [id number] .593 1998 Unknown [id number] [id number] .593 1998 Unknown [id number] [id number] .593 1998 Unknown [id number] [id number] .593 1998 Unknown [id number] [id number] .593 1998 Unknown [id number] [id number] .1259 1959 Private Health Insurance [id number] [id number] 1959 Unknown [id number] 1959 Unknown [id number] 1959 Unknown [id number] Unknown [id number] Social History Date Type Detail Facility Start: 03-25-2020 End: 08-01-2024 Tobacco smoking status NHIS Current every day [place] Start: 03-25-2020 End: 08-01-2024 Alcohol intake Current drinker of alcohol (finding) [place] Start: 03-23-2020 History SDOH Alcohol Frequency 3 [place] Start: 03-23-2020 History SDOH Alcohol Std Drinks 1 [place] Start: 03-23-2020 History SDOH Alcohol Binge 4 [place] Start: 03-23-2020 Alcohol Comment none this week [place] Start: 2000 Sex Assigned At Not on file [place] Exposure to SARS-CoV -2 (event) Unable to assess [place] Start: 07-29-2024 End: 08-01-2024 Sex Assigned At [facility] Other Start: 07-29-2024 Tobacco smoking stat NHIS [...] authenticated by: PURVI OLIVIER Date: 2022-07-15 11:44 [facility] Evaluation note 07-29-2021 Note Date & Type Note Facility 07-29-2021 Evaluation note Encounter Date Diagnosis Assessment Notes Jul, Gastritis (ICD-10 - K29.70) Gastritis material was printed Continue Omeprazole 40mg once daily Follow up in 6 months [employer] Other Evaluation note Note Date & Type Note Facility Evaluation note Diagnosis SHENG (obstructive sleep apnea)- Primary Obstructive sleep apnea (adult) (pediatric) Snoring Other dyspnea and respiratory abnormality Daytime hypersomnolence Obesity (BMI 30.0-34.9) Depression, unspecified depression type (CMS/HCC) documented in this encounter [facility] Healthcare History general Narrative - Reported Note Date & Type Note Facility History general Narrative - Reported Type Surgical History oral abscess [employer] Other History of Present Illness * Jojo [...] NEUTROPHILS Direct Exam Abnormal 03/24/2020 1:13 PM [employer] [facility] Arleth Marcus RARE GRAM POSITIVE COCCI IN PAIRS Culture 03/24/2020 1:13 PM [employer] [facility] Arleth Marcus PENDING Current Inpatient Medications Current [...] improve 5. F/u OMFS thaddeus 1 week [phone] * Danielle Villarreal MD - 03/25/2020 7:17 AM EDT [facility] IN-PATIENT SERVICE [facility] Progress Note 03/25/2020 7:18 AM Name: Jordan Tello Acct: [id number] Room: 0331/0331-01 IP Day: 2 Admit Date: [...] procedure Brief History: Patient originally presented to [facility] via EMS for the complaint [...] was recommended that patient be transferred to [facility] for OMF evaluation. Of significant laboratory [...] No results for input(s): PROT, LABALBU, LABA1C, F9BDIEQ, R4SCIKI, FT4, TSH, AST, ALT, LDH, GGT, ALKPHOS, LABGGT, BILITOT, BILIDIR, AMMONIA, AMYLASE, LIPASE, LACTATE, CHOL, HDL, LDLCHOLESTEROL, CHOLHDLRATIO, TRIG, VLDL, KNB16WD, PHENYTOIN, PHENYF, URICACID, POCGLU in the last 72 hours. ABG:No results found for: POCPH, PHART, PH, POCPCO2, TZA1PTN, PCO2, POCPO2, PO2ART, PO2, POCHCO3, VNW4ZJR, HCO3, NBEA, PBEA, BEART, BE, THGBART, THB, OKW4OJA, [id number], D3SCXDRL, O2SAT, FIO2 Lab Results Component Value Date/Time [...] Charliemarbin, DO - 03/24/2020 11:29 AM EDT [facility] IN-PATIENT SERVICE [facility] Progress Note 03/24/2020 11:29 AM Name: Jordan Tello Acct: [id number] Room: 0331/0331-01 Day: 1 Admit Date: 03/23/2020 [...] History: Per Record: Patient originally presented to [facility] via EMS for the complaint [...] was recommended that patient be transferred to [facility] for OMF evaluation. Of significant laboratory [...] No results for input(s): PROT, LABALBU, LABA1C, L5TFAZZ, S9QSPLA, FT4, TSH, AST, ALT, LDH, GGT, ALKPHOS, LABGGT, BILITOT, BILIDIR, AMMONIA, AMYLASE, LIPASE, LACTATE, CHOL, HDL, LDLCHOLESTEROL, CHOLHDLRATIO, TRIG, VLDL, EGT19GS, PHENYTOIN, PHENYF, URICACID, POCGLU in the last 72 hours. ABG:No results found for: POCPH, PHART, PH, POCPCO2, SUD4XBY, PCO2, POCPO2, PO2ART, PO2, POCHCO3, AXX5LPT, HCO3, NBEA, PBEA, BEART, BE, THGBART, THB, [id number], DTQH4CUH, [id number], O2SAT, FIO2 No results found for: SPECIAL [...] FoundDocuments on File Type Date Recorded Patient Provisioning Specialist Expl anation Advance Directives and Living Will Power of Pot Firer Latest Code Status on File Code Status [...] abscess Oral abscess Francisco Garcia DO [address] [place] [address] [facility] Reason Comments Sleep Apnea INFORMATION SOURCE (unrecogn ized section and content) DATE CREATED AUTHOR 04/06/2020 [facility] DATE CREATED AUTHOR AUTHOR'S ORGANIZ ATION 03/16/2023 [facility] pital DATE CREATED AUTHOR AUTHOR'S ORGANIZ ATION 08/03/2024 [facility] dical Specialists EPIC DATE CREATED AUTHOR AUTHOR'S ORGANIZ ATION 08/18/2024 [facility] ysician Group Care Teams (unrecognized sec tion and content) Dean Relationship Specialty Start Date End Date Srinivasan Rogers DO [address] [place] [address] PCP - General Family Medicine 03/08/23 Dean Relationship Specialty Start Date End Date Srinivasan Rogers DO [address] [place] [address] PCP - General Family Medicine 03/08/23 FOR [...] BE BASED ON THE PRIMARY CLINICAL RECORDS. [facility] [employer] [facility]. provides no warranty or guarantee of the accuracy or completeness of information in this document.
== END 2024-08-21 09:59 | disposition home or self-care (01) ==
LOC: LAB 09:58
PROVIDERS: PCP Family Medicine; Visit Provider Family Medicine
DX: B39.9 Histoplasmosis, unspecified (principal)
CPT/HCPCS: 87070; 87205

== ENCOUNTER 2024-09-18 15:41 | Outpatient (OUT) | payer OTHER, SELFPAY ==
--- NOTE | 2024-09-18 15:46 | XR_ITS ---
The [address] [address] Patient Name: EUSEBIA GRANDE MRN: [id number] date: 2000 Sex: F Assigned Patient Location: [facility] Current Patient Location: Accession/Order Number: [id number] Exam Date: 09/18/2024 15:57 Report Date: 09/20/2024 06:51 At the request of: GLENNA LARA Procedure: XR chest 2V EXAMINATION: XR chest 2V HISTORY: Histoplasmosis COMPARISON: XR chest 06/13/2024 FINDINGS: LUNGS: Stable small dense nodule within medial right lung base favoring a calcified granuloma. Lungs are otherwise clear. VASCULATURE: No increased pulmonary vasculature. PLEURA: No pneumothorax, effusion, or pleural thickening. CARDIAC: No cardiomegaly or cardiac silhouette abnormality. MEDIASTINUM: No visible mass or adenopathy. BONES: No fracture or visible bone lesion. OTHER: Negative. XR/XR chest 2V IMPRESSION: 1. No acute cardiopulmonary process or suspicious findings. Electronically authenticated by: PURVI OLIVIER Date: 09/20/2024 06:51
== END 2024-09-18 15:42 | disposition home or self-care (01) ==
LOC: RAD 15:41
PROVIDERS: PCP Family Medicine; Visit Provider Family Medicine
DX: B39.9 Histoplasmosis, unspecified (principal)
CPT/HCPCS: 71046

== ENCOUNTER 2024-09-24 11:47 | Outpatient (OUT) | payer OTHER, SELFPAY ==
--- NOTE | 2024-09-24 | XR_ITS ---
The [address] [address] Patient Name: EUSEBIA GRANDE MRN: [id number] date: 2000 Sex: F Assigned Patient Location: Current Patient Location: Accession/Order Number: [id number] Exam Date: 09/24/2024 11:51 Report Date: 09/26/2024 15:13 At the request of: PURVI SALMERON Procedure: XR knee LT 4V PROCEDURE: XR knee LT 4V HISTORY: LEFT KNEE PAIN COMPARISON: XR knee left 08/06/2024 FINDINGS: BONES:No fracture, acute abnormality, or significant arthropathy. SOFT TISSUES:No visible soft tissue swelling. EFFUSION:None visible. OTHER: Negative. XR/XR knee LT 4V IMPRESSION: 1. No acute bone abnormality or appreciable degenerative changes. Electronically authenticated by: PURVI OLIVIER Date: 09/26/2024 15:13
--- OUTSIDE RECORDS SUMMARY | 2024-09-24 12:07 | XMS_ITS | CCD ---
Author Organization [facility] Care Team Providers Care Fish Bin Tender Name Role Phone Glenna Carlin Primary Care Provider [phone] ANDREA PINTO Consulting Unavailable GLENNA CARLIN Primary [...] Rogers DO Primary Care Provider Salvatore Hendricks Admitting UnavailSalvatore Lafleur Attending Unavailab Glenna Michael Primary Care Unavailable Allergies Allergy Classification Reported Allergen(s) Allergy Type Date of Onset Reaction(s) Facility (1 source) Corticosteroids Drug allergy (disorder) [facility]ository (2 sources) Corticosteroids and derivatives Drug Allergy 1 [facility] (1 source) Corticosteroids Drug allergy (disorder) 1 [facility] Repository Medications Current Medications Medication Drug [...] eye irritant). Active take 1 capsule by [facility] every twenty-four hours Strattera 25 MG [...] PURVI OLIVIER Date: 2022-12-16 10:55 Normal [facility] MATEO by IFAon 11-18-2022 Antinuclear Antibodies, IFA Negative Normal [facility] Comment on above: Result Comment: Nega tive <1:80 Borderline 1:80 Positive >1:80 ICAP nomenclature: AC-0 For more information about Hep-2 cell patterns use ANApatterns.org, the official website for the International Consensus on Antinuclear Antibody (MATEO) Patterns (ICAP). Performed By: #### A GABYIFCandelario #### [facility] [address] [place] [address] Dr. Alfred Issa MATEO DIRECTon 11-17-2022 MATEO Direct Negative Normal Negative [facility] Comment on above: Performed By: #### A NAD #### [facility] [address] [place] [address] Dr. Alfred Issa ANTISTREPTOLYSIN O AB (ASO)o n 11-17-2022 Antistreptolysin O Ab 29.0 IU/mL Normal 0.0-200.0 [facility] Comment on above: Performed By: #### A SOAB #### [facility] [address] [place] [address] Dr. Alfred Issa C3 and C4 COMPLEMENTon 11-17 Complement C3, Serum 181 mg/dL Critically high 82-167 [facility] Comment on above: Performed By: #### C SUITE #### [facility] [address] [place] [address] Dr. Alfred Issa Complement C4, Serum 28 mg/dL Normal 12-38 [facility] Comment on above: Performed By: #### C SUITE #### [facility] [address] [place] [address] Dr. Alfred sIsa INSULINon 11-17-2022 Insulin 29.2 uIU/mL Critically high 2.6-24.9 [facility] Comment on above: Performed By: #### I NSULIN #### [facility] [address] [place] [address] Dr. Alfred Issa SLE PROFILE Aon 11-17-2022 Anti-DNA (DS) Ab Qn 1 IU/mL Normal 0-9 [facility] Comment on above: Result Comment: Nega tive <5 Equivocal 5 - 9 Positive >9 Performed By: #### S RENAN #### [facility] [address] [place] [address] Dr. Alfred Issa Antichromatin Antibodies <0.2 Normal 0.0-0.9 [facility] Comment on above: Performed By: #### S RENAN #### [facility] [address] [place] [address] Dr. Alfred Issa RA Latex Turbid. <10.0 Normal <14.0 [facility] Comment on above: Performed By: #### S RENAN #### [facility] [address] [place] [address] Dr. Alfred Issa SURGICAL ASSISTANT Antibodies <0.2 Normal 0.0-0.9 [facility] Comment on above: Performed By: #### S RENAN #### [facility] [address] [place] [address] Dr. Alfred Issa Sjogrelio's Anti-SS-A <0.2 Normal 0.0-0.9 [facility] Comment on above: Performed By: #### S RENAN #### [facility] [address] [place] [address] Dr. Alfred Issa Sjogrelio'jd Anti-SS-B <0.2 Normal 0.0-0.9 [facility] Comment on above: Performed By: #### S RENAN #### [facility] [address] [place] [address] Dr. Alfred Issa Mckinney Antibodies <0.2 Normal 0.0-0.9 [facility] Comment on above: Performed By: #### S RENAN #### [facility] [address] [place] [address] Dr. Alfred Issa CBC AUTO DIFFon 11-16-2022 BASO # 0.0 103/ul Normal 0.0-0.1 [facility] Comment on above: Performed By: #### C BC #### [facility] [address] [place] [address] Dr. Alfred Issa Basophils/100 WBC (Bld) 0.4 % Normal 0.2-2.0 [facility] Comment on above: Performed By: #### C BC #### [facility] [address] [place] [address] Dr. Alfred Issa EO # 0.1 103/ul Normal 0.0-0.7 [facility] Comment on above: Performed By: #### C BC #### [facility] [address] [place] [address] Dr. Alfred Issa Eosinophils/100 WBC (Bld) 1.0 % Normal 0.9-7.0 [facility] Comment on above: Performed By: #### C BC #### [facility] [address] [place] [address] Dr. Alfred Issa Erythrocyte distribution width (RBC) [Ratio] 13.1 % Normal 11.0-15.0 [facility] Comment on above: Performed By: #### C BC #### [facility] [address] [place] [address] Dr. Alfred Issa Hematocrit (Bld) [Volume fraction] 43.9 % Normal 36.0-48.0 [facility] Comment on above: Performed By: #### C BC #### [facility] [address] [place] [address] Dr. Alfred Issa Hemoglobin (Bld) [Mass/Vol] 14.8 g/dL Normal 12.0-16.0 [facility] Comment on above: Performed By: #### C BC #### [facility] [address] [place] [address] Dr. Alfred Issa IG # 0.05 10e3/ul Critically high 0.00-0.[address] [facility] Comment on above: Performed By: #### C BC #### [facility] [address] [place] [address] Dr. Alfred Issa IG % 0.5 % Normal 0.0-0.5 [facility] Comment on above: Performed By: #### C BC #### [facility] [address] [place] [address] Dr. Alfred Issa LYMPH # 2.7 103/ul Normal 1.2-3.8 [facility] Comment on above: Performed By: #### C BC #### [facility] [address] [place] [address] Dr. Alfred Issa Lymphocytes/100 WBC (Bld) 26.5 % Normal 20.5-60.0 [facility] Comment on above: Performed By: #### C BC #### [facility] [address] [place] [address] Dr. Alfred Issa MANUAL DIFF REQ NO Normal [facility] Comment on above: Performed By: #### C BC #### [facility] [address] [place] [address] Dr. Alfred Issa MCH (RBC) [Entitic mass] 27.5 pg Normal 26.7-34.0 [facility] Comment on above: Performed By: #### C BC #### [facility] [address] [place] [address] Dr. Alfred Issa MCHC (RBC) [Mass/Vol] 33.7 g/dL Normal 29.9-35.2 [facility] Comment on above: Performed By: #### C BC #### [facility] [address] [place] [address] Dr. Alfred Issa MCV (RBC) [Entitic vol] 81.4 fL Normal 81.0-99.0 [facility] Comment on above: Performed By: #### C BC #### [facility] [address] [place] [address] Dr. Alfred Issa MONO # 0.5 103/ul Normal 0.3-0.8 [facility] Comment on above: Performed By: #### C BC #### [facility] [address] [place] [address] Dr. Alfred Issa Monocytes/100 WBC (Bld) 4.9 % Normal 1.7-12.0 [facility] Comment on above: Performed By: #### C BC #### [facility] [address] [place] [address] Dr. Alfred Issa NEUT # 6.7 103/ul Critically high 1.4-6.5 [facility] Comment on above: Performed By: #### C BC #### [facility] [address] [place] [address] Dr. Alfred Issa Neutrophils/100 WBC (Bld) 66.7 % Normal 43.0-75.0 [facility] Comment on above: Performed By: #### C BC #### [facility] [address] [place] [address] Dr. Alfred Issa Platelet mean volume (Bld) [Entitic vol] 8.4 fL Critically low 9.5-13.5 [facility] Comment on above: Performed By: #### C BC #### [facility] [address] [address] [address] Alfred Issa PLT 312 103/ul Normal 150-450 [facility] Comment on above: Performed By: #### C BC #### [facility] [address] [address] [address] Alfred Issa RBC 5.39 106/ul Normal 4.20-5.40 [facility] Comment on above: Performed By: #### C BC #### [facility] [address] [address] [address] Alfred Issa WBC 10.1 103/ul Normal 4.0-11.0 [facility] Comment on above: Performed By: #### C BC #### [facility] [address] [address] [address] Alfred Issa CRPon 11-16-2022 CRP 0.7 mg/dL Normal <=1.0 [facility] Comment on above: Performed By: #### L IPID, TSH, T7, URIC, CRP, CMP ####[facility] [address] [address]DrJoe Issa FREE THYROXINE INDEX T7on FTI 3.50 Normal 1.30-4.50 [facility] Comment on above: Performed By: #### L IPID, TSH, T7, URIC, CRP, CMP ####[facility] [address] [address]DrJoe Issa T3U 34.0 % Normal 30.0-39.0 [facility] Comment on above: Performed By: #### L IPID, TSH, T7, URIC, CRP, CMP ####[facility] [address] [address]DrJoe Issa T4 [Mass/Vol] 10.30 ug/dL Normal 4.80-13.90 [facility] Comment on above: Performed By: #### L IPID, TSH, T7, URIC, CRP, CMP ####[facility] [address] [id number]. Alfred Issa GLYCOHEMOGLOBIN A1Con 2022 ADA RECOMMENDATION SEE BELOW Normal [facility] Comment on above: Result Comment: ADA RECOMMENDED LIMIT 4.0 - 6.0 ADA THERAPEUTIC TARGET < 7.0 ACTION SUGGESTED > 7.0 Performed By: #### A 1C #### [facility] [address] [address] [address] Alfred Issa Glucose [Mass/Vol] 108 mg/dL Normal [facility] Comment on above: Performed By: #### A 1C #### [facility] [address] [address] [address] Alfred Issa HbA1c (Bld) [Mass fraction] 5.4 % Normal 4.5-6.2 [facility] Comment on above: Performed By: #### A 1C #### [facility] [address] [address] [address] Alfred Issa IRONon 11-16-2022 Iron [Mass/Vol] 127.0 ug/dL Normal 50.0-170.0 [facility] Comment on above: Performed By: #### I LEIGH ANN #### [facility] [address] [address] [address] Alfred Issa LIPID PROFILEon 11-16-2022 CHOL-HDL RATIO NORM SEE BELOW Normal [facility] Comment on above: Result Comment: 3.3 - 4.4 LOW RISK 4.4 - 7.1 AVERAGE RISK 7.1 - 11.0 MODERATE RISK >11.0 HIGH RISK Performed By: #### L IPID, TSH, T7, URIC, CRP, CMP ####[facility] [address] [id number]. Alfred Issa Cholesterol [Mass/Vol] 197 mg/dL Normal <=200 [facility] Comment on above: Performed By: #### L IPID, TSH, T7, URIC, CRP, CMP ####[facility] [address] [id number]. Alfred Issa Cholesterol in HDL [Mass/Vol] 39 mg/dL Critically low 40-60 [facility] Comment on above: Performed By: #### L IPID, TSH, T7, URIC, CRP, CMP ####[facility] [address] [address]Dr. Alfred Issa Cholesterol in LDL [Mass/Vol] 116.8 mg/dL Normal [facility] Comment on above: Performed By: #### L IPID, TSH, T7, URIC, CRP, CMP ####[facility] [address] [address]Dr. Alfred Issa Cholesterol.total/Chol esterol in HDL [Mass ratio] 5.1 {ratio} Normal [facility] Comment on above: Performed By: #### L IPID, TSH, T7, URIC, CRP, CMP ####[facility] [address] [place], [place] [address]Dr. Alfred Issa HDL NORMAL > or = 60 mg/dl - LOW CARDIOVASCULAR RISK <40 mg/dl - HIGH CARDIOVASCULAR RISK Normal [facility] Comment on above: Performed By: #### L IPID, TSH, T7, URIC, CRP, CMP ####[facility] [address] [place], [place] [address]Dr. Alfred Issa LDL CALC NORMAL SEE BELOW Normal [facility] Comment on above: Result Comment: <100 mg/dl OPTIMAL 100 - 129 mg/dl NEAR OR ABOVE OPTIMAL 130 - 159 mg/dl BORDERLINE HIGH 160 - 189 mg/dl HIGH >190 mg/dl VERY HIGH Performed By: #### L IPID, TSH, T7, URIC, CRP, CMP ####[facility] [address] [address]Dr. lAfred Issa Triglyceride [Mass/Vol] 206 mg/dL Critically high <=150 [facility] Comment on above: Performed By: #### L IPID, TSH, T7, URIC, CRP, CMP ####[facility] [address] [address]Dr. Alfred Issa VLDL CALC 41.2 mg/dL Normal [facility] Comment on above: Performed By: #### L IPID, TSH, T7, URIC, CRP, CMP ####[facility] [address] [place], [place] [address]Dr. Alfred Issa OCC BLD IMMUNO SCREENon 10-31 OCCULT BLOOD Negative Normal NEGATIVE [facility] Comment on above: Performed By: #### O BSCRN ####[facility] [address] [address]Dr. Alfred Issa PROF 14(COMP METB)on 023 Albumin [Mass/Vol] 4.0 g/dL Normal 3.4-5.0 [facility] Comment on above: Performed By: #### L IPID, TSH, T7, URIC, CRP, CMP ####[facility] [address] [address]Dr. Alfred Issa Albumin/Globulin [Mass ratio] 1.1 {ratio} Normal [facility] Comment on above: Performed By: #### L IPID, TSH, T7, URIC, CRP, CMP ####[facility] [address] [address]Dr. Alfred Issa ALP [Catalytic activity/Vol] 104 U/L Normal 46-116 [facility] Comment on above: Performed By: #### L IPID, TSH, T7, URIC, CRP, CMP ####[facility] [address] [address]Dr. Alfred Issa ALT [Catalytic activity/Vol] 26 U/L Normal 14-59 [facility] Comment on above: Performed By: #### L IPID, TSH, T7, URIC, CRP, CMP ####[facility] [address] [address]Dr. Alfred Issa Anion gap [Moles/Vol] 13.2 mmol/L Normal [facility] Comment on above: Performed By: #### L IPID, TSH, T7, URIC, CRP, CMP ####[facility] [address] [address]Dr. Alfred Issa AST [Catalytic activity/Vol] 20 U/L Normal 15-37 [facility] Comment on above: Performed By: #### L IPID, TSH, T7, URIC, CRP, CMP ####[facility] [address] [address]Dr. Alfred Issa Bilirubin [Mass/Vol] 0.6 mg/dL Normal 0.2-1.0 [facility] Comment on above: Performed By: #### L IPID, TSH, T7, URIC, CRP, CMP ####[facility] [address] [place], [place] [address]Dr. Alfred Issa Calcium [Mass/Vol] 9.3 mg/dL Normal 8.5-10.1 [facility] Comment on above: Performed By: #### L IPID, TSH, T7, URIC, CRP, CMP ####[facility] [address] [place], [place] [address]Dr. Alfred Issa Chloride [Moles/Vol] 100 mmol/L Normal 98-107 [facility] Comment on above: Performed By: #### L IPID, TSH, T7, URIC, CRP, CMP ####[facility] [address] [place], [place] [address]Dr. Alfred Issa CO2 [Moles/Vol] 26.6 mmol/L Normal 21.0-32.0 [facility] Comment on above: Performed By: #### L IPID, TSH, T7, URIC, CRP, CMP ####[facility] [address] [place], [place] [address]Dr. Alfred Issa Creatinine [Mass/Vol] 0.56 mg/dL Normal 0.55-1.02 [facility] Comment on above: Performed By: #### L IPID, TSH, T7, URIC, CRP, CMP ####[facility] [address] [place], [place] [address]Dr. Alfred Issa EGFR-AF FAROESE >60 Normal >=60 [facility] Comment on above: Performed By: #### L IPID, TSH, T7, URIC, CRP, CMP ####[facility] [address] [place], [place] [address]Dr. Alfred Issa EGFR-NON AF FAROESE >60 Normal >=60 [facility] Comment on above: Performed By: #### L IPID, TSH, T7, URIC, CRP, CMP ####[facility] [address] [address]Dr. Alfred Issa Globulin (S) [Mass/Vol] 3.5 g/dL Normal [facility] Comment on above: Performed By: #### L IPID, TSH, T7, URIC, CRP, CMP ####[facility] [address] [place], [place] [address]Dr. Alfred Issa Glucose [Mass/Vol] 112 mg/dL Critically high 74-106 T [facility] Comment on above: Performed By: #### L IPID, TSH, T7, URIC, CRP, CMP ####[facility] [address] [place], [place] [address]Dr. Alfred Issa Potassium [Moles/Vol] 3.8 mmol/L Normal 3.5-5.1 [facility] Comment on above: Performed By: #### L IPID, TSH, T7, URIC, CRP, CMP ####[facility] [address] [place], [place] [address]Dr. Alfred Issa Protein [Mass/Vol] 7.5 g/dL Normal 6.4-8.2 [facility] Comment on above: Performed By: #### L IPID, TSH, T7, URIC, CRP, CMP ####[facility] [address] [place], [place] [address]Dr. Alfred Issa Sodium [Moles/Vol] 136 mmol/L Normal 136-145 [facility] Comment on above: Performed By: #### L IPID, TSH, T7, URIC, CRP, CMP ####[facility] [address] [place], [place] [address]Dr. Alfred Issa Urea nitrogen [Mass/Vol] 8.0 mg/dL Normal 7.0-18.0 [facility] Comment on above: Performed By: #### L IPID, TSH, T7, URIC, CRP, CMP ####[facility] [address] [place], [place] [address]Dr. Alfred Issa Urea nitrogen/Creatinine [Mass ratio] 14.3 mg/mg Normal [facility] Comment on above: Performed By: #### L IPID, TSH, T7, URIC, CRP, CMP ####[facility] [address] [place], [place] [address]Ao. Alfred Issa TSHon 11-16-2022 TSH 1.787 uIU/mL Normal 0.358-3.740 [facility] Comment on above: Performed By: #### L IPID, TSH, T7, URIC, CRP, CMP ####[facility] [address] [place], [place] [address]Gq. Alfred Issa URIC ACID SERUMon 11-16-2022 Urate [Mass/Vol] 5.3 mg/dL Normal 2.6-6.0 [facility] Comment on above: Performed By: #### L IPID, TSH, T7, URIC, CRP, CMP ####[facility] [address] [place], [place] [address]Nd. Alfred Issa Cult,Aerobe/Anaerobeon 03-29 Cult,Aerobe/Anaerobe Specimen Descriptio n .FACE RIGHT .ABSCESS SWAB Special Requests NOT REPORTED Direct Exam FEW NEUTROPHILS RARE GRAM POSITIVE COCCI IN PAIRS Culture HAEMOPHILUS PARAINFLUENZAE SCANT GROWTH BETA LACTAMASE NEGATIVE NORMAL MAGALYS MIXED ANAEROBIC MAGALYS Report Status FINAL 03/29/2020 [facility] Comment on above: Performed By: #### A ANC #### [facility] [employer] [address] [place] [id number] Reclamation Supervisor: Wilfredo Keyes MD Basic Metab w/rfx MGon 03-24 (cont.) [facility] Comment on above: Result Comment: Aver age GFR for 20-29 years old: 116 mL/min/1.73sq m Chronic Kidney Disease: <60 mL/min/1.73sq m Kidney failure: <15 mL/min/1.73sq m eGFR calculated using average adult body mass. Additional eGFR calculator available at: http://www.[employer]Flash.[employer] Software/multiple_crcl_2012.htm Performed By: #### C BC, BMPX, PT #### [facility] [address] [place], [place] [id number] Reclamation Supervisor: Wilfredo Keyes MD Anion gap [Moles/Vol] 15 mmol/L Normal 9-17 [facility] Comment on above: Performed By: #### C BC, BMPX, PT #### [facility] [employer] [address] [place] [address] Reclamation Supervisor: Wilfredo Keyes MD Calcium [Mass/Vol] 9.0 mg/dL Normal 8.6-10.4 [facility] Comment on above: Performed By: #### C BC, BMPX, PT #### [facility] [address] [place] [address] Reclamation Supervisor: Wilfredo Keyes MD Chloride [Moles/Vol] 99 mmol/L Normal 98-107 [facility] Comment on above: Performed By: #### C BC, BMPX, PT #### [facility] [employer] [address] [place] [address] Reclamation Supervisor: Wilfredo Keyes MD CO2 [Moles/Vol] 25 mmol/L Normal 20-31 [facility] Comment on above: Performed By: #### C BC, BMPX, PT #### [facility] [employer] [address] [place] [address] Reclamation Supervisor: Wilfredo Keyes MD Creatinine [Mass/Vol] 0.45 mg/dL Low 0.50-0.90 [facility] Comment on above: Performed By: #### C BC, BMPX, PT #### [facility] [address] [place] [phone] Reclamation Supervisor: Wilfredo Keyes MD GFR, Amer >60 Normal >60 [facility] [place] [facility] Comment on above: Performed By: #### C BC, BMPX, PT #### [facility] [address] [place] [address] Reclamation Supervisor: Wilfredo Keyes MD GFR,non Amer >60 Normal >60 [facility] Comment on above: Performed By: #### C BC, BMPX, PT #### [facility] [address] [place] [address] Reclamation Supervisor: Wilfredo Keyes MD Glucose [Mass/Vol] 90 mg/dL Normal 70-99 [facility] Comment on above: Performed By: #### C BC, BMPX, PT #### [facility] [address] [place] [address] Reclamation Supervisor: Wilfredo Keyes MD Potassium [Moles/Vol] 3.7 mmol/L Normal 3.7-5.3 [facility] Comment on above: Performed By: #### C HOSEA, BMPX, PT #### [facility] [address] [place] [address] Reclamation Supervisor: Wilfredo Keyes MD Sodium [Moles/Vol] 139 mmol/L Normal 135-144 [facility] Comment on above: Performed By: #### Koffi BC, BMPX, PT #### [facility] [employer] [address] [place] [address] Reclamation Supervisor: Wilfredo Keyes MD Urea nitrogen [Mass/Vol] 8 mg/dL Normal 6-20 [facility] Comment on above: Performed By: #### C BC, BMPX, PT #### [facility] [employer] [address] [place] [address] Reclamation Supervisor: Wilfredo Keyes MD BUN/CRE Ratio NOT REPORTED Normal -20 [facility] Comment on above: Performed By: #### C BC, BMPX, PT #### [facility] [address] [place] [address] Reclamation Supervisor: Wilfredo Keyes MD Staging: NOT REPORTED Normal [facility] Comment on above: Performed By: #### C BC, BMPX, PT #### [facility] [address] [place] [address] Reclamation Supervisor: Wilfreod Keyes MD Basic Metabolic Panel w/ Ref rodríguez to MGon 03-24-2020 Anion gap [Moles/Vol] 15 mmol/L 9 - 17 mmol/L [place] Bun/Cre Ratio NOT REPORTED [facility] [place] Calcium [Mass/Vol] 9.0 mg/dL 8.6 - 10. 4 mg/dL [place] Chloride [Moles/Vol] 99 mmol/L 98 - 10 7 mmol/L [place] CO2 [Moles/Vol] 25 mmol/L 20 - 31 mmol/L [place] Creatinine [Mass/Vol] 0.45 mg/dL Low 0.5 - 0.9 mg/dL [place] GFR >60 >60 mL/min [place] GFR Non- >60 >60 mL/min [place] GFR/1.73 sq M predicted among non-blacks MDRD (S/P/Bld) [Vol rate/Area] NOT REPORTED [place] GFR/1.73 sq M predicted among non-blacks MDRD (S/P/Bld) [Vol rate/Area] [place] Comment on above: Average GFR for 20-2 9 years old: 116 mL/min/1.73sq m Chronic Kidney Disease: <60 mL/min/1.73sq m Kidney failure: <15 mL/min/1.73sq m eGFR calculated using average adult body mass. Additional eGFR calculator available at: http://www.[employer] Software/multiple_crcl_2012.htm Glucose [Mass/Vol] 90 mg/dL 70 - 99 mg/dL [place], [place] Interpretation and review of laboratory results Abnormal [place] Potassium [Moles/Vol] 3.7 mmol/L 3.7 - 5.3 mmol/L [place] Sodium [Moles/Vol] 139 mmol/L 135 - 144 mmol/L [place] Urea nitrogen [Mass/Vol] 8 mg/dL 6 - 20 mg/dL [place] CBCon 03-24-2020 Erythrocyte distribution width (RBC) [Ratio] 12.6 % Normal 11.8-14.4 [facility] Comment on above: Performed By: #### C BC, BMPX, PT #### [facility] [employer] [address] [place] [address] [phone] Reclamation Supervisor: Wilfredo Keyes MD Hematocrit (Bld) [Volume fraction] 41.9 % Normal 36.3-47.1 [facility] Comment on above: Performed By: #### C BC, BMPX, PT #### [facility] [employer] [address] [place] [address] [phone] Reclamation Supervisor: Wilfredo Keyes MD Hemoglobin (Bld) [Mass/Vol] 14.2 g/dL Normal 11.9-15.1 [facility] Comment on above: Performed By: #### C BC, BMPX, PT #### [facility] [employer] [address] [place] [address] [phone] Reclamation Supervisor: Wilfredo Keyes MD MCH (RBC) [Entitic mass] 28.9 pg Normal 25.2-33.5 [facility] Comment on above: Performed By: #### C HOSEA BMPX, PT #### [facility] [employer] [address] [place] [address] [phone] Reclamation Supervisor: Wilfredo Keyes MD MCHC (RBC) [Mass/Vol] 33.9 g/dL Normal 28.4-34.8 [facility] Comment on above: Performed By: #### C BC, BMPX, PT #### [facility] [employer] [address] [place] [address] [phone] Reclamation Supervisor: Wilfredo Keyes MD MCV (RBC) [Entitic vol] 85.3 fL Normal 82.6-102.9 [facility] Comment on above: Performed By: #### C BC, BMPX, PT #### [facility] [employer] [address] [place] [address] [phone] Reclamation Supervisor: Wilfredo Keyes MD NRBC Automated 0.0 per 100 WBC Normal 0.0 [facility] Comment on above: Performed By: #### C HOSEA BMPX, PT #### [facility] [address] [place] [address] [phone] Reclamation Supervisor: Wilfredo Keyes MD Platelet mean volume (Bld) [Entitic vol] 8.5 fL Normal 8.1-13.5 [facility] Comment on above: Performed By: #### C HOSEA BMPX, PT #### [facility] [address] [place] [address] [phone] Reclamation Supervisor: Wilfredo Keyes MD Platelets (Bld) [#/Vol] 256 10*3/uL Normal 138-453 [facility] Comment on above: Performed By: #### Koffi JC BMPX, PT #### [facility] [address] [place] [address] [phone] Reclamation Supervisor: Wilfredo Keyes MD RBC (Bld) [#/Vol] 4.91 10*6/uL Normal 3.95-5.11 [facility] Comment on above: Performed By: #### Koffi JC BMPX, PT #### [facility] [address] [place] [address] [phone] Reclamation Supervisor: Wilfredo Keyes MD WBC (Bld) [#/Vol] 10.0 10*3/uL Normal 4.5-13.5 [facility] Comment on above: Performed By: #### Koffi JC BMPX, PT #### [facility] [address] [place] [address] [phone] Reclamation Supervisor: Wilfredo Keyes MD Erythrocyte distribution width (RBC) [Ratio] 12.6 % 11.8 - 14.4 % [place] Hematocrit (Bld) [Volume fraction] 41.9 % 36.3 - 47.1 % [place] Hemoglobin (Bld) [Mass/Vol] 14.2 g/dL 11.9 - 15.1 g/dL [place] MCH (RBC) [Entitic mass] 28.9 pg 25.2 - 33.5 pg [place] MCHC (RBC) [Mass/Vol] 33.9 g/dL 28.4 - 34.8 g/dL [place] MCV (RBC) [Entitic vol] 85.3 fL 82.6 - 102.9 fL [place] Platelet mean volume (Bld) [Entitic vol] 8.5 fL 8.1 - 13.5 fL [place] Platelets (Bld) [#/Vol] 256 10*3/uL [place] RBC (Bld) [#/Vol] 4.91 10*6/uL 3.95 - 5.1 1 m/uL [place] WBC (Bld) [#/Vol] 0.0 10*3/uL 0.0 per 10 0 WBC [place] WBC (Bld) [#/Vol] 10.0 10*3/uL [place] COVID-19on 03-24-2020 SARS-CoV-2 Not Detected Not Detected [place], [place] Comment on above: The specimen is NEGATIVE for SARS-CoV-2, the novel coronavirus associated with COVID-19. A negative result does not rule out COVID-19. This test has been authorized by the FDA under an Emergency Use Authorization (EUA) for use by authorized laboratories. Fact sheet for Healthcare Providers: https://www.fda.gov/media/470450/download Fact sheet for Patients: https://www.fda.gov/media/818317/download METHODOLOGY: RT-PCR SARS-CoV-2, PCR [facility] [place] SARS-CoV-2, Rapid [facility] [place] Source .NASOPHARYNGEAL SWAB [place] Gram Stainon 03-24-2020 Microscopic observation Gram stain Nom (Unsp spec) Specimen Description .FACE RIGHT .ABSCESS SWAB Special Requests NOT REPORTED Direct Exam DUPLICATE ORDER GRAM STN INCLUDED WITH CULTURE Report Status FINAL 03/24/2020 Normal [facility] Comment on above: Performed By: #### G S #### [facility] [employer] [facility] [place] [address] Reclamation Supervisor: Wilfredo Keyes MD Direct Exam DUPLICATE ORDER GRAM STN INCLUDED WITH CULTURE [place], [place] Special Requests NOT REPORTED [place] Specimen Description .FACE RIGHT [place], [place] HCG, ,Urineon 03-24 Beta HCG ( test) Ql (U) Negative Normal NEG [facility] Comment on above: Result Comment: Spec imens with hCG levels near the threshold of the test (25 mIU/mL) may give a negative or indeterminate result. In such cases, another test should be performed with a new specimen in 48-72 hours. If early is suspected clinically in this setting, correlation with quantitative serum b-hCG level is suggested. Performed By: #### U HCG #### [address] [phone] Reclamation Supervisor: Wilfredo Keyes MD PTon 03-24-2020 INR Coag (PPP) [Relative time] 1.0 {INR} Normal [facility] Comment on above: Result Comment: Therapeutic Range: Moderate Anticoagulant Intensity: INR = 2.0-3.0 High Anticoagulant Intensity: INR = 2.5-3.5 Performed By: #### C BC, BMPX, PT #### [facility] [employer] [address] [place] [address] [phone] Reclamation Supervisor: Wilfredo Keyes MD PT Coag (PPP) [Time] 10.7 s Normal 9.0-12.0 [facility] Comment on above: Performed By: #### C BC, BMPX, PT #### [facility] [employer] [address] [place] [address] [phone] Reclamation Supervisor: Wilfredo Keyes MD , urine pre-opon Beta HCG ( test) Ql (U) Negative NEGATIVE [place] Comment on above: Specimens with hCG [...] INR Coag (PPP) [Relative time] 1.0 {INR} [place] Comment on above: Therapeutic Range: Moderate Anticoagulant Intensity: INR = 2.0-3.0 High Anticoagulant Intensity: INR = 2.5-3.5 PT Coag (PPP) [Time] 10.7 s [place] [id number] 03-24-2020 SARS-CoV-2,Rapid Normal [facility] Comment on above: Performed By: #### C OVID #### [facility] [employer] [address] [place] [address] [phone] Reclamation Supervisor: Wilfredo Keyes MD SARS-CoV-2 [facility] Comment on above: Performed By: #### C OVID #### [address] [phone] Reclamation Supervisor: Wilfredo Keyes MD SARS-CoV-2 Not Detected [facility] Comment on above: Result Comment: The specimen is NEGATIVE for SARS-CoV-2, the novel coronavirus associated with COVID-19. A negative result does not rule out COVID-19. This test has been authorized by the FDA under an Emergency Use Authorization (EUA) for use by authorized laboratories. Fact sheet for Healthcare Providers: https://www.fda.gov/media/703603/download Fact sheet for Patients: https://www.fda.gov/media/873434/download METHODOLOGY: RT-PCR Performed By: #### C OVID #### [facility] [employer] [address] [place] [address] [phone] Reclamation Supervisor: Wilfredo Keyes MD [id number] 03-23-2020 SARS-CoV-2 Source .NASOPHARYNGEAL SWAB [facility] Comment on above: Performed By: #### C OVID #### [facility] [employer] [address] [place] [address] [phone] Reclamation Supervisor: Wilfredo Keyes MD Vital Signs Date Time Vital Sign Value Performing Clinician Facility 08-01-2024 13:57-0400 Body height 165.1 cm Jane Smithr SENIOR INVESTMENT MANAGER Work Phone: [facility] 08-01-2024 13:57-0400 Body mass index (BMI) [Ratio] 33.78 kg/m2 Jane Pittmanmor SENIOR INVESTMENT MANAGER Work Phone: [facility] 08-01-2024 13:57-0400 Body weight 92.08 kg Jane Smithr SENIOR INVESTMENT MANAGER Work Phone: [facility] 08-01-2024 13:57-0400 Diastolic blood pressure 84 mm[Hg] Jane Pittmanmor SENIOR INVESTMENT MANAGER Work Phone: [facility] 08-01-2024 13:57-0400 Heart rate 85 /min Jane Smithr SENIOR INVESTMENT MANAGER Work Phone: [facility] 08-01-2024 13:57-0400 SaO2% (BldA) [Mass fraction] 98 % Jane Smithr SENIOR INVESTMENT MANAGER Work Phone: [facility] 08-01-2024 13:57-0400 Systolic blood pressure 122 mm[Hg] Jane Pittmanmor SENIOR INVESTMENT MANAGER Work Phone: [facility] 07-29-2021 14:00-0400 Body height 162.56 cm Franco Rajput Other [employer] Other 07-29-2021 14:00-0400 Body mass index (BMI) [Ratio] 27.29 kg/m2 Franco Rajput Other [employer] Other 07-29-2021 14:00-0400 Body weight 72.12 kg Franco Rajput Other [employer] Other 07-29-2021 14:00-0400 Diastolic blood pressure 87 mm[Hg] Franco Rajput Other [employer] Other 07-29-2021 14:00-0400 Systolic blood pressure 121 mm[Hg] Franco Rajput Other [employer] Other 03-25-2020 08:00-0400 Body Temperature 97.7 [degF] Fang Carlson [place] , [place] 03-25-2020 08:00-0400 BP Diastolic 83 mm[Hg] [facility] [employer] [facility] , [place] 03-25-2020 08:00-0400 BP Systolic 139 mm[Hg] [place], [place] 03-25-2020 08:00-0400 Pulse (Heart Rate) 89 /min [place] 03-25-2020 08:00-0400 Respiratory Rate 18 /min [facility] [place] 03-24-2020 20:45-0400 Pulse Oximetry 99 % [place], [place] 03-23-2020 20:13-0400 BMI (Body Mass Index) 22.31 kg/m2 Fang [place] 03-23-2020 20:13-0400 Body weight 58.97 kg [place] 03-23-2020 20:13-0400 Height 162.6 cm [place] Encounters Encounter Date Encounter Type Care Provider Facility Start: 09-20-2024 ambulatory Salvatore Duque acility:[facility] Start: 08-01-2024 End: 08-01-2024 Bamboo flowsheet Jane Baron SENIOR INVESTMENT MANAGER Work Phone: [facility] Start: 08-01-2024 End: 08-01-2024 Bamboo flowsheet Jane Baron SENIOR INVESTMENT MANAGER Work Phone: [facility] [employer] [facility] Start: 08-01-2024 End: 08-01-2024 Office outpatient visit 25 minutes Jane Baron SENIOR INVESTMENT MANAGER [facility] Comment on above: SHENG (obstructive sle [...] Start: 07-29-2021 Patient encounter procedure Franco Rajput [facility] Start: 03-23-2020 End: 03-25-2020 Evaluation and management of inpatient ANDREA PINTO [facility] Start: 03-23-2020 End: 03-25-2020 Evaluation and [...] REFLEX TO MG FOR LOW K Berta [employer] Work Phone: Start: 03-24-2020 Blood count complete automated [employer] Work Phone: Start: 03-24-2020 Prothrombin time Shirvinny jameson [employer] Work Phone: Start: 03-24-2020 PATIENT STATUS (FROM [...] procedure 08/01/2024 2:00 PM EDT Office Visit [facility] [address] [place] [phone] Jane Baron NP [address] [place], [place] Arrived [facility] Comment on above: Arrived Start: 07-01-2024 Influenza vaccination Influenza Vacc ine (#1) [facility] Start: 07-01-2020 Influenza vaccination Flu vacc ine (Season Ended) [facility] [place], [place] Culture, Anaerobic a nd Aerobic Culture, Anaerobic and Aerobic Microbiology Routine 03/24/2020 1:13 PM EDT [facility] [place], [place] Immunizations Immunization Date Immunization Notes Care Provider Reshma robles 08-03-2023 influenza virus vacc ine, unspecified formulation Jane Baron NP Work Phone: [facility] Payers Date Payer Category Payer Medicaid [employer] [place] [id number] 2024-Present [address] [place] [address] [id number] 2023 Self-pay 2014 Unknown BCBS BCBS OUT OF STATE xxxxxxxxxxxx 2014-Present [address] [place] [address] xxxxxxxxxxxx [id number] 1998 Unknown [id number] 1998 Unknown [id number] .593 1998 Unknown [id number] [id number] .593 1998 Unknown [id number] [id number] .593 1998 Unknown [id number] [id number] .593 1998 Unknown [id number] [id number] .593 1998 Unknown [id number] [id number] .593 1998 Unknown [id number] [id number] .593 1998 Unknown [id number] [id number] .1259 1959 Private Health Insurance [id number] 1959 Unknown [id number] 1959 Unknown [id number] 1959 Unknown [id number] Unknown [id number] Social History Date Type Detail Facility Start: 03-25-2020 End: 08-01-2024 Tobacco smoking status NHIS Current every day smoker [place] Start: 03-25-2020 End: 08-01-2024 Alcohol intake Current drinker of alcohol (finding) [place] Start: 03-23-2020 History SDOH Alcohol Frequency 3 [place] Start: 03-23-2020 History SDOH Alcohol Std Drinks 1 [place] Start: 03-23-2020 History SDOH Alcohol Binge 4 [place] Start: 03-23-2020 Alcohol Comment none this week [place], [place] Start: 1998 Sex Assigned At Not on file M [place] Exposure to SARS-CoV -2 (event) Unable to assess [place] Start: 07-29-2024 End: 08-01-2024 Sex Assigned At [facility] Other Start: 07-29-2024 Tobacco smoking stat NHIS [...] authenticated by: PURVI OLIVIER Date: 2022-07-15 11:44 [facility] Evaluation note 07-29-2021 Note Date & Type Note Facility 07-29-2021 Evaluation note Encounter Date Diagnosis Assessment Notes Jul, Gastritis (ICD-10 - K29.70) Gastritis material was printed Continue Omeprazole 40mg once daily Follow up in 6 months [employer] Other Evaluation note Note Date & Type Note Facility Evaluation note Diagnosis SHENG (obstructive sleep apnea)- Primary Obstructive sleep apnea (adult) (pediatric) Snoring Other dyspnea and respiratory abnormality Daytime hypersomnolence Obesity (BMI 30.0-34.9) Depression, unspecified depression type (CMS/HCC) documented in this encounter [facility] Healthcare History general Narrative - Reported Note Date & Type Note Facility History general Narrative - Reported Type Surgical History oral abscess [employer] Other History of Present Illness * Jojo [...] NEUTROPHILS Direct Exam Abnormal 03/24/2020 1:13 PM [employer] [facility] RARE GRAM POSITIVE COCCI IN PAIRS Culture 03/24/2020 1:13 PM [employer] [facility] PENDING Current Inpatient Medications Current [...] improve 5. F/u OMFS thaddeus 1 week [phone] * Danielle Villarreal MD - 03/25/2020 7:17 AM EDT [facility] IN-PATIENT SERVICE [facility] Progress Note 03/25/2020 7:18 AM Name: Jordan Tello Acct: [id number] Room: 0331/0331-01 IP Day: 2 Admit Date: [...] procedure Brief History: Patient originally presented to [facility] via EMS for the complaint of [...] to the emergency room. Her work-up at [facility] show to have a dental abscess 2 x 1 x 1 on the right mandibular side with extension into the masseter muscle at that time it was recommended that patient be transferred to [facility] for OMF evaluation. Of significant laboratory [...] No results for input(s): PROT, LABALBU, LABA1C, H2HOTEA, R0YTOGV, FT4, TSH, AST, ALT, LDH, GGT, ALKPHOS, LABGGT, BILITOT, BILIDIR, AMMONIA, AMYLASE, LIPASE, LACTATE, CHOL, HDL, LDLCHOLESTEROL, CHOLHDLRATIO, TRIG, VLDL, [id number], PHENYTOIN, PHENYF, URICACID, POCGLU in the last 72 hours. ABG:No results found for: POCPH, PHART, PH, POCPCO2, VHW5MGF, PCO2, POCPO2, PO2ART, PO2, POCHCO3, WBV2PML, HCO3, NBEA, PBEA, BEART, BE, THGBART, THB, KJR2MPP, DCBR3NAL, [id number], O2SAT, FIO2 Lab Results Component Value Date/Time [...] Charliemarbin, DO - 03/24/2020 11:29 AM EDT [facility] IN-PATIENT SERVICE [facility] Progress Note 03/24/2020 11:29 AM Name: Jordan Tello Acct: [id number] Room: 0331/0331-01 Day: 1 Admit Date: 03/23/2020 [...] History: Per Record: Patient originally presented to [facility] via EMS for the complaint of [...] to the emergency room. Her work-up at [facility] show to have a dental abscess 2 x 1 x 1 on the right mandibular side with extension into the masseter muscle at that time it was recommended that patient be transferred to [facility] for OMF evaluation. Of significant laboratory [...] No results for input(s): PROT, LABALBU, LABA1C, C4SFIVS, F0HBBWI, FT4, TSH, AST, ALT, LDH, GGT, ALKPHOS, LABGGT, BILITOT, BILIDIR, AMMONIA, AMYLASE, LIPASE, LACTATE, CHOL, HDL, LDLCHOLESTEROL, CHOLHDLRATIO, TRIG, VLDL, TBP07TM, PHENYTOIN, PHENYF, URICACID, POCGLU in the last 72 hours. 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 Reason Comments Sleep Apnea INFORMATION SOURCE (unrecogn ized section and content) DATE CREATED AUTHOR 04/06/2020 [facility] DATE CREATED AUTHOR AUTHOR'S ORGANIZ ATION 03/16/2023 [facility] pital DATE CREATED AUTHOR AUTHOR'S ORGANIZ ATION 08/03/2024 [facility] Specialists EPIC DATE CREATED AUTHOR AUTHOR'S ORGANIZ ATION 09/23/2024 [facility] ysician Group Care Teams (unrecognized sec tion and content) Fish Bin Tender Relationship Specialty Start Date End Date Srinivasan Rogers DO [address] [place] [address] PCP - General Family Medicine 03/08/23 Fish Bin Tender Relationship Specialty Start Date End Date Srinivasan Rogers DO [address] [place] [address] PCP - General Family Medicine 03/08/23 FOR [...] THE PRIMARY CLINICAL RECORDS. [facility] [employer] [facility]. provides no warranty or guarantee of the accuracy or completeness of information in this document.
== END 2024-09-24 11:48 | disposition home or self-care (01) ==
LOC: EC 11:48
PROVIDERS: PCP Family Medicine; Visit Provider Orthopaedic Surgery
DX: M23.42 Loose body in knee, left knee (principal)
CPT/HCPCS: 73564

== ENCOUNTER 2025-02-25 08:51 | Outpatient (OUT) | payer OTHER, SELFPAY ==
[2025-02-25 10:22] LABS: Alanine Aminotransferase 18 U/L (14-59); Albumin Level 3.5 g/dL (3.4-5.0); Alkaline Phosphatase 74 U/L (46-116); Anion Gap 15.3; Aspartate Amino Transferase 10 U/L (15-37); Bilirubin Total 0.3 mg/dL (0.2-1.0); Carbon Dioxide 29.9 mmol/L (21.0-32.0); Chloride 100 mmol/L (98-107); Chol HDL Ratio 4.3; Cholesterol 177 mg/dL (<=200); Estimated GFR (African America >60 (>=60 mL/min/1.73m^2); Estimated GFR (Non-African Ame >60 (>=60 mL/min/1.73m^2); Globulin 3.5 g/dL; Glucose 100 mg/dL (74-106); HDL Cholesterol 41 mg/dL (40-60); LDL Cholesterol Calculated 108.4 mg/dL; Potassium 4.2 mmol/L (3.5-5.1); Sodium 141 mmol/L (136-145); Triglycerides 138 mg/dL (<=150); VLDL CHOLESTEROL 27.6 mg/dL; Valproic Acid 71.4 ug/mL (50.0-100.0)
== END 2025-02-25 08:52 | disposition home or self-care (01) ==
LOC: LAB 08:53
PROVIDERS: PCP Family Medicine; Visit Provider Registered Nurse Psychiatric/Mental Health
DX: Z79.899 Other long term (current) drug therapy (principal)
CPT/HCPCS: 36415; 80053; 80061; 80164

== ENCOUNTER 2025-02-28 09:15 | Outpatient (OUT) | payer OTHER, SELFPAY ==
[2025-02-28 09:43] LABS: Basophils Percent Auto 0.3 % (0.2-2.0); Eosinophils Absolute Auto 0.2 10^3/uL (0.0-0.7); Hemoglobin 14.3 g/dL (12.0-16.0); Immature Granulocytes Abs Auto 0.03 10^3/uL (0.00-0.03); Immature Granulocytes Pct Auto 0.3 % (0.0-0.5); Lymphocytes Absolute Auto 2.2 10^3/uL (1.2-3.8); Lymphocytes Percent Auto 22.9 % (20.5-60.0); Mean Corpuscular HGB Conc 34.9 g/dL (29.9-35.2); Mean Corpuscular Hemoglobin 28.9 pg (26.7-34.0); Mean Platelet Volume 8.7 fL (9.5-13.5); Monocytes Absolute Auto 0.4 10^3/uL (0.3-0.8); Monocytes Percent Auto 4.4 % (1.7-12.0); Neutrophils Absolute Auto 6.7 10^3/uL (1.4-6.5); Neutrophils Percent Auto 70.1 % (43.0-75.0); Platelet Count 272 10^3/uL (150-450); Red Blood Count 4.94 10^6/uL (4.20-5.40); Red Cell Distribution Width 12.2 % (11.0-15.0); White Blood Count 9.6 10^3/uL (4.0-11.0)
[2025-02-28 11:22] LABS: Alanine Aminotransferase 16 U/L (14-59); Albumin Globulin Ratio 1.1; Albumin Level 3.7 g/dL (3.4-5.0); Alkaline Phosphatase 79 U/L (46-116); Anion Gap 14.7; Aspartate Amino Transferase 11 U/L (15-37); BUN Creatinine Ratio 13.2; Bilirubin Total 0.4 mg/dL (0.2-1.0); Calcium 9.2 mg/dL (8.5-10.1); Carbon Dioxide 27.5 mmol/L (21.0-32.0); Chloride 102 mmol/L (98-107); Chol HDL Ratio 4.4; Cholesterol 180 mg/dL (<=200); Estimated GFR (African America >60 (>=60 mL/min/1.73m^2); Estimated GFR (Non-African Ame >60 (>=60 mL/min/1.73m^2); Free T3 3.57 pg/mL (2.18-3.98); Globulin 3.4 g/dL; Glucose 103 mg/dL (74-106); HDL Cholesterol 41 mg/dL (40-60); Potassium 4.2 mmol/L (3.5-5.1); Sodium 140 mmol/L (136-145); Thyroid Stimulating Hormone 1.492 uIU/mL (0.358-3.740); Total Protein 7.1 g/dL (6.4-8.2); Triglycerides 155 mg/dL (<=150)
[2025-02-28 12:16] LABS: Estimated Average Glucose 114 mg/dL; Glycohemoglobin A1C 5.6 % (4.5-6.2)
[2025-03-01 04:07] LABS: Estradiol 91.9 pg/mL (.); FSH 5.6 mIU/mL (.); Progesterone 0.4 ng/mL (.); Prolactin 20.2 ng/mL (4.8-33.4)
[2025-03-01 06:07] LABS: Insulin 24.8 uIU/mL (2.6-24.9)
[2025-03-01 16:09] LABS: Cortisol - AM 13.2 ug/dL (6.2-19.4)
== END 2025-02-28 09:16 | disposition home or self-care (01) ==
LOC: LAB 09:16
PROVIDERS: PCP Family Medicine; Visit Provider Family Medicine
DX: Z00.00 Encounter for general adult medical examination without abnormal findings (principal); F17.200 Nicotine dependence, unspecified, uncomplicated
CPT/HCPCS: 36415; 80053; 80061; 82533; 82670; 83001; 83036; 83525; 84144; 84146; 84436; 84443; 84481; 85025

== ENCOUNTER 2025-04-04 09:59 | Outpatient (OUT) | payer OTHER, SELFPAY ==
[2025-04-04 10:28] LABS: Bilirubin Urine NEGATIVE (NEGATIVE); Blood Urine TRACE-L (NEGATIVE); Clarity Urine CLEAR (CLEAR); Color Urine LT. YELLOW (YELLOW); Glucose Urine UA NEGATIVE (NEGATIVE); Ketones Urine NEGATIVE (NEGATIVE); Leukocyte Esterase Urine NEGATIVE (NEGATIVE); Nitrite Urine NEGATIVE (NEGATIVE); Protein Urine NEGATIVE (NEG/TRACE); Specific Gravity Urine 1.015 (1.005-1.025); Urobilinogen Urine 0.2 EU/dL (0.2-1.0); pH Urine 7.5 (5.0-9.0)
[2025-04-04 10:54] LABS: Bacteria Urine NONE SEEN #/HPF (NONE SEEN); Cast Seen? NONE SEEN #/LPF (NONE SEEN); Crystals Seen? None Seen #/HPF (None Seen); Mucus Urine NONE SEEN (NONE SEEN); RBC Urine 0-2 #/HPF (0-2); Squamous Epithelial Cell Urine FEW #/LPF (NONE/RARE); Urine Culture Indicated ALREADY ORDERED; WBC Urine 0-2 #/HPF (NONE SEEN)
== END 2025-04-04 10:00 | disposition home or self-care (01) ==
LOC: LAB 10:01
PROVIDERS: PCP Family Medicine; Visit Provider Family Medicine
DX: R35.0 Frequency of micturition (principal)
CPT/HCPCS: 81001; 87086

== ENCOUNTER 2025-04-28 08:30 | Emergency (ER) | payer OTHER, SELFPAY ==
--- OUTSIDE RECORDS SUMMARY | 2024-09-17 05:20 | XMS_ITS ---
Author Organization [facility] Address [address] [place] [address] Care Team Providers Care High Density Press Operator Name Role Phone Shahid Beck [facility] [phone] REASON FOR VISIT S/P LEFT KNEE LOOSE BODY REMOVAL 06/25 Encounters Encounter Location Date Provider Diagnosis [facility] [address] [facility] [place] [address] [place] [address] 09/17/2024 Shahid Beck Plan Of Treatment No Information Progress Notes * EUSEBIA GRANDE MDOB: [birth year] (24 yo F)Acc No.[id number]:09/17/2024 Progress Notes Patient: EUSEBIA ARENAS Provider: Darrell Beck MD :2000 A ge:24 Y S ex:Female Date:09/17/2024 Address:[address] [place], [place] [id number] Subjective: * Chief Complaints: * 1 . S/P LEFT KNEE LOOSE BODY REMOVAL 06/25. * Medical History: Objective: * Vitals: Assessment: Plan: * Treatment: Forms: * Images: * Electronic signature of Thad Beck MD on 04/28/2025 at 08:41 AM EDT Sign off status: Pending * Provider: Darrell Beck MD Date: 11/17/2023 Generated for Jill talavera/Rodolfo/eTbinusmitting on: 0 04/28/2025 08:41 AM EDT
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
--- OUTSIDE RECORDS SUMMARY | 2025-04-19 06:03 | XMS_ITS ---
Author Organization The [facility] in [place] Address [address] [place] [address] Care Team Providers Care Siphoner Name Role Phone Waldemar Carlin Primary Care Provider [phone] REASON FOR VISIT US pelvis Encounters Encounter Location Date Provider Diagnosis [facility] [address] [place] [address] 04/19/2025 Waldemar Carlin Pelvic pain R10. 2 Assessments Encounter Date Diagnosis (ICD Code) Assessment Notes Treatment Notes Treatment Clinical Notes Section Notes 04/19/2025 Pelvic pain (ICD-10 - R10.2) Plan Of Treatment Pending Test Test Name Order Date US PELVIS 04/19/2025 Progress Notes * Jordan GRANDE MDOB: [birth year] (24 yo F)Acc No.[id number]:04/19/2025 Patient: Hodan Jordan NORRIS :2000 A ge:24 Y S ex:Female Address:[address] [place] [address], [id number] Subjective: * Chief Complaints: * U S pelvis * Medical History: * Surgical History: * Hospitalization/Major Diagno stic Procedure: * Medications: Objective: * Vitals: * Physical Examination: Assessment: * Assessment: 1. P elvic pain - R10.2 (Primary) Plan: * Treatment: * Procedure Codes: * true * Date: Generated for Printi ng/Faxing/eTransmitting on: 0 04/28/2025 08:41 AM EDT
--- OUTSIDE RECORDS SUMMARY | 2025-04-26 04:10 | XMS_ITS ---
Author Organization [facility] in [place] Address [address] [place] [address] Care Team Providers Care Tea Tree Farmer Name Role Phone Waldemar Carlin Primary Care Provider REASON FOR VISIT Tolterodine needs PA Problems Problem Type SNOMED Code ICD Code Onset Dates Problem Status W/U Status Risk Notes Problem Urge incontinenc e (N39.41) Active confirmed Encounters Encounter Location Date Provider Diagnosis [facility] [address] [place] [address] 04/26/2025 Waldemar Tesfaye Plan Of Treatment No Information Progress Notes * Jordan GRANDE MDOB: [birth year] (24 yo F)Acc No.[id number]:04/26/2025 UNLOCKED PROGRESS NOTE Patient: Hodan Jordan NORRIS :2000 A ge:24 Y S ex:Female Address:[address] [place] [address], [address] * * Date:
[2025-04-28 08:41] VITALS: BP 157/104; PULSE 94; TEMP 36.6; O2SAT 97; BMI 34.2
--- OUTSIDE RECORDS SUMMARY | 2025-04-28 08:41 | XMS_ITS | Clinical Summary ---
Author Organization [facility] Address [address] [place] [address] Care Team Providers Care Gang Worker Name Role Phone Kranthi Carlin MD Primary Care Provider [phone] Allergies No known active allergies Medications DULoxetine (CYMBALTA) 60 MG extended release capsule Take 120 mg by mouth daily Every night 03/23/2019 Active Active Problems Problem Noted Date Diagnosed Date Submandibular abscess 03/24/2020 Elevated blood pressure read ing without diagnosis of hypertension 03/24/2020 Oral abscess 03/23/2020 Family History Medical History Relation Name Comments Stroke Maternal Grandfather Hypertension Mother Relation Name Status Comments Maternal Grandfather Mother Social History Tobacco Use Types Packs/Day Years Used Date Smoking Tobacco: Every Day Smokeless Tobacco: Never Tobacco Cessation:Ready to Q uit: No; Counseling Given: Yes Alcohol Use Standard Drinks/Week Comments Yes 0 (1 standard drink = 0.6 oz pur e alcohol) none this week AUDIT-C Answer Date Recorded Q1: How often do you have a drink containing alc ohol? 2-4 times a month 03/23/2020 Q2: How many drinks containi ng alcohol do you have on a typical day when you are drinking? 1 or 2 03/23/2020 Q3: How often do you have si x or more drinks on one occasion? Weekly 03/23/2020 Comments Unknown Sex and Gender Information Value Date Recorded Sex Assigned at Not on file Legal Sex Female 7:28 AM EST Gender Identity Not on file Sexual Orientation Not on file Last Filed Vital Signs Vital Sign Reading Time Taken Comments Blood Pressure 139/83 03/25/2020 8:00 AM EDT Pulse 89 03/25/2020 8:00 AM EDT Temperature 36.5 C (97.7 F) 03/25/2020 8:00 AM EDT Respiratory Rate 18 03/25/2020 8:00 AM EDT Oxygen Saturation 99% 03/24/2020 8:45 PM EDT Inhaled Oxygen Concentration - - Weight 59 kg (130 lb) 03/23/2020 8:13 PM EDT Height 162.6 cm (5' 4 ) 03/23/2020 8:13 PM EDT Body Mass Index 22.31 03/23/2020 8:13 PM EDT Plan of Treatment Not on file Insurance [employer] OUT OF STATE Advance Directives * Full Code (Latest Code Status on File) Date Activated Date Inactivated Comments 03/24/2020 12:57 AM 03/24/2020 3:17 PM Care Teams Gang Worker Relationship Specialty Start Date End Date Kranthi Carlin MD [address] [phone] PCP - General Family Medicine 03/23/20
--- OUTSIDE RECORDS SUMMARY | 2025-04-28 08:41 | XMS_ITS | CCD ---
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 above: Performed By: #### C BC BMPX, PT #### [facility] [address] [place] [address] S[employer] Lumber Straightener: Wilfredo Keyes MD Calcium [Mass/Vol] 9.0 mg/dL Normal 8.6-10.4 [facility] Comment on above: Performed By: #### C BC, BMPX, PT #### [facility] [address] [place] [address] S[employer] Lumber Straightener: Wilfredo Keyes MD Chloride [Moles/Vol] 99 mmol/L Normal 98-107 [facility] Comment on above: Performed By: #### C BC BMPX, PT #### [facility] [address] [place] [address] S[employer] Lumber Straightener: Wilfredo Keyes MD CO2 [Moles/Vol] 25 mmol/L Normal 20-31 [facility] Comment on above: Performed By: #### C BC BMPX, PT #### [facility] [address] [place] [address] S[employer] Lumber Straightener: Wilfredo Keyes MD Creatinine [Mass/Vol] 0.45 mg/dL Low 0.50-0.90 [facility] Comment on above: Performed By: #### C BC BMPX, PT #### [facility] [address] [place] [address] Sorter Lumber Straightener: Wilfredo Keyes MD GFR, Amer >60 Normal >60 [facility] Comment on above: Performed By: #### C BC BMPX, PT #### [facility] [address] [place] [address] Sorter Lumber Straightener: Wilfredo Keyes MD GFR,non Amer >60 Normal >60 [facility] Comment on above: Performed By: #### C BC, BMPX, PT #### [facility] [address] [place] [address] Sorter Lumber Straightener: Wilfredo Keyes MD Glucose [Mass/Vol] 90 mg/dL Normal 70-99 [facility] Comment on above: Performed By: #### C BC, BMPX, PT #### [facility] [address] [place] [address] Sorter Lumber Straightener: Wilfredo Keyes MD Potassium [Moles/Vol] 3.7 mmol/L Normal 3.7-5.3 [facility] Comment on above: Performed By: #### C BC, BMPX, PT #### [facility] [address] [place] [address] Sorter Lumber Straightener: Wilfredo Keyes MD Sodium [Moles/Vol] 139 mmol/L Normal 135-144 [facility] Comment on above: Performed By: #### C BC, BMPX, PT #### [facility] [address] [place] [address] Sorter Lumber Straightener: Wilfredo Keyes MD Urea nitrogen [Mass/Vol] 8 mg/dL Normal -20 [facility] Comment on above: Performed By: #### C BC, BMPX, PT #### [facility] [address] [place] [address] Sorter Lumber Straightener: Wilfredo Keyes MD BUN/CRE Ratio NOT REPORTED Normal -20 [facility] Comment on above: Performed By: #### C BC, BMPX, PT #### [facility] [address] [place] [address] S[employer] Lumber Straightener: Wilfredo Keyes MD Staging: NOT REPORTED Normal [facility] Comment on above: Performed By: #### C BC, BMPX, PT #### [facility] [address] [place] [address] Sorter Lumber Straightener: Wilfredo Keyes MD Basic Metabolic Panel w/ Ref rodríguez to MGon 03-24-2020 Anion gap [Moles/Vol] 15 mmol/L 9 - 17 mmol/L [place] Bun/Cre Ratio NOT REPORTED [facility] [place] [place] Calcium [Mass/Vol] 9.0 mg/dL 8.6 - 10. 4 mg/dL [place] Chloride [Moles/Vol] 99 mmol/L 98 - 10 7 mmol/L [place] CO2 [Moles/Vol] 25 mmol/L 20 - 31 mmol/L [place] Creatinine [Mass/Vol] 0.45 mg/dL Low 0.5 - 0.9 mg/dL [place] GFR >60 >60 mL/min [place] GFR Non- >60 >60 mL/min [place] GFR/1.73 sq M predicted among non-blacks MDRD (S/P/Bld) [Vol rate/Area] NOT REPORTED [place] GFR/1.73 sq M predicted among non-blacks MDRD (S/P/Bld) [Vol rate/Area] [place] Comment on above: Average GFR for 20-2 9 years old: 116 mL/min/1.73sq m Chronic Kidney Disease: <60 mL/min/1.73sq m Kidney failure: <15 mL/min/1.73sq m eGFR calculated using average adult body mass. Additional eGFR calculator available at: http://www.Shutl.Claritics/multiple_crcl_2012.htm Glucose [Mass/Vol] 90 mg/dL 70 - 99 mg/dL [place] Interpretation and review of laboratory results Abnormal [place] Potassium [Moles/Vol] 3.7 mmol/L 3.7 - 5.3 mmol/L [place] Sodium [Moles/Vol] 139 mmol/L 135 - 144 mmol/L [place] Urea nitrogen [Mass/Vol] 8 mg/dL 6 - 20 mg/dL [place] CBCon 03-24-2020 Erythrocyte distribution width (RBC) [Ratio] 12.6 % Normal 11.8-14.4 [facility] Comment on above: Performed By: #### C BC, BMPX, PT #### [facility] [address] [place] [address] Sorter Lumber Straightener: Wilfredo Keyes MD Hematocrit (Bld) [Volume fraction] 41.9 % Normal 36.3-47.1 [facility] Comment on above: Performed By: #### C HOSEA BMPX, PT #### [facility] [address] [place] [address] Sorter Lumber Straightener: Wilfredo Keyes MD Hemoglobin (Bld) [Mass/Vol] 14.2 g/dL Normal 11.9-15.1 [facility] Comment on above: Performed By: #### C HOSEA BMPX, PT #### [facility] [address] [place] [address] Sorter Lumber Straightener: Wilfredo Keyes MD MCH (RBC) [Entitic mass] 28.9 pg Normal 25.2-33.5 [facility] Comment on above: Performed By: #### C HOSEA BMPX, PT #### [facility] [address] [place] [address] Sorter Lumber Straightener: Wilfredo Keyes MD MCHC (RBC) [Mass/Vol] 33.9 g/dL Normal 28.4-34.8 [facility] Comment on above: Performed By: #### C HOSEA BMPX, PT #### [facility] [address] [place] [address] Sorter Lumber Straightener: Wilfredo Keyes MD MCV (RBC) [Entitic vol] 85.3 fL Normal 82.6-102.9 [facility] Comment on above: Performed By: #### C HOSEA BMPX, PT #### [facility] [address] [place] [address] Sorter Lumber Straightener: Wilfredo Keyes MD NRBC Automated 0.0 per [address] [facility] Comment on above: Performed By: #### Koffi JC BMPX, PT #### [facility] [address] [place] [address] Sorter Lumber Straightener: Wilfredo Keyes MD Platelet mean volume (Bld) [Entitic vol] 8.5 fL Normal 8.1-13.5 [facility] Comment on above: Performed By: #### Koffi JC BMPX, PT #### [facility] [address] [place] [address] Sorter Lumber Straightener: Wilfredo Keyes MD Platelets (Bld) [#/Vol] 256 10*3/uL Normal 138-453 [facility] Comment on above: Performed By: #### Koffi JC BMPX, PT #### [facility] [address] [place] [address] Sorter Lumber Straightener: Wilfredo Keyes MD RBC (Bld) [#/Vol] 4.91 10*6/uL Normal 3.95-5.11 [facility] Comment on above: Performed By: #### Koffi JC BMPX, PT #### [facility] [address] [place] [address]691 Sorter Lumber Straightener: Wilfredo Keyes MD WBC (Bld) [#/Vol] 10.0 10*3/uL Normal 4.5-13.5 [facility] Comment on above: Performed By: #### Koffi JC BMPX, PT #### [facility] [address] [place] [address] Sorter Lumber Straightener: Wilfredo Keyes MD Erythrocyte distribution width (RBC) [Ratio] 12.6 % 11.8 - 14.4 % [place] Hematocrit (Bld) [Volume fraction] 41.9 % 36.3 - 47.1 % [place] Hemoglobin (Bld) [Mass/Vol] 14.2 g/dL 11.9 - 15.1 g/dL [place] MCH (RBC) [Entitic mass] 28.9 pg 25.2 - 33.5 pg [place] MCHC (RBC) [Mass/Vol] 33.9 g/dL 28.4 - 34.8 g/dL [place] MCV (RBC) [Entitic vol] 85.3 fL 82.6 - 102.9 fL [place] Platelet mean volume (Bld) [Entitic vol] 8.5 fL 8.1 - 13.5 fL [place], [place] Platelets (Bld) [#/Vol] 256 10*3/uL [place] RBC (Bld) [#/Vol] 4.91 10*6/uL 3.95 - 5.1 1 m/uL [place] WBC (Bld) [#/Vol] 0.0 10*3/uL 0.0 per 10 0 WBC [place] WBC (Bld) [#/Vol] 10.0 10*3/uL [place] COVID-19on 03-24-2020 SARS-CoV-2 Not Detected Not Detected [place], [place] Comment on above: The specimen is NEGATIVE for SARS-CoV-2, the novel coronavirus associated with COVID-19. A negative result does not rule out COVID-19. This test has been authorized by the FDA under an Emergency Use Authorization (EUA) for use by authorized laboratories. Fact sheet for Healthcare Providers: https://www.fda.gov/media/343693/download Fact sheet for Patients: https://www.fda.gov/media/002905/download METHODOLOGY: RT-PCR SARS-CoV-2, PCR [place], [place] SARS-CoV-2, Rapid [place], [place] Source .NASOPHARYNGEAL SWAB [place] Gram Stainon 03-24-2020 Microscopic observation Gram stain Nom (Unsp spec) Specimen Description .FACE RIGHT .ABSCESS SWAB Special Requests NOT REPORTED Direct Exam DUPLICATE ORDER GRAM STN INCLUDED WITH CULTURE Report Status FINAL 03/24/[address] [facility] Comment on above: Performed By: #### G S #### [facility] [address] [place] [address] Sorter Lumber Straightener: Wilfredo Keyes MD Direct Exam DUPLICATE ORDER GRAM STN INCLUDED WITH CULTURE [place] Special Requests NOT REPORTED [place] Specimen Description .FACE RIGHT [place] HCG, ,Urineon 03-24 Beta HCG ( test) Ql (U) Negative Normal NEG [facility] Comment on above: Result Comment: Spec imens with hCG levels near the threshold of the test (25 mIU/mL) may give a negative or indeterminate result. In such cases, another test should be performed with a new specimen in 48-72 hours. If early is suspected clinically in this setting, correlation with quantitative serum b-hCG level is suggested. Performed By: #### U HCG #### [facility] [address] [place] [address] Sorter Lumber Straightener: Wilfredo Keyes MD PTon 03-24-2020 INR Coag (PPP) [Relative time] 1.0 {INR} Normal [facility] Comment on above: Result Comment: Therapeutic Range: Moderate Anticoagulant Intensity: INR = 2.0-3.0 High Anticoagulant Intensity: INR = 2.5-3.5 Performed By: #### C BC, BMPX, PT #### [facility] [address] [place] [address] Sorter Lumber Straightener: Wilfredo Keyes MD PT Coag (PPP) [Time] 10.7 s Normal 9.0-12.0 [facility] Comment on above: Performed By: #### C BC, BMPX, PT #### [facility] [address] [place] [address] [phone] Sorter Lumber Straightener: Wilfredo Keyes MD , urine pre-opon Beta HCG ( test) Ql (U) Negative NEGATIVE [place] Comment on above: Specimens with hCG [...] INR Coag (PPP) [Relative time] 1.0 {INR} [place] Comment on above: Therapeutic Range: Moderate Anticoagulant Intensity: INR = 2.0-3.0 High Anticoagulant Intensity: INR = 2.5-3.5 PT Coag (PPP) [Time] 10.7 s [place] [id number] 03-24-2020 SARS-CoV-2,Rapid Normal [facility] Comment on above: Performed By: #### C OVID #### [address] [id number] Sorter Lumber Straightener: Wilfredo Keyes MD SARS-CoV-2 [facility] Comment on above: Performed By: #### C OVID #### [address] [id number] Sorter Lumber Straightener: Wilfredo Keyes MD SARS-CoV-[address] Normal NOTDET [facility] Comment on above: Result Comment: The specimen is NEGATIVE for SARS-CoV-2, the novel coronavirus associated with COVID-19. A negative result does not rule out COVID-19. This test has been authorized by the FDA under an Emergency Use Authorization (EUA) for use by authorized laboratories. Fact sheet for Healthcare Providers: https://www.fda.gov/media/811312/download Fact sheet for Patients: https://www.fda.gov/media/832605/download METHODOLOGY: RT-PCR Performed By: #### C OVID #### [address] [id number] Sorter Lumber Straightener: Wilfredo Keyes MD [id number] 03-23-2020 SARS-CoV-2 Source .NASOPHARYNGEAL SWAB Normal [facility] Comment on above: Performed By: #### C OVID #### [address] [id number] Sorter Lumber Straightener: Wilfredo Keyes MD Vital Signs Date Time Vital Sign Value Performing Clinician Facility 08-01-2024 13:57-0400 Body height 165.1 cm Jane Pittmanmor FERRYBOAT OPERATOR Work Phone: [facility] 08-01-2024 13:57-0400 Body mass index (BMI) [Ratio] 33.78 kg/m2 Jane Pittmanmor FERRYBOAT OPERATOR Work Phone: [facility] 08-01-2024 13:57-0400 Body weight 92.08 kg Jane Pittmanmor FERRYBOAT OPERATOR Work Phone: [facility] 08-01-2024 13:57-0400 Diastolic blood pressure 84 mm[Hg] Jane Pittmanmor FERRYBOAT OPERATOR Work Phone: [facility] 08-01-2024 13:57-0400 Heart rate 85 /min Jane Pittmanmor FERRYBOAT OPERATOR Work Phone: [facility] 08-01-2024 13:57-0400 SaO2% (BldA) [Mass fraction] 98 % Jane Pittmanmor FERRYBOAT OPERATOR Work Phone: [facility] 08-01-2024 13:57-0400 Systolic blood pressure 122 mm[Hg] Jane Pittmanmor FERRYBOAT OPERATOR Work Phone: [facility] 07-29-2021 14:00-0400 Body height 162.56 cm Franco Rajput Other [employer] Other 07-29-2021 14:00-0400 Body mass index (BMI) [Ratio] 27.29 kg/m2 Franco Rajput Other [employer] Other 07-29-2021 14:00-0400 Body weight 72.12 kg Franco Rajput Other [employer] Other 07-29-2021 14:00-0400 Diastolic blood pressure 87 mm[Hg] Franco Rajupt Other [employer] Other 07-29-2021 14:00-0400 Systolic blood pressure 121 mm[Hg] Franco Rajput Other [facility] [employer] Other 03-25-2020 08:00-0400 Body Temperature 97.7 [degF] Fang [employer] [employer] [facility] [place] 03-25-2020 08:00-0400 BP Diastolic 83 mm[Hg] [facility] [employer] [facility] [place] 03-25-2020 08:00-0400 BP Systolic 139 mm[Hg] [facility] [place] 03-25-2020 08:00-0400 Pulse (Heart Rate) 89 /min [place] 03-25-2020 08:00-0400 Respiratory Rate 18 /min [facility] [place] 03-24-2020 20:45-0400 Pulse Oximetry 99 % [place], [place] 03-23-2020 20:13-0400 BMI (Body Mass Index) 22.31 kg/m2 [place] 03-23-2020 20:13-0400 Body weight 58.97 kg [place] 03-23-2020 20:13-0400 Height 162.6 cm [place] Encounters Encounter Date Encounter Type Care Provider Facility Start: 04-24-2025 ambulatory Salvatore Duque acility:[facility] Start: 04-04-2025 End: 04-04-2025 ambulatory Glenna Carlin MD Work Phone: [facility] Work Phone: Start: 04-04-2025 End: 04-04-2025 Departed Referred Glenna Carlin MD Work Phone: [facility] Start: 03-19-2025 Registered Recurring Glenna vicente MD Work Phone: [facility] [employer] Start: 08-01-2024 End: 08-01-2024 Bamboo flowsheet Jane Baron NP Work Phone: [facility] Start: 08-01-2024 End: 08-01-2024 Bamboo flowsheet Jane Baron FERRYBOAT OPERATOR Work Phone: [facility] Start: 08-01-2024 End: 08-01-2024 Office outpatient visit 25 minutes Jane Baron FERRYBOAT OPERATOR Work Phone: [facility] Comment on above: SHENG (obstructive sle ep apnea) (Primary Dx); Snoring; Daytime hypersomnolence; Obesity (BMI 30.0-34.9); Depression, unspecified depression type ([facility] Start: 08-01-2024 End: 08-01-2024 ambulatory JANE BARON [...] Evaluation and management of inpatient ANDREA PINTO [facility] Start: 03-23-2020 End: 03-25-2020 Evaluation and management of inpatient Fang Dhillon Work Phone: [facility] Comment on above: Dental abscess (Prim quan Dx) Procedures Date Procedure Procedure Detail Performing Clinician Start: 03-25-2020 DISCHARGE PATIENT ANDREA PINTO Start: 03-24-2020 DIET GENERAL ANDREA SPAULDING Start: 03-24-2020 TRANSFER PATIENT ANDREA BLAIR Start: 03-24-2020 Cul prsmptv pthgnc o rganism scrn w/colony estimj ANDREA BLAIR Start: 03-24-2020 Smr prim src gram/gi emsa stain bct fungi/cell ANDREA BLAIR Start: 03-24-2020 Urine test visual color cmprsn meths ANDREA BLAIR Start: 03-24-2020 Smr prim src gram/gi emsa [...] TO MG FOR LOW K Berta Barroso [employer] Work Phone: Start: 03-24-2020 Blood count complete automated Berta Barroso [employer] Work Phone: Start: 03-24-2020 Prothrombin time Maritza Barroso [employer] Work Phone: Start: 03-24-2020 PATIENT STATUS (FROM ED OR OR/PROCEDURAL) ANDREA PINTO Start: 03-23-2020 COVID-19 ANDREAALINA AYON STER Start: 03-23-2020 PATIENT STATUS (FROM ED OR OR/PROCEDURAL) ANDREA PINTO Start: 03-23-2020 IP CONSULT TO HOSPITALIST ANDREA PINTO Start: 03-23-2020 IP CONSULT TO ORAL SURGERY ANDREA PINTO Start: 03-23-2020 COVID-19 Carlos camargo Work Phone: Plan of Treatment Date Care Activity Detail Author Start: 04-04-2025 Bacteria identified in Urine by Culture Urine Culture [facility] Start: 04-04-2025 Urine culture [facility] Start: 08-01-2024 End: 08-01-2024 Patient encounter procedure 08/01/2024 2:00 PM EDT Office Visit [facility] [address] [place] [address] Jane Baron NP [address] [place] Arrived [facility] [address] Comment on above: Arrived Start: 07-01-2024 Influenza vaccination Influenza Vacc ine (#1) [facility] Start: 07-01-2020 Influenza vaccination Flu vacc ine (Season Ended) [facility] Culture, Anaerobic a nd Aerobic Culture, Anaerobic and Aerobic Microbiology Routine 03/24/2020 1:13 PM EDT [facility] Immunizations Immunization Date Immunization Notes Care Provider Fa cility 08-03-2023 influenza virus vacc ine, unspecified formulation Jane Baron NP Work Phone: [facility] Healthcare Payers Date Payer Category Payer Medicaid [employer] [id number] 2024-Present [address] [place] [address] [id number] 2023 Self-pay 2014 Unknown BCBS BCBS OUT OF STATE xxxxxxxxxxxx 2014-Present [address] [place] [address] xxxxxxxxxxxx [id number] 1998 Unknown [id number] 1998 Unknown [id number] 1998 Unknown [id number] .593 1998 Unknown [id number] .593 1998 Unknown [id number] .593 1998 Unknown [id number] [id number] .593 1998 Unknown [id number] [id number] .593 1998 Unknown [id number] [id number] .593 1998 Unknown [id number] [id number] .[id number] 1959 Private Health Insurance [id number] 1959 Unknown [id number] 1959 Unknown [id number] 1959 Unknown [id number] Unknown Regular Insurance [id number] Unknown [id number] Unknown [id number] Social History Date Type Detail Facility Start: 03-25-2020 End: 08-01-2024 Tobacco smoking status NHIS Current every day sm[place] Start: 03-25-2020 End: 08-01-2024 Alcohol intake Current drinker of alcohol (finding) [place] Start: 03-23-2020 History SDOH Alcohol Frequency 3 [place] Start: 03-23-2020 History SDOH Alcohol Std Drinks 1 [place] Start: 03-23-2020 History SDOH Alcohol Binge 4 [place] Start: 03-23-2020 Alcohol Comment none this week [place] Start: 2000 Sex Assigned At Not on file [place], [place] Exposure to SARS-CoV -2 (event) Unable to assess [facility], [place] Start: 07-29-2024 End: 08-01-2024 Sex Assigned At [facility] [employer] Other Start: 07-29-2024 [facility] Start: 06-11-2021 History of tobacco use Current smoke r [facility] History of tobacco use Cigarette Smoker [...] and exposure Smokeless tobacco non-user [facility] Start: 04-05-2025 Sex Female (finding) [facility] Start: 2000 Sex Assigned At Female F [facility] Clinical Note 07-15-2022 Note Date & Type Note Facility 07-15-2022 Note PROCEDURE: XR KNEE L T 4V or > HISTORY: Pain of left knee joint ; acute left knee instability COMPARISON: None. FINDINGS: BONES:No fracture, acute abnormality, or significant arthropathy. SOFT TISSUES:No visible soft tissue swelling. EFFUSION:None visible. OTHER: Negative. IMPRESSION: 1. Normal examination. Electronically authenticated by: PURVI OLIVIER Date: 2022-07-15 11:44 [facility] Evaluation note 07-29-2021 Note Date & Type Note Facility 07-29-2021 Evaluation note Encounter Date Diagnosis Assessment Notes Jul, Gastritis (ICD-10 - K29.70) Gastritis material was printed Continue Omeprazole 40mg once daily Follow up in 6 months [facility] Other Evaluation note Note Date & Type Note Facility Evaluation note Diagnosis SHENG (obstructive sleep apnea)- Primary Obstructive sleep apnea (adult) (pediatric) Snoring Other dyspnea and respiratory abnormality Daytime hypersomnolence Obesity (BMI 30.0-34.9) Depression, unspecified depression type (CMS/HCC) documented in this encounter [facility] Evaluation note Note Date & Type Note Facility Evaluation note No assessment information kaylah [facility] Work Phone: History general Narrative - Reported Note Date & Type Note Facility History general Narrative - Reported Type Surgical History oral abscess [facility] Other History of Present Illness * Jojo Jaramillo, RN - 03/25/2020 8:17 PM EDT Pt [...] Wound Culture: Specimen Description 03/24/2020 1:13 PM [facility] .FACE RIGHT Special Requests 03/24/2020 1:13 PM [facility] NOT REPORTED Direct Exam Abnormal 03/24/2020 1:13 PM [email or web address] FEW NEUTROPHILS Direct Exam Abnormal 03/24/2020 1:13 PM [email or web address] RARE GRAM POSITIVE COCCI IN PAIRS Culture 03/24/2020 1:13 PM [facility] PENDING Current Inpatient Medications Current [...] improve 5. F/u OMFS thaddeus 1 week [phone] * Danielle Villarreal MD - 03/25/2020 7:17 AM EDT [facility] IN-PATIENT SERVICE [facility] Progress Note 03/25/2020 7:18 AM Name: Jordan Tello Acct: [id number] Room: [facility]033- IP Day: 2 Admit Date: 03/23/2020 8:07 [...] procedure Brief History: Patient originally presented to [facility] via EMS for the complaint [...] to the emergency room. Her work-up at [facility] show to have a dental abscess 2 x 1 x 1 on the right mandibular side with extension into the masseter muscle at that time it was recommended that patient be transferred to [facility] for OMF evaluation. Of significant laboratory [...] No results for input(s): PROT, LABALBU, LABA1C, V4ASWGO, D9CNBWJ, FT4, TSH, AST, ALT, LDH, GGT, ALKPHOS, LABGGT, BILITOT, BILIDIR, AMMONIA, AMYLASE, LIPASE, LACTATE, CHOL, HDL, LDLCHOLESTEROL, CHOLHDLRATIO, TRIG, VLDL, UZZ30AL, PHENYTOIN, PHENYF, URICACID, POCGLU in the last 72 hours. ABG:No results found for: POCPH, PHART, PH, POCPCO2, VOK4UOS, PCO2, POCPO2, PO2ART, PO2, POCHCO3, EFP1NVA, HCO3, NBEA, PBEA, BEART, BE, THGBART, THB, MEG3TEH, QYMN5CVQ, [id number], O2SAT, FIO2 Lab Results Component Value Date/Time [...] DO - 03/24/2020 11:29 AM EDT [facility] IN-PATIENT SERVICE [facility] Progress Note 03/24/2020 11:29 AM Name: Jordan Tello Acct: [id number] Room: [id number]/[id number] Day: 1 Admit Date: 03/23/2020 8:07 PM [...] History: Per Record: Patient originally presented to [facility] via EMS for the complaint [...] to the emergency room. Her work-up at [facility] show to have a dental abscess 2 x 1 x 1 on the right mandibular side with extension into the masseter muscle at that time it was recommended that patient be transferred to [facility] for OMF evaluation. Of significant laboratory [...] No results for input(s): PROT, LABALBU, LABA1C, M5LRUSS, Z9SSUAF, FT4, TSH, AST, ALT, LDH, GGT, ALKPHOS, LABGGT, BILITOT, BILIDIR, AMMONIA, AMYLASE, LIPASE, LACTATE, CHOL, HDL, LDLCHOLESTEROL, CHOLHDLRATIO, TRIG, VLDL, [id number], PHENYTOIN, PHENYF, URICACID, POCGLU in the last 72 hours. 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 Expl anation Advance Directives and Living Will Power of Power Transformer Inspector Latest Code Status on File Code Status Date Activated Date Inactivated Comments Full Code 03/24/2020 12:57 AM 03/24/2020 3:17 PM Advance Directive Response Recorded Date/ Time Advance Directives No July 1:07pm Summary Purpose Family History No Family History Records Found Relationship Condition Age at Onset Recorded Date/T ranjit mother SHENG on CPAP Unknown mother Hypertension Unknown Additional Source Comments Reason for Visit (unrecogniz ed section and content) Reason Comments Abscess 1 month ago Oral Swelling Dental Pain 4 days Status Reason Specialty Diagnoses / Procedures Referre d By Contact Referred To Contact Diagnoses Oral abscess Oral abscess Francisco Garcia DO [address] [place] [address] [facility] Reason Comments Sleep Apnea INFORMATION SOURCE (unrecogn ized section and content) DATE CREATED AUTHOR 04/06/[address] [facility] DATE CREATED AUTHOR AUTHOR'S ORGANIZ ATION 03/16/2023 [facility] DATE CREATED AUTHOR AUTHOR'S ORGANIZ ATION 08/03/2024 [facility] EPIC DATE CREATED AUTHOR AUTHOR'S ORGANIZ ATION 04/25/2025 [facility] Care Teams (unrecognized sec tion and content) Furnace Keeper Relationship Specialty Start Date End Date Srinivasan Rogers DO [address] [place] [address] PCP - General Family Medicine 03/08/23 Furnace Keeper Relationship Specialty Start Date End Date Srinivasan Rogers DO [address] [place] [address] PCP - General Family Medicine 03/08/23 Team Status: Active Member Role Status Dates Glenna Carlin MD Primary Care Provider Active Start: March 19, 2025 Salvatore Hendricks MD Attending Provider Active Start: March 19, 2025 Team Status: Inactive Member Role Status Dates Glenna Carlni MD Attending Provider Active Sta rt: April 04, 2025 End: April 04, 2025 Goals (unrecognized section and content) Goals may be documented in a n alternate section FOR RECORDS PERTAINING TO PATIENTS WHO ARE [...] BE BASED ON THE PRIMARY CLINICAL RECORDS. [employer] [facility] provides no warranty or guarantee of the accuracy or completeness of information in this document.
--- OUTSIDE RECORDS SUMMARY | 2025-04-28 08:41 | XMS_ITS | Clinical Summary ---
Author Organization [facility] Address [address] [place] [address] Care Team Providers Care Product Support Rep Name Role Phone Ken Srinivasan Macedo DO Primary Care Provider [phone] Allergies Active Allergy Reactions Criticality Noted Date Comments Corticosteroids 06/11/2021 Other Reaction(s): Difficulty Breathing Medications cholecalciferol (Vitamin D-3) 75 MCG (3000 UT) tablet Take 3,000 Units by mouth Daily Active lurasidone (Latuda) 60 MG tablet Take 60 mg by mouth in the evening. Take with meals Active DULoxetine (Cymbalta) [address] capsule Take 120 mg by mouth Daily Do not crush or chew. Active mirtazapine (Remeron) 15 MG tablet Take 15 mg by mouth at bedtime Active pantoprazole (ProtoNix) 40 MG EC tablet Take 40 mg by mouth in the morning. Take before meals. Do not crush, chew, or split.. Active OLANZapine (ZyPREXA) 10 MG tablet Take 10 mg by mouth at bedtime Active gabapentin (Neurontin) 600 MG tablet Take 600 mg by mouth in the morning and 600 mg before bedtime. Active atomoxetine (Strattera) 40 MG capsule Take 40 mg by mouth Daily Swallow capsule whole; do not open. If opened accidentally, do not touch eyes; wash hands immediately (product is an eye irritant). Active topiramate (Topamax) 25 MG tablet Take 25 mg by mouth in the morning and 25 mg before bedtime. Active Vraylar 6 MG capsule Take 6 mg by mouth Daily 4 Active divalproex (Depakote ER) 500 MG 24 hr tablet Take 1,000 mg by mouth Daily 4 Active traZODone (Desyrel) 100 MG tablet Take 100 mg by mouth at bedtime Active omeprazole (PriLOSEC) [address] capsule Take 40 mg by mouth in the morning. Take before meals. 4 Active Active Problems Problem Noted Date Diagnosed Date Paresthesia of skin 07/29/2024 Episodic tension-type headache, not intractable 07/29/2024 SHENG (obstructive sleep apnea) 07/29/2024 Family History Medical History Relation Name Comments Alcohol abuse Father Clotting disorder Father Osteoarthritis Father Allergies Mother Coronary artery disease Mother Depression Mother Endometriosis Mother Hypertension Mother Obesity Mother Sleep apnea Mother Asthma Other Coronary artery disease Other Diabetes Other Stroke Other Relation Name Status Comments Father Alive Mother Alive Other Social History Tobacco Use Types Packs/Day Years Used Date Smoking Tobacco: Every Day Cigars Smokeless Tobacco: Never Tobacco Cessation:Ready to Q uit: Not Asked Alcohol Use Standard Drinks/Week Comments Yes 0 (1 standard drink = 0.6 oz pur e alcohol) Caffeine: 1-2 cups per day AUDIT-C Answer Date Recorded Q1: How often do you have a drink containing alc ohol? 2-3 times a week 07/29/2024 Q2: How many drinks containi ng alcohol do you have on a typical day when you are drinking? 1 or 2 07/29/2024 Q3: How often do you have si x or more drinks on one occasion? Never 07/29/2024 Comments Unknown Sex and Gender Information Value Date Recorded Sex Assigned at Not on file Legal Sex Female 11:15 PM EDT Gender Identity Not on file Sexual Orientation Not on file Last Filed Vital Signs Vital Sign Reading Time Taken Comments Blood Pressure 122/84 08/01/2024 1:57 PM EDT Pulse 85 08/01/2024 1:57 PM EDT Temperature - - Respiratory Rate - - Oxygen Saturation 98% 08/01/2024 1:57 PM EDT Inhaled Oxygen Concentration - - Weight 92.1 kg (203 lb) 08/01/2024 1:57 PM EDT Height 165.1 cm (5' 5 ) 08/01/2024 1:57 PM EDT Body Mass Index 33.78 08/01/2024 1:57 PM EDT Plan of Treatment Health Maintenance Due Date Last Done Comments Influenza Vaccine (Season Ended) 2025 08/03/2023, 11/12/2022, 09/04/2021 Insurance [employer] Care Teams Product Support Rep Relationship Specialty Start Date End Date Srinivasan Rogers DO [address] [place] [address] PCP - General Family Medicine 03/08/23
--- OUTSIDE RECORDS SUMMARY | 2025-04-28 08:42 | XMS_ITS | Patient Health Record ---
Author Organization [facility] [place] Address [address] [place] [address] Care Team Providers Care Rounder Hand Name Role Phone Waldemar Carlin Primary Care Provider [phone] GLENNA CARLIN Unavailable [phone] Robby Gimenez Unavailable [phone] Amie Fidelia Unavailable [phone] Allergies No Known Allergies Results Component Value Reference Range Notes PROF 14(COMP METB) Reviewed date:02/25/2025 02:49:45 PM Interpretation: Performing Lab: Notes/Report: [facility] , Sodium 141 136-145 mmol/L Potassium 4.2 3.5-5.1 mmol/L Chloride 100 98-107 mmol/L Carbon Dioxide 29.9 21.0-32.0 mmol/L Anion Gap 15.3 Glucose 100 74-106 mg/dL Blood Urea Nitrogen 12.0 7.0-18.0 mg/dL Creatinine 0.75 0.55-1.02 mg/dL Estimated GFR ( Martina >60 >=60 mL/min/1.73m 2 Estimated GFR (Non- Conuselo >60 >=60 mL/min/1.73m 2 BUN Creatinine Ratio 16.0 Calcium 9.0 8.5-10.1 mg/dL Bilirubin Total 0.3 0.2-1.0 mg/dL Aspartate Amino Transferase 10 15-37 U/L Alanine Aminotransferase 18 14-59 U/L Alkaline Phosphatase 74 46-116 U/L Total Protein 7.0 6.4-8.2 g/dL Albumin Level 3.5 3.4-5.0 g/dL Globulin 3.5 Albumin Globulin Ratio 1.0 Performing Lab: see note ML - [facility] LB MR knee LT wo con Reviewed date:06/05/2024 08:26:54 PM Interpretation: Performing Lab: Notes/Report: Source Facility: [place] [address] [place] [address] Magnetic Resonance Report Signed Patient: JORDAN GRANDE MR#: [id number] : 2000 Acct:[id number] Age/Sex: 24 / F ADM Date: 06/05/24 Loc: MRI Attending Dr: Glenna Carlin M.D. Ordering Physician: Glenna Carlin M.D. Date of Service: 06/05/24 Procedure(s): MR knee LT wo con Accession Number(s): [id number] cc: Glenna Carlin M.D. [place] [address] Patient Name: JORDAN GRANDE MRN: [facility]:[id number] date: 2000 Sex: F Assigned Patient Location: MRI Current Patient Location: MRI Accession/Order Number: [id number] Exam Date: 06/05/2024 13:00 Report Date: 06/05/2024 16:27 At the request of: GLENNA CARLIN Procedure: MR knee LT wo con EXAM: MR knee LT wo con REASON FOR EXAM: Left knee pain, instability. TECHNIQUE: Multiplanar, multisequence imaging of the left knee was performed without contrast COMPARISON: Radiographs 05/17/2024. FINDINGS: Laterally, the iliotibial band, fibular collateral ligament, popliteus tendon and biceps tendon are intact. The ACL is intact. The lateral meniscus demonstrates normal morphology and signal without tear. There is probable moderate sized osteochondral peripheral margin of the lateral femoral condyle measuring approximately 0.8 x 1.9 cm. There is subchondral marrow edema at this level. Medially, the medial collateral ligament is intact. The PCL is intact. The medial meniscus demonstrates normal morphology with some globular intrasubstance signal, which does not meet MRI criteria for tear. Low-grade chondrosis of the medial compartment. The distal quadriceps and patella tendons are intact. There is lateral patella subluxation, which is nonspecific in the setting of a joint effusion indeterminate tibial tuberosity trochlear groove interval of 18 mm. 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 Bone contusion involving the medial patella facet. Findings consistent with a likely acute or subacute patellar dislocation relocation injury. The femoral attachment of the MPFL appears thin and attenuated. No osteochondral defect identified involving the patella or trochlear cartilage. A moderate size joint effusion is present. A definite intra-articular body is not identified. The remaining bone marrow signal is normal. Moderate size joint effusion. The regional musculature is without muscle strain or tendon tear. MR/MR knee LT wo con IMPRESSION: 1. Findings of patella dislocation relocation injury. Suspect large osteochondral defect involving the peripheral margin of the lateral femoral condyle. A discrete displaced chondral fragment is not confidently identified within the visualized joint spaces. Indeterminate tibial tuberosity trochlear groove interval of 18 mm. Underlying trochlea dysplasia. Probable chronic high-grade sprain of the femoral attachment of the MPFL. . 2. 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 3. Intact menisci, cruciate and collateral ligaments. 4. Joint effusion Electronically authenticated by: MALIK KHAN Date: 06/05/2024 16:27 Dictated By: Malik Khan M.D. Signed By: 06/05/249 DD/ 26 TD/TT: Cloth Shrinking Tester: [address] [address] Magnetic Resonance Report Signed Patient: BAYLEE GRANDE MR#: [id number] : 2000 Acct:[id number] Age/Sex: 24 / F ADM Date: 06/05/24 Loc: MRI Attending Dr: Alfie Carlin M.D. Ordering Physician: Glenna Carlin M.D. Date of Service: 06/05/24 Procedure(s): MR aida e LT wo con Accession Number(s): [id number] cc: Glenna Carlin M.D. [address] [address] Patient Name: JORDAN GRANDE MRN: [facility]:[id number] date: 2000 Sex: F Assigned Patient Location: MRI Current Patient Loca tion: MRI Accession/Order Numb er: [id number] Exam Date: 06/05/2024 13:00 Report Date: 06/05/2024 16:27 At the request of: GLENNA CARLIN Procedure: MR knee L T wo con EXAM: MR knee LT wo con REASON FOR EXAM: Lef t knee pain, instability. TECHNIQUE: Multiplan ar, multisequence imaging of the left knee was performed without contrast COMPARISON: Radiogra [facility] 05/17/2024. FINDINGS: Laterally, the iliot ibial band, fibular collateral ligament, popliteus tendon and biceps tendon ar e intact. The ACL is intact. The lateral meniscus demonstrates normal morphology and signal without tear. There is probable moderate sized osteochondral peripheral margin of the lateral femoral condyle measuring approximat susan 0.8 x 1.9 cm. There is subchondral marrow edema at this level. Medially, the medial collateral ligament is intact. The PCL is intact. The medial meniscus demonstrates normal morphology with some globular intrasubstance signa l, which does not meet MRI criteria for tear. Low-grade chondrosis of the me dial compartment. The distal quadricep s and patella tendons are intact. There is lateral patella subluxation, which i s nonspecific in the setting of a joint effusion indeterminate tibial tuberosity trochlear groove interval of 18 mm. 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 Bone contusion involving the medial patella facet. Findings consistent with a li [place] acute or subacute patellar dislocation relocation injury. The femoral attachment of the MPFL appears thin and attenuated. No osteochondral defect identified involving the patella or trochlear cartilage. A moderate size joint effusion is present. A definite intra-articular body is not identified. The remaining bone m arrow signal is normal. Moderate size joint effusion. The regional musculature is without muscle strain or tendon tear. M R/MR knee LT wo con IMPRESSION: 1. Findings of iglesias la dislocation relocation injury. Suspect large osteochondral defect involving the peripheral margin of the lateral femoral condyle. A discrete displaced chondral fragment is not confidently identified within the visualize d joint spaces. Indeterminate tibial tuberosity trochlear groove interval of 1 8 mm. Underlying trochlea dysplasia. Probable chronic high-grade sprain of the femoral attachment of the MPFL. . 2. Low-grade chondro sis of the medial lateral compartment. 3. Intact menisci, cruciate and collateral ligaments. 4. Joint effusion Electronically authenticated by: MALIK KHAN Date: 06/05/2024 16:27 Dictated By: Malik Khan M.D. Signed By: 06/05/24 1629 DD/ 1627 TD/TT: Cloth Shrinking Tester: CBC AUTO DIFF Reviewed date:06/13/2024 07:09:20 PM Interpretation: Performing Lab: Notes/Report: [facility] , White Blood Count 9.3 4.0-11.0 10 3/uL Red Blood Count 4.53 4.20-5.40 10 6/uL Hemoglobin 13.4 12.0-16.0 g/dL Hematocrit 38.4 36.0-48.0 % Mean Corpuscular Volume 84.8 81.0-99.0 fL Mean Corpuscular Hemoglobin 29.6 26.7-34.0 pg Mean Corpuscular HGB Conc 34.9 29.9-35.2 g/dL Red Cell Distribution Width 12.4 11.0-15.0 % Platelet Count 330 150-450 10 3/uL Mean Platelet Volume 8.7 9.5-13.5 fL Neutrophils Percent Auto 57.9 43.0-75.0 % Lymphocytes Percent Auto 32.6 20.5-60.0 % Monocytes Percent Auto 6.1 1.7-12.0 % Eosinophils Percent Auto 2.5 0.9-7.0 % Basophils Percent Auto 0.4 0.2-2.0 % Immature Granulocytes Pct Auto 0.5 0.0-0.5 % Neutrophils Absolute Auto 5.4 1.4-6.5 10 3/uL Lymphocytes Absolute Auto 3.0 1.2-3.8 10 3/uL Monocytes Absolute Auto 0.6 0.3-0.8 10 3/uL Eosinophils Absolute Auto 0.2 0.0-0.7 10 3/uL Basophils Absolute Auto 0.0 0.0-0.1 10 3/uL Immature Granulocytes Abs Auto 0.05 0.00-0.03 10 3/uL Performing Lab: see note ML - [facility] LB PROF CHEM 8 (BAS METB) Reviewed date:06/13/2024 07:09:20 PM Interpretation: Performing Lab: Notes/Report: [facility] , Sodium 137 136-145 mmol/L Potassium 3.9 3.5-5.1 mmol/L Chloride 101 98-107 mmol/L Carbon Dioxide 25.4 21.0-32.0 mmol/L Anion Gap 14.5 Glucose 99 74-106 mg/dL Blood Urea Nitrogen 6.0 7.0-18.0 mg/dL Creatinine 0.71 0.55-1.02 mg/dL Estimated GFR ( Martina >60 >=60 Estimated GFR (Non- Consuelo >60 >=60 BUN Creatinine Ratio 8.5 Calcium 8.9 8.5-10.1 mg/dL Performing Lab: see note - [facility] QuantiFERON-TB Gold Plus Reviewed date:06/20/2024 12:36:23 PM Interpretation: Performing Lab: Notes/Report: [facility] , QuantiFERON Incubation . Incubation performed. Reference Range: . QuantiFERON-TB Gold Plus Negative Negative [address], [place] [id number] No response to M tuberculosis antigens detected. (ATS/IDSA/CDC Clinical Practice Guidelines, 2017). The Guitar Instructor: Gurpreet Johnston PhD, Phone: [phone] reference range is an Antigen minus Nil result of <0.35 Chemiluminescence immunoassay methodology Infection with M tuberculosis is unlikely, but high risk IU/mL. Performed at: [facility] individuals should be considered for additional testing QuantiFERON Criteria Comment . radiography, and other medical and diagnostic evaluations. M tuberculosis infection (including disease) and is value. The Mitogen tube serves as a control for the test. The QuantiFERON-TB Gold Plus result is determined by subtracting the Nil value from either TB antigen (Ag) QuantiFERON-TB Gold Plus is a qualitative indirect test for intended for use in conjunction with risk assessment, QuantiFERON TB1 Ag Value 0.01 . IU/mL QuantiFERON TB2 Ag Value 0.01 . IU/mL QuantiFERON Nil Value 0.01 . IU/mL QuantiFERON Mitogen Value >10.00 . IU/mL Performing Lab: see note - [facility] LB GLYCOHEMOGLOBIN A1C Reviewed date:02/28/2025 12:24:02 PM Interpretation: Performing Lab: Notes/Report: [facility] , Glycohemoglobin A1C 5.6 4.5-6.2 % ACTION SUGGESTED > 7.0 ADA RECOMMENDED LIMIT 4.0 - 6.0 ADA THERAPEUTIC TARGET < 7.0 Estimated Average Glucose 114 Performing Lab: see note ML - [facility] LB Urine Culture - [facility] Reviewed date:04/08/2025 09:02:05 PM Interpretation: Performing Lab: Notes/Report: [facility] , Urine Culture - [facility] See Below For Report Urine Culture - [facility] 75,000 colonies/ml mixed Urine Culture - [facility] bacterial skin contaminants Urine Culture - [facility] 75,000 colonies/ml mixed Urine Culture - [facility] 2 Days Urine Culture - [facility] 75,000 colonies/ml mixed Urine Culture - [facility] Urine Culture - [facility] 75,000 colonies/ml mixed Urine Culture - [facility] Testing performed a [facility] Urine Culture - [facility] 75,000 colonies/ml mixed Urine Culture - [facility] [address], [place] [address] Urine Culture - [facility] 75,000 colonies/ml mixed Performing Lab: see note ML - [facility] LB TSH Reviewed date:02/28/2025 12:24:02 PM Interpretation: Performing Lab: Notes/Report: [facility] , Thyroid Stimulating Hormone 1.492 0.358-3.740 uIU/mL Performing Lab: see note ML - [facility] LB T4 Reviewed date:02/28/2025 12:24:02 PM Interpretation: Performing Lab: Notes/Report: [facility] , T4 Thyroxine 8.30 4.80-13.90 ug/dL Performing Lab: see note ML - [facility] LB PROF 14(COMP METB) Reviewed date:02/28/2025 12:24:02 PM Interpretation: Performing Lab: Notes/Report: [facility] , Sodium 140 136-145 mmol/L Potassium 4.2 3.5-5.1 mmol/L Chloride 102 98-107 mmol/L Carbon Dioxide 27.5 21.0-32.0 mmol/L Anion Gap 14.7 Glucose 103 74-106 mg/dL Blood Urea Nitrogen 9.0 7.0-18.0 mg/dL Creatinine 0.68 0.55-1.02 mg/dL Estimated GFR ( Martina >60 >=60 mL/min/1.73m 2 Estimated GFR (Non- Consuelo >60 >=60 mL/min/1.73m 2 BUN Creatinine Ratio 13.2 Calcium 9.2 8.5-10.1 mg/dL Bilirubin Total 0.4 0.2-1.0 mg/dL Aspartate Amino Transferase 11 15-37 U/L Alanine Aminotransferase 16 14-59 U/L Alkaline Phosphatase 79 46-116 U/L Total Protein 7.1 6.4-8.2 g/dL Albumin Level 3.7 3.4-5.0 g/dL Globulin 3.4 Albumin Globulin Ratio 1.1 Performing Lab: see note ML - [facility] LIPID PROFILE Reviewed date:02/28/2025 12:24:02 PM Interpretation: Performing Lab: Notes/Report: [facility] , Triglycerides 155 <=150 mg/dL Cholesterol 180 <=200 mg/dL HDL Cholesterol 41 40-60 mg/dL > or =60 mg/dl - LOW CARDIOVASCULAR RISK <40 mg/dl - HIGH CARDIOVASCULAR RISK LDL Cholesterol Calculated 108.0 130-159 mg/dl BORDERLINE HIGH >190 mg/dl VERY HIGH 160-189 mg/dl HIGH <100 mg/dl OPTIMAL 100-129 mg/dl NEAR OR ABOVE OPTIMAL VLDL CHOLESTEROL 31.0 Chol HDL Ratio 4.4 >11.0 HIGH RISK 3.3 - 4.4 LOW RISK 7.1 - 11.0 MODERATE RISK 4.4 - 7.1 AVERAGE RISK Performing Lab: see note ML - [facility] INSULIN Reviewed date:03/01/2025 01:07:39 PM Interpretation: Performing Lab: Notes/Report: [facility] , Insulin 24.8 2.6-24.9 uIU/mL Guitar Instructor: Gurpreet Johnston PhD, Phone: [phone] [address], [place] [phone] Performed at: - [facility] Performing Lab: see note - [facility] LB FREE T3 Reviewed date:02/28/2025 12:24:02 PM Interpretation: Performing Lab: Notes/Report: [facility] , Free T3 3.57 2.18-3.98 pg/mL Performing Lab: see note - [facility] CBC AUTO DIFF Reviewed date:02/28/2025 12:24:02 PM Interpretation: Performing Lab: Notes/Report: [facility] , White Blood Count 9.6 4.0-11.0 10 3/uL Red Blood Count 4.94 4.20-5.40 10 6/uL Hemoglobin 14.3 12.0-16.0 g/dL Hematocrit 41.0 36.0-48.0 % Mean Corpuscular Volume 83.0 81.0-99.0 fL Mean Corpuscular Hemoglobin 28.9 26.7-34.0 pg Mean Corpuscular HGB Conc 34.9 29.9-35.2 g/dL Red Cell Distribution Width 12.2 11.0-15.0 % Platelet Count 272 150-450 10 3/uL Mean Platelet Volume 8.7 9.5-13.5 fL Neutrophils Percent Auto 70.1 43.0-75.0 % Lymphocytes Percent Auto 22.9 20.5-60.0 % Monocytes Percent Auto 4.4 1.7-12.0 % Eosinophils Percent Auto 2.0 0.9-7.0 % Basophils Percent Auto 0.3 0.2-2.0 % Immature Granulocytes Pct Auto 0.3 0.0-0.5 % Neutrophils Absolute Auto 6.7 1.4-6.5 10 3/uL Lymphocytes Absolute Auto 2.2 1.2-3.8 10 3/uL Monocytes Absolute Auto 0.4 0.3-0.8 10 3/uL Eosinophils Absolute Auto 0.2 0.0-0.7 10 3/uL Basophils Absolute Auto 0.0 0.0-0.1 10 3/uL Immature Granulocytes Abs Auto 0.03 0.00-0.03 10 3/uL Performing Lab: see note ML - [facility] LIPID PROFILE Reviewed date:02/25/2025 02:49:45 PM Interpretation: Performing Lab: Notes/Report: [facility] , Triglycerides 138 <=150 mg/dL Cholesterol 177 <=200 mg/dL HDL Cholesterol 41 40-60 mg/dL > or =60 mg/dl - LOW CARDIOVASCULAR RISK <40 mg/dl - HIGH CARDIOVASCULAR RISK LDL Cholesterol Calculated 108.4 160-189 mg/dl HIGH 100-129 mg/dl NEAR OR ABOVE OPTIMAL <100 mg/dl OPTIMAL 130-159 mg/dl BORDERLINE HIGH >190 mg/dl VERY HIGH VLDL CHOLESTEROL 27.6 Chol HDL Ratio 4.3 >11.0 HIGH RISK 4.4 - 7.1 AVERAGE RISK 3.3 - 4.4 LOW RISK 7.1 - 11.0 MODERATE RISK Performing Lab: see note ML - [facility] LB DEPAKENE or VALPROIC ACID Reviewed date:02/25/2025 02:49:45 PM Interpretation: Performing Lab: Notes/Report: [facility] , Valproic Acid 71.4 50.0-100.0 ug/mL Performing Lab: see note ML - [facility] LB XR knee LT 4V Reviewed date:09/26/2024 05:28:50 PM Interpretation: Performing Lab: Notes/Report: Source Facility: [facility] [place] [address] [place] [address] XRay Report Signed Patient: JORDAN GRANDE MR#: [id number] : 2000 Acct:[id number] Age/Sex: 24 / F ADM Date: 09/24/24 Loc: EC Attending Dr: Shahid Salmeron M.D. Ordering Physician: Shahid Salmeron M.D. Date of Service: 09/24/24 Procedure(s): XR knee LT 4V Accession Number(s): [id number] cc: Shahid Salmeron M.D.; Glenna Carlin M.D. [place] [address] Patient Name: JORDAN GRANDE MRN: [facility]:[id number] date: 2000 Sex: F Assigned Patient Location: Current Patient Location: Accession/Order Number: [id number] Exam Date: 09/24/2024 11:51 Report Date: 09/26/2024 15:13 At the request of: SHAHID SALMERON Procedure: XR knee LT 4V PROCEDURE: XR knee LT 4V HISTORY: LEFT KNEE PAIN COMPARISON: XR knee left 08/06/2024 FINDINGS: BONES:No fracture, acute abnormality, or significant arthropathy. SOFT TISSUES:No visible soft tissue swelling. EFFUSION:None visible. OTHER: Negative. XR/XR knee LT 4V IMPRESSION: 1. No acute bone abnormality or appreciable degenerative changes. Electronically authenticated by: SHAHID FLORES Date: 09/26/2024 15:13 Dictated By: Shahid Flores M.D. Signed By: 09/26/241514 DD/ 12 TD/TT: Cloth Shrinking Tester: [place] [address] XRay Report Signed Patient: BAYLEE GRANDE MR#: [id number] : 2000 Acct:[id number] Age/Sex: 24 / F ADM Date: 09/24/24 Loc: EC Attending Dr: Shahid Salmeron M.D. Ordering Physician: Shahid Salmeron M.D. Date of Service: 09/24/24 Procedure(s): XR kne e LT 4V Accession Number(s): [id number] cc: Shahid Salmeron M.D.; Glenna Carlin M.D. [place] [address] Patient Name: JORDAN GRANDE MRN: [facility]:[id number] date: 2000 Sex: F Assigned Patient Location: Current Patient Loca tion: EC Accession/Order Numb er: [id number] Exam Date: 11:51 Report Date: 09/26/2024 15:13 At the request of: SHAHID SALMERON Procedure: XR knee LT 4V PROCEDURE: XR knee LT 4V HISTORY: LEFT KNEE PAIN COMPARISON: XR knee left 08/06/2024 FINDINGS: BONES:No fracture, a cute abnormality, or significant arthropathy. SOFT TISSUES:No visi ble soft tissue swelling. EFFUSION:None visible. OTHER: Negative. X R/XR knee LT 4V IMPRESSION: 1. No acute bone abnormality or appreciable degenerative changes. Electronically authenticated by: SHAHID FLORES Date: 09/26/2024 15:13 Dictated By: Shahid Flores M.D. Signed By: 09/26/241514 DD/ 12 TD/TT: Cloth Shrinking Tester: XR chest 2V Reviewed date:09/20/2024 01:37:08 PM Interpretation: Performing Lab: Notes/Report: Source Facility: [place] [address] [place] [address] XRay Report Signed Patient: JORDAN GRANDE MR#: [id number] : 2000 Acct:[id number] Age/Sex: 24 / F ADM Date: 09/18/24 Loc: RAD Attending Dr: Glenna Carlin M.D. Ordering Physician: Glenna Carlin M.D. Date of Service: 09/18/24 Procedure(s): XR chest 2V Accession Number(s): [id number] cc: Glenna Carlin M.D. [place] [address] Patient Name: JORDAN GRANDE MRN: [facility]:[id number] date: 2000 Sex: F Assigned Patient Location: RAD Current Patient Location: Accession/Order Number: [id number] Exam Date: 09/18/2024 15:57 Report Date: 09/20/2024 06:51 At the request of: GLENNA CARLIN Procedure: XR chest 2V EXAMINATION: XR chest 2V HISTORY: Histoplasmosis COMPARISON: XR chest 06/13/2024 FINDINGS: LUNGS: Stable small dense nodule within medial right lung base favoring a calcified granuloma. Lungs are otherwise clear. VASCULATURE: No increased pulmonary vasculature. PLEURA: No pneumothorax, effusion, or pleural thickening. CARDIAC: No cardiomegaly or cardiac silhouette abnormality. MEDIASTINUM: No visible mass or adenopathy. BONES: No fracture or visible bone lesion. OTHER: Negative. XR/XR chest 2V IMPRESSION: 1. No acute cardiopulmonary process or suspicious findings. Electronically authenticated by: SHAHID FLORES Date: 09/20/2024 06:51 Dictated By: Shahid Flores M.D. Signed By: 09/20/24 0653 DD/ 0651 TD/TT: Cloth Shrinking Tester: [place] [address] XRay Report Signed Patient: BAYLEE GRANDE MR#: [id number] : 2000 Acct:[id number] Age/Sex: 24 / F ADM Date: 09/18/24 Loc: RAD Attending Dr: Alfie Carlin M.D. Ordering Physician: Glenna Carlin M.D. Date of Service: 09/18/24 Procedure(s): XR chest 2V Accession Number(s): [id number] cc: Glenna Carlin M.D. [place] [id number] Patient Name: JORDAN GRANDE MRN: [facility]:[id number] date: 2000 Sex: F Assigned Patient Location: RAD Current Patient Location: Accession/Order Numb er: [id number] Exam Date: 15:57 Report Date: 09/20/2024 06:51 At the request of: GLENNA CARLIN Procedure: XR chest 2V EXAMINATION: XR chest 2V HISTORY: Histoplasmosis COMPARISON: XR chest 06/13/2024 FINDINGS: LUNGS: Stable small dense nodule within medial right lung base favoring a calcified granuloma. Lungs are otherwise clear. VASCULATURE: No incr eased pulmonary vasculature. PLEURA: No pneumotho rax, effusion, or pleural thickening. CARDIAC: No cardiome fernando or cardiac silhouette abnormality. MEDIASTINUM: No visi ble mass or adenopathy. BONES: No fracture o r visible bone lesion. OTHER: Negative. X R/XR chest 2V IMPRESSION: 1. No acute cardiopulmonary process or suspicious findings. Electronically authenticated by: SHAHID FLORES Date: 09/20/2024 06:51 Dictated By: Shahid Flores M.D. Signed By: 09/20/24 0653 DD/ 0651 TD/TT: Cloth Shrinking Tester: Lower Respiratory Culture Reviewed date:08/26/2024 09:01:08 PM Interpretation: Performing Lab: Notes/Report: [facility] , Lower Respiratory Culture See Below For Report WILL FOLLOW Lower Respiratory Culture Lower Respiratory Culture Routine respiratory fide WILL FOLLOW Lower Respiratory Culture Lower Respiratory Culture Performed at: - [facility] WILL FOLLOW Lower Respiratory Culture Lower Respiratory Culture [address], [place] [id number] WILL FOLLOW Lower Respiratory Culture Lower Respiratory Culture Guitar Instructor: Gurpreet Johnston PhD, Phone: [phone] WILL FOLLOW Lower Respiratory Culture Performing Lab: see note LC - [facility] LB SEE REPORT - Glass Or Mirror Inspector Id information not found for OBX-specific crib tender legend Lower Respiratory Culture Reviewed date:08/22/2024 06:33:00 PM Interpretation: Performing Lab: Notes/Report: [facility] , Lower Respiratory Culture See Below For Report Lower Respiratory Culture WILL FOLLOW Lower Respiratory Culture Performed at: [facility] Lower Respiratory Culture WILL FOLLOW Lower Respiratory Culture [address], [place] [id number] Lower Respiratory Culture WILL FOLLOW Lower Respiratory Culture Guitar Instructor: Gurpreet Johnston PhD, Phone: [phone] Lower Respiratory Culture WILL FOLLOW Performing Lab: see note LC - [facility] LB SEE REPORT - Glass Or Mirror Inspector Id information not found for OBX-specific crib tender legend Gram Stain Evaluation Reviewed date:08/26/2024 09:01:08 PM Interpretation: Performing Lab: Notes/Report: [facility] , Gram Stain Evaluation See Below For Report This specimen is of good quality and is acceptable for routine Gram Stain Evaluation Gram Stain Evaluation bacterial culture. This specimen is of good quality and is acceptable for routine Gram Stain Evaluation Performing Lab: see note LC - [facility] LB Result 4 Reviewed date:08/26/2024 09:01:08 PM Interpretation: Performing Lab: Notes/Report: [facility] , Result 4 See Below For Report Result 4 DEPARTMENT STORE SALESPERSON Performing Lab: see note LC - [facility] LB Result 3 Reviewed date:08/26/2024 09:01:08 PM Interpretation: Performing Lab: Notes/Report: [facility] , Result 3 See Below For Report Result 3 DEPARTMENT STORE SALESPERSON Performing Lab: see note LC - [facility] LB Result 2 Reviewed date:08/26/2024 09:01:08 PM Interpretation: Performing Lab: Notes/Report: [facility] , Result 2 See Below For Report Result 2 DEPARTMENT STORE SALESPERSON Performing Lab: see note LC - [facility] LB Result 1 Reviewed date:08/26/2024 09:01:08 PM Interpretation: Performing Lab: Notes/Report: [facility] , Result 1 See Below For Report Result 1 Few gram positive cocci Performing Lab: see note LC - [facility] LB Epithelial Cells Reviewed date:08/26/2024 09:01:08 PM Interpretation: Performing Lab: Notes/Report: [facility] , Epithelial Cells See Below For Report Few Epithelial Cells Performing Lab: see note LC - [facility] LB White Blood Cells Reviewed date:08/26/2024 09:01:08 PM Interpretation: Performing Lab: Notes/Report: [facility] , White Blood Cells See Below For Report Wh ite Blood Cells White Blood Cells None seen White Bloo d Cells Performing Lab: see note - [facility] LB Histoplasma capsulatum Abs. Reviewed

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
[2025-04-28 09:10] LABS: Bilirubin Urine NEGATIVE (NEGATIVE); Blood Urine TRACE-I (NEGATIVE); Clarity Urine CLEAR (CLEAR); Color Urine LT. YELLOW (YELLOW); Glucose Urine UA NEGATIVE (NEGATIVE); Ketones Urine NEGATIVE (NEGATIVE); Leukocyte Esterase Urine NEGATIVE (NEGATIVE); Nitrite Urine NEGATIVE (NEGATIVE); Protein Urine NEGATIVE (NEG/TRACE); Urobilinogen Urine 0.2 EU/dL (0.2-1.0)
[2025-04-28 09:11] LABS: HCG Qualitative Urine* NEGATIVE (NEGATIVE); Internal Control Within Normal Limits
[2025-04-28 09:12] LABS: Basophils Percent Auto 0.4 % (0.2-2.0); Eosinophils Absolute Auto 0.1 10^3/uL (0.0-0.7); Eosinophils Percent Auto 1.5 % (0.9-7.0); Hematocrit 41.8 % (36.0-48.0); Hemoglobin 14.2 g/dL (12.0-16.0); Immature Granulocytes Abs Auto 0.04 10^3/uL (0.00-0.03); Immature Granulocytes Pct Auto 0.4 % (0.0-0.5); Lymphocytes Absolute Auto 2.3 10^3/uL (1.2-3.8); Lymphocytes Percent Auto 24.3 % (20.5-60.0); Mean Corpuscular Hemoglobin 28.2 pg (26.7-34.0); Mean Corpuscular Volume 83.1 fL (81.0-99.0); Mean Platelet Volume 8.4 fL (9.5-13.5); Monocytes Absolute Auto 0.4 10^3/uL (0.3-0.8); Monocytes Percent Auto 4.7 % (1.7-12.0); Neutrophils Absolute Auto 6.4 10^3/uL (1.4-6.5); Neutrophils Percent Auto 68.7 % (43.0-75.0); Platelet Count 333 10^3/uL (150-450); Red Blood Count 5.03 10^6/uL (4.20-5.40); Red Cell Distribution Width 12.5 % (11.0-15.0); White Blood Count 9.4 10^3/uL (4.0-11.0)
[2025-04-28 09:19] LABS: Anion Gap 15.6; BUN Creatinine Ratio 17.6; Calcium 9.7 mg/dL (8.5-10.1); Carbon Dioxide 26.6 mmol/L (21.0-32.0); Chloride 100 mmol/L (98-107); Estimated GFR (African America >60 (>=60 mL/min/1.73m^2); Estimated GFR (Non-African Ame >60 (>=60 mL/min/1.73m^2); Glucose 112 mg/dL (74-106); Potassium 4.2 mmol/L (3.5-5.1); Sodium 138 mmol/L (136-145)
[2025-04-28 09:30] LABS: Bacteria Urine TRACE #/HPF (NONE SEEN); Cast Seen? NONE SEEN #/LPF (NONE SEEN); Crystals Seen? None Seen #/HPF (None Seen); Mucus Urine NONE SEEN (NONE SEEN); RBC Urine 0-2 #/HPF (0-2); Squamous Epithelial Cell Urine RARE #/LPF (NONE/RARE); Urine Culture Indicated NO; WBC Urine NONE SEEN #/HPF (NONE SEEN)
== END 2025-04-28 09:47 | disposition home or self-care (01) ==
PROVIDERS: Emergency Provider Emergency Medicine; PCP Family Medicine
DX: R35.0 Frequency of micturition (principal); Z87.891 Personal history of nicotine dependence
CPT/HCPCS: 36415; 80048; 81001; 84703; 85025; 99283

== ENCOUNTER 2025-05-01 11:03 | Outpatient (OUT) | payer OTHER, SELFPAY ==
--- NOTE | 2025-05-01 11:05 | US_ITS ---
The [address] [address] Patient Name: EUSEBIA GRANDE MRN: [id number] date: 2000 Sex: F Assigned Patient Location: US Current Patient Location: US Accession/Order Number: [id number] Exam Date: 05/01/2025 12:03 Report Date: 05/01/2025 12:06 At the request of: GLENNA LARA MD Procedure: US pelvis ULTRASOUND PELVIS CLINICAL DATA: Pelvic pain with worsening frequent urination. COMPARISON: 11/17/2017 The urinary bladder is only partially distended. Estimated uterine size is approximately 6.6 x 3.3 x 3.4 cm. No focal myometrial abnormalities are noted. The endometrial lining is estimated at 3-4 mm. The right ovary measures 2.5 x 1.9 x 2.2 cm. The left ovary measures 2.7 x 2.6 x 2.7 cm. There are no dominant adnexal cysts. There is documentation of bilateral ovarian blood flow with resistive indices of 0.77 on the right and 0.44 on the left. No free fluid is seen. US/US pelvis IMPRESSION: NO ADNEXAL CYSTS OR OTHER ACUTE FINDINGS. Impression dictated by: Dulce Laureano M.D. 05/01/2025 12:06 PM Dictation Location: [place] [address] Electronically authenticated by: [id number] Y Date: 05/01/2025 12:06
== END 2025-05-01 11:04 | disposition home or self-care (01) ==
LOC: US 11:03
PROVIDERS: PCP Family Medicine; Visit Provider Family Medicine
DX: R10.2 Pelvic and perineal pain (principal)
CPT/HCPCS: 76856